=== PATIENT | female | born 1950 | race Caucasian/White ===

== ENCOUNTER → 2023-06-29 14:16 | Outpatient (BNVA) | payer MEDICARE, SELFPAY | PROVIDERS: PCP Family Medicine; Referring Provider Family Medicine; Visit Provider Podiatrist | DX: E11.8 Type 2 diabetes mellitus with unspecified complications (principal); E11.43 Type 2 diabetes mellitus with diabetic autonomic (poly)neuropathy; B35.1 Tinea unguium; G62.9 Polyneuropathy, unspecified; L60.3 Nail dystrophy; R23.4 Changes in skin texture; L65.9 Nonscarring hair loss, unspecified; I73.9 Peripheral vascular disease, unspecified | CPT/HCPCS: 11721; 99203 ==

== ENCOUNTER → 2023-11-17 08:28 | Outpatient (BNVA) | payer MEDICARE, SELFPAY | PROVIDERS: PCP Family Medicine; Referring Provider Family Medicine; Visit Provider Podiatrist | DX: E11.43 Type 2 diabetes mellitus with diabetic autonomic (poly)neuropathy (principal); B35.1 Tinea unguium; G62.9 Polyneuropathy, unspecified; L60.3 Nail dystrophy; L97.521 Non-pressure chronic ulcer of other part of left foot limited to breakdown of skin | CPT/HCPCS: 11721 ==

== ENCOUNTER → 2023-12-08 13:59 | Outpatient (BNVA) | payer MEDICARE, SELFPAY | PROVIDERS: PCP Family Medicine; Referring Provider Family Medicine; Visit Provider Podiatrist | DX: E11.43 Type 2 diabetes mellitus with diabetic autonomic (poly)neuropathy; B35.1 Tinea unguium; G62.9 Polyneuropathy, unspecified; L60.3 Nail dystrophy; L97.521 Non-pressure chronic ulcer of other part of left foot limited to breakdown of skin | CPT/HCPCS: 99214 ==

== ENCOUNTER → 2024-03-12 13:22 | Outpatient (BNVA) | payer MEDICARE, SELFPAY | PROVIDERS: PCP Family Medicine; Referring Provider Family Medicine; Visit Provider Podiatrist | DX: E11.43 Type 2 diabetes mellitus with diabetic autonomic (poly)neuropathy (principal); B35.1 Tinea unguium; G62.9 Polyneuropathy, unspecified; L60.3 Nail dystrophy; L97.521 Non-pressure chronic ulcer of other part of left foot limited to breakdown of skin | CPT/HCPCS: 11055; 11721 ==

== ENCOUNTER 2024-03-12 15:01 | Outpatient (CLI) | payer MEDICARE, SELFPAY ==
--- NOTE | 2024-03-12 15:15 | DI.RAD_ITS ---
Exam(s) XR FOOT LT COMPLETE EXAM: XR FOOT LT COMPLETE CLINICAL HISTORY: M79.672 Pain left foot, 1st MPJ pain redness swelling an warmth. TECHNIQUE: 2D digital imaging was performed. COMPARISON: No exams were available for comparison FINDINGS: 3 views There is an avulsion fracture fragment off the distal aspect of the head of the great toe metatarsal. Un conventional appearance. Also increased soft tissue swelling over this region and increased den sity in the head of the great toe metatarsal and proximal phalanx of the great toe. There is no radi opaque foreign body. No other significant findings in the foot. Inferior calcaneal spur is noted as is an enthesophyte on the posterior calcaneus and there is fusiform thickening of the Achilles tendo n consistent with chronic tendinitis/tendinosis. There is no calcification evident in the thickened Achilles tendon. IMPRESSION: Un conventional appearing displaced fracture fragment in the dorsal aspect of the head of the great t oe metatarsal. There is no overlying skin wound seen. No radiopaque foreign bodies. Correlation wi acute clinical history at this level is recommended. Cannot exclude developing osteomyelitis in t he appropriate clinical setting. Incidental finding of fusiform thickening of the Achilles tendon and enthesophyte on the posterior ca lcaneus insertion site of the Achilles tendon. DATA REPOSITORY: RADIATION DOSE DELIVERED:
--- OUTSIDE RECORDS SUMMARY | 2024-03-12 15:15 | XMS_ITS | Continuity of Care Document ---
Author Organization [facility] Address [address] [place] [address] Care Team Providers Care Sales Clerk Supervisor Name Role Phone Nerissa Victoria Primary Care Physician [phone] Encounter [facility] Date(s): 02/25/23 - 02/25/23 [facility] [address] [place] [address] Discharge Disposition: Home Allergies, Adverse Reactions, Alerts Substance Reaction Severity Status troglitazone Unknown Unknown Active Rezulin Unknown Active rosiglitazone Unknown Active penicillins Unknown Active sulfa drugs Unknown Active Avandia Unknown Active Assessment and Plan Future Appointments Future Scheduled Tests Radiology* MG Mammo Digital Screening Bilateral 09/27/23 * BD Bone Density DEXA Axial w/Frac Assess 02/24/23 Immunizations Given and Recorded Vaccine Date Status Refusal Reason pneumococcal 20-valent conjugate vaccine 02/15/23 Recorded SARS-CoV-2 (COVID-19) mRNA-1273 vaccine 05/25/21 R ecorded SARS-CoV-2 (COVID-19) mRNA-1273 vaccine 10/27/20 R ecorded SARS-CoV-2 (COVID-19) mRNA-1273 vaccine 09/30/20 R ecorded tetanus-diphth toxoids (Td) adult/adol 1 05/22/20 Recorded influenza virus vaccine, live 04/22/20 Recorded influenza virus vaccine, live 05/01/19 Recorded pneumococcal 23-polyvalent vaccine 2 12/01/18 Micah rded pneumococcal 13-valent conjugate vaccine 10/28/17 Recorded influenza virus vaccine, inactivated 08/14/17 Micha rded tetanus toxoid 08/01/10 Recorded 1Result Comment: verified with [facility] 2Result Comment: administered state supply instead of private supply Medications berberine berberine, See Instructions, 1 tab TID, 0 Refill(s) Start Date: 05/31/22 Status: Ordered Dexcom G4 Cobbler Mckay Dexcom 6, Supply, 1 EA, N/A, As Directed, PRN bleeding As needed, # 1 EA, 0 Refill(s) Start Date: 08/19/22 Status: Ordered HumaLOG 100 units/mL injectable solution See Instructions, INJECT SUBCUTANEOUSLY 3 TIMES DAILY WITH MEALS AND NEEDED WITH SNACKS. 1 UNIT PER 5 CARBS WITH MEALS/SNACKS; 100 unit maximum daily dose, # 15 mL, 6 Refill(s), Pharmacy: [facility] ([facility] ) Start Date: 01/11/23 Status: Ordered Insulin Syringe-Needle 31G 0.5 mL See Instructions, 1 syringe 3 times daily Start Date: 02/03/22 Status: Ordered Insulin syrings needles 31g 0.5ml Insulin syrings needles 31g 0.5ml, use 4 syringes daily, Supply, See instructions, # 200 EA, 1 Refill(s), Pharmacy: [facility] ([facility] ) Start Date: 11/23/22 Status: Ordered Levemir 100 units/mL subcutaneous solution 30 units =, Subcutaneous, every day at bedtime, # 15 mL, 1 Refill(s), Pharmacy: [facility] ) Start Date: 01/14/23 Status: Ordered levothyroxine 125 mcg (0.125 mg) oral tablet 125 mcg = 1 tab, Oral, Daily, # 90 tab, 4 Refill(s), Pharmacy: [facility] ([facility] ) Start Date: 01/14/23 Status: Ordered losartan 50 mg oral tablet 25 mg = 0.5 tab, Oral, Daily, for 90 days, # 45 tab, 3 Refill(s), Pharmacy: [facility] ([facility]) Start Date: 05/31/22 Stop Date: 05/26/23 Status: Ordered nystatin 100,000 units/g topical cream 1 baljeet, Topical, BID, PRN other (see comment), # 30 g, 11 Refill(s), Pharmacy: [facility] ([facility]) Start Date: 05/31/22 Stop Date: 05/26/23 Status: Ordered Onetouch ultra glucometer Onetouch ultra glucometer, pt tests 4 times daily E11.9, Supply, See instructions, # 1 EA, 0 Refill(s), Pharmacy: [id number] Start Date: 07/29/22 Status: Ordered OneTouch Ultra In Vitro Strip OneTouch Ultra In Vitro Strip, See Instructions, USE 1 STRIP 4 TIMES DAILY, # 400 strip, 3 Refill(s), Pharmacy: [facility] ([facility]) Start Date: 05/20/22 Status: Ordered Ozempic 2 mg/3 mL (0.25 mg or 0.5 mg dose) subcutaneous solution 0 Refill(s) Start Date: 11/04/22 Status: Ordered Problem List Condition Confirmation Course Effective Dates Status H ealth Status Informant Atypical chest pain Confirmed 09/12/18 Active Candidal intertrigo Confirmed 06/05/21 Active Cellulitis of foot Confirmed 03/28/18 Active Chronic constipation Confirmed 03/17/18 Active Decreased hearing Confirmed 05/17/19 Active 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 Fatigue Confirmed 11/27/21 Active Foot ulcer due to type 2 diabetes mellitus Confirmed 08/13/20 Active Ganglion cyst of left hand Confirmed 06/05/21 Active Hypertensive disorder Confirmed Active Hypothyroidism Confirmed Active Increased frequency of urination Confirmed Active Neuropathy Confirmed 02/22/22 Active Osteoarthritis Confirmed 01/18/20 Active Wrist pain Confirmed Active Pain of right shoulder joint Confirmed 06/05/21 Active Puncture wound of foot Confirmed 05/22/20 Active Solar degeneration Confirmed 07/02/20 Active Solar lentigo Confirmed 06/05/21 Active De Quervain's tenosynovitis, right Confirmed Active Type 2 diabetes mellitus without complication Confirmed Active Varicose veins of lower extremity Confirmed 01/21/22 Active Varicose vein of leg Confirmed Active Procedures Procedure Date Related Diagnosis Body Site Status Cataract surgery Complete d section 1 Comple chanell Retinal operation 2 Compl eted 1two of them 2laser eye surgery Social History Social History Type Response Tobacco Never tobacco user T obacco Use:. Sex Female Patient Care team information Care Team Personnel Name: Nerissa Victoria MD Position: Physician Member Role: Primary Care Physician Address: Address: [address] [place] [phone] [place] Care Team Related Persons Name: MARGUERITE STARR Address: Home Name: RICARDO BOWMAN Address: Home
--- OUTSIDE RECORDS SUMMARY | 2024-03-12 15:15 | XMS_ITS | Continuity of Care Document ---
Author Organization [facility] Address [address] [place] [address] Care Team Providers Care Ccu Nurse Name Role Phone Nerissa Nguyễn Primary Care Physician Encounter [facility] Date(s): 05/19/23 - 05/19/23 [facility] [address] [place] [address] Encounter Diagnosis DM2 (diabetes mellitus, type 2)(Discharge Diagnosis) - 05/19/23 Discharge Disposition: Home or Self Care Attending Physician: Nerissa Nguyễn MD Admitting Physician: Nerissa Nguyễn MD Referring Physician: Nerissa Nguyễn MD Allergies, Adverse Reactions, Alerts Substance Reaction Severity Status troglitazone Unknown Unknown Active Rezulin Unknown Active rosiglitazone Unknown Active penicillins Unknown Active sulfa drugs Unknown Active Avandia Unknown Active Assessment and Plan Future Appointments Future Scheduled Tests Radiology* MG Mammo Screening Bilateral w/ Altaf 02/28/23 Immunizations Given and Recorded Vaccine Date Status Refusal Reason influenza virus vaccine, inactivated 1 04/19/23 Re corded influenza virus vaccine, inactivated 08/14/17 Micah rded pneumococcal 20-valent conjugate vaccine 02/15/23 Recorded SARS-CoV-2 (COVID-19) mRNA-1273 vaccine 05/25/21 R ecorded SARS-CoV-2 (COVID-19) mRNA-1273 vaccine 10/27/20 R ecorded SARS-CoV-2 (COVID-19) mRNA-1273 vaccine 09/30/20 R ecorded tetanus-diphth toxoids (Td) adult/adol 2 05/22/20 Recorded influenza virus vaccine, live 04/22/20 Recorded influenza virus vaccine, live 05/01/19 Recorded pneumococcal 23-polyvalent vaccine 3 12/01/18 Micah rded pneumococcal 13-valent conjugate vaccine 10/28/17 Recorded tetanus toxoid 08/01/10 Recorded 1Result Comment: 65=0.7 ml @ [facility] 2Result Comment: verified with GJ 3Result Comment: administered state supply instead of private supply Medications alendronate 70 mg oral tablet 70 mg = 1 tab, Oral, every week, with 6-8 oz plain water, at least 30 minutes before first food, beverage, or medication of the day, # 12 tab, 3 Refill(s), Pharmacy: [facility] ([facility] Start Date: 04/21/23 Status: Ordered berberine berberine, See Instructions, 1 tab TID, 0 Refill(s) Start Date: 05/31/22 Status: Ordered Dexcom G4 [facility] Dexcom 6, Supply, 1 EA, N/A, As Directed, PRN bleeding As needed, # 1 EA, 0 Refill(s) Start Date: 08/19/22 Status: Ordered HumaLOG 100 units/mL injectable solution See Instructions, INJECT SUBCUTANEOUSLY 3 TIMES DAILY WITH MEALS AND NEEDED WITH SNACKS. 1 UNIT PER 5 CARBS WITH MEALS/SNACKS; 100 unit maximum daily dose. Dx: E 11.9, # 15 mL, 6 Refill(s), Pharmacy: [facility] ([facility]) Start Date: 04/12/23 Status: Ordered Insulin Syringe-Needle 31G 0.5 mL [...] units =, Subcutaneous, every day at bedtime, Dx: E 11.9, # 15 mL, 1 Refill(s), Pharmacy: [facility] ([facility]) Start Date: 04/12/23 Status: Ordered levothyroxine 125 mcg (0.125 mg) oral tablet 125 mcg = 1 tab, Oral, Daily, # 90 tab, 4 Refill(s), Pharmacy: [facility] ([facility] ) Start Date: 01/14/23 Status: Ordered losartan 50 mg oral tablet 25 mg = 0.5 tab, Oral, Daily, for 90 days, # 45 tab, 3 Refill(s), Pharmacy: [facility] ([facility]) Start Date: 03/29/23 Stop Date: 03/23/24 Status: Ordered nystatin 100,000 units/g topical cream 1 baljeet, Topical, BID, PRN other (see comment), # 30 g, 11 Refill(s), Pharmacy: [facility] ([facility]) Start Date: 05/31/22 Stop Date: 05/26/23 Status: Ordered Onetouch ultra glucometer Onetouch ultra glucometer, pt tests 4 times daily E11.9, Supply, See instructions, # 1 EA, 0 Refill(s), Pharmacy: [id number] Start Date: 07/29/22 Status: Ordered OneTouch Ultra In Vitro Strip OneTouch Ultra In Vitro Strip, See Instructions, USE 1 STRIP 4 TIMES DAILY, # 400 strip, 3 Refill(s), Pharmacy: [facility] ([facility]) Start Date: 05/20/22 Status: Ordered semaglutide 0.25 mg/0.5 mL (0.25 mg dose) subcutaneous solution 0.25 mg =, Subcutaneous, every week, in the abdomen, thigh, or upper arm, # 2 mL, 1 Refill(s), Pharmacy: [facility] Start Date: 05/19/23 Stop Date: 07/14/23 Status: Ordered sertraline 25 mg oral tablet 25 mg = 1 tab, Oral, Daily, # 30 tab, 0 Refill(s), Pharmacy: [facility] Start Date: 05/12/23 Status: Ordered Problem List Condition Confirmation Course Effective Dates Status H ealth Status Informant Atypical chest pain Confirmed 09/12/18 Active Candidal intertrigo Confirmed 06/05/21 Active Cellulitis of foot Confirmed 03/28/18 Active Chronic constipation Confirmed 03/17/18 Active Decreased hearing Confirmed 05/17/19 Active Depression Confirmed Active 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 Fatigue Confirmed 11/27/21 Active Foot ulcer due to type 2 diabetes mellitus Confirmed 08/13/20 Active Ganglion cyst of left hand Confirmed 06/05/21 Active Hypertensive disorder 1 Confirmed Active Hypothyroidism Confirmed Active Increased frequency of urination Confirmed Active Neck pain 2 Confirmed Active Neuropathy Confirmed 02/22/22 Active Osteoarthritis Confirmed 01/18/20 Active Osteoporosis Confirmed Active Wrist pain Confirmed Active Pain of right shoulder joint 3 Confirmed 06/05/21 Active Puncture wound of foot Confirmed 05/22/20 Active Solar degeneration Confirmed 07/02/20 Active Solar lentigo 4 Confirmed 06/05/21 Active De Quervain's tenosynovitis, right Confirmed Active DM2 (diabetes mellitus, type 2) Confirmed Active Type 2 diabetes mellitus without complication 5 Confirmed Active Varicose veins of lower extremity Confirmed 01/21/22 Active Varicose vein of leg Confirmed Active 1From 06-05-2021 visit: At goal on present medical regimen. Continue to monitor on present medical regimen with better exercise and weight control. 06/05/2021: Patient will have increased dose of losartan to 50 mg daily and follow blood pressures at home. She needs work on weight loss and better exercise pattern. 2From 03-16-2021 visit: Minimal cervical neck pain but kyphosis of the upper back and poor posture chronically. Image cervical spine, continue orthopedic follow-up and OT/PT with other modalities of treatment to increase mobility and strength of the affected joints. 3From 06-05-2021 visit: Status post injury with recurrent discomfort over shoulder girdle and right neck as well as other body aches not improving with exercise and physical therapy. Refer to pain management to review body pain which appears to be after fall with most of her injury over the right but also having left-sided symptoms which are diffuse and vague. 4From 06-05-2021 visit: Advancing skin disease over face especially with patient to have dermatology review. There are no suspicious lesions for cancer at this time. 5From 11-20-2021 visit: Stable and at goal with patient continuing modification of diet and exercise along with her medicaltherapy. No change in medical therapy. Procedures Procedure Date Related Diagnosis Body Site Status Cataract surgery Complete d section 1 Comple chanell Retinal operation 2 Compl eted 1two of them 2laser eye surgery Results Laboratory List Name Date Hemoglobin A1c 10/19/23 Most recent to oldest [Reference Range]: 1 Hemoglobin A1c [4.0-6.0 %] 8.6 % *HI* (05/19/23 2:24 PM) Social History Social History Type Response Tobacco Never tobacco user T obacco Use:. Sex Female Patient Care team information Care Team Personnel Name: Nerissa Nguyễn MD Position: Physician Member Role: Primary Care Physician Address: Address: [address] [place] [phone] [place] Care Team Related Persons Name: MARGUERITE STARR Name: RICARDO BOWMAN
--- OUTSIDE RECORDS SUMMARY | 2024-03-12 15:15 | XMS_ITS | Continuity of Care Document ---
Author Organization [facility] Address [address] [place] [address] Care Team Providers Care Sand Buffer Name Role Phone Reji Zarco Primary Care Physician [phone] Encounter [facility] [id number] Date(s): 01/13/24 - 01/13/24 [facility] [address] [place] [address] Encounter Diagnosis Urinary tract infection(Discharge Diagnosis) - 01/13/24 Dizziness(Discharge Diagnosis) - 01/13/24 Dehydration(Discharge Diagnosis) - 01/13/24 Discharge Disposition: Home or Self Care Attending Physician: Abebe Boles MD Admitting Physician: Abebe Boles MD Allergies, Adverse Reactions, Alerts Substance Reaction Severity Status troglitazone Unknown Unknown Active Rezulin Unknown Active rosiglitazone Unknown Active penicillins Unknown Active sulfa drugs Unknown Active Avandia Unknown Active Assessment and Plan Extracted from: Title:Clinical Document Author:Charley Leos te:01/13/24 Diagnosis: 1. Urinary tract infection Comment: Diagnosis: 2. Dizziness Comment: Diagnosis: 3. Dehydration Comment: Diagnosis: Dizziness Comment: Extracted from: Title:ED Provider Note Author:Abebe Boles MD Date:01/13/24 Assessment/Plan 1.??Urinary tract infection??N39.0 Ordered: Discharge Patient, 01/13/24 12:53:00 EDT, Home Independently, Constant Indicator ?? 2.??Dizziness??R42 Ordered: Discharge Patient, 01/13/24 12:53:00 EDT, Home Independently, Constant Indicator ?? 3.??Dehydration??E86.0 Ordered: Discharge Patient, 01/13/24 12:53:00 EDT, Home Independently, Constant Indicator ?? Orders: Cipro 250 mg oral tablet, 250 mg = 1 tab, Oral, every 12 hr, X 7 days, # 14 tab, 0 Refill(s), 01/20/24 12:53:00 EDT, Pharmacy: [facility] #[id number], 165.1, cm, 07/01/22 12:42:00 EST, Height, 86.9, kg, 11/14/23 11:13:00 EDT, Weight Dosing Urine Culture, Urine, Stat collect, ST - Stat, 01/13/24 11:15:02 EDT, Once, Nurse collect, Collected, 01/13/24 11:15:02 EDT, Print Label, [id number] Patient Discharge Condition improved Discharge Disposition home Patient Education Dehydration, Adult Dizziness, Czai-ab-Piqf Urinary Tract Infection, Adult, Yild-ju-Islr Follow Up With When Contact Information Reji Zarco MD Within 2 to 4 days [facility] [place] [id number]- ?? Additional Instructions: Future Appointments Future Scheduled Tests Laboratory* CBC w/ Diff 12/30/23 * CBC w/ Diff 07/28/23 * CBC w/ Diff 10/19/23 * Comprehensive Metabolic Panel 12/30/23 * Comprehensive Metabolic Panel 07/28/23 * Vitamin B12 Level 10/19/23 * C-Reactive Protein 12/30/23 * Ferritin 10/19/23 * Folate Level 10/19/23 * TSH w/ Rflx to Free T4 12/30/23 * Microalbumin/Creatinine Ratio Urine 10/19/23 * Sedimentation Rate (ESR) 12/30/23 * Iron Level and TIBC 10/19/23 * Vitamin D, 25-OH Total [facility] 10/19/23 * Hemoglobin A1c 12/30/23 * Hemoglobin A1c 07/28/23 * Rheumatoid Factor [facility] 12/30/23 Functional Status 01/13/24 Family Member Travel History No recent t ravel Recent Travel History No recent travel Other exposure to Infectious Disease Non e Immunizations Given and Recorded Vaccine Date Status Refusal Reason RSV vaccine preF3, recombinant 1 06/17/23 Recorded SARS-CoV-2 (COVID-19) Moderna (cvx 312) 2 06/17/23 Recorded influenza virus vaccine, inactivated 3 04/19/23 Re corded influenza virus vaccine, inactivated 08/14/17 Micah rded pneumococcal 20-valent conjugate vaccine 02/15/23 Recorded SARS-CoV-2 (COVID-19) mRNA-1273 vaccine 05/25/21 R ecorded SARS-CoV-2 (COVID-19) mRNA-1273 vaccine 10/27/20 R ecorded SARS-CoV-2 (COVID-19) mRNA-1273 vaccine 09/30/20 R ecorded tetanus-diphth toxoids (Td) adult/adol 4 05/22/20 Recorded influenza virus vaccine, live 04/22/20 Recorded influenza virus vaccine, live 05/01/19 Recorded pneumococcal 23-polyvalent vaccine 5 12/01/18 Micah rded pneumococcal 13-valent conjugate vaccine 10/28/17 Recorded tetanus toxoid 08/01/10 Recorded 1Result Comment: Rico Carrillo [facility] 3Result Comment: 65=0.7 ml @ [facility] 4Result Comment: verified with GJ 5Result Comment: administered state supply instead of private supply Medications Cipro 250 mg oral tablet 250 mg = 1 tab, Oral, every 12 hr, X 7 days, # 14 tab, 0 Refill(s), 01/20/24 11:53:00 AM CDT, Pharmacy: [facility] #[id number], 165.1, cm, 07/01/22 12:42:00 EST, Height, 86.9, kg, 11/14/23 11:13:00 EDT, Weight Dosing Start Date: 01/13/24 Stop Date: 01/20/24 Status: Ordered clopidogrel 75 mg oral tablet 75 mg = 1 tab, Oral, Daily, # 90 tab, 3 Refill(s), Pharmacy: [facility] #[id number], 165.1, cm, 07/01/22 12:42:00 EST, Height, 86.9, kg, 11/14/23 11:13:00 EDT, Weight Dosing Start Date: 12/20/23 Status: Ordered Dexcom 7 Dexcom 7, Dexcom sensor 1 every 10 days, Supply, See instructions, # 3 EA, 0 Refill(s), Pharmacy: [facility] #[id number] Start Date: 10/06/23 Status: Ordered Diagnosis: Diabetes. Diabetic foot wear with custom orthotics, 1 pair,, daily use Diagnosis: Diabetes. 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, Supply, See instructions, # 1 EA, 0 Refill(s) Start Date: 07/18/23 Status: Ordered DME DECOM 7., Supply, See instructions, # 1 EA, 0 Refill(s) Start Date: 07/28/23 Status: Ordered HumaLOG 100 units/mL injectable solution See Instructions, INJECT SUBCUTANEOUSLY 3 TIMES DAILY WITH MEALS AND NEEDED WITH SNACKS. 1 UNIT PER 5 CARBS WITH MEALS/SNACKS; 100 unit maximum daily dose. Dx: E 11.9, # 15 mL, 6 Refill(s), Pharmacy: [facility], 165.1, cm, 07/01/22 12:42:00 EST, Height, 82, kg, 08/18/23 19:35:00 EST, Weight Dosing Start Date: 11/03/23 Status: Ordered Insulin Syringe-Needle 31G 0.5 mL See Instructions, 1 syringe 3 times daily Start Date: 02/03/22 Status: Ordered ketoconazole 2% topical cream 1 baljeet, Topical, Daily, to affected area of toenail for 3 months, # 120 g, 0 Refill(s) Start Date: 09/30/23 Stop Date: 12/29/23 Status: Ordered Lantus 100 units/mL subcutaneous solution 46 units =, Subcutaneous, Daily, Please send 2 pens as [place]. If insurance willcover., # 50 mL, 6 Refill(s), Pharmacy: [facility], 165.1, cm, 07/01/22 12:42:00 EST, Height, 82, kg, 08/18/23 19:35:00 EST, Weight Dosing Start Date: 10/03/23 Stop Date: 04/30/24 Status: Ordered Levemir 100 units/mL subcutaneous solution 40 units =, Subcutaneous, every night at bedtime, Patient is requesting 2 pens beacause she [place]in two places. Please fill two pens if her insurance covers., # 30 mL, 5 Refill(s), [facility], 165.1, cm, 07/01/22 12:42:00 EST, Height, 88, kg, 07/18/23 14:10:00 EST, Weight Dosing Start Date: 08/05/23 Status: Ordered levothyroxine 125 mcg (0.125 mg) oral tablet 125 mcg = 1 tab, Oral, Daily, # 90 tab, 4 Refill(s), [id number], 165.1, cm, 07/01/22 12:42:00 EST, Height, 86.9, kg, 11/14/23 11:13:00 EDT, Weight Dosing Start Date: 01/05/24 Status: Ordered losartan 50 mg oral tablet 50 mg = 1 tab, Oral, Daily, # 90 tab, 3 Refill(s), [id number], 165.1, cm, 07/01/22 12:42:00 EST, Height, 86.9, kg, 11/14/23 11:13:00 EDT, Weight Dosing Start Date: 12/16/23 Status: Ordered One Touch Delica Plus Lancets One Touch Delica Plus Lancets, Patient to test twice daily. Dx: E 11.9, Supply, See instructions, #180 EA, 0 Refill(s), [id number] Start Date: 06/28/23 Status: Ordered Onetouch ultra glucometer Onetouch ultra glucometer, pt tests 4 times daily E11.9, Supply, See instructions, # 1 EA, 0 Refill(s), [id number] Start Date: 07/29/22 Status: Ordered OneTouch Ultra In Vitro Strip OneTouch Ultra In Vitro Strip, See Instructions, USE 1 STRIP 4 TIMES DAILY, # 400 strip, 3 Refill(s), [facility] Start Date: 05/20/22 Status: Ordered sertraline 50 mg oral tablet 50 mg = 1 tab, Oral, Daily, # 30 tab, 2 Refill(s), [id number], 165.1, cm, 07/01/22 12:42:00 EST, Height, 82, kg, 08/18/23 19:35:00 EST, Weight Dosing Start Date: 10/25/23 Stop Date: 01/23/24 Status: Ordered Zetia 10 mg oral tablet 10 mg = 1 tab, Oral, Daily, # 90 tab, 0 Refill(s), Pharmacy: [facility] #[id number], 165.1, cm, 07/01/22 12:42:00 EST, Height, 86.9, kg, 11/14/23 11:13:00 EDT, Weight Dosing Start Date: 11/15/23 Stop Date: 02/13/24 Status: Ordered Mental Status 01/13/24 Eye Opening Response Mobile Spontaneous ly Best Verbal Response Mobile Oriented Best Motor Response Mobile Obeys comman ds Cristiana Coma Score 15 Problem List Condition Confirmation Course Effective Dates Status H ealth Status Informant Atypical chest pain Confirmed 09/12/18 Active Candidal intertrigo Confirmed 06/05/21 Active Cellulitis of foot Confirmed 03/28/18 Active Cellulitis of foot, left Confirmed Active Chronic constipation Confirmed 03/17/18 Active Decreased hearing Confirmed 05/17/19 Active Depression Confirmed Active 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 Dizziness Confirmed Active Dizziness Confirmed Active Dizziness Confirmed Active Dizziness of unknown cause Confirmed Active Edema of left foot Confirmed Active Erythema Confirmed Active Fatigue Confirmed 11/27/21 Active Foot ulcer due to type 2 diabetes mellitus Confirmed 08/13/20 Active Ganglion cyst of left hand Confirmed 06/05/21 Active Hx of transient ischemic attack (TIA) Confirmed Active Hyperlipidemia Confirmed Active Hypertensive disorder 1 Confirmed Active Hypokalemia Confirmed Active Hypothyroidism Confirmed Active Increased frequency of urination Confirmed Active Joint pain Confirmed Active Memory changes Confirmed Active Mental health disorder Confirmed Active Polyarthralgia Confirmed Active Neck pain 2 Confirmed Active Neuropathy Confirmed 02/22/22 Active Osteoarthritis Confirmed 01/18/20 Active Osteoporosis Confirmed Active Wrist pain Confirmed Active Pain of right shoulder joint 3 Confirmed 06/05/21 Active Puncture wound of foot Confirmed 05/22/20 Active Falls frequently Confirmed Active Solar degeneration Confirmed 07/02/20 Active Solar lentigo 4 Confirmed 06/05/21 Active De Quervain's tenosynovitis, right Confirmed Active TIA (transient ischemic attack) Confirmed Active DM2 (diabetes mellitus, type 2) Confirmed Active Type 2 diabetes mellitus without complication 5 Confirmed Active Varicose veins of lower extremity Confirmed 01/21/22 Active Varicose vein of leg Confirmed Active Carotid artery calcification Confirmed Active Word finding difficulty Confirmed Active 1From 06-05-2021 visit: At goal [...] eye surgery Results Laboratory List Name Date Urinalysis with Micro if Indicated and C ulture if Indicated 01/13/24 Urinalysis Microscopic 01/13/24 Automated Diff 01/13/24 CBC w/ Diff 01/13/24 Comprehensive Metabolic Panel (CMP) 01/12 Lipase Level 01/13/24 Troponin-I 01/13/24 Glucose POCT 01/13/24 Most recent to oldest [Reference Range]: 1 WBC [5.0-10.0 x10^3/mcL] 6.4 x10^3/mcL (01/13/24 9:55 AM) RBC [4.1-5.3 x10^6/mcL] 4.8 x10^6/mcL (01/13/24 9:55 AM) Neutro Auto [40.0-75.0 %] 62.1 % (01/13/24 9:55 AM) Lymph Auto [20.0-50.0 %] 26.9 % (01/13/24 9:55 AM) [place] Auto [2.0-15.0 %] 7.0 % (01/13/24 9:55 AM) Basophil Auto [0.0-1.0 %] 0.6 % (01/13/24 9:55 AM) BUN [7-18 mg/dL] 16 mg/dL (01/13/24 9:55 AM) Glucose POC [74-106 mg/dL] 87 mg/dL (01/13/24 9:29 AM) UA Color Yellow (01/13/24:15 AM) UA WBC [0-3] 0-3 (01/13/24:15 AM) Glucose Level [74-106 mg/dL] 83 mg/dL (01/13/24 9:55 AM) Potassium Level [3.5-5.1 mmol/L] 3.8 mmo l/L (01/13/24:55 AM) MCV [80.0-96.0 fL] 90.5 fL (01/13/24 9:55 AM) UA Urobilinogen Normal (01/13/24:15 AM) UA Bili [Negative] Negative (01/13/24:15 AM) UA Ketones Negative (01/13/24:15 AM) AST [15-37 unit/L] 18 unit/L (01/13/24 9:55 AM) ALT [14-59 unit/L] 24 unit/L (01/13/24:55 AM) MCHC [31.0-35.0 g/dL] 33.9 g/dL (01/13/24 9:55 AM) Troponin-I [0.0-51.4 pg/mL] 6.6 pg/mL (01/13/24 9:55 AM) Sodium Level [136-145 mmol/L] 143 mmol/L (01/13/24 9:55 AM) UA RBC [0-2] 0-2 (01/13/24 11:15 AM) UA Leuk Est Trace *ABN* (01/13/24:15 AM) UA Nitrite Negative (01/13/24:15 AM) UA Glucose [Negative] Negative (01/13/24 11:15 AM) Hct [37.0-47.0 %] 43.1 % (01/13/24 9:55 AM) UA Bacteria Moderate /HPF *ABN* (01/13/24:15 AM) Lipase Level [16-77 unit/L] 32 unit/L 1 (01/13/24 9:55 AM) Calcium Level [8.5-10.1 mg/dL] 8.7 mg/dL (01/13/24 9:55 AM) Albumin Level [3.4-5.0 g/dL] 3.2 g/dL *LOW* (01/13/24 9:55 AM) Protein Total [6.4-8.2 g/dL] 7.1 g/dL (01/13/24 9:55 AM) UA Protein Negative (01/13/24 11:15 AM) MCH [26.0-32.0 pg] 30.7 pg (01/13/24 9:55 AM) Neutro Absolute 4.0 x10^3/mcL *NA* (01/13/24 9:55 AM) Bilirubin Total [0.2-1.0 mg/dL] 0.4 mg/d L (01/13/24 9:55 AM) Hgb [12.0-16.0 g/dL] 14.6 g/dL (01/13/24 9:55 AM) Alk Phos [46-146 unit/L] 77 unit/L (01/13/24 9:55 AM) UA Blood Negative (01/13/24 11:15 AM) UA Mucous None Seen /HPF (01/13/24 11:15 AM) UA Spec Grav 1.025 *NA* (01/13/24 11:15 AM) Platelets [130-450 x10^3/mcL] 282 x10^3/ mcL (01/13/24 9:55 AM) CO2 [21-32 mmol/L] 28 mmol/L (01/13/24 9:55 AM) UA Squam Epithelial [None Seen] Few *ABN* (01/13/24 11:15 AM) UA pH 5.5 *NA* (01/13/24 11:15 AM) eGFR Non-AA [>=60] 89 (01/13/24 9:55 AM) eGFR AA [>=60] 89 (01/13/24 9:55 AM) UA Appear Clear (01/13/24 11:15 AM) Chloride Level [98-107 mmol/L] 107 mmol/ L (01/13/24 9:55 AM) RDW-CV [11.5-14.5 %] 13.6 % (01/13/24 9:55 AM) Imm Gran Auto [0.0-0.9 %] 0.3 % (01/13/24 9:55 AM) UA Culture Ind?. Indicated (01/13/24 11:15 AM) Creatinine Level [0.55-1.02 mg/dL] 0.71 mg/dL (01/13/24 9:55 AM) Eos, Auto [1.0-6.0 %] 3.1 % (01/13/24 9:55 AM) 1Interpretive Data: Effective 05/20/22, [facility] has switched to a revised Lipase test.Note new ReferenceRange. Orders for Microbiology Reports Name Date Urine Culture 01/13/24 Microbiology Reports TEST:Urine Culture STATUS:Order in Progress BODY SITE: SOURCE:Urine COLLECTED DATE/TIME:01/13/24 11:15 AM PRELIMINARY REPORT 10,000 - 100,000 cfu/ml Mixed nicole (multiple species present) Vital Signs Most recent to oldest [Reference Range]: 1 2 3 Temperature Temporal Artery [36-38 Deg C] 36.0 Deg C (01/13/24 9:15 AM) Peripheral Pulse Rate [60-100 bpm] 75 bpm (01/13/24 12:58 PM) 66 bpm (01/13/24 12:30 PM) 65 bpm (01/13/24 12:00 PM) Heart Rate Monitored [60-100 bpm] 78 bpm (01/13/24 12:58 PM) 67 bpm (01/13/24 12:30 PM) 73 bpm (01/13/24 12:00 PM) Respiratory Rate [12-24 br/min] 18 br/min (01/13/24 12:58 PM) 16 br/min (01/13/24 12:30 PM) 27 br/min *HI* (01/13/24 12:00 PM) Blood Pressure [90-140/60-90 mmHg] 129/63mmHg (01/13/24 10:54 AM) 162/71mmHg *HI* (01/13/24 9:45 AM) 139/98mmHg (01/13/24 9:15 AM) Mean Arterial Pressure, Cuff [65-140 mmHg] 85 mmHg (01/13/24 10:54 AM) 101 mmHg (01/13/24 9:45 AM) 112 mmHg (01/13/24 9:15 AM) Weight Estimated 86 kg (01/13/24 9:15 AM) Body Mass Index Estimated 31.59 kg/m2 (01/13/24 9:15 AM) Height/Length Estimated 165 cm (01/13/24 9:15 AM) Social History Social History Type Response Tobacco Never tobacco user T obacco Use:. Sex Female Hospital Discharge Instructions Patient Education 01/13/2024 11:52:58 Dehydration, Adult Dehydration, Adult Dehydration is a condition in which there is not enough water or other fluids in the body. This happens when a person loses more fluids than they take in. Important organs, such as the kidneys, brain, and heart, cannot function without a proper amount of fluids. Any loss of fluids from the body canlead to dehydration. Dehydration can be mild, moderate, or severe. It should be treated right away to prevent it from becoming severe. What are the causes? Dehydration may be caused by: ??? Health conditions, such as diarrhea, vomiting, fever, infection, or sweating or urinating a lot. ??? Not drinking enough fluids. ??? Certain medicines, such as medicines that remove excess fluid from the body (diuretics). ??? Lack of safe drinking water. ??? Not being able to get enough water and food. What increases the risk? The following factors may make you more likely to develop this condition: ??? Having a long-term (chronic) illness that has not been treated properly, such as diabetes, heart disease, or kidney disease. ??? Being 65 years of age or older. ??? Having a disability. ??? Living in a place that is high in altitude, where thinner, cloth drier air causes more fluid loss. ??? Doing exercises that put stress on your body for a long time (endurance sports). ??? Being active in a hot climate. What are the signs or symptoms? Symptoms of dehydration depend on how severe it is. Mild or moderate dehydration ??? Thirst. ??? Dry lips or dry mouth. ??? Dizziness or light-headedness. ??? Muscle cramps. ??? Dark urine. Urine may be the color of tea. ??? Less urine or tears produced than usual. ??? Headache. Severe dehydration ??? Changes in skin. Your skin may be cold and clammy, blotchy, or pale. Your skin also may not return to normal after being lightly pinched and released. ??? Little or no tears, urine, or sweat. ??? Rapid breathing and low blood pressure. Your pulse may be weak or may be faster than 100 beats per minute when you are sitting still. ??? Other changes, such as: ??? Feeling very thirsty. ??? Sunken eyes. ??? Cold hands and feet. ??? Confusion. ??? Being very tired (lethargic) or having trouble waking from sleep. ??? Short-term weight loss. ??? Loss of consciousness. How is this diagnosed? This condition is diagnosed based on your symptoms and a physical exam. You may have blood and urine tests to help confirm the diagnosis. How is this treated? Treatment for this condition depends on how severe it is. Treatment should be started right away. Do not wait until dehydration becomes severe. Severe dehydration is an emergency and needs to be treated in a hospital. ??? Mild or moderate dehydration can be treated at home. You may be asked to: ??? Drink more fluids. ??? Drink an oral rehydration solution (ORS). This drink restores fluids, salts, and minerals in the blood (electrolytes). ??? Stop any activities that caused dehydration, such as exercise. ??? Cool off with cool compresses, cool mist, or cool fluids, if heat or too much sweat caused yourcondition. ??? Take medicine to treat fever, if fever caused your condition. ??? Take medicine to treat nausea and diarrhea, if vomiting or diarrhea caused your condition. ??? Severe dehydration can be treated: ??? With IV fluids. ??? By correcting abnormal levels of electrolytes in your body. ??? By treating the underlying cause of dehydration. Follow these instructions at home: Oral rehydration solution If told by your health care provider, drink an ORS: ??? Make an ORS by following instructions on the package. ??? Start by drinking small amounts, about ?? cup (120 mL) every 5???10 minutes. ??? Slowly increase how much you drink until you have taken the amount recommended by your health care provider. Eating and drinking ??? Drink enough clear fluid to keep your urine pale yellow. If you were told to drink an ORS, finish the ORS first and then start slowly drinking other clear fluids. Drink fluids such as: ??? Water. Do not drink only water. Doing that can lead to hyponatremia, which is having too littlesalt (sodium) in the body. ??? Water from ice chips you suck on. ??? Diluted fruit juice. This is fruit juice that you have added water to. ??? Low-calorie sports drinks. ??? Eat foods that contain a healthy balance of electrolytes, such as bananas, oranges, potatoes, tomatoes, and spinach. ??? Do not drink alcohol. ??? Avoid the following: ??? Drinks that contain a lot of sugar. These include high-calorie sports drinks, fruit juice that is not diluted, and soda. ??? Caffeine. ??? Foods that are greasy or contain a lot of fat or sugar. General instructions ??? Take bdeq-rkk-rhzhrae and prescription medicines only as told by your health care provider. ??? Do not take sodium tablets. Doing that can lead to having too much sodium in the body (hypernatremia). ??? Return to your normal activities as told by your health care provider. Ask your health care provider what activities are safe for you. ??? Keep all follow-up visits. Your health care provider may need to check your progress and suggest new ways to treat your condition. Contact a health care provider if: ??? You have muscle cramps, pain, or discomfort, such as: ??? Pain in your abdomen and the pain gets worse or stays in one area. ??? Stiff neck. ??? You have a rash. ??? You are more irritable than usual. ??? You are sleepier or have a harder time waking. ??? You feel weak or dizzy. ??? You feel very thirsty. Get help right away if: ??? You have symptoms of severe dehydration. ??? You vomit every time you eat or drink. ??? Your vomiting gets worse, does not go away, or includes blood or green matter (bile). ??? You are getting treatment but symptoms are getting worse. ??? You have a fever. ??? You have a severe headache. ??? You have: ??? Diarrhea that gets worse or does not go away. ??? Blood in your stool. This may cause stool to look black and tarry. ??? Not urinating, or urinating only a small amount of very dark urine, within 6???8 hours. ??? You have trouble breathing. These symptoms may be an emergency. Get help right away. ??? Do not wait to see if the symptoms will go away. ??? Do not drive yourself to the hospital. Call 911. This information is not intended to replace advice given to you by your health care provider. Make sure you discuss any questions you have with your health care provider. Document Revised: 02/14/2023 Document Reviewed: 02/14/2023 [employer] Patient Education ?? 2022 [employer]. 01/13/2024 11:52:54 Dizziness, Xjoa-je-Oofo Dizziness Dizziness is a common problem. It makes you feel unsteady or light-headed. You may feel like you are about to pass out (faint). Dizziness can lead to getting hurt if you stumble or fall. Dizziness can be caused by many things, including: ??? Medicines. ??? Not having enough water in your body (dehydration). ??? Illness. Follow these instructions at home: Eating and drinking ??? Drink enough fluid to keep your pee (urine) pale yellow. This helps to keep you from getting dehydrated. Try to drink more clear fluids, such as water. ??? Do not drink alcohol. ??? Limit how much caffeine you drink or eat, if your doctor tells you to do that. ??? Limit how much salt (sodium) you drink or eat, if your doctor tells you to do that. Activity ??? Avoid making quick movements. ??? Stand up slowly from sitting in a chair, and steady yourself until you feel okay. ??? In the morning, first sit up on the side of the bed. When you feel okay, stand up slowly while you hold onto something. Do this until you know that your balance is okay. ??? If you need to admin dir one place for a long time, move your legs often. Tighten and relax the muscles in your legs while you are standing. ??? Do not drive or use machinery if you feel dizzy. ??? Avoid bending down if you feel dizzy. Place items in your home so you can reach them easily without leaning over. Lifestyle ??? Do not smoke or use any products that contain nicotine or tobacco. If you need help quitting, ask your doctor. ??? Try to lower your stress level. You can do this by using methods such as yoga or meditation. Talk with your doctor if you need help. General instructions ??? Watch your dizziness for any changes. ??? Take gpby-yfc-gojkurc and prescription medicines only as told by your doctor. Talk with your doctor if you think that you are dizzy because of a medicine that you are taking. ??? Tell a friend or a family member that you are feeling dizzy. If he or she notices any changes in your behavior, have this person call your doctor. ??? Keep all follow-up visits. Contact a doctor if: ??? Your dizziness does not go away. ??? Your dizziness or light-headedness gets worse. ??? You feel like you may vomit (are nauseous). ??? You have trouble hearing. ??? You have new symptoms. ??? You are unsteady on your feet. ??? You feel like the room is spinning. ??? You have neck pain or a stiff neck. ??? You have a fever. Get help right away if: ??? You vomit or have watery poop (diarrhea), and you cannot eat or drink anything. ??? You have trouble: ??? Talking. ??? Walking. ??? Swallowing. ??? Using your arms, hands, or legs. ??? You feel generally weak. ??? You are not thinking clearly, or you have trouble forming sentences. A friend or family member may notice this. ??? You have: ??? Chest pain. ??? Pain in your belly (abdomen). ??? Shortness of breath. ??? Sweating. ??? Your vision changes. ??? You are bleeding. ??? You have a very bad headache. These symptoms may be an emergency. Get help right away. Call your local emergency services (911 int [place] ??? Do not wait to see if the symptoms will go away. ??? Do not drive yourself to the hospital. Summary ??? Dizziness makes you feel unsteady or light-headed. You may feel like you are about to pass out (faint). ??? Drink enough fluid to keep your pee (urine) pale yellow. Do not drink alcohol. ??? Avoid making quick movements if you feel dizzy. ??? Watch your dizziness for any changes. This information is not intended to replace advice given to you by your health care provider. Make sure you discuss any questions you have with your health care provider. Document Revised: 06/22/2021 Document Reviewed: 06/22/2021 [employer] Patient Education ?? 2022 [employer]. 01/13/2024 11:52:46 Urinary Tract Infection, Adult, Xzsk-kd-Zvih Urinary Tract Infection, Adult A urinary tract infection (UTI) is an infection of any part of the urinary tract. The urinary tractincludes: ??? The kidneys. ??? The ureters. ??? The bladder. ??? The urethra. These organs make, store, and get rid of pee (urine) in the body. What are the causes? This infection is caused by germs (bacteria) in your genital area. These germs grow and cause swelling (inflammation) of your urinary tract. What increases the risk? The following factors may make you more likely to develop this condition: ??? Using a small, thin tube (catheter) to drain pee. ??? Not being able to control when you pee or poop (incontinence). ??? Being female. If you are female, these things can increase the risk: ??? Using these methods to prevent : ??? A medicine that kills sperm (spermicide). ??? A device that blocks sperm (diaphragm). ??? Having low levels of a female hormone (estrogen). ??? Being . You are more likely to develop this condition if: ??? You have genes that add to your risk. ??? You are sexually active. ??? You take antibiotic medicines. ??? You have trouble peeing because of: ??? A prostate that is bigger than normal, if you are male. ??? A blockage in the part of your body that drains pee from the bladder. ??? A kidney stone. ??? A nerve condition that affects your bladder. ??? Not getting enough to drink. ??? Not peeing often enough. ??? You have other conditions, such as: ??? Diabetes. ??? A weak disease-fighting system (immune system). ??? Sickle cell disease. ??? Gout. ??? Injury of the spine. What are the signs or symptoms? Symptoms of this condition include: ??? Needing to pee right away. ??? Peeing small amounts often. ??? Pain or burning when peeing. ??? Blood in the pee. ??? Pee that smells bad or not like normal. ??? Trouble peeing. ??? Pee that is cloudy. ??? Fluid coming from the vagina, if you are female. ??? Pain in the belly or lower back. Other symptoms include: ??? Vomiting. ??? Not feeling hungry. ??? Feeling mixed up (confused). This may be the first symptom in older adults. ??? Being tired and grouchy (irritable). ??? A fever. ??? Watery poop (diarrhea). How is this treated? Taking antibiotic medicine. ??? Taking other medicines. ??? Drinking enough water. In some cases, you may need to see a specialist. Follow these instructions at home: Medicines ??? Take qpto-grq-sxbdqrw and prescription medicines only as told by your doctor. ??? If you were prescribed an antibiotic medicine, take it as told by your doctor. Do not stop taking it even if you start to feel better. General instructions ??? Make sure you: ??? Pee until your bladder is empty. ??? Do not hold pee for a long time. ??? Empty your bladder after sex. ??? Wipe from front to back after peeing or pooping if you are a female. Use each tissue one time when you wipe. ??? Drink enough fluid to keep your pee pale yellow. ??? Keep all follow-up visits. Contact a doctor if: ??? You do not get better after 1???2 days. ??? Your symptoms go away and then come back. Get help right away if: ??? You have very bad back pain. ??? You have very bad pain in your lower belly. ??? You have a fever. ??? You have chills. ??? You feeling like you will vomit or you vomit. Summary ??? A urinary tract infection (UTI) is an infection of any part of the urinary tract. ??? This condition is caused by germs in your genital area. ??? There are many risk factors for a UTI. ??? Treatment includes antibiotic medicines. ??? Drink enough fluid to keep your pee pale yellow. This information is not intended to replace advice given to you by your health care provider. Make sure you discuss any questions you have with your health care provider. Document Revised: 02/27/2021 Document Reviewed: 02/27/2021 [employer] Patient Education ?? 2022 [employer] Follow Up Care 01/13/2024 09:11:54 With:Reji Zarco MD Address: [facility] [address] When:2 to 4 days Physician Emergency department Note * Abbee Boles MD: MODIFY, MODIFY, PERFORM, MODIFY, MODIFY Event Display: ED Note Physician Authored Date: [id number] ANTHONY BOWMAN Denise :1950 Age:73 years Sex:Female Visit Date:01/13/2024 Primary Care Physician: Reji Zarco MD Basic Information Time Seen: Abebe Boles MD / 01/13/2024 09:33 Chief Complaint I feel nauseated and dizzy and off, my neck and my hands were all red this morning. PT denies CP ,no SOB . PT states it's not abnormal to feel weak in the morning. History Of Present Illness: Patient who is a diabetic??woke up this morning and before she ate she felt dizzy??and her hands??were red and felt flushed??denies any chest pain or shortness of breath.?? Still feels kind of foggy??fingerstick here was 87 she says that she has not eaten anything this morning. ??Denies any chest pain denies any shortness of breath denies any??spinning of??things around her. Review of Systems: Constitutional: No fevers, chills, sweats Eye: No recent visual problems ENT: No ear pain, nasal congestion, sore throat Respiratory: No shortness of breath, cough Cardiovascular: No Chest pain, palpitations, syncope Gastrointestinal: No nausea, vomiting, diarrhea Genitourinary: No hematuria Steven/Lymph: Negative for bruising tendency, swollen lymph glands Endocrine: Negative for excessive thirst, excessive hunger Musculoskeletal: No back pain, neck pain, joint pain, muscle pain, decreased range of motion Integumentary: No rash, pruritus, abrasions Neurologic: Alert & oriented X 4 Psychiatric: No anxiety, depression Physical Exam Vitals & Measurements T:??36.0?C ??(Temporal Artery)?? HR:??71??(Peripheral)?? RR:??18?? BP:??139/98?? SpO2:??97%?? HT:??165??cm?? WT:??86??kg??(Estimated)?? BMI:??31.59?? O2 Therapy:??Room air?? General: Alert and oriented, well nourished, no acute distress. Eye: PERRL, EOMI, normal conjunctiva. HEENT: Normocephalic, clear tympanic membranes, normal hearing, moist oral mucosa, no scleral icterus, no sinus tenderness, oropharynx normal Neck: Supple, non-tender, no carotid bruits, no JVD, no lymphadenopathy. Chest: no tenderness Lungs: Clear to auscultation and percussion, non-labored respiration. Heart: Normal rate, regular rhythm, no murmur, gallop or edema. Breast: No lumps, no bumps, no scars, normal nipples. Abdomen: Soft, non-tender, non-distended, normal bowel sounds, no masses. : non contributory Musculoskeletal: Normal range of motion and strength, no tenderness or swelling. Skin: Skin is warm, dry and appropriate for ethnicity, no rashes or lesions. Neurologic: Awake, alert and oriented X4, CN II-XII intact. normal DTR, no motor or sensory deficit, no ataxia Psychiatric: Cooperative, appropriate mood and affect. Medical Decision Making: MDM: Summary: Patient presents to the emergency department complaining of mild dizziness??and here her fingerstick sugar was??in the 80s. ??She states she has been trying to hydrate. ??CT scan was negative and labs are unremarkable except for??a blood sugar of 86 For diabetic??she states it is low.?? Urinalysis showed some pyuria??but she does reflect that she has been having urinary frequency as well wonder she is having an early UTI and this is because mild hypoglycemia causing the dizziness??CT scan of her head was negative EKG is normal ? Data Review Analysis All the data on this patient was reviewed by me including laboratory??and imaging studies??as well as bedside studies performed by me ?? Independent review of Studies Imaging As described above??negative CT scan Lab: Labs show a blood sugar of 82??and a??urinalysis shows some bacteria and pyuria ?? Risk Stratification: Patient will be treated empirically for UTI??and have advised her to continue hydration and not skip meals??urinary ? Differential Diagnosis: 1.?? Urinary tract infection 2.?? Hypoglycemia 3.?? Vertigo 4.?? CVA 5. ? Consultants: ? Shared disposition: Patient understands her disposition and will do accordingly ?? Impression:? Procedure No Qualifying Data Assessment/Plan 1.??Urinary tract infection??N39.0 Ordered: Discharge Patient, 01/13/24 12:53:00 EDT, Home Independently, Constant Indicator ?? 2.??Dizziness??R42 Ordered: Discharge Patient, 01/13/24 12:53:00 EDT, Home Independently, Constant Indicator ?? 3.??Dehydration??E86.0 Ordered: Discharge Patient, 01/13/24 12:53:00 EDT, Home Independently, Constant Indicator ?? Orders: Cipro 250 mg oral tablet, 250 mg = 1 tab, Oral, every 12 hr, X 7 days, # 14 tab, 0 Refill(s), 01/20/24 12:53:00 EDT, Pharmacy: [id number], 165.1, cm, 07/01/22 12:42:00 EST, Height, 86.9, kg, 11/14/23 11:13:00 EDT, Weight Dosing Urine Culture, Urine, Stat collect, ST - Stat, 01/13/24 11:15:02 EDT, Once, Nurse collect, Collected, 01/13/24 11:15:02 EDT, Print Label, [id number] Patient Discharge Condition improved Discharge Disposition home Patient Education Dehydration, Adult Dizziness, Bvkz-iy-Xrjr Urinary Tract Infection, Adult, Qctm-cf-Lfqn Follow Up With When Contact Information Reji Zarco MD Within 2 to 4 days [facility] [place] [phone]- Additional Instructions: Medication Reconciliation New Prescription ciprofloxacin (Cipro 250 mg oral tablet)1 tab Oral (given by mouth) every 12 hours for 7 Days. Refills: 0. ?? Unchanged clopidogrel (clopidogrel 75 mg oral tablet)1 tab Oral (given by mouth) every day. Refills: 3. ?? Durable Medical Equipment for Prescription (Dexcom 7)Dexcom sensor 1 every 10 days. Refills: 0. ?? Durable Medical Equipment for Prescription (Diagnosis: Diabetes. Diabetic foot wear with custom orthotics, 1 pair,, daily use)Bilateral feet with callus formation, hammertoes, decreased sensation andnail dystrophy with a degree of pes planus. Refills: 0. ?? Durable Medical Equipment for Prescription (DME)See instructions. DECOM 7.. ?? Durable Medical Equipment for Prescription (One Touch Delica Plus Lancets)Patient to test twice daily. Dx: E 11.9. Refills: 0. ?? Durable Medical Equipment for Prescription (Onetouch ultra glucometer)pt tests 4 times daily E11.9.Refills: 0. ?? ezetimibe (Zetia 10 mg oral tablet)1 tab Oral (given by mouth) every day for 90 Days. Refills: 0. ?? insulin detemir (Levemir 100 units/mL subcutaneous solution)40 Units Subcutaneous (under the skin) every night at bedtime. Patient is requesting 2 pens beacause she resides in two places. Please filltwo pens if her insurance covers.. Refills: 5. ?? insulin glargine (Lantus 100 units/mL subcutaneous solution)46 Units Subcutaneous (under the skin) every day. Please send 2 pens as patient lives in 2 places. If insurance will cover.. Refills: 6. ?? insulin lispro (HumaLOG 100 units/mL injectable solution)INJECT SUBCUTANEOUSLY 3 TIMES DAILY WITH MEALS AND NEEDED WITH SNACKS. 1 UNIT PER 5 CARBS WITH MEALS/SNACKS; 100 unit maximum daily dose. Dx: E 11.9. Refills: 6. ?? Insulin Syringe-Needle 31G 0.5 mL1 syringe 3 times daily. ?? ketoconazole topical (ketoconazole 2% topical cream)1 Application Topical (on the skin) every day for 90 Days. to affected area of toenail for 3 months. ?? levothyroxine (levothyroxine 125 mcg (0.125 mg) oral tablet)1 tab Oral (given by mouth) every day. Refills: 4. ?? losartan (losartan 50 mg oral tablet)1 tab Oral (given by mouth) every day. Refills: 3. ?? Other Prescription (OneTouch Ultra In Vitro Strip)USE 1 STRIP 4 TIMES DAILY. Refills: 3. ?? sertraline (sertraline 50 mg oral tablet)1 tab Oral (given by mouth) every day for 30 Days. Refills: 2. Problem List/Past Medical History Ongoing Atypical chest pain Candidal intertrigo Carotid artery calcification Cellulitis of foot Cellulitis of foot, left Chronic constipation De Quervain's tenosynovitis, right Decreased hearing Depression Disorder of nervous system due to type 2 diabetes mellitus Dizziness Dizziness Dizziness Dizziness of unknown cause DM2 (diabetes mellitus, type 2) Edema of left foot Erythema Falls frequently Fatigue Foot ulcer due to type 2 diabetes mellitus Ganglion cyst of left hand Hx of transient ischemic attack (TIA) Hyperlipidemia Hypertensive disorder Hypokalemia Hypothyroidism Increased frequency of urination Joint pain Memory changes Mental health disorder Neck pain Neuropathy Osteoarthritis Osteoporosis Pain of right shoulder joint Polyarthralgia Puncture wound of foot Solar degeneration Solar lentigo TIA (transient ischemic attack) Type 2 diabetes mellitus without complication Varicose vein of leg Varicose veins of lower extremity Word finding difficulty Wrist pain Historical No qualifying data Procedure/Surgical History ???Cataract surgery??? section???Retinal operation Allergies Avandia Rezulin penicillins rosiglitazone sulfa drugs troglitazone??(Unknown) Social History Alcohol Current, Wine, 1-2 times per year Electronic Cigarette/Vaping Electronic Cigarette Use: Never. 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 Home/Environment Lives with Daughter half time and pt's boyfriend the other half. Nutrition/Health Caffeine intake amount: one cup coffee in the AM. Psychosocial Substance Use Never Tobacco Never tobacco user Tobacco Use:. Family History AAA - Abdominal aortic aneurysm: Father and Sister. Alcohol abuse: Brother. Anxiety: Sister. Depression: Sister. Diabetes mellitus: Mother. Heart disease: Mother and Father. Diagnostic Results ECG HR 67 SINUS RHYTHM??no acute ST-T change Diagnostic Study Interpretation: ? * Final Report * ?? CT Brain/Head w/o Contrast PROCEDURE INFORMATION:?? Exam: CT Head Without Contrast?? Exam date and time: 01/13/2024 11:18 AM?? Age: 73 years old?? Clinical indication: Dizziness? TECHNIQUE:?? Imaging protocol: Computed tomography of the head without contrast.?? Radiation optimization: All CT scans at this facility use at least?? one of these dose optimization techniques: automated exposure?? control; mA and/or kV adjustment per patient size (includes targeted?? exams where dose is matched to clinical indication); or iterative?? reconstruction.? COMPARISON:?? MR BRAIN WO CONTRAST 10/04/2023 1:02 PM? FINDINGS:?? Brain: No acute intracranial hemorrhage or mass effect. ??There are no?? subdural collections. Cerebral ventricles: The ventricles are stable size and position?? compared to 10/04/2023 exam.?? Paranasal sinuses: Visualized portions of paranasal sinuses are well?? aerated.?? Mastoid air cells: Visualized portions of mastoid sinuses are not?? opacified.?? Bones: Unremarkable. No acute fracture.?? Soft tissues: Other than as stated above, no obvious acute?? abnormality.? IMPRESSION:?? No acute intracranial hemorrhage or mass effect.? Report signed by: Earnest Quezada On 01/13/2024 ??11:39:55 ? URL This document has an image ?? Result type:?CT Brain/Head w/o Contrast Result date:?January 13, 2024 11:18 EDT Result status:?Auth (Verified) Result title:?CT Brain/Head w/o Contrast Performed by:?DomainUser, Generated on January 13, 2024 11:18 EDT Verified by:?DomainUser, Generated on January 13, 2024 11:18 EDT Encounter info:?[id number], [facility], Emergency, 01/13/2024 -?? Contributor system:?[email or web address] ?? Lab Results CBC and Differential?? LATEST RESULTS?? HISTORICAL RESULTS?? WBC?? 01/13/24 09:55?? 6.4?? 11/18/23?? 7.9?? RBC?? 01/13/24 09:55?? 4.8?? 11/18/23?? 4.9?? Hgb?? 01/13/24 09:55?? 14.6?? 11/18/23?? 14.8?? Hct?? 01/13/24 09:55?? 43.1?? 11/18/23?? 44.1?? MCV?? 01/13/24 09:55?? 90.5?? 11/18/23?? 90.4?? MCH?? 01/13/24 09:55?? 30.7?? 11/18/23?? 30.3?? MCHC?? 01/13/24 09:55?? 33.9?? 11/18/23?? 33.6?? RDW-CV?? 01/13/24 09:55?? 13.6?? 11/18/23?? 13.4?? Platelets?? 01/13/24 09:55?? 282?? 11/18/23?? 244?? Neutro Auto?? 01/13/24 09:55?? 62.1?? 11/18/23?? 53.8?? Lymph Auto?? 01/13/24 09:55?? 26.9?? 11/18/23?? 35.9?? [place] Auto?? 01/13/24 09:55?? 7.0?? 11/18/23?? 7.2?? Eos, Auto?? 01/13/24 09:55?? 3.1?? 11/18/23?? 2.3?? Basophil Auto?? 01/13/24 09:55?? 0.6?? 11/18/23?? 0.5?? Imm Gran Auto?? 01/13/24 09:55?? 0.3?? 11/18/23?? 0.3?? Neutro Absolute?? 01/13/24 09:55?? 4.0?? 11/18/23?? 4.3? Routine Chemistry?? LATEST RESULTS?? HISTORICAL RESULTS?? Sodium Level?? 01/13/24 09:55?? 143?? 11/18/23?? 142?? Potassium Level?? 01/13/24 09:55?? 3.8?? 11/18/23?? 3.3 ??Low?? Chloride Level?? 01/13/24 09:55?? 107?? 11/18/23?? 102?? CO2?? 01/13/24 09:55?? 28?? 11/18/23?? 30?? Alk Phos?? 01/13/24 09:55?? 77?? 11/18/23?? 84?? AST?? 01/13/24 09:55?? 18?? 11/18/23?? 21?? ALT?? 01/13/24 09:55?? 24?? 11/18/23?? 29?? BUN?? 01/13/24 09:55?? 16?? 04/19/24?? 25 ??High?? Glucose Level?? 01/13/24 09:55?? 83?? 11/18/23?? 80?? Creatinine Level?? 01/13/24 09:55?? 0.71?? 11/18/23?? 0.73?? eGFR AA?? 01/13/24 09:55?? 89?? 11/18/23?? 86?? eGFR Non-AA?? 01/13/24 09:55?? 89?? 11/18/23?? 86?? Calcium Level?? 01/13/24 09:55?? 8.7?? 11/18/23?? 9.6?? Protein Total?? 01/13/24 09:55?? 7.1?? 11/18/23?? 7.6?? Albumin Level?? 01/13/24 09:55?? 3.2 ??Low?? 11/18/23?? 3.4?? Bilirubin Total?? 01/13/24 09:55?? 0.4?? 11/18/23?? 0.2?? Lipase Level?? 01/13/24 09:55?? 32? Glucose POC?? 01/13/24 09:29?? 87?? 11/18/23?? 108 ??High? Cardiac Isoenzymes?? LATEST RESULTS?? HISTORICAL RESULTS?? Troponin-I?? 01/13/24 09:55?? 6.6?? 09/30/23?? 5.2? UA Macroscopic?? LATEST RESULTS?? HISTORICAL RESULTS?? UA Color?? 01/13/24 11:15?? Yellow?? 09/30/23?? Yellow?? UA Appear?? 01/13/24 11:15?? Clear?? 09/30/23?? Clear?? UA Glucose?? 01/13/24 11:15?? Negative?? 09/30/23?? Negative?? UA Bili?? 01/13/24 11:15?? Negative?? 09/30/23?? Negative?? UA Ketones?? 01/13/24 11:15?? Negative?? 09/30/23?? Negative?? UA Spec Grav?? 01/13/24 11:15?? 1.025?? 09/30/23?? >=1.030?? UA Blood?? 01/13/24 11:15?? Negative?? 09/30/23?? Negative?? UA pH?? 01/13/24 11:15?? 5.5?? 09/30/23?? 5.5?? UA Protein?? 01/13/24 11:15?? Negative?? 09/30/23?? Negative?? UA Urobilinogen?? 01/13/24 11:15?? Normal?? 09/30/23?? Normal?? UA Nitrite?? 01/13/24 11:15?? Negative?? 09/30/23?? Negative?? UA Leuk Est?? 01/13/24 11:15?? Trace Abnormal?? 09/30/23?? Negative?? UA Culture Ind?.?? 01/13/24 11:15?? Indicated? UA Microscopic?? LATEST RESULTS?? UA WBC?? 01/13/24 11:15?? 0-3?? UA RBC?? 01/13/24 11:15?? 0-2?? UA Squam Epithelial?? 01/13/24 11:15?? Few Abnormal?? UA Mucous?? 01/13/24 11:15?? None Seen?? UA Bacteria?? 01/13/24 11:15?? Moderate Abnormal? Electronically Signed on 01/13/2024 12:55 EDT Abebe Boles MD Emergency department Discharge instructions * Abebe Boles MD: PERFORM, MODIFY Event Display: ED Discharge Information Authored Date: [id number] ANTHONY BOWMAN :1950 Age:73 years Sex:Female Visit Date:01/13/2024 Primary Care Physician: Reji Zarco MD Discharge Instructions We would like to thank you for allowing us to assist you with your healthcare needs. The following includes patient education materials and information regarding your injury/illness. Diagnosis from Today's Visit Urinary tract infection Dizziness Dehydration Discharge Vitals Temperature??(Temporal Artery) 96.8 ??F (36.0 ??C) Heart Rate??(Peripheral) 66 Heart Rate??(Monitored) 68 Respiratory Rate?? 18 Blood Pressure?? 129/63?? SpO2?? 98% Height?? 64.96 in (165 cm) Weight??(Estimated) 189.63 lb (86 kg) BMI?? 31.59 Allergies Avandia Rezulin penicillins rosiglitazone sulfa drugs troglitazone??(Unknown) What to Do Next You Need to Schedule the Following Appointments Follow Up with??Reji Zarco MD When:??Within 2 to 4 days Where: [facility] [address] [id number]- Upcoming Scheduled Appointments 2023 9:30 AM EDT ?? With: Pauly Ann Where: [address] [phone] Status: Confirmed Tuesday 3:15 PM EDT ?? With: Yvrose Marquez DNP Where: [address] [phone] Status: Confirmed You were treated today on an emergency basis; it may be ye to contact your primary care provider to notify them of your visit today. You may have been referred to your regular doctor or a specialist, please follow up as instructed. If your condition worsens or you can't get in to see the doctor, contact the Emergency Department. Medications What How Much When Why Instructions Next Dose New ciprofloxacin (Cipro 250 mg oral tablet) 1 tab Oral (given by mouth) Every 12 hours Duration: 7 Days Pickup at [id number] Unchanged clopidogrel (clopidogrel 75 mg oral tablet) 1 tab Oral (given by mouth) Every day Unchanged Durable Medical Equipment for Prescription (Dexcom 7) See instructions DM2 (diabetes mellitus, type 2) Dexcom sensor 1 every 10 days ?? Unchanged Durable Medical Equipment for Prescription (Diagnosis: Diabetes. Diabetic foot wear with custom orthotics, 1 pair,, daily use) See instructions DM2 (diabetes mellitus, type 2) Osteoporosis Polyarthralgia Neuropathy Bilateral feet with callus formation, hammertoes, decreased sensation and nail dystrophy with a degree of pes planus ?? Unchanged Durable Medical Equipment for Prescription (DME) See instructions DECOM 7. ?? Unchanged Durable Medical Equipment for Prescription (One Touch Delica Plus Lancets) See instructions Patient to test twice daily. Dx: E 11.9 ?? Unchanged Durable Medical Equipment for Prescription ([employer] ultra glucometer) See instructions Type 2 diabetes mellitus without complication pt tests 4 times daily E11.9 ?? Unchanged ezetimibe (Zetia 10 mg oral tablet) 1 tab Oral (given by mouth) Every day Hyperlipidemia Duration: 90 Days Unchanged insulin detemir (Levemir 100 units/ mL subcutaneous solution) 40 Units Subcutaneous (under the skin) Every night at bedtime Patient is requesting 2 pens beacause she resides in two places. ??Please fill two pens if her insurance covers. ?? Unchanged insulin glargine (Lantus 100 units/ mL subcutaneous solution) 46 Units Subcutaneous (under the skin) Every day Please send 2 pens as patient lives in 2 places. If insurance will cover. ?? Unchanged insulin lispro (HumaLOG 100 units/ mL injectable solution) See instructions Type 2 diabetes mellitus without complication INJECT SUBCUTANEOUSLY 3 TIMES DAILY WITH MEALS AND NEEDED WITH SNACKS. 1 UNIT PER 5 CARBS WITH MEALS/ SNACKS; 100 unit maximum daily dose. Dx: E 11.9 ?? Unchanged Insulin Syringe-Needle 31G 0.5 mL See instructions 1 syringe 3 times daily ?? Unchanged ketoconazole topical (ketoconazole 2% topical cream) 1 Application Topical (on the skin) Every day Duration: 90 Days to affected area of toenail for 3 months ?? Unchanged levothyroxine (levothyroxine 125 mcg (0.125 mg) oral tablet) 1 tab Oral (given by mouth) Every day Unchanged losartan (losartan 50 mg oral tablet) 1 tab Oral (given by mouth) Every day Hypertensive disorder Unchanged Other Prescription (SplitGigsTouch Ultra In Vitro Strip) See instructions USE 1 STRIP 4 TIMES DAILY ?? Unchanged sertraline (sertraline 50 mg oral tablet) 1 tab Oral (given by mouth) Every day Depression Post traumatic stress disorder (PTSD) Duration: 30 Days Pharmacy Information [facility] #[id number]: [address] [phone] Education Materials Dehydration, Adult Dehydration is a condition in which there is not enough water or other fluids in the body. This happens when a person loses more fluids than they take in. Important organs, such as the kidneys, brain, and heart, cannot function without a proper amount of fluids. Any loss of fluids from the body canlead to dehydration. Dehydration can be mild, moderate, or severe. It should be treated right away to prevent it from becoming severe. What are the causes? Dehydration may be caused by: ? Health conditions, such as diarrhea, vomiting, fever, infection, or sweating or urinating a lot. ? Not drinking enough fluids. ? Certain medicines, such as medicines that remove excess fluid from the body (diuretics). ? Lack of safe drinking water. ? Not being able to get enough water and food. What increases the risk? The following factors may make you more likely to develop this condition: ? Having a long-term (chronic) illness that has not been treated properly, such as diabetes, heart disease, or kidney disease. ? Being 65 years of age or older. ? Having a disability. ? Living in a place that is high in altitude, where thinner, cloth drier air causes more fluid loss. ? Doing exercises that put stress on your body for a long time (endurance sports). ? Being active in a hot climate. What are the signs or symptoms? Symptoms of dehydration depend on how severe it is. Mild or moderate dehydration ? Thirst. ? Dry lips or dry mouth. ? Dizziness or light-headedness. ? Muscle cramps. ? Dark urine. Urine may be the color of tea. ? Less urine or tears produced than usual. ? Headache. Severe dehydration ? Changes in skin. Your skin may be cold and clammy, blotchy, or pale. Your skin also may not return to normal after being lightly pinched and released. ? Little or no tears, urine, or sweat. ? Rapid breathing and low blood pressure. Your pulse may be weak or may be faster than 100 beats per minute when you are sitting still. ? Other changes, such as: ? Feeling very thirsty. ? Sunken eyes. ? Cold hands and feet. ? Confusion. ? Being very tired (lethargic) or having trouble waking from sleep. ? Short-term weight loss. ? Loss of consciousness. How is this diagnosed? This condition is diagnosed based on your symptoms and a physical exam. You may have blood and urine tests to help confirm the diagnosis. How is this treated? Treatment for this condition depends on how severe it is. Treatment should be started right away. Do not wait until dehydration becomes severe. Severe dehydration is an emergency and needs to be treated in a hospital. ? Mild or moderate dehydration can be treated at home. You may be asked to: ? Drink more fluids. ? Drink an oral rehydration solution (ORS). This drink restores fluids, salts, and minerals in the blood (electrolytes). ? Stop any activities that caused dehydration, such as exercise. ? Cool off with cool compresses, cool mist, or cool fluids, if heat or too much sweat caused your condition. ? Take medicine to treat fever, if fever caused your condition. ? Take medicine to treat nausea and diarrhea, if vomiting or diarrhea caused your condition. ? Severe dehydration can be treated: ? With IV fluids. ? By correcting abnormal levels of electrolytes in your body. ? By treating the underlying cause of dehydration. Follow these instructions at home: Oral rehydration solution If told by your health care provider, drink an ORS: ? Make an ORS by following instructions on the package. ? Start by drinking small amounts, about ?? cup (120 mL) every 5???10 minutes. ? Slowly increase how much you drink until you have taken the amount recommended by your health care provider. Eating and drinking ? Drink enough clear fluid to keep your urine pale yellow. If you were told to drink an ORS, finish the ORS first and then start slowly drinking other clear fluids. Drink fluids such as: ? Water. Do not drink only water. Doing that can lead to hyponatremia, which is having too little salt (sodium) in the body. ? Water from ice chips you suck on. ? Diluted fruit juice. This is fruit juice that you have added water to. ? Low-calorie sports drinks. ? Eat foods that contain a healthy balance of electrolytes, such as bananas, oranges, potatoes, tomatoes, and spinach. ? Do not drink alcohol. ? Avoid the following: ? Drinks that contain a lot of sugar. These include high-calorie sports drinks, fruit juice that is not diluted, and soda. ? Caffeine. ? Foods that are greasy or contain a lot of fat or sugar. General instructions ? Take rvza-lcq-znbodwl and prescription medicines only as told by your health care provider. ? Do not take sodium tablets. Doing that can lead to having too much sodium in the body (hypernatremia). ? Return to your normal activities as told by your health care provider. Ask your health care provider what activities are safe for you. ? Keep all follow-up visits. Your health care provider may need to check your progress and suggest new ways to treat your condition. Contact a health care provider if: ? You have muscle cramps, pain, or discomfort, such as: ? Pain in your abdomen and the pain gets worse or stays in one area. ? Stiff neck. ? You have a rash. ? You are more irritable than usual. ? You are sleepier or have a harder time waking. ? You feel weak or dizzy. ? You feel very thirsty. Get help right away if: ? You have symptoms of severe dehydration. ? You vomit every time you eat or drink. ? Your vomiting gets worse, does not go away, or includes blood or green matter (bile). ? You are getting treatment but symptoms are getting worse. ? You have a fever. ? You have a severe headache. ? You have: ? Diarrhea that gets worse or does not go away. ? Blood in your stool. This may cause stool to look black and tarry. ? Not urinating, or urinating only a small amount of very dark urine, within 6???8 hours. ? You have trouble breathing. These symptoms may be an emergency. Get help right away. ? Do not wait to see if the symptoms will go away. ? Do not drive yourself to the hospital. Call 911. This information is not intended to replace advice given to you by your health care provider. Make sure you discuss any questions you have with your health care provider. Document Revised: 02/14/2023 Document Reviewed: 02/14/2023 [employer] Patient Education ?? 2022 [employer] Dizziness Dizziness is a common problem. It makes you feel unsteady or light-headed. You may feel like you are about to pass out (faint). Dizziness can lead to getting hurt if you stumble or fall. Dizziness can be caused by many things, including: ? Medicines. ? Not having enough water in your body (dehydration). ? Illness. Follow these instructions at home: Eating and drinking ? Drink enough fluid to keep your pee (urine) pale yellow. This helps to keep you from getting dehydrated. Try to drink more clear fluids, such as water. ? Do not drink alcohol. ? Limit how much caffeine you drink or eat, if your doctor tells you to do that. ? Limit how much salt (sodium) you drink or eat, if your doctor tells you to do that. Activity ? Avoid making quick movements. ? Stand up slowly from sitting in a chair, and steady yourself until you feel okay. ? In the morning, first sit up on the side of the bed. When you feel okay, stand up slowly while you hold onto something. Do this until you know that your balance is okay. ? If you need to admin dir one place for a long time, move your legs often. Tighten and relax the muscles in your legs while you are standing. ? Do not drive or use machinery if you feel dizzy. ? Avoid bending down if you feel dizzy. Place items in your home so you can reach them easily withoutleaning over. Lifestyle ? Do not smoke or use any products that contain nicotine or tobacco. If you need help quitting, ask your doctor. ? Try to lower your stress level. You can do this by using methods such as yoga or meditation. Talk with your doctor if you need help. General instructions ? Watch your dizziness for any changes. ? Take bpbg-pxw-qduxabn and prescription medicines only as told by your doctor. Talk with your doctorif you think that you are dizzy because of a medicine that you are taking. ? Tell a friend or a family member that you are feeling dizzy. If he or she notices any changes in your behavior, have this person call your doctor. ? Keep all follow-up visits. Contact a doctor if: ? Your dizziness does not go away. ? Your dizziness or light-headedness gets worse. ? You feel like you may vomit (are nauseous). ? You have trouble hearing. ? You have new symptoms. ? You are unsteady on your feet. ? You feel like the room is spinning. ? You have neck pain or a stiff neck. ? You have a fever. Get help right away if: ? You vomit or have watery poop (diarrhea), and you cannot eat or drink anything. ? You have trouble: ? Talking. ? Walking. ? Swallowing. ? Using your arms, hands, or legs. ? You feel generally weak. ? You are not thinking clearly, or you have trouble forming sentences. A friend or family member may notice this. ? You have: ? Chest pain. ? Pain in your belly (abdomen). ? Shortness of breath. ? Sweating. ? Your vision changes. ? You are bleeding. ? You have a very bad headache. These symptoms may be an emergency. Get help right away. Call your local emergency services (911 int [place] ? Do not wait to see if the symptoms will go away. ? Do not drive yourself to the hospital. Summary ? Dizziness makes you feel unsteady or light-headed. You may feel like you are about to pass out (faint). ? Drink enough fluid to keep your pee (urine) pale yellow. Do not drink alcohol. ? Avoid making quick movements if you feel dizzy. ? Watch your dizziness for any changes. This information is not intended to replace advice given to you by your health care provider. Make sure you discuss any questions you have with your health care provider. Document Revised: 06/22/2021 Document Reviewed: 06/22/2021 [employer] Patient Education ?? 2022 [employer] Urinary Tract Infection, Adult A urinary tract infection (UTI) is an infection of any part of the urinary tract. The urinary tractincludes: ? The kidneys. ? The ureters. ? The bladder. ? The urethra. These organs make, store, and get rid of pee (urine) in the body. What are the causes? This infection is caused by germs (bacteria) in your genital area. These germs grow and cause swelling (inflammation) of your urinary tract. What increases the risk? The following factors may make you more likely to develop this condition: ? Using a small, thin tube (catheter) to drain pee. ? Not being able to control when you pee or poop (incontinence). ? Being female. If you are female, these things can increase the risk: ? Using these methods to prevent : ? A medicine that kills sperm (spermicide). ? A device that blocks sperm (diaphragm). ? Having low levels of a female hormone (estrogen). ? Being . You are more likely to develop this condition if: ? You have genes that add to your risk. ? You are sexually active. ? You take antibiotic medicines. ? You have trouble peeing because of: ? A prostate that is bigger than normal, if you are male. ? A blockage in the part of your body that drains pee from the bladder. ? A kidney stone. ? A nerve condition that affects your bladder. ? Not getting enough to drink. ? Not peeing often enough. ? You have other conditions, such as: ? Diabetes. ? A weak disease-fighting system (immune system). ? Sickle cell disease. ? Gout. ? Injury of the spine. What are the signs or symptoms? Symptoms of this condition include: ? Needing to pee right away. ? Peeing small amounts often. ? Pain or burning when peeing. ? Blood in the pee. ? Pee that smells bad or not like normal. ? Trouble peeing. ? Pee that is cloudy. ? Fluid coming from the vagina, if you are female. ? Pain in the belly or lower back. Other symptoms include: ? Vomiting. ? Not feeling hungry. ? Feeling mixed up (confused). This may be the first symptom in older adults. ? Being tired and grouchy (irritable). ? A fever. ? Watery poop (diarrhea). How is this treated? Taking antibiotic medicine. ? Taking other medicines. ? Drinking enough water. In some cases, you may need to see a specialist. Follow these instructions at home: Medicines ? Take cpag-zqz-udxavxc and prescription medicines only as told by your doctor. ? If you were prescribed an antibiotic medicine, take it as told by your doctor. Do not stop taking it even if you start to feel better. General instructions ? Make sure you: ? Pee until your bladder is empty. ? Do not hold pee for a long time. ? Empty your bladder after sex. ? Wipe from front to back after peeing or pooping if you are a female. Use each tissue one time when you wipe. ? Drink enough fluid to keep your pee pale yellow. ? Keep all follow-up visits. Contact a doctor if: ? You do not get better after 1???2 days. ? Your symptoms go away and then come back. Get help right away if: ? You have very bad back pain. ? You have very bad pain in your lower belly. ? You have a fever. ? You have chills. ? You feeling like you will vomit or you vomit. Summary ? A urinary tract infection (UTI) is an infection of any part of the urinary tract. ? This condition is caused by germs in your genital area. ? There are many risk factors for a UTI. ? Treatment includes antibiotic medicines. ? Drink enough fluid to keep your pee pale yellow. This information is not intended to replace advice given to you by your health care provider. Make sure you discuss any questions you have with your health care provider. Document Revised: 02/27/2021 Document Reviewed: 02/27/2021 [employer] Patient Education ?? 2022 [employer] Tests Performed Medications and Immunizations Administered Given NS bolus, 1000 mL, Hydration Bolus Lab Test Name Test Result Date/Time WBC 6.4 x10^3/mcL 01/13/2024 09:55 EDT RBC 4.8 x10^6/mcL 01/13/2024 09:55 EDT Hgb 14.6 g/dL 01/13/2024 09:55 EDT Hct 43.1 % 01/13/2024 09:55 EDT MCV 90.5 fL 01/13/2024 09:55 EDT MCH 30.7 pg 01/13/2024 09:55 EDT MCHC 33.9 g/dL 01/13/2024 09:55 EDT RDW-CV 13.6 % 01/13/2024 09:55 EDT Platelets 282 x10^3/mcL 01/13/2024 09:55 EDT Neutro Auto 62.1 % 01/13/2024 09:55 EDT Lymph Auto 26.9 % 01/13/2024 09:55 EDT [place] Auto 7.0 % 01/13/2024 09:55 EDT Eos, Auto 3.1 % 01/13/2024 09:55 EDT Basophil Auto 0.6 % 01/13/2024 09:55 EDT Imm Gran Auto 0.3 % 01/13/2024 09:55 EDT Neutro Absolute 4.0 x10^3/mcL 01/13/2024 09:55 EDT Sodium Level 143 mmol/L 01/13/2024 09:55 EDT Potassium Level 3.8 mmol/L 01/13/2024 09:55 EDT Chloride Level 107 mmol/L 01/13/2024 09:55 EDT CO2 28 mmol/L 01/13/2024 09:55 EDT Alk Phos 77 unit/L 01/13/2024 09:55 EDT AST 18 unit/L 01/13/2024 09:55 EDT ALT 24 unit/L 01/13/2024 09:55 EDT BUN 16 mg/dL 01/13/2024 09:55 EDT Glucose Level 83 mg/dL 01/13/2024 09:55 EDT Creatinine Level 0.71 mg/dL 01/13/2024 09:55 EDT eGFR AA 89 01/13/2024 09:55 EDT eGFR Non-AA 89 01/13/2024 09:55 EDT Calcium Level 8.7 mg/dL 01/13/2024 09:55 EDT Protein Total 7.1 g/dL 01/13/2024 09:55 EDT Albumin Level 3.2 g/dL 01/13/2024 09:55 EDT Bilirubin Total 0.4 mg/dL 01/13/2024 09:55 EDT Lipase Level 32 unit/L 01/13/2024 09:55 EDT Glucose POC 87 mg/dL 01/13/2024 09:29 EDT Troponin-I 6.6 pg/mL 01/13/2024 09:55 EDT UA Color YELLOW. 01/13/2024 11:15 EDT UA Appear CLEAR. 01/13/2024 11:15 EDT UA Glucose NEGATIVE 01/13/2024 11:15 EDT UA Bili NEGATIVE 01/13/2024 11:15 EDT UA Ketones NEGATIVE 01/13/2024 11:15 EDT UA Spec Grav 1.025 01/13/2024 11:15 EDT UA Blood NEGATIVE 01/13/2024 11:15 EDT UA pH 5.5 01/13/2024 11:15 EDT UA Protein NEGATIVE 01/13/2024 11:15 EDT UA Urobilinogen 0.2 Uro 01/13/2024 11:15 EDT UA Nitrite NEGATIVE 01/13/2024 11:15 EDT UA Leuk Est TRACE. 01/13/2024 11:15 EDT UA Culture Ind?. Indicated 01/13/2024 11:15 EDT UA WBC 0-3 01/13/2024 11:15 EDT UA RBC 0-2 01/13/2024 11:15 EDT UA Squam Epithelial Few 01/13/2024 11:15 EDT UA Mucous None Seen 01/13/2024 11:15 EDT UA Bacteria Moderate 01/13/2024 11:15 EDT Patient/Police Detective Signature Patient Name:ANTHONY BOWMAN I have received this information and my questions have been answered. Patient/Police Detective Name: Patient/Police Detective Signature: Relationship to Patient: Witness Name/Signature: Date: Electronically Signed on: 01/13/2024 12:55 EDTSigned by:SHAQUILLE Discharge summary * Charley Leos: PERFORM Event Display: Discharge Note Authored Date: [id number] Diagnosis: 1. Urinary tract infection Comment: Diagnosis: 2. Dizziness Comment: Diagnosis: 3. Dehydration Comment: Diagnosis: Dizziness Comment: Electronically Signed on 01/13/2024 13:00 EDT Charley Leos Patient Care team information Care Team Personnel Name: Reji Zarco MD Position: No Access Member Role: Primary Care Physician Address: Address: [facility] [address] [place] [address]- [place] Name: Manjit Joel CLINICAL LABORATORY MANAGER Position: No Access Member Role: Informed Provider Address: Address: [address] [place] [id number] Name: Pauly Ann Position: Ambulatory - RN/DIRECTOR OF PHYSICIAN PRACTICES ([facility]) Member Role: Group Sales Coordinator Care Team Related Persons Name: MARGUERITE STARR Name: REJI BOWMAN Address: Home [address] [phone]
--- OUTSIDE RECORDS SUMMARY | 2024-03-12 15:15 | XMS_ITS | Continuity of Care Document ---
Author Organization [facility] Address [address] [place] [address] Care Team Providers Care Utilization Manager Name Role Phone Manjit Joel Primary Care Physician Encounter [facility] Date(s): 07/27/23 - 07/27/23 [facility] [address] [place] [address] Discharge Disposition: Home or Self Care Attending Physician: Manjit Joel NP Admitting Physician: Manjit Joel NP Referring Physician: Manjit Joel [employer] Allergies, Adverse Reactions, Alerts Substance Reaction Severity Status troglitazone Unknown Unknown Active Rezulin Unknown Active Avandia Unknown Active sulfa drugs Unknown Active rosiglitazone Unknown Active penicillins Unknown Active Assessment and Plan Future Appointments [...] R ecorded tetanus-diphth toxoids (Td) adult/adol 4 10/22/20 Recorded influenza virus vaccine, live 04/22/20 Recorded influenza virus vaccine, live 05/01/19 Recorded pneumococcal 23-polyvalent vaccine 5 12/01/18 Micah rded pneumococcal 13-valent conjugate vaccine 10/28/17 Recorded tetanus toxoid 08/01/10 Recorded 1Result Comment: [facility] [place] 2Result Comment: [facility] 3Result Comment: 65=0.7 ml @ [facility] 4Result Comment: verified with [facility] 5Result Comment: administered state supply instead of private supply Medications berberine berberine, See Instructions, 1 tab TID, 0 Refill(s) Start Date: 05/31/22 Status: Ordered Diagnosis: Diabetes. Diabetic foot wear with custom orthotics, 1 pair,, daily use Diagnosis: Diabetes. 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, Supply, See instructions, # 1 EA, 0 Refill(s) Start Date: 07/18/23 Status: Ordered HumaLOG 100 units/mL injectable solution [...] Status: Ordered Levemir 100 units/mL subcutaneous solution 37 units =, Subcutaneous, every day at bedtime, Dx: E 11.9, # 15 mL, 1 Refill(s), Pharmacy: [facility] #[id number], 165.1, cm, 07/01/22 12:42:00 EST, Height, 85.28, kg, 06/20/23 12:57:00 EST, Weight Dosing Start Date: 06/28/23 Status: Ordered levothyroxine 125 mcg (0.125 mg) oral tablet 125 mcg = 1 tab, Oral, Daily, # 90 tab, 4 Refill(s), Pharmacy: [facility] ([facility] ) Start Date: 01/14/23 Status: Ordered losartan 50 mg oral tablet 25 mg = 0.5 tab, Oral, Daily, for 90 days, # 45 tab, 3 Refill(s), Pharmacy: [facility] ([facility]) Start Date: 03/29/23 Stop Date: 03/23/24 Status: Ordered nystatin 100,000 units/g topical cream 1 baljeet, Topical, BID, PRN other (see comment), # 30 g, 11 Refill(s), Pharmacy: [facility] ([facility]) Start Date: 05/31/22 Stop Date: 05/26/23 Status: Ordered One Touch Delica Plus Lancets One Touch Delica Plus Lancets, Patient to test twice daily. Dx: E 11.9, Supply, See instructions, #180 EA, 0 Refill(s), Pharmacy: [facility] #[id number] Start Date: 06/28/23 Status: Ordered Onetouch ultra glucometer Onetouch ultra glucometer, pt tests 4 times daily E11.9, Supply, See instructions, # 1 EA, 0 Refill(s), Pharmacy: [facility] #[id number] Start Date: 07/29/22 Status: Ordered OneTouch Ultra In Vitro Strip OneTouch Ultra In Vitro Strip, See Instructions, USE 1 STRIP 4 TIMES DAILY, # 400 strip, 3 Refill(s), Pharmacy: [facility] ([facility]) Start Date: 05/20/22 Status: Ordered sertraline 25 mg oral tablet [...] Active Increased frequency of urination Confirmed Active Polyarthralgia Confirmed Active Neck pain [...] eye surgery Results Laboratory List Name Date Automated Diff 07/27/23 CBC w/ Diff 07/27/23 Comprehensive Metabolic Panel (CMP) 07/02 02/20 Hemoglobin A1c 07/27/23 Lipid Panel 07/27/23 Microalbumin/Creatinine Ratio Urine 07/02 02/20 TSH w/ Rflx to Free T4 07/27/23 Most recent to oldest [Reference Range]: 1 WBC [5.0-10.0 x10^3/mcL] 7.0 x10^3/mcL (07/27/23 10:51 AM) RBC [4.1-5.3 x10^6/mcL] 4.8 x10^6/mcL (07/27/23 10:51 AM) Neutro Auto [40.0-75.0 %] 48.2 % (07/27/23 10:51 AM) Lymph Auto [20.0-50.0 %] 41.3 % (07/27/23 10:51 AM) Anderson Auto [2.0-15.0 %] 7.6 % (07/27/23 10:51 AM) Basophil Auto [0.0-1.0 %] 0.7 % (07/27/23 10:51 AM) BUN [7-18 mg/dL] 20 mg/dL *HI* (07/27/23 10:51 AM) Cholesterol Total [50-200 mg/dL] 258 mg/ dL *HI* (07/27/23 10:51 AM) LDL [0-130 mg/dL] 173 mg/dL *HI* (07/27/23 10:51 AM) Glucose Level [74-106 mg/dL] 159 mg/dL *HI* (07/27/23 10:51 AM) Potassium Level [3.5-5.1 mmol/L] 3.7 mmo l/L (07/27/23 10:51 AM) MCV [80.0-96.0 fL] 90.6 fL (07/27/23 10:51 AM) HDL [40-60 mg/dL] 61 mg/dL *HI* (07/27/23 10:51 AM) AST [15-37 unit/L] 16 unit/L (07/27/23 10:51 AM) ALT [14-59 unit/L] 25 unit/L (07/27/23 10:51 AM) MCHC [31.0-35.0 g/dL] 34.3 g/dL (07/27/23 10:51 AM) Sodium Level [136-145 mmol/L] 138 mmol/L (07/27/23 10:51 AM) Hct [37.0-47.0 %] 43.5 % (07/27/23 10:51 AM) Triglycerides [0-150 mg/dL] 119 mg/dL (07/27/23 10:51 AM) Calcium Level [8.5-10.1 mg/dL] 9.6 mg/dL (07/27/23 10:51 AM) Albumin Level [3.4-5.0 g/dL] 3.3 g/dL *LOW* (07/27/23 10:51 AM) Protein Total [6.4-8.2 g/dL] 7.5 g/dL (07/27/23 10:51 AM) MCH [26.0-32.0 pg] 31.0 pg (07/27/23 10:51 AM) Neutro Absolute 3.4 x10^3/mcL *NA* (07/27/23 10:51 AM) Bilirubin Total [0.2-1.0 mg/dL] 0.6 mg/d L (07/27/23 10:51 AM) Hgb [12.0-16.0 g/dL] 14.9 g/dL (07/27/23 10:51 AM) Alk Phos [46-146 unit/L] 86 unit/L (07/27/23 10:51 AM) Platelets [130-450 x10^3/mcL] 274 x10^3/ mcL (07/27/23 10:51 AM) CO2 [21-32 mmol/L] 31 mmol/L (07/27/23 10:51 AM) TSH [0.358-3.740 mcIntlUnit/mL] 3.026 mc IntlUnit/mL (07/27/23 10:51 AM) eGFR Non-AA [>=60] 86 (07/27/23 10:51 AM) eGFR AA [>=60] 86 (07/27/23 10:51 AM) U Creatinine 132 mg/dL *NA* (07/27/23 10:51 AM) Hemoglobin A1c [4.0-6.0 %] 9.4 % *HI* (07/27/23 10:51 AM) Chloride Level [98-107 mmol/L] 101 mmol/ L (07/27/23 10:51 AM) RDW-CV [11.5-14.5 %] 12.9 % (07/27/23 10:51 AM) U Microalb/Creat [0.0-30.0 mcg/mg] 5.6 m cg/mg (07/27/23 10:51 AM) U Microalb [0.0-20.0] 7.4 (07/27/23 10:51 AM) Imm Gran Auto [0.0-0.9 %] 0.3 % (07/27/23 10:51 AM) Creatinine Level [0.55-1.02 mg/dL] 0.73 mg/dL (07/27/23 10:51 AM) Eos, Auto [1.0-6.0 %] 1.9 % (07/27/23 10:51 AM) Social History Social History Type Response Tobacco Never tobacco user T obacco Use:. Sex Female Patient Care team information Care Team Personnel Name: Manjit Joel FIRE BOSS Position: Physician Member Role: Informed Provider Address: Address: [address] [place] [phone] Name: Pauly Ann Position: Ambulatory - RN/LA[employer] PROFESSIONAL ([facility]) Member Role: Touring Production Manager Care Team Related Persons Name: MARGUERITE STARR Name: RICARDO BOWMAN Name: REJI BOWMAN Address: Alternate [address] [place] [phone] Address: Home [address] [phone] Address: Mailing [address] [phone] Name: REJI BOWMAN Address: Altern[address] [place], [place] [phone] Address: Home [address] [phone] Address: [address]ailing [address] [phone]
--- OUTSIDE RECORDS SUMMARY | 2024-03-12 15:15 | XMS_ITS | Continuity of Care Document ---
Author Organization [facility] Address [address] [place] [address] Care Team Providers Care Speech Therapist Technician Name Role Phone Manjit Joel Primary Care Physician Encounter [facility] Date(s): 08/18/23 - 08/18/23 [facility] [address] [place] [address] Encounter Diagnosis Hyperglycemia(Discharge Diagnosis) - 08/18/23 Dizziness(Discharge Diagnosis) - 08/18/23 Discharge Disposition: Home or Self Care Attending Physician: Kena Dowell MD Admitting Physician: Kena Dowell MD Allergies, Adverse Reactions, Alerts Substance Reaction Severity Status troglitazone Unknown Unknown Active Rezulin Unknown Active rosiglitazone Unknown Active penicillins Unknown Active sulfa drugs Unknown Active Avandia Unknown Active Assessment and Plan Future Appointments Future Scheduled Tests Laboratory* CBC w/ Diff 07/28/23 * Comprehensive Metabolic Panel 07/28/23 * Hemoglobin A1c 07/28/23 Radiology* MG Mammo Screening Bilateral w/ Altaf [...] Recorded tetanus toxoid 08/01/10 Recorded 1Result Comment: [facility] 2Result Comment: [facility] 3Result Comment: 65=0.7 ml @ [facility] 4Result Comment: verified with [...] covers., # 30 mL, 5 Refill(s), [facility], 165.1, cm, 07/01/22 12:42:00 EST, Height, 88, [...] tab, 3 Refill(s), Pharmacy: [facility] ([facility] Start Date: 03/29/23 Stop Date: 03/23/24 Status: Ordered nystatin 100,000 units/g topical cream 1 baljeet, Topical, BID, PRN other (see comment), # 30 g, 11 Refill(s), Pharmacy: [facility] ([facility]) Start Date: 05/31/22 Stop Date: 05/26/23 Status: Ordered One Touch Delica Plus Lancets One Touch Delica Plus Lancets, Patient to test twice daily. Dx: E 11.9, Supply, See instructions, #180 EA, 0 Refill(s), Pharmacy: [facility] #[id number] Start Date: 06/28/23 Status: Ordered Onetouch ultra glucometer Onetouch ultra glucometer, pt tests 4 times daily E11.9, Supply, See instructions, # 1 EA, 0 Refill(s), Pharmacy: [facility] #[id number] Start Date: 07/29/22 Status: Ordered OneTouch Ultra [...] cyst of left hand Confirmed 06/05/21 Active Hyperlipidemia Confirmed Active Hypertensive disorder 1 Confirmed Active Hypothyroidism [...] eye surgery Results Laboratory List Name Date Blood Gas Venous 08/18/23 CBC w/ Diff 08/18/23 Comprehensive Metabolic Panel (CMP) 08/18 Troponin-I 08/18/23 Urinalysis with Micro if Indicated and C ulture if Indicated 08/18/23 Automated Diff 08/18/23 Most recent to oldest [Reference Range]: 1 WBC [5.0-10.0 x10^3/mcL] 8.5 x10^3/mcL (08/18/23 7:42 PM) RBC [4.1-5.3 x10^6/mcL] 4.7 x10^6/mcL (08/18/23 7:42 PM) Neutro Auto [40.0-75.0 %] 64.7 % (08/18/23 7:42 PM) Lymph Auto [20.0-50.0 %] 25.3 % (08/18/23 7:42 PM) [place] Auto [2.0-15.0 %] 7.5 % (08/18/23 7:42 PM) Basophil Auto [0.0-1.0 %] 0.5 % (08/18/23 7:42 PM) BUN [7-18 mg/dL] 24 mg/dL *HI* (08/18/23 7:42 PM) UA Color Yellow (08/18/23 7:42 PM) Glucose Level [74-106 mg/dL] 334 mg/dL *HI* (08/18/23 7:42 PM) Potassium Level [3.5-5.1 mmol/L] 3.9 mmo l/L (08/18/23 7:42 PM) MCV [80.0-96.0 fL] 90.8 fL (08/18/23 7:42 PM) UA Urobilinogen Normal (08/18/23 7:42 PM) UA Bili [Negative] Negative (08/18/23 7:42 PM) CO2 Total Venous 29 mmol/L *NA* (08/18/23 8:10 PM) UA Ketones Negative (08/18/23 7:42 PM) HCO3 Venous [22-30 mmol/L] 27 mmol/L (08/18/23 8:10 PM) AST [15-37 unit/L] 18 unit/L (08/18/23 7:42 PM) ALT [14-59 unit/L] 24 unit/L (08/18/23 7:42 PM) MCHC [31.0-35.0 g/dL] 33.6 g/dL (08/18/23 7:42 PM) Troponin-I [0.0-51.4 pg/mL] 7.9 pg/mL (08/18/23 7:42 PM) Sodium Level [136-145 mmol/L] 140 mmol/L (08/18/23 7:42 PM) UA Leuk Est Negative (08/18/23 7:42 PM) UA Nitrite Negative (08/18/23 7:42 PM) UA Glucose [Negative] 3+ *ABN* (08/18/23 7:42 PM) Hct [37.0-47.0 %] 42.5 % (08/18/23 7:42 PM) Calcium Level [8.5-10.1 mg/dL] 9.3 mg/dL (08/18/23 7:42 PM) Albumin Level [3.4-5.0 g/dL] 3.4 g/dL (08/18/23 7:42 PM) Protein Total [6.4-8.2 g/dL] 7.4 g/dL (08/18/23 7:42 PM) UA Protein Negative (08/18/23 7:42 PM) MCH [26.0-32.0 pg] 30.6 pg (08/18/23 7:42 PM) Neutro Absolute 5.5 x10^3/mcL *NA* (08/18/23 7:42 PM) Bilirubin Total [0.2-1.0 mg/dL] 0.2 mg/d L (08/18/23 7:42 PM) Hgb [12.0-16.0 g/dL] 14.3 g/dL (08/18/23 7:42 PM) Alk Phos [46-146 unit/L] 84 unit/L (08/18/23 7:42 PM) UA Blood Negative (08/18/23 7:42 PM) pCO2 Hal [33-47 mmHg] 40 mmHg (08/18/23 8:10 PM) UA Spec Grav 1.020 *NA* (08/18/23 7:42 PM) Platelets [130-450 x10^3/mcL] 276 x10^3/ mcL (08/18/23 7:42 PM) CO2 [21-32 mmol/L] 30 mmol/L (08/18/23 7:42 PM) pO2 Hal 96 mmHg *NA* (08/18/23 8:10 PM) UA pH 6.0 *NA* (08/18/23 7:42 PM) pH Hal [7.32-7.43 pH unit(s)] 7.45 pH un it(s) *HI* (08/18/23 8:10 PM) O2 Sat Hal 99 % *NA* (08/18/23 8:10 PM) eGFR Non-AA [>=60] 87 (08/18/23 7:42 PM) eGFR AA [>=60] 87 (08/18/23 7:42 PM) Base Excess Venous 3.2 mmol/L *NA* (08/18/23 8:10 PM) UA Appear Clear (08/18/23 7:42 PM) Chloride Level [98-107 mmol/L] 103 mmol/ L (08/18/23 7:42 PM) RDW-CV [11.5-14.5 %] 13.2 % (08/18/23 7:42 PM) Imm Gran Auto [0.0-0.9 %] 0.2 % (08/18/23 7:42 PM) Creatinine Level [0.55-1.02 mg/dL] 0.72 mg/dL (08/18/23 7:42 PM) Eos, Auto [1.0-6.0 %] 1.8 % (08/18/23 7:42 PM) Vital Signs Most recent to oldest [Reference Range]: 1 Temperature Temporal Artery [36-38 Deg C ] 36.8 Deg C (08/18/23 7:16 PM) Peripheral Pulse Rate [60-100 bpm] 85 bp m (08/18/23 7:16 PM) Respiratory Rate [12-24 br/min] 16 br/mi n (08/18/23 7:16 PM) Blood Pressure [90-140/60-90 mmHg] 185/8 2mmHg *HI* (08/18/23 7:16 PM) Mean Arterial Pressure, Cuff [70-110 mmH g] 116 mmHg *HI* (08/18/23 7:16 PM) Weight 82 kg (08/18/23 7:16 PM) Weight Dosing 82.000 kg (08/18/23 7:16 PM) Social History Social History Type Response Tobacco Never tobacco user T obacco Use:. Sex Female Hospital Discharge Instructions Patient Education 08/18/2023 20:13:39 Dizziness Dizziness Dizziness is a common problem. It is a feeling of unsteadiness or light- headedness. You may feel like you are about to faint. Dizziness can lead to injury if you stumble or fall. Anyone can become dizzy, but dizziness is more common in older adults. This condition can be caused by a number of things, including medicines, dehydration, or illness. Follow these instructions at home: Eating and drinking ??? Drink enough fluid to keep your urine pale yellow. This helps to keep you from becoming dehydrated. Try to drink more clear fluids, such as water. ??? Do not drink alcohol. ??? Limit your caffeine intake if told to do so by your health care provider. Check ingredients andnutrition facts to see if a food or beverage contains caffeine. ??? Limit your salt (sodium) intake if told to do so by your health care provider. Check ingredients and nutrition facts to see if a food or beverage contains sodium. Activity ??? Avoid making quick movements. ??? Rise slowly from chairs and steady yourself until you feel okay. ??? In the morning, first sit up on the side of the bed. When you feel okay, stand slowly while youhold onto something until you know that your balance is good. ??? If you need to traveling clerk one place for a long time, move your legs often. Tighten and relax the muscles in your legs while you are standing. ??? Do not drive or use machinery if you feel dizzy. ??? Avoid bending down if you feel dizzy. Place items in your home so that they are easy for you toreach without leaning over. Lifestyle ??? Do not use any products that contain nicotine or tobacco. These products include cigarettes, chewing tobacco, and vaping devices, such as e-cigarettes. If you need help quitting, ask your health care provider. ??? Try to reduce your stress level by using methods such as yoga or meditation. Talk with your health care provider if you need help to manage your stress. General instructions ??? Watch your dizziness for any changes. ??? Take srqy-wnc-tztiron and prescription medicines only as told by your health care provider. Talk with your health care provider if you think that your dizziness is caused by a medicine that you are taking. ??? Tell a friend or a family member that you are feeling dizzy. If he or she notices any changes in your behavior, have this person call your health care provider. ??? Keep all follow-up visits. This is important. Contact a health care provider if: ??? Your dizziness does not go away or you have new symptoms. ??? Your dizziness or light-headedness gets worse. ??? You feel nauseous. ??? You have reduced hearing. ??? You have a fever. ??? You have neck pain or a stiff neck. ??? Your dizziness leads to an injury or a fall. Get help right away if: ??? You vomit or have diarrhea and are unable to eat or drink anything. ??? You have problems talking, walking, swallowing, or using your arms, hands, or legs. ??? You feel generally weak. ??? You have any bleeding. ??? You are not thinking clearly or you have trouble forming sentences. It may take a friend or family member to notice this. ??? You have chest pain, abdominal pain, shortness of breath, or sweating. ??? Your vision changes or you develop a severe headache. These symptoms may represent a serious problem that is an emergency. Do not wait to see if the symptoms will go away. Get medical help right away. Call your local emergency services (911 in the [place] Do not drive yourself to the hospital. Summary ??? Dizziness is a feeling of unsteadiness or light-headedness. This condition can be caused by a number of things, including medicines, dehydration, or illness. ??? Anyone can become dizzy, but dizziness is more common in older adults. ??? Drink enough fluid to keep your urine pale yellow. Do not drink alcohol. ??? Avoid making quick movements if you feel dizzy. Monitor your dizziness for any changes. This information is not intended to replace advice given to you by your health care provider. Make sure you discuss any questions you have with your health care provider. Document Revised: 06/22/2021 Document Reviewed: 06/22/2021 [employer] Patient Education ?? 2022 [place]. 08/18/2023 20:13:32 Hyperglycemia Hyperglycemia Hyperglycemia occurs when the level of sugar (glucose) in the blood is too high. Glucose is a type of sugar that provides the body's main source of energy. Certain hormones (insulin and glucagon) control the level of glucose in the blood. Insulin lowers blood glucose, and glucagon increases blood glucose. Hyperglycemia can result from not having enough insulin in the bloodstream, or from the bodynot responding normally to insulin. Hyperglycemia occurs most often in people who have diabetes (diabetes mellitus), but it can happen in people who do not have diabetes. It can develop quickly, and it can be life-threatening if it causes you to become severely dehydrated (diabetic ketoacidosis or hyperglycemic hyperosmolar state). Severe hyperglycemia is a medical emergency. For most people with diabetes, a blood glucose level above 240 mg/dL is considered hyperglycemia. What are the causes? If you have diabetes, hyperglycemia may be caused by: ??? Medicines that increase blood glucose or affect your diabetes control. ??? Getting less physical activity. ??? Eating more than planned. ??? Being sick or injured, having an infection, or having surgery. ??? Stress. ??? Not giving yourself enough insulin (if you are taking insulin). If you have undiagnosed diabetes, this may be the reason you have hyperglycemia. If you do not have diabetes, hyperglycemia may be caused by: ??? Certain medicines, including: ??? Steroid medicines. ??? Beta-blockers. ??? Epinephrine. ??? Thiazide diuretics. ??? Stress. ??? Having a serious illness, an infection, or surgery. ??? Diseases of the pancreas. What increases the risk? Hyperglycemia is more likely to develop in people who have risk factors for diabetes, such as: ??? Having a family member with diabetes. ??? Certain conditions in which the body's disease-fighting system (immune system) attacks itself (autoimmune disorders). ??? Being overweight or obese. ??? Having an inactive (sedentary) lifestyle. ??? Having been diagnosed with insulin resistance. ??? Having a history of prediabetes, gestational diabetes, or polycystic ovarian syndrome (PCOS). What are the signs or symptoms? Hyperglycemia may not cause any symptoms. If you do have symptoms, they may include: ??? Increased thirst. ??? Needing to urinate more often than usual. ??? Hunger. ??? Feeling very tired. ??? Blurry vision. Other symptoms may develop if hyperglycemia gets worse, such as: ??? Dry mouth. ??? Abdominal pain. ??? Loss of appetite. ??? Fruity-smelling breath. ??? Weakness. ??? Unexpected weight loss. ??? Tingling or numbness in the hands or feet. ??? Headache. ??? Cuts or bruises that are slow to heal. How is this diagnosed? Hyperglycemia is diagnosed with a blood test to measure your blood glucose level. This blood test is usually done while you are having symptoms. Your health care provider may also do a physical exam and review your medical history. You may have more tests to determine the cause of your hyperglycemia, such as: ??? A fasting blood glucose (FBG) test. You will not be allowed to eat (you will fast) for at least8 hours before a blood sample is taken. ??? An A1C blood test. This provides information about blood glucose control over the previous 2???3 months. ??? An oral glucose tolerance test (OGTT). This measures your blood glucose at two times: ??? After fasting. This is your baseline blood glucose level. ??? 2 hours after drinking a beverage that contains glucose. How is this treated? Treatment depends on the cause of your hyperglycemia. Treatment may include: ??? Taking medicine to regulate your blood glucose levels. If you take insulin or other diabetes medicines, your medicine or dosage may be adjusted. ??? Lifestyle changes, such as exercising more, eating healthier foods, or losing weight. ??? Treating an illness or infection. ??? Checking your blood glucose more often. ??? Stopping or reducing steroid medicines. If your hyperglycemia becomes severe and it results in diabetic ketoacidosis or hyperglycemic hyperosmolar state, you must be hospitalized and given IV fluids and IV insulin. Follow these instructions at home: General instructions ??? Take seit-jov-wyiqduz and prescription medicines only as told by your health care provider. ??? Do not use any products that contain nicotine or tobacco. These products include cigarettes, chewing tobacco, and vaping devices, such as e-cigarettes. If you need help quitting, ask your health care provider. ??? If you drink alcohol: ??? Limit how much you have to: ??? 0???1 drink a day for women who are not . ??? 0???2 drinks a day for men. ??? Know how much alcohol is in a drink. In the [place] one drink equals one 12 oz bottle of beer (355 mL), one 5 oz glass of wine (148 mL), or one 1?? oz glass of hard liquor (44 mL). ??? Learn to manage stress. If you need help with this, ask your health care provider. ??? Do exercises as told by your health care provider. ??? Keep all follow-up visits. This is important. Eating and drinking ??? Maintain a healthy weight. ??? Stay hydrated, especially when you exercise, get sick, or spend time in hot temperatures. ??? Drink enough fluid to keep your urine pale yellow. If you have diabetes: ??? Know the symptoms of hyperglycemia. ??? Follow your diabetes management plan as told by your health care provider. Make sure you: ??? Take your insulin and medicines as told. ??? Follow your exercise plan. ??? Follow your meal plan. Eat on time, and do not skip meals. ??? Check your blood glucose as often as told. Make sure to check your blood glucose before and after exercise. If you exercise longer or in a different way, check your blood glucose more often. ??? Follow your sick day plan whenever you cannot eat or drink normally. Make this plan in advance with your health care provider. ??? Share your diabetes management plan with people in your workplace, school, and household. ??? Check your urine for ketones when you are ill and as told by your health care provider. ??? Carry a medical alert card or wear medical alert jewelry. Where to find more information [place] [employer]: www.diabetes.org Contact a health care provider if: ??? Your blood glucose is at or above 240 mg/dL (13.3 mmol/L) for 2 days in a row. ??? You have problems keeping your blood glucose in your target range. ??? You have frequent episodes of hyperglycemia. ??? You have signs of illness, such as nausea, vomiting, or fever. Get help right away if: ??? Your blood glucose monitor reads high even when you are taking insulin. ??? You have trouble breathing. ??? You have a change in how you think, feel, or act (mental status). ??? You have nausea or vomiting that does not go away. These symptoms may represent a serious problem that is an emergency. Do not wait to see if the symptoms will go away. Get medical help right away. Call your local emergency services (911 in the [place] Do not drive yourself to the hospital. Summary ??? Hyperglycemia occurs when the level of sugar (glucose) in the blood is too high. ??? Hyperglycemia can happen with or without diabetes, and severe hyperglycemia can be life-threatening. ??? Hyperglycemia is diagnosed with a blood test to measure your blood glucose level. This blood test is usually done while you are having symptoms. Your health care provider may also do a physical exam and review your medical history. ??? If you have diabetes, follow your diabetes management plan as told by your health care provider. ??? Contact your health care provider if you have problems keeping your blood glucose in your target range. This information is not intended to replace advice given to you by your health care provider. Make sure you discuss any questions you have with your health care provider. Document Revised: 05/01/2021 Document Reviewed: 05/01/2021 [employer] Patient Education ?? 2022 [employer] 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 I am concerned that my blood sugar is high and I amlight headed and my blood sugar is 360. pt aler and oriented ambulatory under own power History Of Present Illness: Patient reports the last few days her blood sugar has been high at times??she states??last night she had wondered in the middle night if she had taken her evening??insulin??she states in the middle of the night she took a half a dose??of her insulin.?? Patient reports she has a??diabetes doctor??that she sees at [facility].?? Patient recently saw her primary care provider.?? Patient states that she hasnot??been walking lately like she should??as??some of her walking caused a blister on her foot and she does not have??normal??feeling on her feet??she did get measured for diabetes shoes??however shesays they may not come for 2 to 3 months.?? Patient denies any increased carbs she drinks??water wel l??she does state that she has had some increased stress. Review of Systems: see hpi for ros Physical Exam Vitals & Measurements T:??36.8?C ??(Temporal Artery)?? HR:??85??(Peripheral)?? RR:??16?? BP:??185/82?? SpO2:??98%?? WT:??82??kg?? Pain Score:??4?? O2 Therapy:??Room air?? General: Alert and oriented, well nourished,?No??acute distress Eye: PER?Normal??conjunctiva,??No??scleral icterus HENT: Normocephalic,??nontraumatic??Normal hearing Lungs: Clear to auscultation,?Non-labored?? respiration Heart:?Normal?? rate,?Regular??rhythm,?No??murmur,?No??gallop,?No??edema Chest: wall excursion wnl no abnormal movements no obvious deformities Abdomen: Soft, non-tender, non-distended,?No??masses Musculoskeletal:?Normal?? range of motion and strength,?No??tenderness,?No??swelling Skin: Skin is warm, dry and pink,?No??rashes,?No??lesions Neurologic: Awake, alert and oriented X4 Psychiatric: Cooperative, appropriate mood and affect Mental status/cognitive: Awake alert, answers questions appropriately alert to self, time and month, able to recall current events Cranial nerves CN II-vision grossly intact, PERRL CN III, IV, -EOMI, no nystagmus CN V-V1-3 dermatomes intact to light touch CN VII-no facial asymmetry Motor: Normal muscle bulk, normal tone, Able to move all extremities without difficulty Sensory: Sensation grossly intact to light touch in all 4 extremities Gait: Able to stand without assistance, normal gait Cerebellar: No nystagmus, normal [id number]-ga-szla normal gait Medical Decision Making: For MDM please see under assessment and plan Procedure No Qualifying Data Assessment/Plan 1.??Hyperglycemia??R73.9 Patient reports her blood sugars have been high lately??question if this is perhaps stress for the patient or if she may have missed some medications as she is not sure if she took her night insulin the night before??patient will work on??having a written record??and perhaps an alarm on her phone.?? Offered patient IV fluids??patient would prefer to go home. ??Encourage patient to eat her supper and make sure she took her insulin as well as her nighttime insulin.?? Patient to follow-up with herendocrinologist at [facility]?? 2.??Dizziness??R42 neuro exam here in the emergency department is reassuring I think this is likely??from patient's blood sugar??patient will continue to monitor and if worsens will return to the emergency department. Patient Education Dizziness Hyperglycemia Follow Up With When Contact Information Follow up with primary care provider Within 1 to 2 weeks Additional Instructions: Medication Reconciliation Unchanged Durable Medical Equipment for Prescription (Diagnosis: Diabetes. Diabetic foot wear with custom orthotics, 1 pair,, daily use)Bilateral feet with callus formation, hammertoes, decreased sensation andnail dystrophy with a degree of pes planus. Refills: 0. ?? Durable Medical Equipment for Prescription (DME)See instructions. DECOM 7.. ?? Durable Medical Equipment for Prescription (Insulin syrings needles 31g 0.5ml)use 4 syringes daily.Refills: 1. ?? Durable Medical Equipment for Prescription (One Touch Delica Plus Lancets)Patient to test twice daily. Dx: E 11.9. Refills: 0. ?? Durable Medical Equipment for Prescription (Onetouch ultra glucometer)pt tests 4 times daily E11.9.Refills: 0. ?? insulin detemir (Levemir 100 units/mL subcutaneous solution)40 Units Subcutaneous (under the skin) every night at bedtime. Patient is requesting 2 pens beacause she resides in two places. Please filltwo pens if her insurance covers.. Refills: 5. ?? insulin lispro (HumaLOG 100 units/mL injectable solution)INJECT SUBCUTANEOUSLY 3 TIMES DAILY WITH MEALS AND NEEDED WITH SNACKS. 1 UNIT PER 5 CARBS WITH MEALS/SNACKS; 100 unit maximum daily dose. Dx: E 11.9. Refills: 6. ?? Insulin Syringe-Needle 31G 0.5 mL1 syringe 3 times daily. ?? levothyroxine (levothyroxine 125 mcg (0.125 mg) oral tablet)1 tab Oral (given by mouth) every day. Refills: 4. ?? losartan (losartan 50 mg oral tablet)0.5 tab Oral (given by mouth) every day for 90 Days. for 90 days. Refills: 3. ?? nystatin topical (nystatin 100,000 units/g topical cream)1 Application Topical (on the skin) 2 times a day as needed other (see comment) for 30 Days. Refills: 11. ?? Other Prescription (berberine)1 tab TID. ?? Other Prescription (OneTouch Ultra In Vitro Strip)USE 1 STRIP 4 TIMES DAILY. Refills: 3. ?? sertraline (sertraline 25 mg oral tablet)1 tab Oral (given by mouth) every day. Refills: 0. Problem List/Past Medical History Ongoing Atypical chest pain Candidal intertrigo Cellulitis of foot Chronic constipation De Quervain's tenosynovitis, right Decreased hearing Depression Disorder of nervous system due to type 2 diabetes mellitus DM2 (diabetes mellitus, type 2) Fatigue Foot ulcer due to type 2 diabetes mellitus Ganglion cyst of left hand Hyperlipidemia Hypertensive disorder Hypothyroidism Increased frequency of urination Neck pain Neuropathy Osteoarthritis Osteoporosis Pain of right shoulder joint Polyarthralgia Puncture wound of foot Solar degeneration Solar lentigo Type 2 diabetes mellitus without complication Varicose vein of leg Varicose veins of lower extremity Wrist pain Historical No qualifying data Procedure/Surgical History ???Cataract surgery??? section???Retinal operation Allergies Avandia Rezulin penicillins rosiglitazone sulfa drugs troglitazone??(Unknown) Social History Alcohol Current, Wine, 1-2 times per year Electronic Cigarette/Vaping Electronic Cigarette Use: Never. 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 Home/Environment Lives with Daughter half time and her boyfriend the other half. Nutrition/Health Caffeine intake amount: one cup coffee in the AM. Psychosocial Substance Use Never Tobacco Never tobacco user Tobacco Use:. Family History AAA - Abdominal aortic aneurysm: Father and Sister. Alcohol abuse: Brother. Anxiety: Sister. Depression: Sister. Diabetes mellitus: Mother. Heart disease: Mother and Father. Lab Results Blood Gases?? LATEST RESULTS?? pH Hal?? 08/18/23 20:10?? 7.45 ??High?? pCO2 Hal?? 08/18/23 20:10?? 40?? pO2 Hal?? 08/18/23 20:10?? 96?? HCO3 Venous?? 08/18/23 20:10?? 27?? O2 Sat Hal?? 08/18/23 20:10?? 99?? CO2 Total Venous?? 08/18/23 20:10?? 29?? Base Excess Venous?? 08/18/23 20:10?? 3.2? CBC and Differential?? LATEST RESULTS?? HISTORICAL RESULTS?? WBC?? 08/18/23 19:42?? 8.5?? 07/27/23?? 7.0?? RBC?? 08/18/23 19:42?? 4.7?? 07/27/23?? 4.8?? Hgb?? 08/18/23 19:42?? 14.3?? 07/27/23?? 14.9?? Hct?? 08/18/23 19:42?? 42.5?? 07/27/23?? 43.5?? MCV?? 08/18/23 19:42?? 90.8?? 07/27/23?? 90.6?? MCH?? 08/18/23 19:42?? 30.6?? 07/27/23?? 31.0?? MCHC?? 08/18/23 19:42?? 33.6?? 07/27/23?? 34.3?? RDW-CV?? 08/18/23 19:42?? 13.2?? 07/27/23?? 12.9?? Platelets?? 08/18/23 19:42?? 276?? 07/27/23?? 274?? Neutro Auto?? 08/18/23 19:42?? 64.7?? 07/27/23?? 48.2?? Lymph Auto?? 08/18/23 19:42?? 25.3?? 07/27/23?? 41.3?? [place] Auto?? 08/18/23 19:42?? 7.5?? 07/27/23?? 7.6?? Eos, Auto?? 08/18/23 19:42?? 1.8?? 07/27/23?? 1.9?? Basophil Auto?? 08/18/23 19:42?? 0.5?? 07/27/23?? 0.7?? Imm Gran Auto?? 08/18/23 19:42?? 0.2?? 07/27/23?? 0.3?? Neutro Absolute?? 08/18/23 19:42?? 5.5?? 07/27/23?? 3.4? Routine Chemistry?? LATEST RESULTS?? HISTORICAL RESULTS?? Sodium Level?? 08/18/23 19:42?? 140?? 07/27/23?? 138?? Potassium Level?? 08/18/23 19:42?? 3.9?? 07/27/23?? 3.7?? Chloride Level?? 08/18/23 19:42?? 103?? 07/27/23?? 101?? CO2?? 08/18/23 19:42?? 30?? 07/27/23?? 31?? Alk Phos?? 08/18/23 19:42?? 84?? 07/27/23?? 86?? AST?? 08/18/23 19:42?? 18?? 07/27/23?? 16?? ALT?? 08/18/23 19:42?? 24?? 07/27/23?? 25?? BUN?? 08/18/23 19:42?? 24 ??High?? 07/27/23?? 20 ??High?? Glucose Level?? 08/18/23 19:42?? 334 ??High?? 07/27/23?? 159 ??High?? Creatinine Level?? 08/18/23 19:42?? 0.72?? 07/27/23?? 0.73?? eGFR AA?? 08/18/23 19:42?? 87?? 07/27/23?? 86?? eGFR Non-AA?? 08/18/23 19:42?? 87?? 07/27/23?? 86?? Calcium Level?? 08/18/23 19:42?? 9.3?? 07/27/23?? 9.6?? Protein Total?? 08/18/23 19:42?? 7.4?? 07/27/23?? 7.5?? Albumin Level?? 08/18/23 19:42?? 3.4?? 07/27/23?? 3.3 ??Low?? Bilirubin Total?? 08/18/23 19:42?? 0.2?? 07/27/23?? 0.6? Cardiac Isoenzymes?? LATEST RESULTS?? Troponin-I?? 08/18/23 19:42?? 7.9? UA Macroscopic?? LATEST RESULTS?? UA Color?? 08/18/23 19:42?? Yellow?? UA Appear?? 08/18/23 19:42?? Clear?? UA Glucose?? 08/18/23 19:42?? 3+ Abnormal?? UA Bili?? 08/18/23 19:42?? Negative?? UA Ketones?? 08/18/23 19:42?? Negative?? UA Spec Grav?? 08/18/23 19:42?? 1.020?? UA Blood?? 08/18/23 19:42?? Negative?? UA pH?? 08/18/23 19:42?? 6.0?? UA Protein?? 08/18/23 19:42?? Negative?? UA Urobilinogen?? 08/18/23 19:42?? Normal?? UA Nitrite?? 08/18/23 19:42?? Negative?? UA Leuk Est?? 08/18/23 19:42?? Negative? Electronically Signed on 08/19/23 04:01 AM Kena Dowell MD Emergency department Discharge instructions * Kena Dowell MD: PERFORM Event Display: ED Discharge Information Authored Date: [id number] GRACIE ANTHONY Walker :1950 Age:73 years Sex:Female Visit Date:08/18/2023 Primary Care Physician: Manjit Joel [employer]CH[employer]ICAL AND [employer] B[employer] CAR CHECKER Discharge Instructions We would like to thank you for allowing us to assist you with your healthcare needs. The following includes patient education materials and information regarding your injury/illness. Diagnosis from Today's Visit Hyperglycemia Dizziness Discharge Vitals Temperature??(Temporal Artery) 98.2 ??F (36.8 ??C) Heart Rate??(Peripheral) 85 Respiratory Rate?? 16 Blood Pressure?? 185/82?? Weight?? 180.81 lb (82 kg) Allergies Avandia Rezulin penicillins rosiglitazone sulfa drugs troglitazone??(Unknown) What to Do Next Instructions from Your Care Team Continue to make sure you drink plenty of fluids. ??Eat supper??take your insulin??take your nighttime insulin.?? If you worsen return to the emergency department or see??primary care provider sooner.?? Call to??see your diabetes doctor sooner. You Need to Schedule the Following Appointments Follow Up with??Follow up with primary care provider When:??Within 1 to 2 weeks Upcoming Scheduled Appointments Tuesday 12:15 PM EST ?? With: Yvrose Marquez DNP Where: [address] [phone] Status: Confirmed Tuesday 1:00 PM EDT ?? With: Manjit Joel [employer]CH[employer] AND [employer] CAR CHECKER Where: [facility] [address] [address] Status: Confirmed You were treated today on [...] How Much When Why Instructions Next Dose Unchanged Durable Medical Equipment for Prescription (Diagnosis: [...] ?? Unchanged Durable Medical Equipment for Prescription (Insulin syrings needles 31g 0.5ml) See instructions Diabetes use 4 syringes daily ?? Unchanged Durable Medical Equipment for Prescription (One Touch Delica Plus Lancets) See instructions Patient to test twice daily. Dx: E 11.9 ?? Unchanged Durable Medical Equipment for Prescription (Zebra Mobileuch ultra glucometer) See instructions Type 2 diabetes mellitus without complication pt tests 4 times daily E11.9 ?? Unchanged insulin detemir (Levemir 100 units/ mL subcutaneous solution) 40 Units Subcutaneous (under the skin) Every night at bedtime Patient is requesting 2 pens beacause she resides in two places. ??Please fill two pens if her insurance covers. ?? Unchanged insulin lispro (HumaLOG 100 units/ mL injectable solution) See instructions Type 2 diabetes mellitus without complication INJECT SUBCUTANEOUSLY 3 TIMES DAILY WITH MEALS AND NEEDED WITH SNACKS. 1 UNIT PER 5 CARBS WITH MEALS/ SNACKS; 100 unit maximum daily dose. Dx: E 11.9 ?? Unchanged Insulin Syringe-Needle 31G 0.5 mL See instructions 1 syringe 3 times daily ?? Unchanged levothyroxine (levothyroxine 125 mcg (0.125 mg) oral tablet) 1 tab Oral (given by mouth) Every day Unchanged losartan (losartan 50 mg oral tablet) 0.5 tab Oral (given by mouth) Every day Hypertensive disorder Duration: 90 Days for 90 days ?? Unchanged nystatin topical (nystatin 100,000 units/ g topical cream) 1 Application Topical (on the skin) 2 times a day as needed for other (see comment) Duration: 30 Days Unchanged Other Prescription (berberine) See instructions 1 tab ??TID ?? Unchanged Other Prescription (OneTouch Ultra In Vitro Strip) See instructions USE 1 STRIP 4 TIMES DAILY ?? Unchanged sertraline (sertraline 25 mg oral tablet) 1 tab Oral (given by mouth) Every day Depression Education Materials Dizziness Dizziness is a common problem. It is a feeling of unsteadiness or light- headedness. You may feel like you are about to faint. Dizziness can lead to injury if you stumble or fall. Anyone can become dizzy, but dizziness is more common in older adults. This condition can be caused by a number of things, including medicines, dehydration, or illness. Follow these instructions at home: Eating and drinking ? Drink enough fluid to keep your urine pale yellow. This helps to keep you from becoming dehydrated.Try to drink more clear fluids, such as water. ? Do not drink alcohol. ? Limit your caffeine intake if told to do so by your health care provider. Check ingredients and nutrition facts to see if a food or beverage contains caffeine. ? Limit your salt (sodium) intake if told to do so by your health care provider. Check ingredients and nutrition facts to see if a food or beverage contains sodium. Activity ? Avoid making quick movements. ? Rise slowly from chairs and steady yourself until you feel okay. ? In the morning, first sit up on the side of the bed. When you feel okay, stand slowly while you hold onto something until you know that your balance is good. ? If you need to traveling clerk one place for a long time, move your legs often. Tighten and relax the muscles in your legs while you are standing. ? Do not drive or use machinery if you feel dizzy. ? Avoid bending down if you feel dizzy. Place items in your home so that they are easy for you to reach without leaning over. Lifestyle ? Do not use any products that contain nicotine or tobacco. These products include cigarettes, chewing tobacco, and vaping devices, such as e-cigarettes. If you need help quitting, ask your health careprovider. ? Try to reduce your stress level by using methods such as yoga or meditation. Talk with your health care provider if you need help to manage your stress. General instructions ? Watch your dizziness for any changes. ? Take dihg-mgk-vsanqlb and prescription medicines only as told by your health care provider. Talk with your health care provider if you think that your dizziness is caused by a medicine that you are taking. ? Tell a friend or a family member that you are feeling dizzy. If he or she notices any changes in your behavior, have this person call your health care provider. ? Keep all follow-up visits. This is important. Contact a health care provider if: ? Your dizziness does not go away or you have new symptoms. ? Your dizziness or light-headedness gets worse. ? You feel nauseous. ? You have reduced hearing. ? You have a fever. ? You have neck pain or a stiff neck. ? Your dizziness leads to an injury or a fall. Get help right away if: ? You vomit or have diarrhea and are unable to eat or drink anything. ? You have problems talking, walking, swallowing, or using your arms, hands, or legs. ? You feel generally weak. ? You have any bleeding. ? You are not thinking clearly or you have trouble forming sentences. It may take a friend or family member to notice this. ? You have chest pain, abdominal pain, shortness of breath, or sweating. ? Your vision changes or you develop a severe headache. These symptoms may represent a serious problem that is an emergency. Do not wait to see if the symptoms will go away. Get medical help right away. Call your local emergency services (911 in the [place] Do not drive yourself to the hospital. Summary ? Dizziness is a feeling of unsteadiness or light-headedness. This condition can be caused by a number of things, including medicines, dehydration, or illness. ? Anyone can become dizzy, but dizziness is more common in older adults. ? Drink enough fluid to keep your urine pale yellow. Do not drink alcohol. ? Avoid making quick movements if you feel dizzy. Monitor your dizziness for any changes. This information is not intended to replace advice given to you by your health care provider. Make sure you discuss any questions you have with your health care provider. Document Revised: 06/22/2021 Document Reviewed: 06/22/2021 [employer] Patient Education ?? 2022 [employer] Hyperglycemia Hyperglycemia occurs when the level of sugar (glucose) in the blood is too high. Glucose is a type of sugar that provides the body's main source of energy. Certain hormones (insulin and glucagon) control the level of glucose in the blood. Insulin lowers blood glucose, and glucagon increases blood glucose. Hyperglycemia can result from not having enough insulin in the bloodstream, or from the bodynot responding normally to insulin. Hyperglycemia occurs most often in people who have diabetes (diabetes mellitus), but it can happen in people who do not have diabetes. It can develop quickly, and it can be life-threatening if it causes you to become severely dehydrated (diabetic ketoacidosis or hyperglycemic hyperosmolar state). Severe hyperglycemia is a medical emergency. For most people with diabetes, a blood glucose level above 240 mg/dL is considered hyperglycemia. What are the causes? If you have diabetes, hyperglycemia may be caused by: ? Medicines that increase blood glucose or affect your diabetes control. ? Getting less physical activity. ? Eating more than planned. ? Being sick or injured, having an infection, or having surgery. ? Stress. ? Not giving yourself enough insulin (if you are taking insulin). If you have undiagnosed diabetes, this may be the reason you have hyperglycemia. If you do not have diabetes, hyperglycemia may be caused by: ? Certain medicines, including: ? Steroid medicines. ? Beta-blockers. ? Epinephrine. ? Thiazide diuretics. ? Stress. ? Having a serious illness, an infection, or surgery. ? Diseases of the pancreas. What increases the risk? Hyperglycemia is more likely to develop in people who have risk factors for diabetes, such as: ? Having a family member with diabetes. ? Certain conditions in which the body's disease-fighting system (immune system) attacks itself (autoimmune disorders). ? Being overweight or obese. ? Having an inactive (sedentary) lifestyle. ? Having been diagnosed with insulin resistance. ? Having a history of prediabetes, gestational diabetes, or polycystic ovarian syndrome (PCOS). What are the signs or symptoms? Hyperglycemia may not cause any symptoms. If you do have symptoms, they may include: ? Increased thirst. ? Needing to urinate more often than usual. ? Hunger. ? Feeling very tired. ? Blurry vision. Other symptoms may develop if hyperglycemia gets worse, such as: ? Dry mouth. ? Abdominal pain. ? Loss of appetite. ? Fruity-smelling breath. ? Weakness. ? Unexpected weight loss. ? Tingling or numbness in the hands or feet. ? Headache. ? Cuts or bruises that are slow to heal. How is this diagnosed? Hyperglycemia is diagnosed with a blood test to measure your blood glucose level. This blood test is usually done while you are having symptoms. Your health care provider may also do a physical exam and review your medical history. You may have more tests to determine the cause of your hyperglycemia, such as: ? A fasting blood glucose (FBG) test. You will not be allowed to eat (you will fast) for at least 8 hours before a blood sample is taken. ? An A1C blood test. This provides information about blood glucose control over the previous 2???3 months. ? An oral glucose tolerance test (OGTT). This measures your blood glucose at two times: ? After fasting. This is your baseline blood glucose level. ? 2 hours after drinking a beverage that contains glucose. How is this treated? Treatment depends on the cause of your hyperglycemia. Treatment may include: ? Taking medicine to regulate your blood glucose levels. If you take insulin or other diabetes medicines, your medicine or dosage may be adjusted. ? Lifestyle changes, such as exercising more, eating healthier foods, or losing weight. ? Treating an illness or infection. ? Checking your blood glucose more often. ? Stopping or reducing steroid medicines. If your hyperglycemia becomes severe and it results in diabetic ketoacidosis or hyperglycemic hyperosmolar state, you must be hospitalized and given IV fluids and IV insulin. Follow these instructions at home: General instructions ? Take wpet-gct-yvditgo and prescription medicines only as told by your health care provider. ? Do not use any products that contain nicotine or tobacco. These products include cigarettes, chewing tobacco, and vaping devices, such as e-cigarettes. If you need help quitting, ask your health careprovider. ? If you drink alcohol: ? Limit how much you have to: ? 0???1 drink a day for women who are not . ? 0???2 drinks a day for men. ? Know how much alcohol is in a drink. In the [place] one drink equals one 12 oz bottle of beer (355 mL), one 5 oz glass of wine (148 mL), or one 1?? oz glass of hard liquor (44 mL). ? Learn to manage stress. If you need help with this, ask your health care provider. ? Do exercises as told by your health care provider. ? Keep all follow-up visits. This is important. Eating and drinking ? Maintain a healthy weight. ? Stay hydrated, especially when you exercise, get sick, or spend time in hot temperatures. ? Drink enough fluid to keep your urine pale yellow. If you have diabetes: ? Know the symptoms of hyperglycemia. ? Follow your diabetes management plan as told by your health care provider. Make sure you: ? Take your insulin and medicines as told. ? Follow your exercise plan. ? Follow your meal plan. Eat on time, and do not skip meals. ? Check your blood glucose as often as told. Make sure to check your blood glucose before and after exercise. If you exercise longer or in a different way, check your blood glucose more often. ? Follow your sick day plan whenever you cannot eat or drink normally. Make this plan in advance withyour health care provider. ? Share your diabetes management plan with people in your workplace, school, and household. ? Check your urine for ketones when you are ill and as told by your health care provider. ? Carry a medical alert card or wear medical alert jewelry. Where to find more information [place] [employer]: www.diabetes.org Contact a health care provider if: ? Your blood glucose is at or above 240 mg/dL (13.3 mmol/L) for 2 days in a row. ? You have problems keeping your blood glucose in your target range. ? You have frequent episodes of hyperglycemia. ? You have signs of illness, such as nausea, vomiting, or fever. Get help right away if: ? Your blood glucose monitor reads high even when you are taking insulin. ? You have trouble breathing. ? You have a change in how you think, feel, or act (mental status). ? You have nausea or vomiting that does not go away. These symptoms may represent a serious problem that is an emergency. Do not wait to see if the symptoms will go away. Get medical help right away. Call your local emergency services (911 in the [place] Do not drive yourself to the hospital. Summary ? Hyperglycemia occurs when the level of sugar (glucose) in the blood is too high. ? Hyperglycemia can happen with or without diabetes, and severe hyperglycemia can be life-threatening. ? Hyperglycemia is diagnosed with a blood test to measure your blood glucose level. This blood test is usually done while you are having symptoms. Your health care provider may also do a physical exam and review your medical history. ? If you have diabetes, follow your diabetes management plan as told by your health care provider. ? Contact your health care provider if you have problems keeping your blood glucose in your target range. This information is not intended to replace advice given to you by your health care provider. Make sure you discuss any questions you have with your health care provider. Document Revised: 05/01/2021 Document Reviewed: 05/01/2021 [employer] Patient Education ?? 2022 [employer] Tests Performed Lab Test Name Test Result Date/Time pH Hal 7.45 pH unit(s) 08/18/2023 20:10 EST pCO2 Hal 40 mmHg 08/18/2023 20:10 EST pO2 Hal 96 mmHg 08/18/2023 20:10 EST HCO3 Venous 27 mmol/L 08/18/2023 20:10 EST O2 Sat Hal 99 % 08/18/2023 20:10 EST CO2 Total Venous 29 mmol/L 08/18/2023 20:10 EST Base Excess Venous 3.2 mmol/L 08/18/2023 20:10 EST WBC 8.5 x10^3/mcL 08/18/2023 19:42 EST RBC 4.7 x10^6/mcL 08/18/2023 19:42 EST Hgb 14.3 g/dL 08/18/2023 19:42 EST Hct 42.5 % 08/18/2023 19:42 EST MCV 90.8 fL 08/18/2023 19:42 EST MCH 30.6 pg 08/18/2023 19:42 EST MCHC 33.6 g/dL 08/18/2023 19:42 EST RDW-CV 13.2 % 08/18/2023 19:42 EST Platelets 276 x10^3/mcL 08/18/2023 19:42 EST Neutro Auto 64.7 % 08/18/2023 19:42 EST Lymph Auto 25.3 % 08/18/2023 19:42 EST [place] Auto 7.5 % 08/18/2023 19:42 EST Eos, Auto 1.8 % 08/18/2023 19:42 EST Basophil Auto 0.5 % 08/18/2023 19:42 EST Imm Gran Auto 0.2 % 08/18/2023 19:42 EST Neutro Absolute 5.5 x10^3/mcL 08/18/2023 19:42 EST Sodium Level 140 mmol/L 08/18/2023 19:42 EST Potassium Level 3.9 mmol/L 08/18/2023 19:42 EST Chloride Level 103 mmol/L 08/18/2023 19:42 EST CO2 30 mmol/L 08/18/2023 19:42 EST Alk Phos 84 unit/L 08/18/2023 19:42 EST AST 18 unit/L 08/18/2023 19:42 EST ALT 24 unit/L 08/18/2023 19:42 EST BUN 24 mg/dL 08/18/2023 19:42 EST Glucose Level 334 mg/dL 08/18/2023 19:42 EST Creatinine Level 0.72 mg/dL 08/18/2023 19:42 EST eGFR AA 87 08/18/2023 19:42 EST eGFR Non-AA 87 08/18/2023 19:42 EST Calcium Level 9.3 mg/dL 08/18/2023 19:42 EST Protein Total 7.4 g/dL 08/18/2023 19:42 EST Albumin Level 3.4 g/dL 08/18/2023 19:42 EST Bilirubin Total 0.2 mg/dL 08/18/2023 19:42 EST Troponin-I 7.9 pg/mL 08/18/2023 19:42 EST UA Color YELLOW. 08/18/2023 19:42 EST UA Appear CLEAR. 08/18/2023 19:42 EST UA Glucose 3+ 08/18/2023 19:42 EST UA Bili NEGATIVE 08/18/2023 19:42 EST UA Ketones NEGATIVE 08/18/2023 19:42 EST UA Spec Grav 1.020 08/18/2023 19:42 EST UA Blood NEGATIVE 08/18/2023 19:42 EST UA pH 6.0 08/18/2023 19:42 EST UA Protein NEGATIVE 08/18/2023 19:42 EST UA Urobilinogen 0.2 Uro 08/18/2023 19:42 EST UA Nitrite NEGATIVE 08/18/2023 19:42 EST UA Leuk Est NEGATIVE 08/18/2023 19:42 EST Patient/Area Cleaner Signature Patient Name:ANTHONY BOWMAN I have received this information and my questions have been answered. Patient/Area Cleaner Name: Patient/Area Cleaner Signature: Relationship to Patient: Witness Name/Signature: Date: Electronically Signed on: 08/18/2023 21:14 ESTSigned by:[facility] Emergency department Note * Mai Ayala H: PERFORM Event Display: ED Notes Authored Date: [id number] Patient Care team information Care Team Personnel Name: Manjit Joel [employer]CH[employer] AND [employer] CHECKER Position: Physician Member Role: Informed Provider Address: Address: [address] [place] [phone] Name: Pauly Ann Position: Ambulatory - RN/VALET (Adiel) Member Role: Grounds Crew Supervisor Care Team Related Persons Name: MARGUERITE STARR Name: RICARDO BOWMAN Name: REJI BOWMAN Address: [address] [id number]
--- OUTSIDE RECORDS SUMMARY | 2024-03-12 15:15 | XMS_ITS | Continuity of Care Document ---
Author Organization [facility] Address [address] [place] [address] Care Team Providers Care Applied Behavior Specialist Name Role Phone Nerissa Victoria Primary Care Physician Encounter [facility]CT[facility]_[place] Date(s): 02/15/23 - 02/15/23 [facility] [address] [place] [address] Discharge Disposition: Home or Self Care Attending Physician: Nerissa Victoria MD Admitting Physician: Nerissa Victoria MD Referring Physician: Nerissa Victoria MD Allergies, Adverse Reactions, Alerts Substance Reaction Severity Status troglitazone Unknown Unknown Active Rezulin Unknown Active rosiglitazone Unknown Active penicillins Unknown Active sulfa drugs Unknown Active Avandia Unknown Active Immunizations Given and Recorded Vaccine Date Status Refusal Reason SARS-CoV-2 (COVID-19) mRNA-1273 vaccine 05/25/21 R ecorded SARS-CoV-2 (COVID-19) mRNA-1273 vaccine 10/27/20 R ecorded SARS-CoV-2 (COVID-19) mRNA-1273 vaccine 09/30/20 R ecorded tetanus-diphth toxoids (Td) adult/adol 1 05/22/20 Recorded influenza virus vaccine, live 04/22/20 Recorded influenza virus vaccine, live 05/01/19 Recorded pneumococcal 23-polyvalent vaccine 2 12/01/18 Micah rded pneumococcal 13-valent conjugate vaccine 10/28/17 Recorded influenza virus vaccine, inactivated 08/14/17 Micah rded tetanus toxoid 08/01/10 Recorded 1Result Comment: verified with GJ 2Result Comment: administered state supply instead of private supply Medications berberine berberine, See Instructions, 1 tab TID, 0 Refill(s) Start Date: 05/31/22 Status: Ordered Dexcom G4 Fast Brim Pouncer Dexcom 6, Supply, 1 EA, N/A, As [...] instructions, # 1 EA, 0 Refill(s), Pharmacy: [facility] #[id number] Start Date: 07/29/22 Status: Ordered OneTouch Ultra [...] veins of lower extremity Confirmed 01/21/22 Active Procedures Procedure Date Related Diagnosis Body Site Status Cataract surgery Complete d section 1 Comple chanell Retinal operation 2 Compl eted 1two of them 2laser eye surgery Results Laboratory List Name Date TSH w/ Rflx to Free T4 02/15/23 Most recent to oldest [Reference Range]: 1 TSH [0.358-3.740 mcIntlUnit/mL] 2.368 mc IntlUnit/mL (02/15/23 2:38 PM) Social History Social History Type Response Tobacco Never tobacco user T obacco Use:. Sex Female Patient Care team information Care Team Personnel Name: Nerissa Victoria MD Position: Physician Member Role: Primary Care Physician Address: Address: [address] [place] [phone] [place] Care Team Related Persons Name: MARGUERITE STARR Name: RICARDO BOWMAN
--- OUTSIDE RECORDS SUMMARY | 2024-03-12 15:15 | XMS_ITS | Continuity of Care Document ---
Author Organization [facility] Address [address] [place] [address] Care Team Providers Care Cement Gun Operator Name Role Phone Reji Zarco Primary Care Physician Encounter [facility]CT[facility]_[place] Date(s): 09/14/23 - 09/14/23 [facility] [address] [place] [address] Encounter Diagnosis Screening for breast cancer(Discharge Diagnosis) - 09/14/23 Discharge Disposition: Home or Self Care Attending [...] Metabolic Panel 07/28/23 * Hemoglobin A1c 07/28/23 Immunizations Given and Recorded Vaccine Date Status [...] Recorded tetanus toxoid 08/01/10 Recorded 1Result Comment: [facility] 2Result Comment: [facility] 3Result Comment: 65=0.7 ml @ [facility] 4Result Comment: verified with GJ [...] covers., # 30 mL, 5 Refill(s), Pharmacy: [facility], 165.1, cm, 07/01/22 12:42:00 EST, Height, [...] tab, 3 Refill(s), [facility] ([facility] Start Date: 03/29/23 Stop Date: [...] See instructions, #180 EA, 0 Refill(s), Pharmacy: [facility] #[id number] Start Date: 06/28/23 Status: Ordered Onetouch ultra glucometer Onetouch ultra glucometer, pt tests 4 times daily E11.9, Supply, See instructions, # 1 EA, 0 Refill(s), Pharmacy: [facility] #[id number] Start Date: 07/29/22 Status: Ordered OneTouch Ultra In Vitro Strip OneTouch Ultra In Vitro Strip, See Instructions, USE 1 STRIP 4 TIMES DAILY, # 400 strip, 3 Refill(s), [facility]acy[facility] ([facility]) Start Date: 05/20/22 Status: Ordered sertraline 25 mg oral tablet 25 mg = 1 tab, Oral, Daily, # 30 tab, 0 Refill(s), Pharmacy: [facility] #[id number], 165.1, cm, 07/01/22 12:42:00 EST, Height, 82, kg, 08/18/23 19:35:00 EST, Weight Dosing Start Date: 08/29/23 Status: Ordered Problem List Condition Confirmation Course [...] Member Role: Primary Care Physician Address: Address: [facility] Primary [address] Name: Manjit Joel DENTIST ATTENDANT Position: Physician Member Role: Informed Provider Address: Address: [address] [place] [address] Name: Pauly Ann Position: Ambulatory - RN/CONTINUITY MANAGER ([facility]) Member Role: Conference Concierge Care Team Related Persons Name: MARGUERITE STARR Name: RICARDO BOWMAN Name: REJI BOWMAN Address: Home [address] [phone] Name: REJI BOWMAN Address: [address] [id number] Address: Home [address] [phone] Address: [address]ailing [address] [id number]
--- OUTSIDE RECORDS SUMMARY | 2024-03-12 15:15 | XMS_ITS | Continuity of Care Document ---
Author Organization [facility] Address [address] [place] [address] Care Team Providers Care International Operations Manager Name Role Phone Reji Zarco Primary Care Physician [phone] Encounter [facility]CTY_[place] Date(s): 10/26/23 - 10/26/23 [facility] [address] [place] [address] Discharge Disposition: Home or Self Care Attending Physician: Manjit Joel NP Admitting Physician: Manjit Joel NP Referring Physician: Manjit Joel SETUP TECHNICIAN Allergies, Adverse Reactions, Alerts Substance Reaction Severity Status troglitazone Unknown Unknown Active Rezulin Unknown Active rosiglitazone Unknown Active penicillins Unknown Active sulfa drugs Unknown Active Avandia Unknown Active Assessment and Plan Future Appointments Future Scheduled Tests Laboratory* CBC w/ Diff 07/28/23 * CBC w/ Diff 10/19/23 * Comprehensive Metabolic Panel 07/28/23 * Vitamin B12 Level 10/19/23 * Ferritin 10/19/23 * Folate Level 10/19/23 * Microalbumin/Creatinine Ratio Urine 10/19/23 * Iron Level and TIBC 10/19/23 * Vitamin D, 25-OH Total [facility] 10/19/23 * Hemoglobin A1c 07/28/23 Immunizations Given and [...] Recorded tetanus toxoid 08/01/10 Recorded 1Result Comment: [facility] 2Result Comment: [facility] 3Result Comment: 65=0.7 ml @ [facility] 4Result Comment: verified with GJ 5Result Comment: administered state supply instead of private supply Medications clopidogrel 75 mg oral tablet 75 mg = 1 tab, Oral, Daily, # 90 tab, 0 Refill(s), Pharmacy: [facility] #[id number], 165.1, cm, 07/01/22 12:42:00 EST, Height, 82, kg, 08/18/23 19:35:00 EST, Weight Dosing Start Date: 10/24/23 Status: Ordered Dexcom 7 Dexcom 7, Dexcom sensor 1 every 10 days, Supply, See instructions, # 3 EA, 0 Refill(s), Pharmacy: [facility] #[id number] Start Date: 10/06/23 Status: Ordered Diagnosis: Diabetes. [...] 0 Refill(s) Start Date: 07/28/23 Status: Ordered doxycycline monohydrate 100 mg oral capsule 100 mg = 1 cap, Oral, Daily, # 14 cap, 0 Refill(s), [facility]acy: [facility] #[id number], 165.1, cm, 07/01/22 12:42:00 EST, Height, 82, kg, 08/18/23 19:35:00 EST, Weight Dosing Start Date: 10/25/23 Stop Date: 11/08/23 Status: Ordered HumaLOG 100 units/mL injectable solution See Instructions, INJECT SUBCUTANEOUSLY 3 TIMES DAILY WITH MEALS AND NEEDED WITH SNACKS. 1 UNIT PER 5 CARBS WITH MEALS/SNACKS; 100 unit maximum daily dose. Dx: E 11.9, # 15 mL, 6 Refill(s), Pharmacy: [facility] #[id number], 165.1, cm, 07/01/22 12:42:00 EST, Height, 82, kg, 08/18/23 19:35:00EST, Weight Dosing Start Date: 10/03/23 Status: Ordered Insulin Syringe-Needle 31G 0.5 mL See Instructions, 1 syringe 3 times daily Start Date: 02/03/22 Status: Ordered Insulin syrings needles 31g 0.5ml Insulin syrings needles 31g 0.5ml, use 4 syringes daily, Supply, See instructions, # 200 EA, 1 Refill(s), [facility] Start Date: 11/23/22 Status: Ordered ketoconazole 2% topical cream 1 baljeet, Topical, Daily, to affected area of toenail for 3 months, # 120 g, 0 Refill(s) Start Date: 09/30/23 Stop Date: 12/29/23 Status: Ordered Lantus 100 units/mL subcutaneous solution 46 units =, Subcutaneous, Daily, Please send 2 pens as patient lives in [address] [place]. If insurance willcover., # 50 mL, 6 Refill(s), Pharmacy: [facility], 165.1, cm, 07/01/22 12:42:00 EST, Height, 82, kg, 08/18/23 19:35:00 EST, Weight Dosing Start Date: 10/03/23 Stop Date: 04/30/24 Status: Ordered Levemir 100 units/mL subcutaneous solution 40 units =, Subcutaneous, every night at bedtime, Patient is requesting 2 pens beacause she [place]in two places. Please fill two pens if her insurance covers., # 30 mL, 5 Refill(s), [facility], 165.1, cm, 07/01/22 12:42:00 EST, Height, [...] Daily, # 90 tab, 0 Refill(s), [facility]acy: [facility] #[id number], 165.1, cm, 07/01/22 12:42:00 EST, Height, 82, kg, 08/18/23 19:35:00 EST, Weight Dosing Start Date: 10/03/23 Stop Date: 01/01/24 Status: Ordered One Touch Delica Plus Lancets One Touch Delica Plus Lancets, Patient to test twice daily. Dx: E 11.9, Supply, See instructions, #180 EA, 0 Refill(s), Pharmacy: [facility] #[id number] Start Date: 06/28/23 Status: Ordered Onetouch ultra glucometer Onetouch ultra glucometer, pt tests 4 times daily E11.9, Supply, See instructions, # 1 EA, 0 Refill(s), Pharmacy: [facility] #[id number] Start Date: 07/29/22 Status: Ordered OneTouch Ultra In Vitro Strip OneTouch Ultra In Vitro Strip, See Instructions, USE 1 STRIP 4 TIMES DAILY, # 400 strip, 3 Refill(s), [facility] Start Date: 05/20/22 Status: Ordered rosuvastatin 20 mg oral tablet 20 mg = 1 tab, Oral, Daily, # 90 tab, 0 Refill(s), [facility]acy: [facility] #[id number], 165.1, cm, 07/01/22 12:42:00 EST, Height, 82, kg, 08/18/23 19:35:00 EST, Weight Dosing Start Date: 10/24/23 Status: Ordered sertraline 50 mg oral tablet 50 mg = 1 tab, Oral, Daily, # 30 tab, 2 Refill(s), Pharmacy: [facility] #[id number], 165.1, cm, 07/01/22 12:42:00 EST, Height, 82, kg, 08/18/23 19:35:00 EST, Weight Dosing Start Date: 10/25/23 Stop Date: 01/23/24 Status: Ordered Problem List Condition Confirmation Course [...] Active Increased frequency of urination Confirmed Active Memory changes Confirmed Active Mental [...] Member Role: Primary Care Physician Address: Address: [facility] Primary [address] Name: Manjit Joel SETUP TECHNICIAN Position: Physician Member Role: Informed Provider Address: Address: [address] [place] [phone] Name: Pauly Ann Position: Ambulatory - RN/BATH MIX OPERATOR ([facility]) Member Role: Conservation Specialist Care Team Related Persons Name: MARGUERITE STARR Name: REJI BOWMAN Address: Home [address] [phone]
--- OUTSIDE RECORDS SUMMARY | 2024-03-12 15:15 | XMS_ITS | Continuity of Care Document ---
Author Organization [facility] Address [address] [place] [address] Care Team Providers Care Liquor Clerk Name Role Phone Nerissa Victoria Primary Care Physician Encounter [place]CTY_[place] Date(s): 02/25/23 - 02/25/[address] [facility] [address] [place] [address] Discharge Disposition: Home Allergies, Adverse Reactions, Alerts [...] Start Date: 05/31/22 Status: Ordered Dexcom G4 Cloth Layer Dexcom 6, Supply, 1 EA, N/A, As [...] instructions, # 1 EA, 0 Refill(s), Pharmacy: [facility] #[id number] Start Date: 07/29/22 Status: Ordered OneTouch Ultra [...] Member Role: Primary Care Physician Address: Address: [address] [place] [phone] [place] Care Team Related Persons Name: MARGUERITE STARR Address: Home Name: RICARDO BOWMAN Address: Home
--- OUTSIDE RECORDS SUMMARY | 2024-03-12 15:15 | XMS_ITS | Continuity of Care Document ---
Author Organization [facility] Address [address] [place] [address] Care Team Providers Care Litharge Supervisor Name Role Phone Nerissa Nguyễn Primary Care Physician Encounter [place]CTY[place] Date(s): 02/16/23 - 06/12/23 [facility] [address] [place] [address] Discharge Disposition: Home or Self Care Attending Physician: Arash Ruff MD Admitting Physician: Arash Ruff MD Referring Physician: Arash Ruff MD Allergies, Adverse Reactions, Alerts Substance Reaction Severity Status troglitazone Unknown Unknown Active Rezulin Unknown Active rosiglitazone Unknown Active penicillins Unknown Active sulfa drugs Unknown Active Avandia Unknown Active Assessment and Plan Future Appointments Future Scheduled Tests Radiology* MG Mammo Screening Bilateral w/ Altaf 02/28/23 Functional Status 03/25/23 Living Situation Home independently ADLs Independent Immunizations Given and Recorded Vaccine Date Status [...] 08/01/10 Recorded 1Result Comment: 65=0.7 ml @ [facility] 2Result Comment: verified with GJ 3Result [...] Start Date: 05/31/22 Status: Ordered Dexcom G4 Photo Retoucher Dexcom 6, Supply, 1 EA, N/A, As [...] tab, 4 Refill(s), [facility] Start Date: 01/14/23 Status: Ordered losartan 50 mg oral tablet 25 mg = 0.5 tab, Oral, Daily, for 90 days, # 45 tab, 3 Refill(s), Pharm[facility]) Start Date: 03/29/23 Stop Date: 03/23/24 Status: Ordered nystatin 100,000 units/g topical cream 1 baljeet, Topical, BID, PRN other (see comment), # 30 g, 11 Refill(s), [facility] Start Date: 05/31/22 Stop Date: 05/26/23 Status: Ordered Onetouch ultra glucometer Onetouch ultra glucometer, pt tests 4 times daily E11.9, Supply, See instructions, # 1 EA, 0 Refill(s), Pharmacy: [facility] #[id number] Start Date: 07/29/22 Status: Ordered OneTouch Ultra In Vitro Strip OneTouch Ultra In Vitro Strip, See Instructions, USE 1 STRIP 4 TIMES DAILY, # 400 strip, 3 Refill(s), Pharmacy[facility] Start Date: 05/20/22 Status: Ordered semaglutide [...] tobacco user T obacco Use:. Sex Female History and physical note * Merari Goldberg: PERFORM Event Display: History and Physical Authored Date: [id number] GABBYBERNARDANTHONY :1950 Age:72 years Sex:Female Primary Care Physician: Nerissa Victoria MD Screening colonoscopy Electronically Signed on 02/17/23 07:49 AM Merari Goldberg Patient Care team information Care Team Personnel Name: Pauly Ann Position: Ambulatory - RN/BRIM PLATER ([facility]) Member Role: Sustainability Engineer Name: Nerissa Nguyễn MD Position: No Access Member Role: Primary Care Physician Address: Address: [address] [place] [phone] Care Team Related Persons Name: MARGUERITE STARR Name: RICARDO BOWMAN Name: REJI BOWMAN Address: [address] [phone]
--- OUTSIDE RECORDS SUMMARY | 2024-03-12 15:15 | XMS_ITS | Continuity of Care Document ---
Author Organization [facility] Address [address] [place] [address] Care Team Providers Care Program Therapist Name Role Phone Farhat Sparks Primary Care Physician Encounter NCTY_[place] Date(s): 09/07/22 - 09/07/[address] [address] Encounter Diagnosis Screening for breast cancer(Discharge Diagnosis) - 09/07/22 Discharge Disposition: Home or Self Care Attending Physician: Farhat Sparks KNOWLEDGE MANAGEMENT CONSULTANT Admitting Physician: Farhat Sparks NP Referring Physician: Farhat Sparks KNOWLEDGE MANAGEMENT CONSULTANT Allergies, Adverse Reactions, Alerts Substance Reaction Severity Status troglitazone Unknown Unknown Active Rezulin Unknown Active rosiglitazone Unknown Active penicillins Unknown Active sulfa drugs Unknown Active Avandia Unknown Active Assessment and Plan Future Appointments Future Scheduled Tests Radiology* US AAA Screening 02/08/22 Immunizations Given and Recorded Vaccine Date Status [...] Start Date: 05/31/22 Status: Ordered Dexcom G4 Steward/Stewardess Lounge Dexcom 6, Supply, 1 EA, N/A, As Directed, PRN bleeding As needed, # 1 EA, 0 Refill(s) Start Date: 08/19/22 Status: Ordered HumaLOG 100 units/mL injectable solution See Instructions, INJECT SUBCUTANEOUSLY 3 TIMES DAILY WITH MEALS AND NEEDED WITH SNACKS. 1 UNIT PER 5 CARBS WITH MEALS/SNACKS; 100 unit maximum daily dose, # 15 mL, 11 Refill(s), Pharmacy: [facility] Start Date: 07/23/22 Status: Ordered Insulin Syringe-Needle 31G 0.5 mL See Instructions, 1 syringe 3 times daily Start Date: 02/03/22 Status: Ordered Levemir FlexTouch 100 units/mL subcutaneous solution 30 units =, Subcutaneous, Daily, start 10 u daily&titrate to FBS>80&<120 max dose of 50 u daily, # 15 mL, 11 Refill(s), Pharmacy: [facility] Start Date: 05/31/22 Stop Date: 05/26/23 Status: Ordered levothyroxine 125 mcg (0.125 mg) oral tablet 125 mcg = 1 tab, Oral, Daily, # 90 tab, 3 Refill(s), [facility] Start Date: 05/31/22 Stop Date: 05/26/23 Status: Ordered losartan 50 mg oral tablet [...] instructions, # 1 EA, 0 Refill(s), Pharmacy: [facility] #[id number] Start Date: 07/29/22 Status: Ordered OneTouch Ultra In Vitro Strip OneTouch Ultra In Vitro Strip, See Instructions, USE 1 STRIP 4 TIMES DAILY, # 400 strip, 3 Refill(s), Pharmacy: [facility] Start Date: 05/20/22 Status: Ordered Problem List Condition Confirmation Course Effective Dates Status H ealth Status Informant Candidal intertrigo Confirmed 06/05/21 Active Chronic constipation Confirmed 03/17/18 Active Decreased hearing Confirmed 05/17/19 Active 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 Ganglion cyst of left hand Confirmed 06/05/21 Active Hypertensive disorder Confirmed Active Hypothyroidism Confirmed Active Increased frequency of urination Confirmed Active Osteoarthritis Confirmed 01/18/20 Active Wrist pain Confirmed Active Pain of right shoulder joint Confirmed 06/05/21 Active Puncture wound of foot Confirmed 05/22/20 Active Solar degeneration Confirmed 07/02/20 Active Solar lentigo Confirmed 06/05/21 Active De Quervain's tenosynovitis, right Confirmed Active Type 2 diabetes mellitus without complication Confirmed Active Procedures Procedure Date Related Diagnosis Body Site Status Cataract surgery Complete d section 1 Comple chanell Retinal operation 2 Compl eted 1two of them 2laser eye surgery Social History Social History Type Response Tobacco Never tobacco user T obacco Use:. Sex Female Patient Care team information Personnel Name: Farhat Sparks NP Address: Address: [address] [place] [phone]
--- OUTSIDE RECORDS SUMMARY | 2024-03-12 15:16 | XMS_ITS | Continuity of Care Document ---
Author Organization [facility] Address [address] [place] [address] Care Team Providers Care Bedspread Cutter Hand Name Role Phone Nerissa Victoria Primary Care Physician Encounter [place]CT[place] Date(s): 02/28/23 - 02/28/23 [facility] [address] [place] [address] Discharge Disposition: Home Allergies, Adverse Reactions, Alerts Substance Reaction Severity Status troglitazone Unknown Unknown Active Rezulin Unknown Active rosiglitazone Unknown Active penicillins Unknown Active sulfa drugs Unknown Active Avandia Unknown Active Assessment and Plan Future Appointments Future Scheduled Tests Radiology* MG Mammo Screening Bilateral w/ Altaf 02/28/23 * BD Bone Density DEXA Axial Skeleton 02/28/23 Immunizations Given and Recorded Vaccine Date [...] Start Date: 05/31/22 Status: Ordered Dexcom G4 Charity Fundraiser Dexcom 6, Supply, 1 EA, N/A, As [...] instructions, # 1 EA, 0 Refill(s), Pharmacy: [facility] #[id number] Start Date: 07/29/22 Status: Ordered OneTouch Ultra [...] Member Role: Primary Care Physician Address: Address: [address] [place] [phone] [place] Care Team Related Persons Name: MARGUERITE STARR Address: Home Name: RICARDO BOWMAN Address: Home
--- OUTSIDE RECORDS SUMMARY | 2024-03-12 15:16 | XMS_ITS | Referral Summary ---
Author Organization [facility] Address [address] [place] [address] Care Team Providers Care Facility Rehab Director Name Role Phone Gabi Aragon MD Unavailable Flavio Stubbs Primary Care Provider [phone] Encounters Date Type Department Care Team Description 12/15/2023 Orders Only [facility] Endocrinology [address] [place] [address] Gabi Mcclure MD 12/15/2023 Telephone [facility] [address] [place] [address] Ange Saunders, LUDWIN Prior Auth, Medication 12/14/2023 Orders Only [facility] Endocrinology [address] [place] [address] Gabi Mcclure MD 12/14/2023 Telephone [facility] [address] [place] [address] Jeanne Velazquez RN Medication Problem 12/12/2023 13:45 EDT Office Visit [facility] Endocrinology [address] [place] [address] Gabi Mcclure MD Type 2 diabetes mellitus with hyperglycemia, with long-term current use of insulin ([facility]) (Primary Dx); Dyslipidemia; Primary hypothyroidism from Last 3 Months Allergies Active Allergy Reactions Criticality Noted Date Comments Penicillins Fever High 02/28/2019 Turns purple Rezulin 02/28/2019 Other reaction(s): Unknown Rosiglitazone Rash Low 02/28/2019 Hnizauu-Imq-Hxh Reductase Inhibitors 12/12/2023 Leg Pain Sulfa (Sulfonamide Antibiotics) Rash Low 08/13/2020 Medications Medication Sig Dispensed Refills Start Date End Date Status Melatonin 3 mg tablet extended release Take 1 tablet by oral route at bedtime for 90 days. 03/17/2018 Active losartan (COZAAR) 25 mg tablet 1 tab(s) orally once a day 03/17/2018 Active levothyroxine (SYNTHROID) 125 mcg tablet Take 1 tablet every day by oral route for 90 days. 03/17/2018 Active cyanocobalamin (VITAMIN B-12) 500 mcg tablet 2 Tablets. Active Cinnamon Bark 500 mg capsule 600 mg. Takes 2 tabs twice daily Active cholecalciferol, Vitamin D3, 1,000 unit tablet With vitamin K Active aspirin 81 mg EC tablet Active Ascorbic Acid 500 mg tablet,chewable Active alpha lipoic acid 200 mg capsule daily. Takes 1 tab daily, R-lipoic acid Active UNABLE TO FIND use 4x/ day with One Touch Ultra 2 device Active polyethylene glycol 3350 (MIRALAX ORAL) As needed 04/06/2018 Active Insulin Syringe-Needle U-100 1 mL 29 gauge x 1/2 syringe Take 3 syringes every day by miscell. route for 90 days. Active ONETOUCH ULTRA BLUE TEST STRIP test strips 07/22/2020 Active magnesium oxide (MAG-OX) 400 mg (241.3 mg magnesium) tablet Take 1 Tablet by mouth daily. Active red yeast rice 600 mg tablet Take by mouth. 1 time daily Active NONFORMULARY 1 tab Prevagen daily Active CHROMIUM ORAL Take 75 mcg by mouth. Twice daily with meals Active UNABLE TO FIND Med Name: blood sugar formula vitamins Active LEVEMIR FLEXTOUCH U-100 INSULN 100 unit/mL (3 mL) injectable pen 30 Units. 37 units at bedtime 08/05/2021 Active BD ULTRA-FINE MINI PEN NEEDLE USE ONCE DAILY DIRECTED 08/06/2021 Active ribonucleic acid, RNA, (RIBONUCLEIC ACID MISC) by misc (non-drug; combo route) route. Active ubidecarenone (COENZYME Q10) 60 mg capsule Take by mouth. Active HUMALOG U-100 INSULIN 100 unit/mL vial Sliding scale 08/24/2021 Active triamcinolone (KENALOG) 0.1 % cream triamcinolone acetonide 0.1 % topical cream APPLY THIN LAYER TOPICALLY TO THE AFFECTED AREA TWICE DAILY Active nystatin (MYCOSTATIN) cream 05/17/2022 Active blood glucose test strips OneTouch Ultra Test strips Active insulin pen needles 31G x 3/16 BD Ultra-Fine Mini Pen Needle 31 gauge x 3/16 USE ONCE DAILY DIRECTED Active SAFFRON EXTRACT ORAL Take by mouth. Active [id number]-DP A-FISH OIL ORAL Take by mouth. Activ e UNABLE TO FIND Med Name: Liver Health supplement with turmeric, dandelion root, nisha Active semaglutide (OZEMPIC) subcutaneous pen Inject 0.25 mg into the skin once a week. 3 mL 1 10/05/2022 Active Additional Information Patient not taking.Reported on 12/12/2023 blood glucose meter (ONETOUCH ULTRA2 METER) TEST 4 TIMES DAILY 07/29/2022 Act solomon DEXCOM G7 SENSOR device Change every 10 days. 10/06/2023 Active clopidogreL (PLAVIX) 75 mg tablet Take 1 Tablet by mouth. 10/24/2023 Active LANTUS U-100 INSULIN 100 unit/mL injection Inject 46 Units into the skin. 10/03/2023 04/30/2024 Active canagliflozin (INVOKANA) 100 mg tablet Take 1 Tablet by mouth daily. Disregard Rx for Jardiance 90 Tablet 1 12/14/2023 Active dapagliflozin propanediol (FARXIGA) 5 mg tablet Take 5 mg by mouth daily. 90 Tablet 1 12/15/2023 Active Active Problems Problem Noted Date Diagnosed Date Ulcer of foot due to type 2 diabetes mellitus ([facility]) 08/13/2020 Type 2 diabetes mellitus with hyperglycemia ([facility]) 08/13/2020 Traumatic blister of foot 08/13/2020 Normal pelvic exam 08/13/2020 detention current use of insulin ([facility]) 08/13 Hypothyroidism 08/13/2020 Increased frequency of urination 08/13/2020 Hypertensive disorder 08/13/2020 Dyslipidemia 08/13/2020 Atypical chest pain 09/12/2018 Cellulitis of foot 03/28/2018 Chronic constipation 03/17/2018 Immunizations Name Administration Dates Next Due Historical Influenza Vaccine, Unspecified 2022,08/14/2017 Historical Tetanus Toxoid Vaccine, Unspecified 0 08/01/2010 Influenza Vaccine =>3yo Split IM 08/14/2017 Influenza Vaccine Nasal 04/22/2020,05/01/2019 Pneumococcal Conjugate Vacci ne 13-Valent (PCV13) (PREVNAR-13) 0.5 mL IM (6 wks+) 10/28/2017 Pneumococcal Conjugate Vacci ne 20-Valent (PCV20) (PREVNAR-20) 0.5 mL IM (6 wks+) 02/15/2023 Pneumococcal Polysaccharide (PPSV23) Vaccine (PNEUMOVAX-23) =>2YO SQ/IM 12/01/2018 Td 05/22/2020 Social History Tobacco Use Types Packs/Day Years Used Date Smoking Tobacco: Never Smokeless Tobacco: Never Tobacco Cessation:Counseling Given: Not Answered Alcohol Use Standard Drinks/Week Comments Yes 0 (1 standard drink = 0.6 oz pure alcohol) occasionally, maybe 1 glass wine at dinner once a month Interpersonal Safety Answer Date Record ed Physically Hurt Never 03/03/2020 Verbally Threaten Not on file 03/03/2020 Sex and Gender Information Value Date Recorded Sex Assigned at Female 07/15/2022 15:41 EST Gender Identity Female 05/07/2022 16:49 EDT Sexual Orientation Not on file Last Filed Vital Signs Vital Sign Reading Time Taken Comments Blood Pressure 150/60 12/12/2023 1355 EDT Pulse 68 12/12/2023 1355 EDT Temperature - - Respiratory Rate - - Oxygen Saturation - - Inhaled Oxygen Concentration - - Weight 89.4 kg (197 lb) 12/12/2023 1355 EDT Height 167.6 cm (5' 6) 06/07/2023 1215 EST Body Mass Index 31.8 06/07/2023 1215 EST Plan of Treatment Upcoming Encounters Date Type Department Care Team (Late st Contact Info) Description 04/13/2024 13:30 EDT Office Visit [facility] Endocrinology [address] [place] [address] Gabi Mcclure MD [address] [place] [phone] Procedures Procedure Name Priority Date/Time Associated Diagnosis Comments POCT HEMOGLOBIN A1C Routine 01/24/2023 Type 2 diabetes mellitus with hyperglycemia, with long-term current use of insulin ([facility]) from Last 3 Months or Most Recently Relevant to Health Maintenance Results * (ABNORMAL) POCT HEMOGLOBIN A1C (01/24/2023) Hemoglobin A1c, POC 7.5(A) 5.7 % UVN POINT OF CARE Blood CAPILLARY BLOOD / Unknown 01/24/2023 Gabi Aragon MD POINT OF CARE TEST O RDERABLES [facility]N POINT OF CARE from Last 3 Months or Most Recently Relevant to Health Maintenance Care Teams Facility Rehab Director Relationship Specialty Start Date End Date Flavio Stubbs [address] [place], [place] [address] PCP - General 12/12/23 Gabi Aragon MD [address] [place] [phone] Endocrinology, Diabetes and Metabolism 08/09/21
--- OUTSIDE RECORDS SUMMARY | 2024-03-12 15:16 | XMS_ITS | Continuity of Care Document ---
Author Organization [facility] Address [address] [place] [address] Care Team Providers Care Mining Consultant Name Role Phone Manjit Joel Primary Care Physician Encounter [facility] Date(s): 09/30/23 - 09/30/23 [facility] [address] [place] [address] Encounter Diagnosis Dizziness(Discharge Diagnosis) - 09/30/23 Discharge Disposition: Home or Self Care Attending Physician: Kena Dowell MD Admitting Physician: Kena Dowell MD Allergies, Adverse Reactions, Alerts Substance Reaction Severity Status troglitazone Unknown Unknown Active Rezulin Unknown Active rosiglitazone Unknown Active penicillins Unknown Active sulfa drugs Unknown Active Avandia Unknown Active Assessment and Plan Extracted from: Title:Clinical Document Author:Charley Leos te:10/01/23 Diagnosis: 1. Dizziness Comment: Diagnosis: Dizziness Comment: Extracted from: Title:ED Provider Note Author:Brittanie Garza Ma, MD Date:09/30/23 Assessment/Plan 1.??Dizziness??R42 Ordered: Plavix 75 mg oral tablet, 75 mg = 1 tab, Oral, Daily, X 21 days, # 21 tab, 0 Refill(s), 10/21/23 19:42:00 EDT, Pharmacy: [facility] #[id number], 165.1, cm, 07/01/22 12:42:00 EST, Height, 82, kg, 08/18/23 19:35:00 EST, Weight Dosing Discharge Patient, 09/30/23 19:21:00 EST, Constant Indicator ED Visit Follow Up [facility], Orders for future visit, 09/30/23 19:21:00 EST Patient seen in the ED for dizziness and word finding difficulties, seen by teleneurology who recommended an MRI. No MRI available tonight or over the weekend. MRI requested for Tuesday. Please follow-u... ?? Orders: aspirin, 81 mg = 1 tab, Oral, Tab-Chew, Once, First Dose: 09/30/23 19:40:00 EST, Stop Date: 09/30/23 19:40:00 EST, Physician Stop, STAT aspirin 81 mg oral capsule, 81 mg = 1 cap, Oral, Daily, do not exceed 48 capsules in 24 hours, X 21 days, # 21 cap, 0 Refill(s), 10/21/23 19:41:00 EDT, Pharmacy: [facility] #[id number], 165.1, cm, 07/01/22 12:42:00 EST, Height, 82, kg, 08/18/23 19:35:00 EST, Weight Dosing Plavix, 300 mg = 4 tab, Oral, Tab, Once, First Dose: 09/30/23 19:42:00 EST, Stop Date: 09/30/23 19:42:00 EST, Physician Stop, STAT Patient Education Dizziness Follow Up With When Contact Information Manjit oJel CARDIOLOGIST Within 3 to [address] [place] [phone] ?? Additional Instructions: Future Appointments Appointment Date:10/18/2023 01:00:00 PM Scheduled Provider:Pauly Ann Location:[facility] [place] Appointment Type:Care Coordination Follow-Up 60 ([facility]) Future Scheduled Tests Laboratory* CBC w/ Diff 07/28/23 * Comprehensive Metabolic Panel 07/28/23 * Hemoglobin A1c 07/28/23 Functional Status 09/30/23 Family Member Travel History No recent t [...] Recorded 1Result Comment: Rico Carrillo 2Result Comment: Rico Carrillo 3Result Comment: 65=0.7 ml @ [facility] 4Result Comment: verified with [facility] 5Result Comment: administered state supply instead of private supply Medications aspirin 81 mg oral capsule 81 mg = 1 cap, Oral, Daily, do not exceed 48 capsules in 24 hours, X 21 days, # 21 cap, 0 Refill(s), 10/21/23 6:41:00 PM CDT, Pharmacy: [facility] #[id number], 165.1, cm, 07/01/22 12:42:00 EST, Height, 82, kg, 08/18/23 19:35:00 EST, Weight Dosing Start Date: 09/30/23 Stop Date: 10/21/23 Status: Ordered Diagnosis: Diabetes. Diabetic foot wear [...] Status: Ordered doxycycline monohydrate 100 mg oral tablet 100 mg = 1 tab, Oral, every 12 hr, # 28 tab, 0 Refill(s), Pharmacy: [facility] #[id number], 165.1, cm, 07/01/22 12:42:00 EST, Height, 82, kg, 08/18/23 19:35:00 EST, Weight Dosing Start Date: 09/23/23 Stop Date: 10/07/23 Status: Ordered HumaLOG 100 units/mL injectable solution [...] Date: 09/30/23 Stop Date: 12/29/23 Status: Ordered Levemir 100 units/mL subcutaneous solution 40 units =, Subcutaneous, every night at bedtime, Patient is requesting 2 pens beacause she residesin two places. Please fill two pens if her insurance covers., # 30 mL, 5 Refill(s), Pharm[facility]: [facility], 165.1, cm, 07/01/22 12:42:00 EST, Height, [...] Home Delivery ([facility]) Start Date: 03/29/23 Stop Date: 03/23/24 Status: Ordered One Touch Delica Plus Lancets One Touch Delica Plus Lancets, Patient to test twice daily. Dx: E 11.9, Supply, See instructions, #180 EA, 0 Refill(s), Pharmacy: [facility] #[id number] Start Date: 06/28/23 Status: Ordered Onetouch ultra glucometer Onetouch ultra glucometer, pt tests 4 times daily E11.9, Supply, See instructions, # 1 EA, 0 Refill(s), Pharmacy: [facility] #[id number] Start Date: 07/29/22 Status: Ordered OneTouch Ultra In Vitro Strip OneTouch Ultra In Vitro Strip, See Instructions, USE 1 STRIP 4 TIMES DAILY, # 400 strip, 3 Refill(s), Pharmacy: [facility] ([facility]) Start Date: 05/20/22 Status: Ordered Plavix 75 mg oral tablet 75 mg = 1 tab, Oral, Daily, X 21 days, # 21 tab, 0 Refill(s), 10/21/23 6:42:00 PM CDT, Pharmacy: [facility] #[id number], 165.1, cm, 07/01/22 12:42:00 EST, Height, 82, kg, 08/18/23 19:35:00 EST, Weight Dosing Start Date: 09/30/23 Stop Date: 10/21/23 Status: Ordered sertraline 25 mg oral tablet 25 mg = 1 tab, Oral, Daily, # 30 tab, 2 Refill(s), Pharmacy: [facility] #[id number], 165.1, cm, 07/01/22 12:42:00 EST, Height, 82, kg, 08/18/23 19:35:00 EST, Weight Dosing Start Date: 09/16/23 Stop Date: 12/15/23 Status: Ordered Mental Status 09/30/23 Eye Opening Response Cristiana Spontaneous ly Best Verbal Response Cristiana Confused Best Motor Response Cristiana Obeys comman ds [place] Coma Score 14 Problem List Condition Confirmation Course Effective Dates Status H ealth Status Informant Atypical chest pain Confirmed 09/12/18 Active Candidal intertrigo Confirmed 06/05/21 Active Cellulitis of foot Confirmed 03/28/18 Active Chronic constipation Confirmed 03/17/18 Active Decreased hearing Confirmed 05/17/19 Active Depression Confirmed Active 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 Dizziness Confirmed Active Edema of left foot Confirmed Active Erythema Confirmed Active Fatigue Confirmed 11/27/21 Active Foot ulcer due to type 2 diabetes mellitus Confirmed 08/13/20 Active Ganglion cyst of left hand Confirmed 06/05/21 Active Hyperlipidemia Confirmed Active Hypertensive disorder 1 Confirmed Active Hypothyroidism Confirmed Active Increased frequency of urination Confirmed Active Memory changes Confirmed Active Polyarthralgia Confirmed Active Neck pain [...] eye surgery Results Laboratory List Name Date SARS-CoV-2 (COVID-19)/Flu/RSV (GeneXpert ) (COVID-19/Flu/RSV (GeneXpert)) 09/30/23 Urinalysis with Micro if Indicated and C ulture if Indicated 09/30/23 CBC w/ Diff 09/30/23 Comprehensive Metabolic Panel (CMP) Troponin-I 09/30/23 Automated Diff 09/30/23 Most recent to oldest [Reference Range]: 1 WBC [5.0-10.0 x10^3/mcL] 7.4 x10^3/mcL (09/30/23 3:47 PM) RBC [4.1-5.3 x10^6/mcL] 4.6 x10^6/mcL (09/30/23 3:47 PM) Neutro Auto [40.0-75.0 %] 59.0 % (09/30/23 3:47 PM) Lymph Auto [20.0-50.0 %] 31.3 % (09/30/23 3:47 PM) [place] Auto [2.0-15.0 %] 6.9 % (09/30/23 3:47 PM) Basophil Auto [0.0-1.0 %] 0.7 % (09/30/23 3:47 PM) BUN [7-18 mg/dL] 19 mg/dL *HI* (09/30/23 3:47 PM) UA Color Yellow (09/30/23 3:48 PM) Glucose Level [74-106 mg/dL] 228 mg/dL *HI* (09/30/23 3:47 PM) Potassium Level [3.5-5.1 mmol/L] 3.8 mmo l/L (09/30/23 3:47 PM) MCV [80.0-96.0 fL] 90.9 fL (09/30/23 3:47 PM) UA Urobilinogen Normal (09/30/23 3:48 PM) UA Bili [Negative] Negative (09/30/23 3:48 PM) UA Ketones Negative (09/30/23 3:48 PM) AST [15-37 unit/L] 20 unit/L (09/30/23 3:47 PM) ALT [14-59 unit/L] 23 unit/L (09/30/23 3:47 PM) MCHC [31.0-35.0 g/dL] 34.0 g/dL (09/30/23 3:47 PM) Troponin-I [0.0-51.4 pg/mL] 5.2 pg/mL (09/30/23 3:47 PM) Sodium Level [136-145 mmol/L] 138 mmol/L (09/30/23 3:47 PM) UA Leuk Est Negative (09/30/23 3:48 PM) UA Nitrite Negative (09/30/23 3:48 PM) UA Glucose [Negative] Negative (09/30/23 3:48 PM) Hct [37.0-47.0 %] 42.1 % (09/30/23 3:47 PM) Calcium Level [8.5-10.1 mg/dL] 9.3 mg/dL (09/30/23 3:47 PM) Albumin Level [3.4-5.0 g/dL] 3.4 g/dL (09/30/23 3:47 PM) Protein Total [6.4-8.2 g/dL] 7.3 g/dL (09/30/23 3:47 PM) UA Protein Negative (09/30/23 3:48 PM) MCH [26.0-32.0 pg] 30.9 pg (09/30/23 3:47 PM) Neutro Absolute 4.4 x10^3/mcL *NA* (09/30/23 3:47 PM) Bilirubin Total [0.2-1.0 mg/dL] 0.4 mg/d L (09/30/23 3:47 PM) Hgb [12.0-16.0 g/dL] 14.3 g/dL (09/30/23 3:47 PM) Alk Phos [46-146 unit/L] 93 unit/L (09/30/23 3:47 PM) UA Blood Negative (09/30/23 3:48 PM) UA Spec Grav >=1.030 *NA* (09/30/23 3:48 PM) Platelets [130-450 x10^3/mcL] 275 x10^3/ mcL (09/30/23 3:47 PM) CO2 [21-32 mmol/L] 32 mmol/L (09/30/23 3:47 PM) UA pH 5.5 *NA* (09/30/23 3:48 PM) eGFR Non-AA [>=60] 91 (09/30/23 3:47 PM) eGFR AA [>=60] 91 (09/30/23 3:47 PM) UA Appear Clear (09/30/23 3:48 PM) Chloride Level [98-107 mmol/L] 102 mmol/ L (09/30/23 3:47 PM) RDW-CV [11.5-14.5 %] 13.2 % (09/30/23 3:47 PM) Imm Gran Auto [0.0-0.9 %] 0.3 % (09/30/23 3:47 PM) Creatinine Level [0.55-1.02 mg/dL] 0.68 mg/dL (09/30/23 3:47 PM) Employed in healthcare? Unknown *NA* (09/30/23 4:51 PM) Symptomatic as defined by CDC? Unknown *NA* (09/30/23 4:51 PM) Hospitalized due to COVID-19? Unknown *NA* (09/30/23 4:51 PM) In ICU? Unknown *NA* (09/30/23 4:51 PM) Group care resident? Unknown *NA* (09/30/23 4:51 PM) status? Unknown *NA* (09/30/23 4:51 PM) SARS-CoV-2(Covid19)PCR(GXpert COVFLURSV) [Negative] Negative (09/30/23 4:51 PM) Flu A (GXpert COVFLURSV) [Negative] Nega tive (09/30/23 4:51 PM) RSV (GXpert COVFLURSV) [Negative] Negati ve (09/30/23 4:51 PM) Flu B (GXpert COVFLURSV) [Negative] Nega tive (09/30/23 4:51 PM) Eos, Auto [1.0-6.0 %] 1.8 % (09/30/23 3:47 PM) Vital Signs Most recent to oldest [Reference Range]: 1 2 3 Temperature Temporal Artery [36-38 Deg C] 36.0 Deg C (09/30/23 3:01 PM) Peripheral Pulse Rate [60-100 bpm] 65 bpm (09/30/23 6:03 PM) 66 bpm (09/30/23 5:00 PM) 68 bpm (09/30/23 4:30 PM) Heart Rate Monitored [60-100 bpm] 66 bpm (09/30/23 6:03 PM) 66 bpm (09/30/23 5:00 PM) 69 bpm (09/30/23 4:30 PM) Respiratory Rate [12-24 br/min] 18 br/min (09/30/23 6:03 PM) 10 br/min *LOW* (09/30/23 5:00 PM) 14 br/min (09/30/23 4:30 PM) Blood Pressure [90-140/60-90 mmHg] 158/78mmHg *HI* (09/30/23 6:03 PM) 102/79mmHg (09/30/23 5:00 PM) 137/73mmHg (09/30/23 3:01 PM) Mean Arterial Pressure, Cuff [65-140 mmHg] 105 mmHg (09/30/23 6:03 PM) 87 mmHg (09/30/23 5:00 PM) 94 mmHg (09/30/23 3:01 PM) Weight Estimated 81.65 kg (09/30/23 3:01 PM) Body Mass Index Estimated 29.99 kg/m2 (09/30/23 3:01 PM) Height/Length Estimated 165 cm (09/30/23 3:01 PM) Social History Social History Type Response Tobacco Never tobacco user T obacco Use:. Sex Female Hospital Discharge Instructions Patient Education 09/30/2023 18:21:18 Dizziness Dizziness Dizziness is a common problem. [...] is good. ??? 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 ??? Take foll-[id number]-dnkdbtq and prescription medicines only as told by [...] provider. Document Revised: 06/22/2021 Document Reviewed: 06/22/2021 [employer] Patient Education ?? 2022 [employer]. Follow Up Care 09/30/2023 15:01:15 With:Manjit Joel NP Address: [address] [place] [phone] When:3 to 5 days Pharmacology Progress note * Lilly Otto PharmD: PERFORM Event Display: Pharmacy Progress Note Authored Date: Pharmacy Progress Note Med history updated with the patient, Rico in [place], and [facility]. Her losartan dose was lowered to 25mg daily, but she has continued to take 50 daily. She covers carbs with 1 unit of humalog per 4 carbs. Electronically Signed on 09/30/23 04:37 PM Lilly Otto PharmD Physician Emergency department Note * Brittanie Garza MD: PERFORM Event Display: ED Note Physician Authored Date: [id number] ANTHONY BOWMAN :1950 Age:73 years Sex:Female Visit Date:09/30/2023 Primary Care Physician: Manjit Joel NP Basic Information Time Seen: Brittanie Garza MD / 09/30/2023 15:15 Chief Complaint i'm dizzy i'm lightheaded I have trouble finding my words. I think I had the flu a week ago but i'm over that portion now. pt has a hard time following commands in triage. BGL 246 in triage pt statse 1 pm LKW when she noticed difficulty finding words History Of Present Illness: 73-year-old lady with a chart listed history of atypical chest pain, chronic constipation,??depression, fatigue, decreased hearing,??hypothyroidism, hypertension,??neuropathy,??diabetes, varicose veins, who presents to the emergency department complaining of??lightheadedness and nausea for about 3 w eeks, and word finding difficulties today. ??She is unable to describe the dizziness that she is experiencing.?She has no headache. ??She attributes the dizziness of 3 weeks to the flu but was never tested. ??She says she felt better for a few days and today??she??was in a car for a while and says she tends to get carsick. ??When she returned home she found herself dizzy??again??and noted she had??word finding??difficulties??when talking on the phone around??1 PM.?? She denies pain anywhere,she denies??numbness, tingling or weakness??of any of her her upper or lower extremities.?? She hasno difficulty walking.? She has no??fever, cough, chest pain, shortness of breath, dysuria??or hematuria. Physical Exam Vitals & Measurements T:??36.0?C ??(Temporal Artery)?? HR:??65??(Peripheral)?? HR:??66??(Monitored)?? RR:??18?? BP:??158/78?? SpO2:??100%?? HT:??165??cm?? WT:??81.65??kg??(Estimated)?? BMI:??29.99?? O2 Therapy:??Room air?? General: A&Ox3, Calm, no apparent distress, well developed, pleasant and cooperative ?? HEENT: Head ATNC. Eyes: FRANKI. Extraocular Mobility: intact and symmetrical. Conjunctiva: non-injected, anicteric, no discharge. Oral Cavity: moist. Neck: no masses, no crepitus. Lymph Nodes: no cervical lymphadenopathy? Respiratory: CTA bilaterally, no wheezing, no rales/crackles? CV: RRR, normal S1, normal S2, no murmurs, rubs or gallops ?? Abdomen : soft, non-tender, non-distended, no rebound or guarding, no hepatosplenomegaly ?? Extremities: no le swelling, warm and well-perfused, no cyanosis, capillary refill <2 seconds? Skin: no rash, no lesions, no bruising? Neuro: normal tone, normal strength in all 4 extremities, sensation intact?? Medical Decision Makin-year-old lady with a chart listed history of atypical chest pain, chronic constipation,??depression, fatigue, decreased hearing,??hypothyroidism, hypertension,??neuropathy,??diabetes, varicose veins, who presents to the emergency department complaining of??3 weeks of lightheadedness??and now with word finding difficulty since 1 PM. ?? Thorough chart review performed, nursing triage note reviewed, vitals reviewed ?? The patient is well and non toxic appearing with reassuring VS ?? No word finding difficulties initially on my assessment while the patient was??telling me a story about a bear??she saw 1 night.?? However when I asked her about??word finding difficulties that is when??the word finding difficulty started.?? Patient with no slurring of her speech, she is sensitive slightly stutter.?? No facial droop,??neurovascularly intact otherwise. ?? Her presentation is??very atypical for stroke, will check head CT but also??some basic labs, UA forpossible UTI,??check respiratory panel,??monitor and reassess ?? Labs??interpreted by self??with no leukocytosis at 7.4, hemoglobin stable at 14.3, platelets 275,??BUNs/creatinine??19/0.68, no electrolyte abnormality,??glucose slightly elevated at 228,??LFTs within normal limits,??UA with no evidence of infection.?? Respiratory panel negative for influenza, COVID and RSV. Noncontrast head CT with no acute findings CT angio head and neck??with less than 50%??stenosis of the bilateral carotid arteries ?? I requested a teleneurology consult??and the neurologist called me back to discuss the patient.?? He was not convinced that the patient has had a stroke.?? He recommended??admission and an MRI??and starting the patient on aspirin??and Plavix. ?? No MRI??available tonight or over the weekend.??I discussed this with the patient and she was not interested in staying in the hospital. She is comfortable going home??and will get an MRI??as an outpatient on Tuesday. ??I have placed??a request.?? She will start aspirin and Plavix.?? I have also plac ed a??follow-up with primary care??within the next week??for patient to be reevaluated in??for??reevaluation of possible treatment once the MRI results??are back.?? Of note, the patient says she is closer phobic and??had an open MRI??in the past where she was also claustrophobic but she says she went for the CT scan today??and close her eyes and had no problems. ??She is willing to try an MRI here??by closing her eyes??and listening to music??next week. ?? Discharge instructions and return precautions discussed, all questions answered. Procedure No Qualifying Data Assessment/Plan 1.??Dizziness??R42 Ordered: Plavix 75 mg oral tablet, 75 mg = 1 tab, Oral, Daily, X 21 days, # 21 tab, 0 Refill(s), 10/21/23 19:42:00 EDT, Pharmacy: [facility] #[id number], 165.1, cm, 07/01/22 12:42:00 EST, Height, 82, kg,08/18/23 19:35:00 EST, Weight Dosing Discharge Patient, 09/30/23 19:21:00 EST, Constant Indicator ED Visit Follow Up [facility], Orders for future visit, 09/30/23 19:21:00 EST Patient seen in the ED for dizziness and word finding difficulties, seen by teleneurology who recommended an MRI. No MRI available tonight or over the weekend. MRI requested for Tuesday. Please follow-u... ?? Orders: aspirin, 81 mg = 1 tab, Oral, Tab-Chew, Once, First Dose: 09/30/23 19:40:00 EST, Stop Date: 09/30/23 19:40:00 EST, Physician Stop, STAT aspirin 81 mg oral capsule, 81 mg = 1 cap, Oral, Daily, do not exceed 48 capsules in 24 hours, X 21days, # 21 cap, 0 Refill(s), 10/21/23 19:41:00 EDT, Pharmacy: [facility] #[id number], 165.1, cm, 07/01/22 12:42:00 EST, Height, 82, kg, 08/18/23 19:35:00 EST, Weight Dosing Plavix, 300 mg = 4 tab, Oral, Tab, Once, First Dose: 09/30/23 19:42:00 EST, Stop Date: 09/30/23 19:42:00 EST, Physician Stop, STAT Patient Education Dizziness Follow Up With When Contact Information Manjit Joel CARDIOLOGIST Within 3 to [address] [place] [phone] Additional Instructions: Medication Reconciliation New Prescription aspirin (aspirin 81 mg oral capsule)1 Capsules Oral (given by mouth) every day for 21 Days. do not exceed 48 capsules in 24 hours. Refills: 0. ?? clopidogrel (Plavix 75 mg oral tablet)1 tab Oral (given by mouth) every day for 21 Days. Refills: 0. ?? Unchanged doxycycline (doxycycline monohydrate 100 mg oral tablet)1 tab Oral (given by mouth) every 12 hours for 14 Days. Refills: 0. ?? Durable Medical Equipment for [...] 0. ?? Durable Medical Equipment for Prescription ([employer] ultra glucometer)pt tests 4 times daily E11.9.Refills: [...] Days. for 90 days. Refills: 3. ?? Other Prescription (OneTouch Ultra [...] due to type 2 diabetes mellitus Dizziness DM2 (diabetes mellitus, type 2) Edema of left foot Erythema Falls frequently Fatigue Foot ulcer due to type 2 diabetes mellitus Ganglion cyst of left hand Hyperlipidemia Hypertensive disorder Hypothyroidism Increased frequency of urination Memory changes Neck pain Neuropathy Osteoarthritis Osteoporosis Pain of right shoulder joint Polyarthralgia Puncture wound of foot Solar degeneration Solar lentigo Type 2 diabetes mellitus without complication Varicose vein of leg Varicose veins of lower extremity Wrist pain Historical No qualifying data Procedure/Surgical History ???Cataract surgery??? section???Retinal operation Medication Administration Given 0.9% NaCl bolus, 1000 mL, Medication Bolus Allergies Avandia Rezulin penicillins rosiglitazone sulfa drugs troglitazone??(Unknown) Social History Alcohol Current, Wine, 1-2 times per year Electronic Cigarette/Vaping Electronic Cigarette Use: Never. 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 Home/Environment Lives with Daughter half time and pt's boyfriend the other half. Nutrition/Health Caffeine intake amount: one to two cup coffee in the AM. Psychosocial Substance Use Never Tobacco Never tobacco user Tobacco Use:. Family History AAA - Abdominal aortic aneurysm: Father and Sister. Alcohol abuse: Brother. Anxiety: Sister. Depression: Sister. Diabetes mellitus: Mother. Heart disease: Mother and Father. Referral Orders ED Visit Follow Up [facility], Orders for future visit, 09/30/23 19:21:00 EST Patient seen in the ED for dizziness and word finding difficulties, seen by teleneurology who recommended an MRI. No MRI available tonight or over the weekend. MRI requested for Tuesday. Please follow-u... Lab Results CBC and Differential?? LATEST RESULTS?? HISTORICAL RESULTS?? WBC?? 03/01/24 15:47?? 7.4?? 08/18/23?? 8.5?? RBC?? 09/30/23 15:47?? 4.6?? 08/18/23?? 4.7?? Hgb?? 09/30/23 15:47?? 14.3?? 08/18/23?? 14.3?? Hct?? 09/30/23 15:47?? 42.1?? 08/18/23?? 42.5?? MCV?? 09/30/23 15:47?? 90.9?? 08/18/23?? 90.8?? MCH?? 09/30/23 15:47?? 30.9?? 08/18/23?? 30.6?? MCHC?? 09/30/23 15:47?? 34.0?? 08/18/23?? 33.6?? RDW-CV?? 09/30/23 15:47?? 13.2?? 08/18/23?? 13.2?? Platelets?? 09/30/23 15:47?? 275?? 08/18/23?? 276?? Neutro Auto?? 09/30/23 15:47?? 59.0?? 08/18/23?? 64.7?? Lymph Auto?? 09/30/23 15:47?? 31.3?? 08/18/23?? 25.3?? [place] Auto?? 09/30/23 15:47?? 6.9?? 08/18/23?? 7.5?? Eos, Auto?? 09/30/23 15:47?? 1.8?? 08/18/23?? 1.8?? Basophil Auto?? 09/30/23 15:47?? 0.7?? 08/18/23?? 0.5?? Imm Gran Auto?? 09/30/23 15:47?? 0.3?? 08/18/23?? 0.2?? Neutro Absolute?? 09/30/23 15:47?? 4.4?? 08/18/23?? 5.5? Routine Chemistry?? LATEST RESULTS?? HISTORICAL RESULTS?? Sodium Level?? 09/30/23 15:47?? 138?? 08/18/23?? 140?? Potassium Level?? 09/30/23 15:47?? 3.8?? 08/18/23?? 3.9?? Chloride Level?? 09/30/23 15:47?? 102?? 08/18/23?? 103?? CO2?? 09/30/23 15:47?? 32?? 08/18/23?? 30?? Alk Phos?? 09/30/23 15:47?? 93?? 08/18/23?? 84?? AST?? 09/30/23 15:47?? 20?? 08/18/23?? 18?? ALT?? 09/30/23 15:47?? 23?? 08/18/23?? 24?? BUN?? 09/30/23 15:47?? 19 ??High?? 08/18/23?? 24 ??High?? Glucose Level?? 09/30/23 15:47?? 228 ??High?? 08/18/23?? 334 ??High?? Creatinine Level?? 09/30/23 15:47?? 0.68?? 08/18/23?? 0.72?? eGFR AA?? 09/30/23 15:47?? 91?? 08/18/23?? 87?? eGFR Non-AA?? 09/30/23 15:47?? 91?? 08/18/23?? 87?? Calcium Level?? 09/30/23 15:47?? 9.3?? 08/18/23?? 9.3?? Protein Total?? 09/30/23 15:47?? 7.3?? 08/18/23?? 7.4?? Albumin Level?? 09/30/23 15:47?? 3.4?? 08/18/23?? 3.4?? Bilirubin Total?? 09/30/23 15:47?? 0.4?? 08/18/23?? 0.2? Cardiac Isoenzymes?? LATEST RESULTS?? HISTORICAL RESULTS?? Troponin-I?? 09/30/23 15:47?? 5.2?? 08/18/23?? 7.9? UA Macroscopic?? LATEST RESULTS?? HISTORICAL RESULTS?? UA Color?? 09/30/23 15:48?? Yellow?? 08/18/23?? Yellow?? UA Appear?? 09/30/23 15:48?? Clear?? 08/18/23?? Clear?? UA Glucose?? 09/30/23 15:48?? Negative?? 08/18/23?? 3+ Abnormal?? UA Bili?? 09/30/23 15:48?? Negative?? 08/18/23?? Negative?? UA Ketones?? 09/30/23 15:48?? Negative?? 08/18/23?? Negative?? UA Spec Grav?? 09/30/23 15:48?? >=1.030?? 08/18/23?? 1.020?? UA Blood?? 09/30/23 15:48?? Negative?? 08/18/23?? Negative?? UA pH?? 09/30/23 15:48?? 5.5?? 08/18/23?? 6.0?? UA Protein?? 09/30/23 15:48?? Negative?? 08/18/23?? Negative?? UA Urobilinogen?? 09/30/23 15:48?? Normal?? 08/18/23?? Normal?? UA Nitrite?? 09/30/23 15:48?? Negative?? 08/18/23?? Negative?? UA Leuk Est?? 09/30/23 15:48?? Negative?? 08/18/23?? Negative? Infectious Disease?? LATEST RESULTS?? Employed in healthcare??? 09/30/23 16:51?? Unknown?? Symptomatic as defined by CDC??? 09/30/23 16:51?? Unknown?? Hospitalized due to COVID-19??? 09/30/23 16:51?? Unknown?? In ICU??? 09/30/23 16:51?? Unknown?? Group care resident??? 09/30/23 16:51?? Unknown?? status??? 09/30/23 16:51?? Unknown?? SARS-CoV-2(Covid19)PCR(GXpert COVFLURSV)?? 09/30/23 16:51?? Negative?? Flu A (GXpert COVFLURSV)?? 09/30/23 16:51?? Negative?? Flu B (GXpert COVFLURSV)?? 09/30/23 16:51?? Negative?? RSV (GXpert COVFLURSV)?? 09/30/23 16:51?? Negative? Electronically Signed on 09/30/23 07:47 PM Brittanie Garza MD Emergency department Discharge instructions * Brittanie Garza MD: PERFORM Event Display: ED Discharge Information Authored Date: [id number] ANTHONY BOWMAN Denise :1950 Age:73 years Sex:Female Visit Date:09/30/2023 Primary Care Physician: Manjit Joel CARDIOLOGIST Discharge Instructions We would like to thank you for allowing us to assist you with your healthcare needs. The following includes patient education materials and information regarding your injury/illness. Diagnosis from Today's Visit Dizziness Discharge Vitals Temperature??(Temporal Artery) 96.8 ??F (36.0 ??C) Heart Rate??(Peripheral) 65 Heart Rate??(Monitored) 66 Respiratory Rate?? 18 Blood Pressure?? 158/78?? SpO2?? 100% Height?? 64.96 in (165 cm) Weight??(Estimated) 180.04 lb (81.65 kg) BMI?? 29.99 Allergies Avandia Rezulin penicillins rosiglitazone sulfa drugs troglitazone??(Unknown) What to Do Next Instructions from Your Care Team Please continue aspirin 81mg daily, and Plavix 75mg daily. Please follow- up??with radiology for MRI??on Tuesday.?? Follow-up with your primary care??doctor shortly after that for reevaluation. Return to the ED for any new or worsening symptoms. You Need to Schedule the Following Appointments Follow Up with??Manjit Joel NP When:??Within 3 to 5 days Where: [address] [place] [phone] Upcoming Scheduled Appointments Tuesday 8:00 AM EST ?? With: Pauly Ann Where: [address] [phone] Status: Confirmed Tuesday 1:00 PM EDT ?? With: Pauly Ann Where: [address] [phone] Status: Confirmed Tuesday 1:00 PM EDT ?? With: Manjit Joel NP Where: [facility] [address] [place] [address] Status: Confirmed Tuesday 12:15 PM EDT ?? With: Yvrose Marquez DNP Where: [facility] [address] [phone] Status: Confirmed You were treated [...] Much When Why Instructions Next Dose New aspirin (aspirin 81 mg oral capsule) 1 Capsules Oral (given by mouth) Every day Duration: 21 Days do not exceed 48 capsules in 24 hours ?? Pickup at [facility] #[id number] New clopidogrel (Plavix 75 mg oral tablet) 1 tab Oral (given by mouth) Every day Dizziness Duration: 21 Days Pickup at [facility] #[id number] Unchanged doxycycline (doxycycline monohydrate 100 mg oral tablet) 1 tab Oral (given by mouth) Every 12 hours Cellulitis of left foot Duration: 14 Days Unchanged Durable Medical Equipment for Prescription (Diagnosis: [...] ?? Unchanged Durable Medical Equipment for Prescription (Onetouch ultra glucometer) See instructions Type 2 diabetes [...] 90 Days for 90 days ?? Unchanged Other Prescription (OneTouch Ultra In Vitro Strip) See instructions USE 1 STRIP 4 TIMES DAILY ?? Unchanged sertraline (sertraline 25 mg oral tablet) 1 tab Oral (given by mouth) Every day Depression Duration: 30 Days Pharmacy Information [facility] #[id number]: [address] [phone] Education Materials Dizziness Dizziness is a common [...] is good. ? 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 ? Take ctzh-svb-biioxcx and prescription medicines only as told by [...] provider. Document Revised: 06/22/2021 Document Reviewed: 06/22/2021 [employer] Patient Education ?? 2022 [employer] Tests Performed Medications and Immunizations Administered Given 0.9% NaCl bolus, 1000 mL, Medication Bolus Lab Test Name Test Result Date/Time WBC 7.4 x10^3/mcL 09/30/2023 15:47 EST RBC 4.6 x10^6/mcL 09/30/2023 15:47 EST Hgb 14.3 g/dL 09/30/2023 15:47 EST Hct 42.1 % 09/30/2023 15:47 EST MCV 90.9 fL 09/30/2023 15:47 EST MCH 30.9 pg 09/30/2023 15:47 EST MCHC 34.0 g/dL 09/30/2023 15:47 EST RDW-CV 13.2 % 09/30/2023 15:47 EST Platelets 275 x10^3/mcL 09/30/2023 15:47 EST Neutro Auto 59.0 % 09/30/2023 15:47 EST Lymph Auto 31.3 % 09/30/2023 15:47 EST [place] Auto 6.9 % 09/30/2023 15:47 EST Eos, Auto 1.8 % 09/30/2023 15:47 EST Basophil Auto 0.7 % 09/30/2023 15:47 EST Imm Gran Auto 0.3 % 09/30/2023 15:47 EST Neutro Absolute 4.4 x10^3/mcL 09/30/2023 15:47 EST Sodium Level 138 mmol/L 09/30/2023 15:47 EST Potassium Level 3.8 mmol/L 09/30/2023 15:47 EST Chloride Level 102 mmol/L 09/30/2023 15:47 EST CO2 32 mmol/L 09/30/2023 15:47 EST Alk Phos 93 unit/L 09/30/2023 15:47 EST AST 20 unit/L 09/30/2023 15:47 EST ALT 23 unit/L 09/30/2023 15:47 EST BUN 19 mg/dL 09/30/2023 15:47 EST Glucose Level 228 mg/dL 09/30/2023 15:47 EST Creatinine Level 0.68 mg/dL 09/30/2023 15:47 EST eGFR AA 91 09/30/2023 15:47 EST eGFR Non-AA 91 09/30/2023 15:47 EST Calcium Level 9.3 mg/dL 09/30/2023 15:47 EST Protein Total 7.3 g/dL 09/30/2023 15:47 EST Albumin Level 3.4 g/dL 09/30/2023 15:47 EST Bilirubin Total 0.4 mg/dL 09/30/2023 15:47 EST Troponin-I 5.2 pg/mL 09/30/2023 15:47 EST UA Color YELLOW. 09/30/2023 15:48 EST UA Appear CLEAR. 09/30/2023 15:48 EST UA Glucose NEGATIVE 09/30/2023 15:48 EST UA Bili NEGATIVE 09/30/2023 15:48 EST UA Ketones NEGATIVE 09/30/2023 15:48 EST UA Spec Grav >=1.030 09/30/2023 15:48 EST UA Blood NEGATIVE 09/30/2023 15:48 EST UA pH 5.5 09/30/2023 15:48 EST UA Protein NEGATIVE 09/30/2023 15:48 EST UA Urobilinogen 0.2 Uro 09/30/2023 15:48 EST UA Nitrite NEGATIVE 09/30/2023 15:48 EST UA Leuk Est NEGATIVE 09/30/2023 15:48 EST Employed in healthcare? Unknown 09/30/2023 16:51 EST Symptomatic as defined by CDC? Unknown 09/30/2023 16:51 EST Hospitalized due to COVID-19? Unknown 09/30/2023 16:51 EST In ICU? Unknown 09/30/2023 16:51 EST Group care resident? Unknown 09/30/2023 16:51 EST status? Unknown 09/30/2023 16:51 EST SARS-CoV-2(Covid19)PCR(GXpert COVFLURSV) NEGATIVE 09/30/2023 16:51 EST Flu A (GXpert COVFLURSV) NEGATIVE 09/30/2023 16:51 EST Flu B (GXpert COVFLURSV) Neg-GeneXPert 09/30/2023 16:51 EST RSV (GXpert COVFLURSV) Neg-GeneXPert 09/30/2023 16:51 EST Patient/Retort Engineer Signature Patient Name:ANTHONY BOWMAN I have received this information and my questions have been answered. Patient/Retort Engineer Name: Patient/Retort Engineer Signature: Relationship to Patient: Witness Name/Signature: Date: Electronically Signed on: 09/30/2023 19:44 ESTSigned by:[facility] Emergency department Note * Charley Leos: PERFORM Event Display: ED Notes Authored Date: [id number] * Charley Leos: PERFORM Event Display: ED Notes Authored Date: [id number] Discharge summary * Charley Leos: PERFORM Event Display: Discharge Note Authored Date: [id number] * Charley Leos: PERFORM Event Display: Discharge Note Authored Date: [id number] Diagnosis: 1. Dizziness Comment: Diagnosis: Dizziness Comment: Electronically Signed on 10/01/23 06:03 AM Charley Leos Patient Care team information Care Team Personnel Name: Manjit Joel CARDIOLOGIST Position: Physician Member Role: Primary Care Physician Address: Address: [address] [place] [phone] Name: Pauly Ann Position: Ambulatory - RN/BENCH CHEMIST (Adiel) Member Role: Emu Farmer Care Team Related Persons Name: STARRMARGUERITE Name: REJI BOWMAN Address: [address] [id number]
--- OUTSIDE RECORDS SUMMARY | 2024-03-12 15:16 | XMS_ITS | Encounter Summary ---
Author Organization [facility] Address [address] [place] [address] Care Team Providers Care Electrical Project Engineer Name Role Phone Gabi Aragon MD Unavailable [phone] Flavio Stubbs Primary Care Provider [phone] Reason for Visit * Reason Onset Date Comments Medication Problem 12/14/2023 Encounter Details Date Type Department Care Team (Late st Contact Info) Description 12/14/2023 Telephone [facility] Endocrinology [address] [place], [place] [address] Jeanne Velazquez RN Medication Problem Social History Tobacco Use Types Packs/Day Years Used Date Smoking Tobacco: Never Smokeless Tobacco: Never Alcohol Use Standard Drinks/Week Comments Yes 0 [...] 16:49 EDT Sexual Orientation Not on file documented as of this encounter Miscellaneous Notes * Telephone Encounter - Ange Saunders RN - 12/15/2023 0952 EDT Pt notified of this * Telephone Encounter - Ange Saunders RN - 12/15/2023 1919 EDT Images from the original note were not included. Gabi Mcclure MD [facility] Endocrinology Nurse OK to switch to Invokana 100 mg due to cost. Please let her know. * Telephone Encounter - Jeanne Velazquez RN - 12/14/2023 1700 EDT Veronica concerned about the high cost of Jardiance. She thought [facility] would be cheaper. I called themand she would have a charge of $474 after insurance for the Jardiance. They suggested a switch to Invokana; that would only be $50. Please advise and have another nurse call pt with your decision. documented in this encounter Plan of Treatment Upcoming Encounters Date Type Department Care Team (Late st Contact Info) Description 04/13/2024 13:30 EDT Office Visit [facility] Endocrinology [address] [place], [place] [phone] Gabi Mcclure MD [address] [place] [address] [place] [phone] documented as of this encounter Visit Diagnoses Not on filedocumented in this encounter Care Teams Electrical Project Engineer Relationship Specialty Start Date End Date StubbsFlavio [address] [address] PCP - General 12/12/23 Gabi Aragon MD [address] [facility] [address] [place] [phone] Endocrinology, Diabetes and Metabolism 08/09/21 documented as of this encounter
--- OUTSIDE RECORDS SUMMARY | 2024-03-12 15:16 | XMS_ITS | Encounter Summary ---
Author Organization [facility] Address [address] [place] [address] Care Team Providers Care Manager Skilled Name Role Phone Gabi Aragon MD Unavailable [phone] Flavio Stubbs Primary Care Provider [phone] Reason for Referral * Medication Prior Authorization - Denied Specialty Diagnoses / Procedures Referred By Contgauri ventrua Referred To Contact Gabi Mcclure MD [address] [place] [phone] Referral ID Status Reason Start Date Expiration Date Visits Re quested Visits Authorized [id number] Denied 1 1 Encounter Details Date Type Department Care Team (Late st Contact Info) Description 12/14/2023 Orders Only [facility] Endocrinology [address] [place], [place] [address] Gabi Mcclure MD [address] [place] [phone] Social History Tobacco Use Types Packs/Day Years [...] on file documented as of this encounter Ordered Prescriptions Prescription Sig Dispensed Refills Start Date End Da te canagliflozin (INVOKANA) 100 mg tablet Take 1 Tablet by mouth daily. Disregard Rx for Jardiance 90 Tablet 1 12/14/2023 documented in this encounter Plan of Treatment Upcoming Encounters Date Type Department Care Team (Late st Contact Info) Description 04/13/2024 13:30 EDT Office Visit [facility] Endocrinology [address] [place] [address] Gabi Mcclure MD [address] [place] [address] [address] [place] [address] documented as of this encounter Visit Diagnoses Not on filedocumented in this encounter Discontinued Medications Medication Sig Discontinue Reason Start Date End Da te empagliflozin (JARDIANCE) 10 mg tablet Take 1 Tablet by mouth daily. E11.65 12/12/2023 12/14/2023 documented as of this encounter Care Teams Manager Skilled Relationship Specialty Start Date End Date Flavio Stubbs [address] [place] [address] PCP - General 12/12/23 Gabi Aragon MD [address] [facility] [address] [place] [phone] Endocrinology, Diabetes and Metabolism 08/09/21 documented as of this encounter
--- OUTSIDE RECORDS SUMMARY | 2024-03-12 15:16 | XMS_ITS | Continuity of Care Document ---
Author Organization [facility] Address [address] [place] [address] Care Team Providers Care Size Painter Name Role Phone Reji Zarco Primary Care Physician Encounter [facility] Date(s): 10/25/23 - 10/25/23 [facility] [address] [place] [address] Discharge Disposition: Home or Self Care Attending Physician: Manjit Joel NP Admitting Physician: Manjit Joel NP Referring Physician: Manjit Joel IRON WORKER Allergies, Adverse Reactions, Alerts Substance Reaction Severity Status troglitazone Unknown Unknown Active Rezulin Unknown Active rosiglitazone Unknown Active penicillins Unknown Active sulfa drugs Unknown Active Avandia Unknown Active Assessment and Plan Future Appointments Diagnostic Tests Pending * Hemoglobin A1c 10/25/23 Future Scheduled Tests Laboratory* CBC w/ Diff 07/28/23 * CBC w/ Diff 10/19/23 * Comprehensive Metabolic Panel 07/28/23 * Vitamin B12 Level 10/19/23 * Ferritin 10/19/23 * Folate Level 10/19/23 * Microalbumin/Creatinine Ratio Urine 10/19/23 * Iron Level and TIBC 10/19/23 * Vitamin D, 25-OH Total [facility] 10/19/23 * Hemoglobin A1c 07/28/23 Radiology* XR Foot 2 Views Left 10/25/23 Immunizations Given and Recorded Vaccine Date Status Refusal Reason RSV vaccine preF3, recombinant 1 06/17/23 Recorded SARS-CoV-2 (COVID-19) Moderna (cvx 312) 2 06/17/23 Recorded influenza virus vaccine, inactivated 3 04/19/23 Re corded influenza virus vaccine, inactivated 08/14/17 Micah rded pneumococcal 20-valent conjugate vaccine 7/18/23 Recorded SARS-CoV-2 (COVID-19) mRNA-1273 vaccine 05/25/21 R [...] Rico Carrillo 3Result Comment: 65=0.7 ml @ [facility] 4Result Comment: verified with GJ 5Result Comment: administered state supply instead of private supply Medications clopidogrel 75 mg oral tablet 75 mg = 1 tab, Oral, Daily, # 90 tab, 0 Refill(s), Pharmacy: [facility] #[id number], 165.1, cm, 07/01/22 12:42:00 EST, Height, 82, kg, 08/18/23 19:35:00 EST, Weight Dosing Start Date: 10/24/23 Status: Ordered Dexcom 7 Dexcom 7, Dexcom sensor 1 every 10 days, Supply, See instructions, # 3 EA, 0 Refill(s), Pharmacy: [facility] #[id number] Start Date: 10/06/23 Status: Ordered Diagnosis: Diabetes. [...] Daily, # 14 cap, 0 Refill(s), Pharmacy: [facility] #[id number], 165.1, cm, 07/01/22 12:42:00 EST, Height, 82, kg, 08/18/23 19:35:00 EST, Weight Dosing Start Date: 10/25/23 Stop Date: 11/08/23 Status: Ordered HumaLOG 100 units/mL injectable solution See Instructions, INJECT SUBCUTANEOUSLY 3 TIMES DAILY WITH MEALS AND NEEDED WITH SNACKS. 1 UNIT PER 5 CARBS WITH MEALS/SNACKS; 100 unit maximum daily dose. Dx: E 11.9, # 15 mL, 6 Refill(s), Pharmacy: [facility] #[id number], 165.1, cm, 07/01/22 12:42:00 EST, Height, 82, kg, 08/18/23 19:35:00EST, Weight Dosing Start Date: 10/03/23 Status: Ordered Insulin Syringe-Needle 31G 0.5 mL See Instructions, 1 syringe 3 times daily Start Date: 02/03/22 Status: Ordered Insulin syrings needles 31g 0.5ml Insulin syrings needles 31g 0.5ml, use 4 syringes daily, Supply, See instructions, # 200 EA, 1 Refill(s), Pharmacy: [facility] Start Date: 11/23/22 Status: [...] covers., # 30 mL, 5 Refill(s), [facility]acy: [facility], 165.1, cm, 07/01/22 12:42:00 EST, Height, 88, kg, 07/18/23 14:10:00 EST, Weight Dosing Start Date: 08/05/23 Status: Ordered levothyroxine 125 mcg (0.125 mg) oral tablet 125 mcg = 1 tab, Oral, Daily, # 90 tab, 4 Refill(s), Pharmacy: [facility] ([facility] ) Start Date: 01/14/23 Status: Ordered losartan 50 mg oral tablet 50 mg = 1 tab, Oral, Daily, # 90 tab, 0 Refill(s), Pharmacy: [facility] #[id number], 165.1, cm, 07/01/22 12:42:00 EST, Height, 82, kg, 08/18/23 19:35:00 EST, Weight Dosing Start Date: 10/03/23 Stop Date: 01/01/24 Status: Ordered One Touch Delica Plus Lancets One Touch Delica Plus Lancets, Patient to test twice daily. Dx: E 11.9, Supply, See instructions, #180 EA, 0 Refill(s), Pharmacy: [facility] #[id number] Start Date: 06/28/23 Status: Ordered Onetouch ultra glucometer Onetouch ultra glucometer, pt tests 4 times daily E11.9, Supply, See instructions, # 1 EA, 0 Refill(s), Pharmacy: [facility] #[id number] Start Date: 07/29/22 Status: Ordered OneTouch Ultra In Vitro Strip OneTouch Ultra In Vitro Strip, See Instructions, USE 1 STRIP 4 TIMES DAILY, # 400 strip, 3 Refill(s), Pharmacy: [facility] Start Date: 05/20/22 Status: Ordered rosuvastatin 20 mg oral tablet 20 mg = 1 tab, Oral, Daily, # 90 tab, 0 Refill(s), Pharmacy: [facility] #[id number], 165.1, cm, 07/01/22 12:42:00 EST, Height, 82, kg, 08/18/23 19:35:00 EST, Weight Dosing Start Date: 10/24/23 Status: Ordered sertraline 50 mg oral tablet 50 mg = 1 tab, Oral, Daily, # 30 tab, 2 Refill(s), Pharmacy: [facility] #[id number], 165.1, cm, 07/01/22 12:42:00 EST, Height, 82, [...] Results Laboratory List Name Date Automated Diff 10/25/23 CBC w/ Diff 10/25/23 Comprehensive Metabolic Panel (CMP) 10/24 Lipid Panel 10/25/23 TSH w/ Rflx to Free T4 10/25/23 Uric Acid 10/25/23 Most recent to oldest [Reference Range]: 1 WBC [5.0-10.0 x10^3/mcL] 7.3 x10^3/mcL (10/25/23 1:36 PM) RBC [4.1-5.3 x10^6/mcL] 4.7 x10^6/mcL (10/25/23 1:36 PM) Neutro Auto [40.0-75.0 %] 57.4 % (10/25/23 1:36 PM) Lymph Auto [20.0-50.0 %] 32.7 % (10/25/23 1:36 PM) Kemper Auto [2.0-15.0 %] 7.1 % (10/25/23 1:36 PM) Basophil Auto [0.0-1.0 %] 0.5 % (10/25/23 1:36 PM) BUN [7-18 mg/dL] 28 mg/dL *HI* (10/25/23 1:36 PM) Cholesterol Total [50-200 mg/dL] 238 mg/ dL *HI* (10/25/23 1:36 PM) LDL [0-130 mg/dL] 150 mg/dL *HI* (10/25/23 1:36 PM) Glucose Level [74-106 mg/dL] 229 mg/dL *HI* (10/25/23 1:36 PM) Potassium Level [3.5-5.1 mmol/L] 4.2 mmo l/L (10/25/23 1:36 PM) MCV [80.0-96.0 fL] 91.2 fL (10/25/23 1:36 PM) HDL [40-60 mg/dL] 69 mg/dL *HI* (10/25/23 1:36 PM) AST [15-37 unit/L] 25 unit/L (10/25/23 1:36 PM) ALT [14-59 unit/L] 27 unit/L (10/25/23 1:36 PM) MCHC [31.0-35.0 g/dL] 34.1 g/dL (10/25/23 1:36 PM) Sodium Level [136-145 mmol/L] 138 mmol/L (10/25/23 1:36 PM) Hct [37.0-47.0 %] 42.5 % (10/25/23 1:36 PM) Triglycerides [0-150 mg/dL] 97 mg/dL (10/25/23 1:36 PM) Calcium Level [8.5-10.1 mg/dL] 9.4 mg/dL (10/25/23 1:36 PM) Albumin Level [3.4-5.0 g/dL] 3.4 g/dL (10/25/23 1:36 PM) Protein Total [6.4-8.2 g/dL] 7.4 g/dL (10/25/23 1:36 PM) MCH [26.0-32.0 pg] 31.1 pg (10/25/23 1:36 PM) Neutro Absolute 4.2 x10^3/mcL *NA* (10/25/23 1:36 PM) Bilirubin Total [0.2-1.0 mg/dL] 0.3 mg/d L (10/25/23 1:36 PM) Hgb [12.0-16.0 g/dL] 14.5 g/dL (10/25/23 1:36 PM) Uric Acid [2.6-6.0 mg/dL] 3.8 mg/dL (10/25/23 1:36 PM) Alk Phos [46-146 unit/L] 89 unit/L (10/25/23 1:36 PM) Platelets [130-450 x10^3/mcL] 281 x10^3/ mcL (10/25/23 1:36 PM) CO2 [21-32 mmol/L] 27 mmol/L (10/25/23 1:36 PM) TSH [0.358-3.740 mcIntlUnit/mL] 2.813 mc IntlUnit/mL (10/25/23 1:36 PM) eGFR Non-AA [>=60] 56 *LOW* (10/25/23 1:36 PM) eGFR AA [>=60] 56 *LOW* (10/25/23 1:36 PM) Chloride Level [98-107 mmol/L] 103 mmol/ L (10/25/23 1:36 PM) RDW-CV [11.5-14.5 %] 13.3 % (10/25/23 1:36 PM) Imm Gran Auto [0.0-0.9 %] 0.1 % (10/25/23 1:36 PM) Creatinine Level [0.55-1.02 mg/dL] 1.04 mg/dL *HI* (10/25/23 1:36 PM) Eos, Auto [1.0-6.0 %] 2.2 % (10/25/23 1:36 PM) Social History Social History Type Response Tobacco Never tobacco user T obacco Use:. Sex Female Patient Care team information Care Team Personnel Name: Reji Zarco MD Position: No Access Member Role: Primary Care Physician Address: Address: [address] Name: Manjit Joel IRON WORKER Position: Physician Member Role: Informed Provider Address: Address: [address] [place] [phone] Name: Pauly Ann Position: Ambulatory - RN/BIN OPERATOR (Adiel) Member Role: Federal Judicial Law Clerk Care Team Related Persons Name: MARGUERITE STARR Name: REJI BOWMAN Address: [address] [phone]
--- OUTSIDE RECORDS SUMMARY | 2024-03-12 15:16 | XMS_ITS | Clinical Summary ---
Author Organization [facility] Address [address] [place] [address] Care Team Providers Care Wastewater Treatment Plant Supervisor Name Role Phone Gabi Aragon MD Unavailable Flavio Stubbs Primary Care Provider [phone] Allergies Active Allergy Reactions Criticality Noted Date Comments Penicillins Fever High 02/28/2019 Turns purple Rezulin 02/28/2019 Other reaction(s): Unknown Rosiglitazone Rash Low 02/28/2019 Espvqhc-Aqq-Gli Reductase Inhibitors 12/12/2023 Leg Pain Sulfa (Sulfonamide [...] SAFFRON EXTRACT ORAL Take by mouth. Active [id number]-DP A-FISH OIL ORAL Take by mouth. Activ [...] foot due to type 2 diabetes mellitus ([facility]) 08/13/2020 Type 2 diabetes mellitus with hyperglycemia ([facility]) 08/13/2020 Traumatic blister of foot 08/13/2020 Normal pelvic exam 08/13/2020 residential current use of insulin ([facility]) 08/13 Hypothyroidism 08/13/2020 Increased frequency of urination 08/13/2020 Hypertensive disorder 08/13/2020 Dyslipidemia 08/13/2020 Atypical chest pain 09/12/2018 Cellulitis of foot 03/28/2018 Chronic constipation 03/17/2018 Encounters Date Type Department Care Team Description 12/15/2023 Orders Only [facility] Endocrinology [address] [place], [place] [phone] Gabi Mcclure MD 12/15/2023 Telephone [facility] Endocrinology [address] [place] [address] Ange Saunders, LUDWIN Prior Auth, Medication 12/14/2023 Orders Only [facility] Endocrinology [address] [place] [address] Gabi Mcclure MD 12/14/2023 Telephone [facility] Endocrinology [address] [place] [address] [phone] Jeanne Velazquez RN Medication Problem 12/12/2023 13:45 EDT Office Visit [facility] Endocrinology [address] [place] [phone] Gabi Mcclure MD Type 2 diabetes mellitus with hyperglycemia, with long-term current use of insulin ([facility]) (Primary Dx); Dyslipidemia; Primary hypothyroidism from Last 3 Months Immunizations Name Administration Dates Next Due Historical [...] 16:49 EDT Sexual Orientation Not on file Obstetrics History Last Filed Vital Signs Vital Sign Reading [...] Info) Description 04/13/2024 13:30 EDT Office Visit [facility] [address] [place] [address] Gabi Mcclure MD [address] [place] [phone] Health Maintenance Due Date Last Done Comments Eye Exam 1950 Foot Exam 1950 Hepatitis C Screen 1950 Microalbumin/Creatinine Ratio 1948 Lipid Profile Screening (Cholesterol) 1951 RSV Immunization ( o r 60+ Years) (1 - 1-dose 60+ series) 2008 Fall Risk Screening 2013 Hemoglobin A1C (Ha1C) 07/26/2023 01/24/2023 , 05/19/2022, 06/03/2021, Additional history exists COVID-19 Vaccine Completed 06/17/2023, , 10/27/2020, Additional history exists Procedures Procedure Name Priority Date/Time Associated Diagnosis Comments POCT HEMOGLOBIN A1C Routine 01/24/2023 Type 2 diabetes mellitus with hyperglycemia, with long-term current use of insulin ([facility]) from Last 3 Months or Most Recently Relevant to Health Maintenance Results * (ABNORMAL) POCT HEMOGLOBIN A1C (01/24/2023) Hemoglobin A1c, POC 7.5(A) 5.7 % [facility] POINT OF CARE Blood CAPILLARY BLOOD / Unknown 01/24/2023 Gabi Aragon MD POINT OF CARE TEST O RDERABLES [facility] POINT OF CARE from Last 3 Months or Most Recently Relevant to Health Maintenance Care Teams Wastewater Treatment Plant Supervisor Relationship Specialty Start Date End Date [address]av[address] [phone] PCP - General 12/12/23 Gabi Aragon MD [address] [place] [phone] Endocrinology, Diabetes and Metabolism 08/09/21
--- OUTSIDE RECORDS SUMMARY | 2024-03-12 15:16 | XMS_ITS | Continuity of Care Document ---
Author Organization [facility] Address [address] [place] [address] Care Team Providers Care Economics Lecturer Name Role Phone Nerissa Victoria Primary Care Physician Encounter [facility] Date(s): 02/28/23 - 02/28/23 [facility] [address] [place] [address] Discharge Disposition: Home Allergies, Adverse Reactions, Alerts [...] Start Date: 05/31/22 Status: Ordered Dexcom G4 Fleet Service Manager Dexcom 6, Supply, 1 EA, N/A, As [...] instructions, # 1 EA, 0 Refill(s), Pharmacy: [id number] Start Date: 07/29/22 Status: Ordered OneTouch Ultra [...] Member Role: Primary Care Physician Address: Address: [address] [place] [id number] [place] Care Team Related Persons Name: MARGUERITE STARR Address: Home Name: RICARDO BOWMAN Address: Home
--- OUTSIDE RECORDS SUMMARY | 2024-03-12 15:16 | XMS_ITS | Continuity of Care Document ---
Author Organization [facility] Address [address] [place] [address] Care Team Providers Care Network Lead Name Role Phone Flavio Stubbs Primary Care Physician Encounter NCTY_MA Date(s): 02/27/24 - 02/27/24 [facility] [address] [place] [address] Encounter Diagnosis Black stools(Discharge Diagnosis) - 02/27/24 Diarrhea(Discharge Diagnosis) - 02/27/24 Discharge Disposition: Home or Self Care Attending Physician: Kena Dowell MD Admitting Physician: Kena Dowell MD Allergies, Adverse Reactions, Alerts Substance Reaction Severity Status troglitazone Unknown Unknown Active Rezulin Unknown Active Avandia Unknown Active rosiglitazone Unknown Active penicillins Unknown Active sulfa drugs Unknown Active Assessment and Plan Extracted from: Title:ED Provider Note Author:Tracy Dowell MD Date:02/27/24 Assessment/Plan 1.??Black stools??K92.1 ??Plan patient's black stools are likely from the Pepto-Bismol that she had taken she says she has not been taking any magnesium supplements lately??she has been on that in the past.?? Patient's??Hemoccult of her stool she brought in was negative??I do not think that this is??blood??also her labs are reassuring. Ordered: Discharge Patient, 02/27/24 14:03:00 EDT, Home Independently, Constant Indicator ?? 2.??Diarrhea??R19.7 ??Patient's diarrhea has seemed to resolved and??goals are firming up. ??Did discuss with her if she has continued??repeat diarrhea she may need some stool studies.?? If she does not continue to improve she will return to the emergency department or see her primary care provider. ?? Patient Education Diarrhea, Adult Follow Up With When Contact Information Follow up with primary care provider Within 1 to 2 weeks Additional Instructions: Future Appointments Future Scheduled Tests [...] A1c 07/28/23 * Rheumatoid Factor [facility] 12/30/23 Immunizations Given and Recorded Vaccine Date Status [...] Recorded 1Result Comment: Rico Carrillo 2Result Comment: [facility] 3Result Comment: 65=0.7 ml @ [facility] 4Result Comment: verified with [facility] 5Result Comment: administered state supply instead of private supply Medications clopidogrel 75 mg oral tablet 75 mg = 1 tab, Oral, Daily, # 90 tab, 3 Refill(s), [id number], 165.1, cm, 07/01/22 12:42:00 EST, Height, 86.9, kg, 11/14/23 11:13:00 EDT, Weight Dosing Start Date: 12/20/23 Status: Ordered Dexcom 7 Dexcom 7, Dexcom sensor 1 every 10 days, Supply, See instructions, # 3 EA, 0 Refill(s), Pharmacy: [facility] #[id number] Start Date: 10/06/23 Status: Ordered Diagnosis: Diabetes. [...] Weight Dosing Start Date: 11/03/23 Status: Ordered HumaLOG KwikPen 100 units/mL injectable solution See Instructions, Inject 3 times daily with meals and as needed with snacks. 1 unit/ 5 carbs with meals /snacks. Maximim daily dose of 100 units. Dx E 11.9, # 30 mL, 5 Refill(s), Pharmacy: [facility], 165.1, cm, 07/01/22 12:42:00 EST, Height, 86.9, kg, 11/14/23 11:13:00 EDT, Weight Dosing Start Date: 02/27/24 Status: Ordered Insulin Syringes Insulin Syringes, Use 1 syringe 3 times daily. E11.9 DM, Supply, See instructions, # 90 EA, 5 Refill(s), Pharmacy: [facility] #[id number] Start Date: 01/27/24 Status: Ordered ketoconazole 2% topical cream 1 baljeet, Topical, Daily, to affected area of toenail for 3 months, # 120 g, 0 Refill(s) Start Date: 09/30/23 Stop Date: 12/29/23 Status: Ordered Lantus 100 units/mL subcutaneous solution 46 units =, Subcutaneous, Daily, Please send 2 pens as patient [place]. If insurance willcover., # 50 mL, 6 Refill(s), Pharmacy: [facility], 165.1, cm, 07/01/22 12:42:00 EST, Height, 82, kg, 08/18/23 19:35:00 EST, Weight Dosing Start Date: 10/03/23 Stop Date: 04/30/24 Status: Ordered Levemir 100 units/mL subcutaneous solution 40 units =, Subcutaneous, every night at bedtime, Patient is requesting 2 pens beacause she residesin two places. Please fill two pens if her insurance covers., # 30 mL, 5 Refill(s), [facility], 165.1, cm, 07/01/22 12:42:00 EST, Height, 88, kg, 07/18/23 14:10:00 EST, Weight Dosing Start Date: 08/05/23 Status: Ordered levothyroxine 125 mcg (0.125 mg) oral tablet 125 mcg = 1 tab, Oral, Daily, # 90 tab, 4 Refill(s), Pharmacy: [facility] #[id number], 165.1, cm, 07/01/22 12:42:00 EST, Height, 86.9, kg, 11/14/23 11:13:00 EDT, Weight Dosing Start Date: 01/05/24 Status: Ordered losartan 50 mg oral tablet 50 mg = 1 tab, Oral, Daily, # 90 tab, 3 Refill(s), Pharmacy: [facility], 165.1, cm, 07/01/22 12:42:00 EST, Height, 86.9, kg, 11/14/23 11:13:00 EDT, Weight Dosing Start Date: 02/07/24 Status: Ordered One Touch Delica Plus Lancets One Touch Delica Plus Lancets, Patient to test twice daily. Dx: E 11.9, Supply, See instructions, #180 EA, 0 Refill(s), [id number] Start Date: 06/28/23 Status: Ordered Onetouch ultra glucometer Onetouch ultra glucometer, pt tests 4 times daily E11.9, Supply, See instructions, # 1 EA, 0 Refill(s), Pharmacy: [id number] Start Date: 07/29/22 Status: Ordered OneTouch Ultra In Vitro Strip OneTouch Ultra In Vitro Strip, See Instructions, USE 1 STRIP 4 TIMES DAILY, # 400 strip, 3 Refill(s), Pharmacy: [facility] ([facility] Start Date: 05/20/22 Status: Ordered Pen needles Pen needles, Inject 3 times daily with meals and as needed with snacks. 1 units/5 carbs with meals/snack. 100 units maximum daily dose. DX E11.9, Supply, See instructions, # 300 EA, 3 Refill(s), [id number] Start Date: 02/27/24 Status: Ordered sertraline 50 mg oral tablet 50 mg = 1 tab, Oral, Daily, # 30 tab, 5 Refill(s), Pharmacy: [facility] #[id number], 165.1, cm, 07/01/22 12:42:00 EST, Height, 86.9, kg, 11/14/23 11:13:00 EDT, Weight Dosing Start Date: 02/21/24 Stop Date: 08/19/24 Status: Ordered Zetia 10 mg oral tablet 10 mg = 1 tab, Oral, Daily, # 90 tab, 0 Refill(s), Pharmacy: [facility] #[id number], 165.1, cm, 07/01/22 12:42:00 EST, Height, 86.9, kg, 11/14/23 11:13:00 EDT, Weight Dosing Start Date: 02/20/24 Stop Date: 05/20/24 Status: Ordered Problem List Condition Confirmation Course [...] eye surgery Results Laboratory List Name Date CBC w/ Diff 02/27/24 Comprehensive Metabolic Panel 02/27/24 Magnesium Level 02/27/24 Automated Diff 02/27/24 Most recent to oldest [Reference Range]: 1 WBC [5.0-10.0 x10^3/mcL] 6.3 x10^3/mcL (02/27/24 12:25 PM) RBC [4.1-5.3 x10^6/mcL] 4.7 x10^6/mcL (02/27/24 12:25 PM) Neutro Auto [40.0-75.0 %] 61.1 % (02/27/24 12:25 PM) Lymph Auto [20.0-50.0 %] 29.6 % (02/27/24 12:25 PM) Sevier Auto [2.0-15.0 %] 7.3 % (02/27/24 12:25 PM) Basophil Auto [0.0-1.0 %] 0.6 % (02/27/24 12:25 PM) BUN [7-18 mg/dL] 18 mg/dL (02/27/24 12:25 PM) Glucose Level [74-106 mg/dL] 267 mg/dL *HI* (02/27/24 12:25 PM) Potassium Level [3.5-5.1 mmol/L] 4.1 mmo l/L (02/27/24 12:25 PM) MCV [80.0-96.0 fL] 89.7 fL (02/27/24 12:25 PM) AST [15-37 unit/L] 17 unit/L (02/27/24 PM) ALT [14-59 unit/L] 21 unit/L (02/27/24 PM) MCHC [31.0-35.0 g/dL] 34.3 g/dL (02/27/24: PM) Sodium Level [136-145 mmol/L] 138 mmol/L (02/27/24: PM) Hct [37.0-47.0 %] 42.0 % (02/27/24 PM) Calcium Level [8.5-10.1 mg/dL] 9.1 mg/dL (02/27/24 PM) Albumin Level [3.4-5.0 g/dL] 3.4 g/dL (02/27/24 PM) Protein Total [6.4-8.2 g/dL] 7.3 g/dL (02/27/24 PM) MCH [26.0-32.0 pg] 30.8 pg (02/27/24 PM) Magnesium Level [1.8-2.4 mg/dL] 1.8 mg/d L (02/27/24: PM) Neutro Absolute 3.8 x10^3/mcL *NA* (02/27/24: PM) Bilirubin Total [0.2-1.0 mg/dL] 0.4 mg/d L (02/27/24: PM) Hgb [12.0-16.0 g/dL] 14.4 g/dL (02/27/24: PM) Alk Phos [46-146 unit/L] 94 unit/L (02/27/24: PM) Platelets [130-450 x10^3/mcL] 266 x10^3/ mcL (02/27/24: PM) CO2 [21-32 mmol/L] 28 mmol/L (02/27/24 12: PM) eGFR Non-AA [>=60] 79 (02/27/24: PM) eGFR AA [>=60] 79 (02/27/24 12:25 PM) Chloride Level [98-107 mmol/L] 102 mmol/ L (02/27/24 12:25 PM) RDW-CV [11.5-14.5 %] 13.3 % (02/27/24 12:25 PM) Imm Gran Auto [0.0-0.9 %] 0.3 % (02/27/24 12:25 PM) Creatinine Level [0.55-1.02 mg/dL] 0.78 mg/dL (02/27/24 12:25 PM) Eos, Auto [1.0-6.0 %] 1.1 % (02/27/24 12:25 PM) Vital Signs Most recent to oldest [Reference Range]: 1 2 3 Temperature Temporal Artery [36-38 Deg C] 36.4 Deg C (02/27/24 11:31 AM) Peripheral Pulse Rate [60-100 bpm] 71 bpm (02/27/24 1:58 PM) 70 bpm (02/27/24 1:00 PM) 78 bpm (02/27/24 12:00 PM) Respiratory Rate [12-24 br/min] 18 br/min (02/27/24 11:31 AM) Blood Pressure [90-140/60-90 mmHg] 127/63mmHg (02/27/24 1:58 PM) 120/63mmHg (02/27/24 1:00 PM) 150/73mmHg *HI* (02/27/24 12:00 PM) Mean Arterial Pressure, Cuff [65-140 mmHg] 84 mmHg (02/27/24 1:58 PM) 82 mmHg (02/27/24 1:00 PM) 99 mmHg (02/27/24 12:00 PM) Weight Estimated 84.37 kg (02/27/24 11:31 AM) Body Mass Index Estimated 32.15 kg/m2 (02/27/24 11:31 AM) Height/Length Estimated 162 cm (02/27/24 11:31 AM) Social History Social History Type Response Tobacco Never tobacco user T obacco Use:. Sex Female Hospital Discharge Instructions Patient Education 02/27/2024 13:03:44 Diarrhea, Adult Diarrhea, Adult Diarrhea is frequent loose and sometimes watery bowel movements. Diarrhea can make you feel weak and cause you to become dehydrated. Dehydration is a condition in which there is not enough water or other fluids in the body. Dehydration can make you tired and thirsty, cause you to have a dry mouth, and decrease how often you urinate. Diarrhea typically lasts 2???3 days. However, it can last longer if it is a sign of something more serious. It is important to treat your diarrhea as told by your health care provider. Follow these instructions at home: Eating and drinking Follow these recommendations as told by your health care provider: ??? Take an oral rehydration solution (ORS). This is an gcan-vnn-nbjltka medicine that helps returnyour body to its normal balance of nutrients and water. It is found at pharmacies and retail stores. ??? Drink enough fluid to keep your urine pale yellow. ??? Drink fluids such as water, diluted fruit juice, and low-calorie sports drinks. You can drink milk also, if desired. Sucking on ice chips is another way to get fluids. ??? Avoid drinking fluids that contain a lot of sugar or caffeine, such as soda, energy drinks, andregular sports drinks. ??? Avoid alcohol. ??? Eat bland, nuix-wl-fepsin foods in small amounts as you are able. These foods include bananas, applesauce, rice, lean meats, toast, and crackers. ??? Avoid spicy or fatty foods. Medicines ??? Take paya-wao-nlgzwpy and prescription medicines only as told by your health care provider. ??? If you were prescribed antibiotics, take them as told by your health care provider. Do not stopusing the antibiotic even if you start to feel better. General instructions ??? Wash your hands often using soap and water for at least 20 seconds. If soap and water are not available, use hand wrapping machine tender. Others in the household should wash their hands as well. Hands should be washed: ??? After using the toilet or changing a diaper. ??? Before preparing, cooking, or serving food. ??? While caring for a sick person or while visiting someone in a hospital. ??? Rest at home while you recover. ??? Take a warm bath to relieve any burning or pain from frequent diarrhea episodes. ??? Watch your condition for any changes. Contact a health care provider if: ??? You have a fever. ??? Your diarrhea gets worse. ??? You have new symptoms. ??? You vomit every time you eat or drink. ??? You feel light-headed, dizzy, or have a headache. ??? You have muscle cramps. ??? You have signs of dehydration, such as: ??? Dark urine, very little urine, or no urine. ??? Cracked lips. ??? Dry mouth. ??? Sunken eyes. ??? Sleepiness. ??? Weakness. ??? You have bloody or black stools or stools that look like tar. ??? You have severe pain, cramping, or bloating in your abdomen. ??? Your skin feels cold and clammy. ??? You feel confused. Get help right away if: ??? You have chest pain or your heart is beating very quickly. ??? You have trouble breathing or you are breathing very quickly. ??? You feel extremely weak or you faint. These symptoms may be an emergency. Get help right away. Call 911. ??? Do not wait to see if the symptoms will go away. ??? Do not drive yourself to the hospital. This information is not intended to replace advice given to you by your health care provider. Make sure you discuss any questions you have with your health care provider. Document Revised: 01/04/2023 Document Reviewed: 01/04/2023 [employer] Patient Education ?? 2022 [employer]. Follow Up Care 02/27/2024 11:31:05 With:Follow up with primary care provider Address: When:1 to 2 weeks Goals Veronica will consistently ma intain blood glucose average readings of less than 180 mg/dLin 3 months Start Date:02/23/24 End Date:05/24/24 Status:Met Progression:Not Met Veronica will have a Time In Range at 70% and above within the next 3 months Start Date:02/23/24 End Date:05/24/24 Status:Met Progression:Not Met Veronica will be independent with the management of the Dexcom G7 in 3 month, Barrier: technology Start Date:02/23/24 End Date:05/24/24 Status:Met Progression:Not Met Physician Emergency department Note * Kena Dowell MD: PERFORM Event Display: ED Note Physician Authored Date: [id number] VERONICA BOWMAN :1950 Age:73 years Sex:Female Visit Date:02/27/2024 Primary Care Physician: Flavio Stubbs MD Basic Information Time Seen: Kena Dowell MD / 02/27/2024 11:46 Chief Complaint Pt c/o black runny diarrhea two weeks ago that is no longer as runny but is still dark. Pt also endorses weakness, but denies abdominal pain or vomittting. History Of Present Illness: pt reports she had diarrhea last week it has now become more solid but still black in color, she says this a.m. she captured some in a food type container and brought it in.?? pt she has at times hadsome gas in the a.m.?? in the past she has been dehydrated and had low potassium.?? pt reports she has diabetes so concerned when somethiing??isn't quite right.?No fevers no chills no ear nose or throat pain no nosebleeds??no cough??no shortness of breath no chest pain??no nausea no vomiting??nourinary symptoms no extremity edema no skin rashes.?? Patient??states she spoke??with a Medicare triage nurse and??was told to come to the emergency department.?? Patient reports [place] and her boyfriend lives on the other side at this time.??She sometimes lives with her boyfriend.?? Patient denies any hemorrhoids Review of Systems: see hpi for ros Physical Exam Vitals & Measurements T:??36.4?C ??(Temporal Artery)?? HR:??71??(Peripheral)?? RR:??18?? BP:??127/63?? SpO2:??96%?? HT:??162??cm?? WT:??84.37??kg??(Estimated)?? BMI:??32.15?? O2 Therapy:??Room air?? General: Alert and oriented, well nourished,?No??acute distress Eye: PER?Normal??conjunctiva,??No??scleral icterus HENT: Normocephalic,??nontraumatic??Normal hearing Lungs: Clear to auscultation,?Non-labored?? respiration Heart:?Normal?? rate,?Regular??rhythm,?No??murmur,?No??gallop,?No??edema Chest: wall excursion wnl no abnormal movements no obvious deformities Abdomen: Soft, non-tender, non-distended,?Normal?? bowel sounds,?No??masses Musculoskeletal:?Normal?? range of motion and strength,?No??tenderness,?No??swelling Skin: Skin is warm, dry and pink,?No??rashes,?No??lesions Neurologic: Awake, alert and oriented X4 Psychiatric: Cooperative, appropriate mood and affect Guaiac negative??black stool in a food container Medical Decision Making: For MDM please see under assessment and plan Procedure No Qualifying Data Assessment/Plan 1.??Black stools??K92.1 ??Plan patient's black stools are likely from the Pepto-Bismol that she had taken she says she has not been taking any magnesium supplements lately??she has been on that in the past.?? Patient's??Hemoccult of her stool she brought in was negative??I do not think that this is??blood??also her labs are reassuring. Ordered: Discharge Patient, 02/27/24 14:03:00 EDT, Home Independently, Constant Indicator ?? 2.??Diarrhea??R19.7 ??Patient's diarrhea has seemed to resolved and??goals are firming up. ??Did discuss with her if she has continued??repeat diarrhea she may need some stool studies.?? If she does not continue to improve she will return to the emergency department or see her primary care provider. ?? Patient Education Diarrhea, Adult Follow Up With When Contact Information Follow up with primary care provider Within 1 to 2 weeks Additional Instructions: Medication Reconciliation Unchanged clopidogrel (clopidogrel 75 mg oral tablet)1 [...] ?? Durable Medical Equipment for Prescription (Insulin Syringes)Use 1 syringe 3 times daily. E11.9 DM.Refills: 5. ?? Durable Medical Equipment for Prescription (One Touch Delica Plus Lancets)Patient to test twice daily. Dx: E 11.9. Refills: 0. ?? Durable Medical Equipment for Prescription ([employer]casting[employer] ultra glucometer)pt tests 4 times daily E11.9.Refills: 0. ?? Durable Medical Equipment for Prescription (Pen needles)Inject 3 times daily with meals and as needed with snacks. 1 units/5 carbs with meals/snack. 100 units maximum daily dose. DX E11.9. Refills: 3. ?? ezetimibe (Zetia 10 mg oral tablet)1 [...] dose. Dx: E 11.9. Refills: 6. ?? insulin lispro (HumaLOG KwikPen 100 units/mL injectable solution)Inject 3 times daily with meals and as needed with snacks. 1 unit/ 5 carbs with meals /snacks. Maximim daily dose of 100 units. Dx E 11.9. Refills: 5. ?? ketoconazole topical (ketoconazole 2% topical cream)1 Application Topical (on the skin) every day for 90 Days. to affected area of toenail for 3 months. ?? levothyroxine (levothyroxine 125 mcg (0.125 mg) oral tablet)1 tab Oral (given by mouth) every day. Refills: 4. ?? losartan (losartan 50 mg oral tablet)1 tab Oral (given by mouth) every day. Refills: 3. ?? Other Prescription ([employer] Ultra In Vitro Strip)USE 1 STRIP 4 TIMES DAILY. Refills: 3. ?? sertraline (sertraline 50 mg oral tablet)1 tab Oral (given by mouth) every day for 30 Days. Refills: 5. Problem List/Past Medical History Ongoing Atypical chest [...] Electronic Cigarette/Vaping Electronic Cigarette Use: Never. 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 Home/Environment Lives with Daughter half time and pt's boyfriend the other half. Nutrition/Health Caffeine intake amount: one cup coffee in the AM. Psychosocial Sexual Sexual orientation: Straight or heterosexual. What is your current gender identity? (Check all thatapply) Identifies as female. Substance Use Never Tobacco Never tobacco user Tobacco Use:. Family History AAA - Abdominal aortic aneurysm: Father and Sister. Alcohol abuse: Brother. Anxiety: Sister. Depression: Sister. Diabetes mellitus: Mother. Heart disease: Mother and Father. Lab Results CBC and Differential?? LATEST RESULTS?? HISTORICAL RESULTS?? WBC?? 02/27/24 12:25?? 6.3?? 01/24/24?? 10.0?? RBC?? 02/27/24 12:25?? 4.7?? 01/24/24?? 4.8?? Hgb?? 02/27/24 12:25?? 14.4?? 01/24/24?? 15.1?? Hct?? 02/27/24 12:25?? 42.0?? 01/24/24?? 44.2?? MCV?? 02/27/24 12:25?? 89.7?? 01/24/24?? 91.3?? MCH?? 02/27/24 12:25?? 30.8?? 01/24/24?? 31.2?? MCHC?? 02/27/24 12:25?? 34.3?? 01/24/24?? 34.2?? RDW-CV?? 02/27/24 12:25?? 13.3?? 01/24/24?? 13.7?? Platelets?? 02/27/24 12:25?? 266?? 01/24/24?? 283?? Neutro Auto?? 02/27/24 12:25?? 61.1?? 01/13/24?? 62.1?? Lymph Auto?? 02/27/24 12:25?? 29.6?? 01/13/24?? 26.9?? Sevier Auto?? 02/27/24 12:25?? 7.3?? 01/13/24?? 7.0?? Eos, Auto?? 02/27/24 12:25?? 1.1?? 01/13/24?? 3.1?? Basophil Auto?? 02/27/24 12:25?? 0.6?? 01/13/24?? 0.6?? Imm Gran Auto?? 02/27/24 12:25?? 0.3?? 01/13/24?? 0.3?? Neutro Absolute?? 02/27/24 12:25?? 3.8?? 01/13/24?? 4.0? Routine Chemistry?? LATEST RESULTS?? HISTORICAL RESULTS?? Sodium Level?? 02/27/24 12:25?? 138?? 01/24/24?? 138?? Potassium Level?? 02/27/24 12:25?? 4.1?? 01/24/24?? 3.3 ??Low?? Chloride Level?? 02/27/24 12:25?? 102?? 01/24/24?? 100?? CO2?? 02/27/24 12:25?? 28?? 01/24/24?? 28?? Alk Phos?? 02/27/24 12:25?? 94?? 01/24/24?? 90?? AST?? 02/27/24 12:25?? 17?? 01/24/24?? 19?? ALT?? 02/27/24 12:25?? 21?? 01/24/24?? 24?? BUN?? 02/27/24 12:25?? 18?? 01/24/24?? 18?? Glucose Level?? 02/27/24 12:25?? 267 ??High?? 01/24/24?? 115 ??High?? Creatinine Level?? 02/27/24 12:25?? 0.78?? 01/24/24?? 0.72?? eGFR AA?? 02/27/24 12:25?? 79?? 01/24/24?? 87?? eGFR Non-AA?? 02/27/24 12:25?? 79?? 01/24/24?? 87?? Calcium Level?? 02/27/24 12:25?? 9.1?? 01/24/24?? 9.1?? Protein Total?? 02/27/24 12:25?? 7.3?? 01/24/24?? 7.9?? Albumin Level?? 02/27/24 12:25?? 3.4?? 01/24/24?? 3.6?? Bilirubin Total?? 02/27/24 12:25?? 0.4?? 01/24/24?? 0.3?? Magnesium Level?? 02/27/24 12:25?? 1.8?? 01/24/24?? 1.9? Electronically Signed on 02/27/2024 14:05 EDT Kena Dowell MD Emergency department Discharge instructions * Kena Dowell MD: PERFORM Event Display: ED Discharge Information Authored Date: [id number] VERONICA BOWMAN :1950 Age:73 years Sex:Female Visit Date:02/27/2024 Primary Care Physician: Flavio Stubbs MD Discharge Instructions We would like to thank you for allowing us to assist you with your healthcare needs. The following includes patient education materials and information regarding your injury/illness. Diagnosis from Today's Visit Black stools Diarrhea Discharge Vitals Temperature??(Temporal Artery) 97.5 ??F (36.4 ??C) Heart Rate??(Peripheral) 71 Respiratory Rate?? 18 Blood Pressure?? 127/63?? SpO2?? 96% Height?? 63.78 in (162 cm) Weight??(Estimated) 186.04 lb (84.37 kg) BMI?? 32.15 Allergies Avandia Rezulin penicillins rosiglitazone sulfa drugs troglitazone??(Unknown) What to Do Next Instructions from Your Care Team If you worsen return??to the emergency department.?? Follow-up with your primary care provider. You Need to Schedule the Following Appointments Follow Up with??Follow up with primary care provider When:??Within 1 to 2 weeks Upcoming Scheduled Appointments Tuesday 10:00 AM EDT ?? With: Pauly Ann Where: [facility] [address] [address] Status: Confirmed Tuesday 10:15 AM EST ?? With: Yvrose Marquez DNP Where: [address] [address] Status: Confirmed Tuesday 12:15 PM EST ?? With: Yvrose Marquez DNP Where: [address] [address] Status: Confirmed You were treated [...] Much When Why Instructions Next Dose Unchanged clopidogrel (clopidogrel 75 mg oral tablet) [...] Unchanged Durable Medical Equipment for Prescription (Insulin Syringes) See instructions Use 1 syringe 3 times daily. E11.9 DM ?? Unchanged Durable Medical Equipment for Prescription (One Touch Delica Plus Lancets) See instructions Patient to test twice daily. Dx: E 11.9 ?? Unchanged Durable Medical Equipment for Prescription (D4Ptouch ultra glucometer) See instructions Type 2 diabetes mellitus without complication pt tests 4 times daily E11.9 ?? Unchanged Durable Medical Equipment for Prescription (Pen needles) See instructions Inject 3 times daily with meals and as needed with snacks. 1 units/ 5 carbs with meals/ snack. 100 units maximum daily dose. DX E11.9 ?? Unchanged ezetimibe (Zetia 10 mg [...] daily dose. Dx: E 11.9 ?? Unchanged insulin lispro (HumaLOG KwikPen 100 units/ mL injectable solution) See instructions Inject 3 times daily with meals and as needed with snacks. 1 unit/ ??5 carbs with meals / snacks. Maximim daily dose of 100 units. Dx E 11.9 ?? Unchanged ketoconazole topical (ketoconazole 2% topical [...] Every day Hypertensive disorder Unchanged Other Prescription (OneTouch Ultra In Vitro Strip) See instructions USE 1 STRIP 4 TIMES DAILY ?? Unchanged sertraline (sertraline 50 mg oral tablet) 1 tab Oral (given by mouth) Every day Depression Post traumatic stress disorder (PTSD) Duration: 30 Days Education Materials Diarrhea, Adult Diarrhea is frequent loose and sometimes watery bowel movements. Diarrhea can make you feel weak and cause you to become dehydrated. Dehydration is a condition in which there is not enough water or other fluids in the body. Dehydration can make you tired and thirsty, cause you to have a dry mouth, and decrease how often you urinate. Diarrhea typically lasts 2???3 days. However, it can last longer if it is a sign of something more serious. It is important to treat your diarrhea as told by your health care provider. Follow these instructions at home: Eating and drinking Follow these recommendations as told by your health care provider: ? Take an oral rehydration solution (ORS). This is an jjpf-bgr-lpeneec medicine that helps return your body to its normal balance of nutrients and water. It is found at pharmacies and retail stores. ? Drink enough fluid to keep your urine pale yellow. ? Drink fluids such as water, diluted fruit juice, and low-calorie sports drinks. You can drink milk also, if desired. Sucking on ice chips is another way to get fluids. ? Avoid drinking fluids that contain a lot of sugar or caffeine, such as soda, energy drinks, and regular sports drinks. ? Avoid alcohol. ? Eat bland, whqa-kk-jahvzt foods in small amounts as you are able. These foods include bananas, applesauce, rice, lean meats, toast, and crackers. ? Avoid spicy or fatty foods. Medicines ? Take hcyf-pwv-lshoooj and prescription medicines only as told by your health care provider. ? If you were prescribed antibiotics, take them as told by your health care provider. Do not stop using the antibiotic even if you start to feel better. General instructions ? Wash your hands often using soap and water for at least 20 seconds. If soap and water are not available, use hand wrapping machine tender. Others in the household should wash their hands as well. Hands should be washed: ? After using the toilet or changing a diaper. ? Before preparing, cooking, or serving food. ? While caring for a sick person or while visiting someone in a hospital. ? Rest at home while you recover. ? Take a warm bath to relieve any burning or pain from frequent diarrhea episodes. ? Watch your condition for any changes. Contact a health care provider if: ? You have a fever. ? Your diarrhea gets worse. ? You have new symptoms. ? You vomit every time you eat or drink. ? You feel light-headed, dizzy, or have a headache. ? You have muscle cramps. ? You have signs of dehydration, such as: ? Dark urine, very little urine, or no urine. ? Cracked lips. ? Dry mouth. ? Sunken eyes. ? Sleepiness. ? Weakness. ? You have bloody or black stools or stools that look like tar. ? You have severe pain, cramping, or bloating in your abdomen. ? Your skin feels cold and clammy. ? You feel confused. Get help right away if: ? You have chest pain or your heart is beating very quickly. ? You have trouble breathing or you are breathing very quickly. ? You feel extremely weak or you faint. These symptoms may be an emergency. Get help right away. Call 911. ? Do not wait to see if the symptoms will go away. ? Do not drive yourself to the hospital. This information is not intended to replace advice given to you by your health care provider. Make sure you discuss any questions you have with your health care provider. Document Revised: 01/04/2023 Document Reviewed: 01/04/2023 [employer] Patient Education ?? 2022 [employer] Tests Performed Lab Test Name Test Result Date/Time WBC 6.3 x10^3/mcL 02/27/2024 12:25 EDT RBC 4.7 x10^6/mcL 02/27/2024 12:25 EDT Hgb 14.4 g/dL 02/27/2024 12:25 EDT Hct 42.0 % 02/27/2024 12:25 EDT MCV 89.7 fL 02/27/2024 12:25 EDT MCH 30.8 pg 02/27/2024 12:25 EDT MCHC 34.3 g/dL 02/27/2024 12:25 EDT RDW-CV 13.3 % 02/27/2024 12:25 EDT Platelets 266 x10^3/mcL 02/27/2024 12:25 EDT Neutro Auto 61.1 % 02/27/2024 12:25 EDT Lymph Auto 29.6 % 02/27/2024 12:25 EDT Sevier Auto 7.3 % 02/27/2024 12:25 EDT Eos, Auto 1.1 % 02/27/2024 12:25 EDT Basophil Auto 0.6 % 02/27/2024 12:25 EDT Imm Gran Auto 0.3 % 02/27/2024 12:25 EDT Neutro Absolute 3.8 x10^3/mcL 02/27/2024 12:25 EDT Sodium Level 138 mmol/L 02/27/2024 12:25 EDT Potassium Level 4.1 mmol/L 02/27/2024 12:25 EDT Chloride Level 102 mmol/L 02/27/2024 12:25 EDT CO2 28 mmol/L 02/27/2024 12:25 EDT Alk Phos 94 unit/L 02/27/2024 12:25 EDT AST 17 unit/L 02/27/2024 12:25 EDT ALT 21 unit/L 02/27/2024 12:25 EDT BUN 18 mg/dL 02/27/2024 12:25 EDT Glucose Level 267 mg/dL 02/27/2024 12:25 EDT Creatinine Level 0.78 mg/dL 02/27/2024 12:25 EDT eGFR AA 79 02/27/2024 12:25 EDT eGFR Non-AA 79 02/27/2024 12:25 EDT Calcium Level 9.1 mg/dL 02/27/2024 12:25 EDT Protein Total 7.3 g/dL 02/27/2024 12:25 EDT Albumin Level 3.4 g/dL 02/27/2024 12:25 EDT Bilirubin Total 0.4 mg/dL 02/27/2024 12:25 EDT Magnesium Level 1.8 mg/dL 02/27/2024 12:25 EDT Patient/Retail Business Analyst Signature Patient Name:VERONICA BOWMAN I have received this information and my questions have been answered. Patient/Retail Business Analyst Name: Patient/Retail Business Analyst Signature: Relationship to Patient: Witness Name/Signature: Date: Electronically Signed on: 02/27/2024 14:04 EDTSigned by:[facility] Patient Care team information Care Team Personnel Name: Pauly Ann Position: Ambulatory - RN/[facility] (Adiel) Member Role: Abalone Diver Name: Flavio Stubbs MD Position: Physician Member Role: Informed Provider Address: Address: [address] [place] [address] Care Team Related Persons Name: REJI BOWMAN Address: Home [address] [phone]
--- OUTSIDE RECORDS SUMMARY | 2024-03-12 15:16 | XMS_ITS | Continuity of Care Document ---
Author Organization [facility] Address [address] [place] [address] Care Team Providers Care Radiology Services Manager Name Role Phone Flavio Stubbs Primary Care Physician Encounter [facility] Date(s): 01/24/24 - 01/24/24 [facility] [address] [place] [address] Encounter Diagnosis Hypoglycemia(Discharge Diagnosis) - 01/24/24 Adverse drug effect(Discharge Diagnosis) - 01/24/24 Type 2 diabetes mellitus with hypoglycemia without coma(Final) - Adverse effect of unspecified drugs, medicaments and biological substances, initial encounter(Final) - Discharge Disposition: Home or Self Care Attending Physician: Haider Oliva MD Admitting Physician: Haider Oliva MD Allergies, Adverse Reactions, Alerts Substance Reaction Severity Status troglitazone Unknown Unknown Active Rezulin Unknown Active rosiglitazone Unknown Active penicillins Unknown Active sulfa drugs Unknown Active Avandia Unknown Active Assessment and Plan Extracted from: Title:ED Provider Note Author:Haider Oliva MD Date:01/24/24 1.??Hypoglycemia??E16.2 Ordered: Discharge Patient, 01/24/24 13:30:00 EDT, Home Independently, Constant Indicator ?? 2.??Adverse drug effect??T50.905A Ordered: Discharge Patient, 01/24/24 13:30:00 EDT, Home Independently, Constant Indicator ?? Future Appointments Future Scheduled Tests Laboratory* CBC [...] Rico Carrillo 3Result Comment: 65=0.7 ml @ [facility] 4Result Comment: verified with 5Result Comment: administered state supply instead of private supply Medications clopidogrel 75 mg oral tablet 75 mg = 1 tab, Oral, Daily, # 90 tab, 3 Refill(s), Pharmacy: [facility] #[id number], 165.1, cm, 07/01/22 12:42:00 EST, Height, 86.9, kg, 11/14/23 11:13:00 EDT, Weight Dosing Start Date: 12/20/23 Status: Ordered Dexcom 7 Dexcom 7, Dexcom sensor 1 every 10 days, Supply, See instructions, # 3 EA, 0 Refill(s), Pharmacy: [facility] #[id number] Start Date: 10/06/23 Status: Ordered Diagnosis: Diabetes. [...] covers., # 30 mL, 5 Refill(s), Pharmacy: [facility], 165.1, cm, 07/01/22 12:42:00 EST, Height, 88, kg, 07/18/23 14:10:00 EST, Weight Dosing Start Date: 08/05/23 Status: Ordered levothyroxine 125 mcg (0.125 mg) oral tablet 125 mcg = 1 tab, Oral, Daily, # 90 tab, 4 Refill(s), [facility][id number], 165.1, cm, 07/01/22 12:42:00 EST, Height, 86.9, kg, 11/14/23 11:13:00 EDT, Weight Dosing Start Date: 01/05/24 Status: Ordered losartan 50 mg oral tablet 50 mg = 1 tab, Oral, Daily, # 90 tab, 3 Refill(s), Pharmacy: [facility] #[id number], 165.1, cm, 07/01/22 12:42:00 EST, Height, 86.9, kg, 11/14/23 11:13:00 EDT, Weight Dosing Start Date: 12/16/23 Status: Ordered One Touch Delica Plus Lancets One Touch Delica Plus Lancets, Patient to test twice daily. Dx: E 11.9, Supply, See instructions, #180 EA, 0 Refill(s), Pharmacy: [facility] #[id number] Start Date: 06/28/23 Status: Ordered Onetouch ultra glucometer Onetouch ultra glucometer, pt tests 4 times daily E11.9, Supply, See instructions, # 1 EA, 0 Refill(s), Pharmacy: [facility] #[id number] Start Date: 07/29/22 Status: Ordered OneTouch Ultra In Vitro Strip OneTouch Ultra In Vitro Strip, See Instructions, USE 1 STRIP 4 TIMES DAILY, # 400 strip, 3 Refill(s), Pharmacy: [facility] Start Date: 05/20/22 Status: Ordered sertraline 50 mg oral tablet 50 mg = 1 tab, Oral, Daily, # 30 tab, 2 Refill(s), Pharmacy: [facility] #[id number], 165.1, cm, 07/01/22 12:42:00 EST, Height, 82, kg, 08/18/23 19:35:00 EST, Weight Dosing Start Date: 10/25/23 Stop Date: 01/23/24 Status: Ordered Zetia 10 mg oral tablet 10 mg = 1 tab, Oral, Daily, # 90 tab, 0 Refill(s), Pharmacy: [facility] #[id number], 165.1, cm, 07/01/22 12:42:00 EST, Height, 86.9, kg, 11/14/23 11:13:00 EDT, Weight Dosing Start Date: 11/15/23 Stop Date: 02/13/24 Status: Ordered Problem List Condition Confirmation Course [...] eye surgery Results Laboratory List Name Date Beta Hydroxybutyrate 01/24/24 Blood Gas Venous 01/24/24 CBC w/ Diff 01/24/24 Comprehensive Metabolic Panel (CMP) 01/23 Lactic Acid 01/24/24 Magnesium Level 01/24/24 .Manual Differential (NCTY) 01/24/24 Urinalysis with Microscopic 01/24/24 Urinalysis Microscopic 01/24/24 Glucose POCT 01/24/24 Most recent to oldest [Reference Range]: 1 WBC [5.0-10.0 x10^3/mcL] 10.0 x10^3/mcL (01/24/24 9:02 AM) RBC [4.1-5.3 x10^6/mcL] 4.8 x10^6/mcL (01/24/24 9:02 AM) Segs Man [40-75 %] 80 % *HI* (01/24/24 9:02 AM) Lymph Man [20-50 %] 5 % *LOW* (01/24/24 9:02 AM) Kemper Man [2-15 %] 5 % (01/24/24 9:02 AM) Eos Man [1-6 %] 0 % *LOW* (01/24/24 9:02 AM) BUN [7-18 mg/dL] 18 mg/dL (01/24/24 9:02 AM) Glucose POC [74-106 mg/dL] 104 mg/dL (01/24/24 8:37 AM) UA Color Yellow (01/24/24 8:39 AM) UA WBC [0-3] 0-3 (01/24/24 8:39 AM) Whole Blood Glucose - Manual Entry [74-1 06 mg/dL] 104 mg/dL (01/24/24 8:40 AM) Glucose Level [74-106 mg/dL] 115 mg/dL *HI* (01/24/24 9:02 AM) Lymph, Atyp Man 10 % *NA* (01/24/24 9:02 AM) Potassium Level [3.5-5.1 mmol/L] 3.3 mmo l/L *LOW* (01/24/24 9:02 AM) MCV [80.0-96.0 fL] 91.3 fL (01/24/24 9:02 AM) UA Urobilinogen Normal *NA* (01/24/24 8:39 AM) RBC Morph Abnormal (01/24/24 9:02 AM) UA Bili [Negative] Negative *NA* (01/24/24 8:39 AM) CO2 Total Venous 30 mmol/L *NA* (01/24/24 9:02 AM) UA Ketones Negative *NA* (01/24/24 8:39 AM) HCO3 Venous [22-30 mmol/L] 28 mmol/L (01/24/24 9:02 AM) AST [15-37 unit/L] 19 unit/L (01/24/24 9:02 AM) ALT [14-59 unit/L] 24 unit/L (01/24/24 9:02 AM) MCHC [31.0-35.0 g/dL] 34.2 g/dL (01/24/24 9:02 AM) Sodium Level [136-145 mmol/L] 138 mmol/L (01/24/24 9:02 AM) UA RBC [0-2] 0-2 (01/24/24 8:39 AM) UA Leuk Est Negative (01/24/24 8:39 AM) UA Nitrite Negative *NA* (01/24/24 8:39 AM) UA Glucose [Negative] Negative *NA* (01/24/24 8:39 AM) Hct [37.0-47.0 %] 44.2 % (01/24/24 9:02 AM) Microcyte Rare (01/24/24 9:02 AM) UA Bacteria Few /HPF *ABN* (01/24/24 8:39 AM) Calcium Level [8.5-10.1 mg/dL] 9.1 mg/dL (01/24/24 9:02 AM) Albumin Level [3.4-5.0 g/dL] 3.6 g/dL (01/24/24 9:02 AM) Protein Total [6.4-8.2 g/dL] 7.9 g/dL (01/24/24 9:02 AM) UA Protein Trace *NA* (01/24/24 8:39 AM) MCH [26.0-32.0 pg] 31.2 pg (01/24/24 9:02 AM) Magnesium Level [1.8-2.4 mg/dL] 1.9 mg/d L (01/24/24 9:02 AM) Bilirubin Total [0.2-1.0 mg/dL] 0.3 mg/d L (01/24/24 9:02 AM) Hgb [12.0-16.0 g/dL] 15.1 g/dL (01/24/24 9:02 AM) Alk Phos [46-146 unit/L] 90 unit/L (01/24/24 9:02 AM) UA Blood Negative (01/24/24 8:39 AM) pCO2 Hal [33-47 mmHg] 48 mmHg *HI* (01/24/24 9:02 AM) UA Mucous Rare /HPF *ABN* (01/24/24 8:39 AM) Band Man [0-5 %] 0 % (01/24/24 9:02 AM) UA Spec Grav 1.025 *NA* (01/24/24 8:39 AM) Platelets [130-450 x10^3/mcL] 283 x10^3/ mcL (01/24/24 9:02 AM) CO2 [21-32 mmol/L] 28 mmol/L (01/24/24 9:02 AM) Hyperseg Rare (01/24/24 9:02 AM) Lactic Acid Lvl [0.7-2.0 mmol/L] 2.3 mmo l/L 1 *CRIT* (01/24/24 9:02 AM) UA Squam Epithelial [None Seen] Few *ABN* (01/24/24 8:39 AM) pO2 Hal 33 mmHg *NA* (01/24/24 9:02 AM) Macrocyte Rare (01/24/24 9:02 AM) UA pH 6.0 *NA* (01/24/24 8:39 AM) pH Hal [7.32-7.43 pH unit(s)] 7.37 pH un it(s) (01/24/24 9:02 AM) O2 Sat Hal 63 % *NA* (01/24/24 9:02 AM) eGFR Non-AA [>=60] 87 (01/24/24 9:02 AM) eGFR AA [>=60] 87 (01/24/24 9:02 AM) Base Excess Venous 2.1 mmol/L *NA* (01/24/24 9:02 AM) UA Appear Clear (01/24/24 8:39 AM) Chloride Level [98-107 mmol/L] 100 mmol/ L (01/24/24 9:02 AM) RDW-CV [11.5-14.5 %] 13.7 % (01/24/24 9:02 AM) Ovalocytes Rare (01/24/24 9:02 AM) Vacuoles Noted (01/24/24 9:02 AM) Stomatocyte Rare (01/24/24 9:02 AM) Slide Review Man Diff (01/24/24 9:02 AM) UA Culture Ind?. Not Applicable (01/24/24 8:39 AM) Abs Neut Man 8.0 x10^3/mcL *NA* (01/24/24 9:02 AM) Anisocyte Rare (01/24/24 9:02 AM) Creatinine Level [0.55-1.02 mg/dL] 0.72 mg/dL (01/24/24 9:02 AM) Baso Man [0-1 %] 0 % (01/24/24 9:02 AM) Beta-Hydroxybutyrate [0.0-0.5 mmol/L] 0. 4 mmol/L (01/24/24 9:02 AM) 1Result Comment: Called to and verbally verified and read back by Lakshmi Richardson RN at 01/24/2024 09:08:56 EDT. Vital Signs Most recent to oldest [Reference Range]: 1 2 3 Temperature Temporal Artery [36-38 Deg C] 35.8 Deg C *LOW* (01/24/24 8:17 AM) Peripheral Pulse Rate [60-100 bpm] 91 bpm (01/24/24 8:17 AM) Heart Rate Monitored [60-100 bpm] 75 bpm (01/24/24 1:49 PM) 78 bpm (01/24/24 12:30 PM) 76 bpm (01/24/24 12:00 PM) Respiratory Rate [12-24 br/min] 17 br/min (01/24/24 1:49 PM) 18 br/min (01/24/24 12:30 PM) 12 br/min (01/24/24 12:00 PM) Blood Pressure [90-140/60-90 mmHg] 152/79mmHg *HI* (01/24/24 1:49 PM) 148/78mmHg *HI* (01/24/24 12:30 PM) 151/68mmHg *HI* (01/24/24 12:00 PM) Mean Arterial Pressure, Cuff [65-140 mmHg] 103 mmHg (01/24/24 1:49 PM) 101 mmHg (01/24/24 12:30 PM) 96 mmHg (01/24/24 12:00 PM) Weight Estimated 86.18 kg (01/24/24 8:17 AM) Body Mass Index Estimated 31.62 kg/m2 (01/24/24 8:17 AM) Height/Length Estimated 165.1 cm (01/24/24 8:17 AM) Social History Social History Type Response Tobacco Never tobacco user T obacco Use:. Sex Female Physician Emergency department Note * Haider Oliva MD: PERFORM Event Display: ED Note Physician Authored Date: [id number] ANTHONY BOWMAN :1950 Age:73 years Sex:Female Visit Date:01/24/2024 Primary Care Physician: Flavio Stubbs MD Basic Information Time Seen: Haider Oliva MD / 01/24/2024 08:30 Chief Complaint Pt c/o blood sugars all over the place, with weakness and diarrhea since midnight. ??States she has been eating all night to keep her sugars up, and has been dropping to 40's-50's. ??Denies N/V. Also foggy, scattered. History Of Present Illness: Presenting concern is??low blood sugar,??weakness, dizziness, loose stools, leg cramps.?? Patient has had 3 prior ED visits for??what appears to be a low- grade??continuous illness.?? During the nightshe reports blood sugars in the 40s and 50s on her Dexcom??despite taking??fluid intake. Review of Systems: Review of systems??positive for recent palpitations, diarrhea x 2 in the last 24 hours, completing course of antibiotics for urinary tract infection.?? No neurodeficits. Physical Exam Vitals & Measurements T:??35.8?C ??(Temporal Artery)?? HR:??78??(Monitored)?? RR:??18?? BP:??148/78?? SpO2:??99%?? HT:??165.1??cm?? WT:??86.18??kg??(Estimated)?? BMI:??31.62?? Pain Score:??0?? O2 Therapy:??Room air?? Orthostatic Vitals: Pulse Supine: 82 bpm (01/24/24 09:20:00) Pulse Sittin bpm (01/24/24 09:20:00) Pulse Standin bpm (01/24/24 09:20:00) Systolic Blood Pressure Supine: 139 mmHg (01/24/24 09:20:00) Diastolic Blood Pressure Supine: 64 mmHg (01/24/24 09:20:00) Systolic Blood Pressure Sitting:??159 mmHg??High (01/24/24 09:20:00) Diastolic Blood Pressure Sittin mmHg (01/24/24 09:20:00) Systolic Blood Pressure Standing:??160 mmHg??High (01/24/24 09:20:00) Diastolic Blood Pressure Standin mmHg (01/24/24 09:20:00) No distress.?? Answers questions with??long detailed??wide perspective answers.?? Mental status normal. ??Respirations normal. ??Chest auscultation normal. ??Heart auscultation normal. ??Abdomen obese.?? Extremities without edema. Medical Decision Making: Problem complexity is moderate. ??Data complexity is moderate. ??Risk of management is low. ??[facility] coding 59167. Procedure No Qualifying Data Assessment/Plan 1.??Hypoglycemia??E16.2 Ordered: Discharge Patient, 01/24/24 13:30:00 EDT, Home Independently, Constant Indicator ?? 2.??Adverse drug effect??T50.905A Ordered: Discharge Patient, 01/24/24 13:30:00 EDT, Home Independently, Constant Indicator ?? Medication Reconciliation Unchanged clopidogrel (clopidogrel 75 mg [...] 0. ?? Durable Medical Equipment for Prescription ([email or web address] ultra glucometer)pt tests 4 times daily E11.9.Refills: [...] every day. Refills: 3. ?? Other Prescription (SkyFuelTouch Ultra In Vitro Strip)USE 1 STRIP 4 [...] Administration Given 0.9% NaCl bolus, 1000 mL, Hydration Bolus potassium chloride, 10 mEq, IV Piggyback Allergies Avandia Rezulin penicillins rosiglitazone sulfa drugs troglitazone??(Unknown) Social History Alcohol Current, Wine, 1-2 times per year Electronic Cigarette/Vaping Electronic Cigarette Use: Never. 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 Home/Environment Lives with Daughter half time and [...] and Differential?? LATEST RESULTS?? HISTORICAL RESULTS?? WBC?? 01/24/24 09:02?? 10.0?? 01/13/24?? 6.4?? RBC?? 01/24/24 09:02?? 4.8?? 01/13/24?? 4.8?? Hgb?? 01/24/24 09:02?? 15.1?? 01/13/24?? 14.6?? Hct?? 01/24/24 09:02?? 44.2?? 01/13/24?? 43.1?? MCV?? 01/24/24 09:02?? 91.3?? 01/13/24?? 90.5?? MCH?? 01/24/24 09:02?? 31.2?? 01/13/24?? 30.7?? MCHC?? 01/24/24 09:02?? 34.2?? 01/13/24?? 33.9?? RDW-CV?? 01/24/24 09:02?? 13.7?? 01/13/24?? 13.6?? Platelets?? 01/24/24 09:02?? 283?? 01/13/24?? 282?? Segs Man?? 01/24/24 09:02?? 80 ??High? Lymph Man?? 01/24/24 09:02?? 5 ??Low? Kemper Man?? 01/24/24 09:02?? 5? Eos Man?? 01/24/24 09:02?? 0 ??Low? Baso Man?? 01/24/24 09:02?? 0? Band Man?? 01/24/24 09:02?? 0? Lymph, Atyp Man?? 01/24/24 09:02?? 10? Abs Neut Man?? 01/24/24 09:02?? 8.0? RBC Morph?? 01/24/24 09:02?? Abnormal? Anisocyte?? 01/24/24 09:02?? Rare? Hyperseg?? 01/24/24 09:02?? Rare? Microcyte?? 01/24/24 09:02?? Rare? Macrocyte?? 01/24/24 09:02?? Rare? Ovalocytes?? 01/24/24 09:02?? Rare? Stomatocyte?? 01/24/24 09:02?? Rare? Vacuoles?? 01/24/24 09:02?? Noted? Slide Review?? 01/24/24 09:02?? Man Diff? Blood Gases?? LATEST RESULTS?? HISTORICAL RESULTS?? pH Hal?? 01/24/24 09:02?? 7.37?? 08/18/23?? 7.45 ??High?? pCO2 Hal?? 01/24/24 09:02?? 48 ??High?? 08/18/23?? 40?? pO2 Hal?? 01/24/24 09:02?? 33?? 08/18/23?? 96?? HCO3 Venous?? 01/24/24 09:02?? 28?? 08/18/23?? 27?? O2 Sat Hal?? 01/24/24 09:02?? 63?? 08/18/23?? 99?? CO2 Total Venous?? 01/24/24 09:02?? 30?? 08/18/23?? 29?? Base Excess Venous?? 01/24/24 09:02?? 2.1?? 08/18/23?? 3.2? Routine Chemistry?? LATEST RESULTS?? HISTORICAL RESULTS?? Sodium Level?? 01/24/24 09:02?? 138?? 01/13/24?? 143?? Potassium Level?? 01/24/24 09:02?? 3.3 ??Low?? 01/13/24?? 3.8?? Chloride Level?? 01/24/24 09:02?? 100?? 01/13/24?? 107?? CO2?? 01/24/24 09:02?? 28?? 01/13/24?? 28?? Alk Phos?? 01/24/24 09:02?? 90?? 01/13/24?? 77?? AST?? 01/24/24 09:02?? 19?? 01/13/24?? 18?? ALT?? 01/24/24 09:02?? 24?? 01/13/24?? 24?? BUN?? 01/24/24 09:02?? 18?? 01/13/24?? 16?? Glucose Level?? 01/24/24 09:02?? 115 ??High?? 01/13/24?? 83?? Creatinine Level?? 01/24/24 09:02?? 0.72?? 01/13/24?? 0.71?? eGFR AA?? 01/24/24 09:02?? 87?? 01/13/24?? 89?? eGFR Non-AA?? 01/24/24 09:02?? 87?? 01/13/24?? 89?? Calcium Level?? 01/24/24 09:02?? 9.1?? 01/13/24?? 8.7?? Protein Total?? 01/24/24 09:02?? 7.9?? 01/13/24?? 7.1?? Albumin Level?? 01/24/24 09:02?? 3.6?? 01/13/24?? 3.2 ??Low?? Bilirubin Total?? 01/24/24 09:02?? 0.3?? 01/13/24?? 0.4?? Beta-Hydroxybutyrate?? 01/24/24 09:02?? 0.4? Lactic Acid Lvl?? 01/24/24 09:02?? 2.3 ??Critical? Magnesium Level?? 01/24/24 09:02?? 1.9? Glucose POC?? 01/24/24 08:37?? 104?? 01/13/24?? 87? UA Macroscopic?? LATEST RESULTS?? HISTORICAL RESULTS?? UA Color?? 01/24/24 08:39?? Yellow?? 01/13/24?? Yellow?? UA Appear?? 01/24/24 08:39?? Clear?? 01/13/24?? Clear?? UA Glucose?? 01/24/24 08:39?? Negative?? 01/13/24?? Negative?? UA Bili?? 01/24/24 08:39?? Negative?? 01/13/24?? Negative?? UA Ketones?? 01/24/24 08:39?? Negative?? 01/13/24?? Negative?? UA Spec Grav?? 01/24/24 08:39?? 1.025?? 01/13/24?? 1.025?? UA Blood?? 01/24/24 08:39?? Negative?? 01/13/24?? Negative?? UA pH?? 01/24/24 08:39?? 6.0?? 01/13/24?? 5.5?? UA Protein?? 01/24/24 08:39?? Trace?? 01/13/24?? Negative?? UA Urobilinogen?? 01/24/24 08:39?? Normal?? 01/13/24?? Normal?? UA Nitrite?? 01/24/24 08:39?? Negative?? 01/13/24?? Negative?? UA Leuk Est?? 01/24/24 08:39?? Negative?? 01/13/24?? Trace Abnormal?? UA Culture Ind?.?? 01/24/24 08:39?? Not Applicable?? 01/13/24?? Indicated? UA Microscopic?? LATEST RESULTS?? HISTORICAL RESULTS?? UA WBC?? 01/24/24 08:39?? 0-3?? 01/13/24?? 0-3?? UA RBC?? 01/24/24 08:39?? 0-2?? 01/13/24?? 0-2?? UA Squam Epithelial?? 01/24/24 08:39?? Few Abnormal?? 01/13/24?? Few Abnormal?? UA Mucous?? 01/24/24 08:39?? Rare Abnormal?? 01/13/24?? None Seen?? UA Bacteria?? 01/24/24 08:39?? Few Abnormal?? 01/13/24?? Moderate Abnormal? Point of Care?? LATEST RESULTS?? Whole Blood Glucose - Manual Entry?? 01/24/24 08:40?? 104 mg/dL? Electronically Signed on 01/24/2024 13:33 EDT Haider Oliva MD * Vish Smith MD: PERFORM Event Display: ED Note Physician Authored Date: [id number] ANTHONY BOWMAN :1950 Age:73 years Sex:Female Visit Date:01/24/2024 Primary Care Physician: Flavio Stubbs MD Lab called for a lactic acid of 2.3. ??Message related to Dr. Oliva. Electronically Signed on 01/24/2024 09:23 EDT Vish Smith MD Emergency department Discharge instructions * Haider Oliva MD: PERFORM Event Display: ED Discharge Information Authored Date: [id number] ANTHONY BOWMAN :1950 Age:73 years Sex:Female Visit Date:01/24/2024 Primary Care Physician: Flavio Stubbs MD Discharge Instructions We would like to thank you for allowing us to assist you with your healthcare needs. The following includes patient education materials and information regarding your injury/illness. Diagnosis from Today's Visit Hypoglycemia Adverse drug effect Discharge Vitals Temperature??(Temporal Artery) 96.4 ??F (35.8 ??C) Heart Rate??(Monitored) 78 Respiratory Rate?? 18 Blood Pressure?? 148/78?? Blood Pressure?? 159/74(Sitting)?? Blood Pressure?? 160/84(Standing)?? Blood Pressure?? 139/64(Supine)?? SpO2?? 99% Height?? 65.00 in (165.1 cm) Weight??(Estimated) 190.03 lb (86.18 kg) BMI?? 31.62 Allergies Avandia Rezulin penicillins rosiglitazone sulfa drugs troglitazone??(Unknown) What to Do Next Instructions from Your Care Team Decrease your Lantus to 30 units??and continue to monitor your glucose. ??Follow-up with your primary care provider. ?? Haider Oliva MD Upcoming Scheduled Appointments 2023 9:30 AM EDT ?? With: Pauly Ann Where: [address] [address] Status: Confirmed Tuesday 11:00 AM EDT ?? With: Flavio Stubbs MD Where: [facility] [address] [address] Status: Confirmed Tuesday 3:15 PM EDT ?? With: Yvrose Marquez DNP Where: [address] [address] Status: Confirmed You were treated [...] ?? Unchanged Durable Medical Equipment for Prescription ([email or web address] ultra glucometer) See instructions Type 2 diabetes [...] Every day Hypertensive disorder Unchanged Other Prescription (Tribzi In Vitro Strip) See instructions USE 1 STRIP 4 TIMES DAILY ?? Unchanged sertraline (sertraline 50 mg oral tablet) 1 tab Oral (given by mouth) Every day Depression Post traumatic stress disorder (PTSD) Duration: 30 Days Tests Performed Medications and Immunizations Administered Given 0.9% NaCl bolus, 1000 mL, Hydration Bolus potassium chloride, 10 mEq, IV Piggyback Lab Test Name Test Result Date/Time WBC 10.0 x10^3/mcL 01/24/2024 09:02 EDT RBC 4.8 x10^6/mcL 01/24/2024 09:02 EDT Hgb 15.1 g/dL 01/24/2024 09:02 EDT Hct 44.2 % 01/24/2024 09:02 EDT MCV 91.3 fL 01/24/2024 09:02 EDT MCH 31.2 pg 01/24/2024 09:02 EDT MCHC 34.2 g/dL 01/24/2024 09:02 EDT RDW-CV 13.7 % 01/24/2024 09:02 EDT Platelets 283 x10^3/mcL 01/24/2024 09:02 EDT Segs Man 80 % 01/24/2024 09:02 EDT Lymph Man 5 % 01/24/2024 09:02 EDT Kemper Man 5 % 01/24/2024 09:02 EDT Eos Man 0 % 01/24/2024 09:02 EDT Baso Man 0 % 01/24/2024 09:02 EDT Band Man 0 % 01/24/2024 09:02 EDT Lymph, Atyp Man 10 % 01/24/2024 09:02 EDT Abs Neut Man 8.0 x10^3/mcL 01/24/2024 09:02 EDT RBC Morph Abnormal 01/24/2024 09:02 EDT Anisocyte Rare 01/24/2024 09:02 EDT Hyperseg Rare 01/24/2024 09:02 EDT Microcyte Rare 01/24/2024 09:02 EDT Macrocyte Rare 01/24/2024 09:02 EDT Ovalocytes Rare 01/24/2024 09:02 EDT Stomatocyte Rare 01/24/2024 09:02 EDT Vacuoles Noted 01/24/2024 09:02 EDT Slide Review Man Diff 01/24/2024 09:02 EDT pH Hal 7.37 pH unit(s) 01/24/2024 09:02 EDT pCO2 Hal 48 mmHg 01/24/2024 09:02 EDT pO2 Hal 33 mmHg 01/24/2024 09:02 EDT HCO3 Venous 28 mmol/L 01/24/2024 09:02 EDT O2 Sat Hal 63 % 01/24/2024 09:02 EDT CO2 Total Venous 30 mmol/L 01/24/2024 09:02 EDT Base Excess Venous 2.1 mmol/L 01/24/2024 09:02 EDT Sodium Level 138 mmol/L 01/24/2024 09:02 EDT Potassium Level 3.3 mmol/L 01/24/2024 09:02 EDT Chloride Level 100 mmol/L 01/24/2024 09:02 EDT CO2 28 mmol/L 01/24/2024 09:02 EDT Alk Phos 90 unit/L 01/24/2024 09:02 EDT AST 19 unit/L 01/24/2024 09:02 EDT ALT 24 unit/L 01/24/2024 09:02 EDT BUN 18 mg/dL 01/24/2024 09:02 EDT Glucose Level 115 mg/dL 01/24/2024 09:02 EDT Creatinine Level 0.72 mg/dL 01/24/2024 09:02 EDT eGFR AA 87 01/24/2024 09:02 EDT eGFR Non-AA 87 01/24/2024 09:02 EDT Calcium Level 9.1 mg/dL 01/24/2024 09:02 EDT Protein Total 7.9 g/dL 01/24/2024 09:02 EDT Albumin Level 3.6 g/dL 01/24/2024 09:02 EDT Bilirubin Total 0.3 mg/dL 01/24/2024 09:02 EDT Beta-Hydroxybutyrate 0.4 mmol/L 01/24/2024 09:02 EDT Lactic Acid Lvl 2.3 mmol/L 01/24/2024 09:02 EDT Magnesium Level 1.9 mg/dL 01/24/2024 09:02 EDT Glucose POC 104 mg/dL 01/24/2024 08:37 EDT UA Color YELLOW. 01/24/2024 08:39 EDT UA Appear CLEAR. 01/24/2024 08:39 EDT UA Glucose NEGATIVE 01/24/2024 08:39 EDT UA Bili NEGATIVE 01/24/2024 08:39 EDT UA Ketones NEGATIVE 01/24/2024 08:39 EDT UA Spec Grav 1.025 01/24/2024 08:39 EDT UA Blood NEGATIVE 01/24/2024 08:39 EDT UA pH 6.0 01/24/2024 08:39 EDT UA Protein TRACE. 01/24/2024 08:39 EDT UA Urobilinogen 0.2 Uro 01/24/2024 08:39 EDT UA Nitrite NEGATIVE 01/24/2024 08:39 EDT UA Leuk Est NEGATIVE 01/24/2024 08:39 EDT UA Culture Ind?. Not Applicable 01/24/2024 08:39 EDT UA WBC 0-3 01/24/2024 08:39 EDT UA RBC 0-2 01/24/2024 08:39 EDT UA Squam Epithelial Few 01/24/2024 08:39 EDT UA Mucous Rare 01/24/2024 08:39 EDT UA Bacteria Few 01/24/2024 08:39 EDT Whole Blood Glucose - Manual Entry 104 mg/dL 01/24/2024 08:40 EDT Patient/2Nd Pressman Signature Patient Name:ANTHONY BOWMAN I have received this information and my questions have been answered. Patient/2Nd Pressman Name: Patient/2Nd Pressman Signature: Relationship to Patient: Witness Name/Signature: Date: Electronically Signed on: 01/24/2024 13:32 EDTSigned by:[facility] Patient Care team information Care Team Personnel Name: Pauly Ann Position: Ambulatory - RN/LEAD CUSTODIAN ([facility]) Member Role: Engagement Director Name: Flavio Stubbs MD Position: Physician Member Role: Informed Provider Address: Address: [address] [place] [id number] Care Team Related Persons Name: REJI BOWMAN Address: [address] [phone]
--- OUTSIDE RECORDS SUMMARY | 2024-03-12 15:16 | XMS_ITS | Continuity of Care Document ---
Author Organization [facility] Address [address] [place] [address] Care Team Providers Care Apartment Maintenance Technician Name Role Phone Manjit Joel Primary Care Physician Encounter [facility] [id number] Date(s): 10/04/23 - 10/04/23 [facility] [address] [place] [address] Discharge Disposition: Home or Self Care Attending Physician: Brittanie Garza MD Admitting Physician: Brittanie Garza MD Referring Physician: Brittanie Garza MD Allergies, Adverse Reactions, Alerts Substance Reaction Severity Status troglitazone Unknown Unknown Active Rezulin Unknown Active rosiglitazone Unknown Active penicillins Unknown Active sulfa drugs Unknown Active Avandia Unknown Active Assessment and Plan Future Appointments Appointment Date:10/18/2023 01:00:00 PM Scheduled Provider:Pauly Ann Location:[facility] [place] Appointment Type:Care Coordination Follow-Up 60 ([facility]) Future Scheduled Tests Laboratory* CBC w/ Diff [...] Recorded tetanus toxoid 08/01/10 Recorded 1Result Comment: [facility] 2Result Comment: [facility] 3Result Comment: 65=0.7 ml @ [facility] 4Result Comment: verified with [facility] 5Result Comment: administered state supply instead of private supply Medications aspirin 81 mg oral capsule 81 mg = 1 cap, Oral, Daily, do not exceed 48 capsules in 24 hours, X 21 days, # 21 cap, 0 Refill(s), 10/21/23 6:41:00 PM CDT, Pharmacy: [facility] #[id number], 165.1, cm, 07/01/22 12:42:00 EST, Height, 82, [...] hr, # 28 tab, 0 Refill(s), Pharmacy: [facility] #[id number], 165.1, cm, 07/01/22 12:42:00 EST, Height, 82, kg, 08/18/23 19:35:00 EST, Weight Dosing Start Date: 09/23/23 Stop Date: 10/07/23 Status: Ordered HumaLOG 100 units/mL injectable solution See Instructions, INJECT SUBCUTANEOUSLY 3 TIMES DAILY WITH MEALS AND NEEDED WITH SNACKS. 1 UNIT PER 5 CARBS WITH MEALS/SNACKS; 100 unit maximum daily dose. Dx: E 11.9, # 15 mL, 6 Refill(s), Pharmacy: [facility] #[id number], 165.1, cm, 07/01/22 12:42:00 EST, Height, 82, kg, 08/18/23 19:35:00EST, Weight Dosing Start Date: 10/03/23 Status: Ordered Insulin Syringe-Needle 31G 0.5 mL See Instructions, 1 syringe 3 times daily Start Date: 02/03/22 Status: Ordered Insulin syrings needles 31g 0.5ml Insulin syrings needles 31g 0.5ml, use 4 syringes daily, Supply, See instructions, # 200 EA, 1 Refill(s), Pharmacy: [facility] ([facility] ) Start Date: 11/23/22 Status: [...] covers., # 30 mL, 5 Refill(s), Pharmacy: [facility], 165.1, cm, 07/01/22 12:42:00 EST, Height, 88, kg, 07/18/23 14:10:00 EST, Weight Dosing Start Date: 08/05/23 Status: Ordered levothyroxine 125 mcg (0.125 mg) oral tablet 125 mcg = 1 tab, Oral, Daily, # 90 tab, 4 Refill(s), [facility] Start Date: 01/14/23 Status: Ordered losartan 50 mg oral tablet 25 mg = 0.5 tab, Oral, Daily, for 90 days, # 45 tab, 0 Refill(s), Pharmacy: [facility] #[id number], 165.1, cm, 07/01/22 12:42:00 EST, Height, 82, kg, 08/18/23 19:35:00 EST, Weight Dosing Start Date: 10/03/23 Stop Date: 01/01/24 Status: Ordered One Touch Delica Plus Lancets One Touch Delica Plus Lancets, Patient to test twice daily. Dx: E 11.9, Supply, See instructions, #180 EA, 0 Refill(s), Pharmacy: [facility] #[id number] Start Date: 06/28/23 Status: Ordered Onetouch ultra glucometer Onetouch ultra glucometer, pt tests 4 times daily E11.9, Supply, See instructions, # 1 EA, 0 Refill(s), Pharmacy: [facility] #[id number] Start Date: 07/29/22 Status: Ordered OneTouch Ultra In Vitro Strip OneTouch Ultra In Vitro Strip, See Instructions, USE 1 STRIP 4 TIMES DAILY, # 400 strip, 3 Refill(s), [facility] Start Date: 05/20/22 Status: Ordered Plavix 75 mg oral tablet 75 mg = 1 tab, Oral, Daily, X 21 days, # 21 tab, 0 Refill(s), 10/21/23 6:42:00 PM CDT, Pharmacy: [facility] #[id number], 165.1, cm, 07/01/22 12:42:00 EST, Height, 82, kg, 08/18/23 19:35:00 EST, Weight Dosing Start Date: 09/30/23 Stop Date: 10/21/23 Status: Ordered sertraline 25 mg oral tablet 25 mg = 1 tab, Oral, Daily, # 30 tab, 2 Refill(s), Pharmacy: [facility] #[id number], 165.1, cm, 07/01/22 12:42:00 EST, Height, 82, kg, 08/18/23 19:35:00 EST, Weight Dosing Start Date: 09/16/23 Stop Date: 12/15/23 Status: Ordered Problem List Condition Confirmation Course Effective Dates Status H ealth Status Informant Atypical chest pain Confirmed 09/12/18 Active Candidal intertrigo Confirmed 06/05/21 Active Cellulitis of foot Confirmed 03/28/18 Active Chronic constipation Confirmed 03/17/18 Active Decreased hearing Confirmed 05/17/19 Active Depression Confirmed Active 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
--- OUTSIDE RECORDS SUMMARY | 2024-03-12 15:16 | XMS_ITS | Continuity of Care Document ---
Author Organization [facility] Address [address] [place] [address] Care Team Providers Care Mathematics Improvement Teacher Name Role Phone Nerissa Nguyễn Primary Care Physician [phone] Encounter [facility] Date(s): 03/31/23 - 03/31/23 [facility] [address] [place] [address] Encounter Diagnosis Screening for osteoporosis(Discharge Diagnosis) - 03/31/23 Discharge Disposition: Home or Self Care Attending [...] Start Date: 05/31/22 Status: Ordered Dexcom G4 Calender Runner Dexcom 6, Supply, 1 EA, N/A, As [...] g, 11 Refill(s), Pharm[facility] ([facility] Start Date: 05/31/22 Stop Date: 05/26/23 Status: Ordered Onetouch ultra glucometer Onetouch ultra glucometer, pt tests 4 times daily E11.9, Supply, See instructions, # 1 EA, 0 Refill(s), Pharmacy: [facility] #[id number] Start Date: 07/29/22 Status: Ordered OneTouch Ultra In Vitro Strip OneTouch Ultra In Vitro Strip, See Instructions, USE 1 STRIP 4 TIMES DAILY, # 400 strip, 3 Refill(s), Pharmacy: [facility] ([facility]) Start Date: 05/20/22 Status: Ordered [...] Role: Primary Care Physician Address: Address: [address] [place] [phone] [place] Care Team Related Persons Name: MARGUERITE STARR Name: RICARDO BOWMAN
--- OUTSIDE RECORDS SUMMARY | 2024-03-12 15:16 | XMS_ITS | Continuity of Care Document ---
Author Organization [facility] Address [address] [place] [address] Care Team Providers Care Nut Threader Name Role Phone Manjit Joel Primary Care Physician [phone] Encounter [facility] Date(s): 09/23/23 - 09/23/23 [facility] [address] [place] [address] Encounter Diagnosis Left foot pain(Discharge Diagnosis) - 09/23/23 Discharge Disposition: Home or Self Care Attending Physician: Manjit Joel NP Admitting Physician: Manjit Joel NP Referring Physician: Manjit Joel JAVA J2EE SOFTWARE ENGINEER Allergies, Adverse Reactions, Alerts Substance Reaction Severity [...] Recorded tetanus toxoid 08/01/10 Recorded 1Result Comment: [facility] 2Result Comment: [facility] 3Result Comment: 65=0.7 ml @ [facility] 4Result Comment: verified with [facility] [...] hr, # 28 tab, 0 Refill(s), Pharmacy: [facility] #[id number], 165.1, cm, 07/01/22 12:42:00 EST, Height, 82, [...] instructions, # 200 EA, 1 Refill(s), Pharmacy: [facility] ) Start Date: 11/23/22 Status: Ordered Levemir 100 units/mL subcutaneous solution 40 units =, Subcutaneous, every night at bedtime, Patient is requesting 2 pens beacause she [place]in two places. Please fill two pens if her insurance covers., # 30 mL, 5 Refill(s), Pharmacy: [facility], 165.1, cm, 07/01/22 12:42:00 EST, Height, 88, kg, 07/18/23 14:10:00 EST, Weight Dosing Start Date: 08/05/23 Status: Ordered levothyroxine 125 mcg (0.125 mg) oral tablet 125 mcg = 1 tab, Oral, Daily, # 90 tab, 4 Refill(s), Pharm[facility]: [facility] Start Date: 01/14/23 Status: Ordered losartan 50 mg oral tablet 25 mg = 0.5 tab, Oral, Daily, for 90 days, # 45 tab, 3 Refill(s), Pharmacy: [facility] Start Date: 03/29/23 Stop Date: 03/23/24 Status: Ordered nystatin 100,000 units/g topical cream 1 baljeet, Topical, BID, PRN other (see comment), # 30 g, 11 Refill(s), Pharmacy: [facility]) Start Date: 05/31/22 Stop Date: 05/26/23 Status: Ordered One Touch Delica Plus Lancets One Touch Delica Plus Lancets, Patient to test twice daily. Dx: E 11.9, Supply, See instructions, #180 EA, 0 Refill(s), Pharmacy: [facility] #[id number] Start Date: 06/28/23 Status: Ordered Onetouch ultra glucometer Onetouch ultra glucometer, pt tests 4 times daily E11.9, Supply, See instructions, # 1 EA, 0 Refill(s), Pharmacy: [facility] #[id number] Start Date: 07/29/22 Status: Ordered OneTouch Ultra In Vitro Strip OneTouch Ultra In Vitro Strip, See Instructions, USE 1 STRIP 4 TIMES DAILY, # 400 strip, 3 Refill(s), Pharmacy: [facility] ([facility]) Start Date: 05/20/22 Status: Ordered sertraline 25 mg oral tablet 25 mg = 1 tab, Oral, Daily, # 30 tab, 2 Refill(s), Pharmacy: [facility] #[id number], 165.1, cm, 07/01/22 12:42:00 EST, Height, 82, [...] Care team information Care Team Personnel Name: Mnajit Joel JAVA J2EE SOFTWARE ENGINEER Position: Physician Member Role: Primary Care Physician Address: Address: [address] [place] [phone] Name: Pauly Ann Position: Ambulatory - RN/LAUNDRY LABORER (Adiel) Member Role: Probation Worker Care Team Related Persons Name: MARGUERITE STARR Name: RICARDO BOWMAN Name: REJI BOWMAN Address: [address] [id number]
--- OUTSIDE RECORDS SUMMARY | 2024-03-12 15:16 | XMS_ITS | Continuity of Care Document ---
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 Name Role Phone Reji Zarco Primary Care Physician Encounter [facility] [id number] Date(s): 11/18/23 - 11/19/23 [facility] [address] [place] [address] Encounter Diagnosis Dizziness(Discharge Diagnosis) - 11/18/23 Hypokalemia(Discharge Diagnosis) - 11/18/23 Discharge Disposition: Home or Self Care Attending Physician: Kena Dowell MD Admitting Physician: Kena Dowell MD Allergies, Adverse Reactions, Alerts Substance Reaction Severity Status troglitazone Unknown Unknown Active Rezulin Unknown Active rosiglitazone Unknown Active penicillins Unknown Active sulfa drugs Unknown Active Avandia Unknown Active Assessment and Plan Extracted from: Title:ED Provider Note Author:Tracy Dowell MD Date:11/18/23 Assessment/Plan 1.??Dizziness??R42 ??Patient with slight decrease in her blood pressure??with 20 point??drop??from sitting to standing??patient was 140/70?? standing was 120/74??patient received 500 cc of fluid here in the emergency department??and then started on normal saline with 20 mill equivalents??per liter??of 1 L??until her son arrived to pick her up.?? Patient will try to increase??her fluids.?? Patient's??physical exam??EKG and lab work here are reassuring??I do not think that this is a CVA for the patient??patient has no nystagmus??and do not think that this is an inner ear ear??for patient expect if patient increases her fluids that this will improve her symptoms. Ordered: Discharge Patient, 11/19/23 0:28:00 EDT, Home Independently, Constant Indicator ?? 2.??Hypokalemia??E87.6 ??Patient aware??of potassium at 3.3??patient has received some fluids with potassium??and??patient education handout??of??potassium fluids??given to the patient.?? Patient to follow-up with her primary care provider. ?? Orders: NS w/K20 1,000 mL, Total Volume (mL): 1,000, 1,000 mL, Soln-IV, IV, 500 mL/hr, Start Date: 11/19/23 0:22:00 EDT, 86.9 kg, Populate Charting Weight From Order Patient Education Potassium Content of Foods Dizziness Follow Up With When Contact Information Follow [...] 4 05/22/20 Recorded influenza virus vaccine, live 9/22/20 Recorded influenza virus vaccine, live 05/01/19 Recorded pneumococcal 23-polyvalent vaccine 5 12/01/18 Micah rded pneumococcal 13-valent conjugate vaccine 10/28/17 Recorded tetanus toxoid 08/01/10 Recorded 1Result Comment: [facility] Montgomery [facility] 3[facility] Comment: 65=0.7 ml @ [facility] 4Result Comment: verified with GJ 5Result Comment: administered state supply instead of private supply Medications clopidogrel 75 mg oral tablet 75 mg = 1 tab, Oral, Daily, # 90 tab, 0 Refill(s), Pharmacy: [facility] #[id number], 165.1, cm, 07/01/22 12:42:00 EST, Height, 82, kg, 08/18/23 19:35:00 EST, Weight Dosing Start Date: 10/24/23 Status: Ordered Dexcom 7 Dexcom 7, Dexcom sensor 1 every 10 days, Supply, See instructions, # 3 EA, 0 Refill(s), Pharmacy: [facility] #[id number] Start Date: 10/06/23 Status: Ordered Diagnosis: Diabetes. [...] Daily, # 14 cap, 0 Refill(s), Pharmacy: [facility] #[id number], 165.1, cm, 07/01/22 12:42:00 EST, Height, 82, kg, 08/18/23 19:35:00 EST, Weight Dosing Start Date: 11/09/23 Stop Date: 11/23/23 Status: Ordered HumaLOG 100 units/mL injectable solution See Instructions, INJECT SUBCUTANEOUSLY 3 TIMES DAILY WITH MEALS AND NEEDED WITH SNACKS. 1 UNIT PER 5 CARBS WITH MEALS/SNACKS; 100 unit maximum daily dose. Dx: E 11.9, # 15 mL, 6 Refill(s), Pharmacy: [facility], [...] covers., # 30 mL, 5 Refill(s), [facility], 165.1, cm, 07/01/22 12:42:00 EST, Height, 88, kg, 07/18/23 14:10:00 EST, Weight Dosing Start Date: 08/05/23 Status: Ordered levothyroxine 125 mcg (0.125 mg) oral tablet 125 mcg = 1 tab, Oral, Daily, # 90 tab, 4 Refill(s), Pharmacy: [facility] ([facility] ) Start Date: 01/14/23 Status: Ordered losartan 50 mg oral tablet 50 mg = 1 tab, Oral, Daily, # 90 tab, 0 Refill(s), Pharmacy: [facility] #[id number], 165.1, cm, 07/01/22 12:42:00 EST, Height, 82, kg, 08/18/23 19:35:00 EST, Weight Dosing Start Date: 10/03/23 Stop Date: 01/01/24 Status: Ordered One Touch Delica Plus Lancets One Touch Delica Plus Lancets, Patient to test twice daily. Dx: E 11.9, Supply, See instructions, #180 EA, 0 Refill(s), Pharmacy: [facility] #[id number] Start Date: 06/28/23 Status: Ordered Onetouch ultra glucometer Onetouch ultra glucometer, pt tests 4 times daily E11.9, Supply, See instructions, # 1 EA, 0 Refill(s), Pharmacy: [facility] #[id number] Start Date: 07/29/22 Status: Ordered OneTouch Ultra In Vitro Strip OneTouch Ultra In Vitro Strip, See Instructions, USE 1 STRIP 4 TIMES DAILY, # 400 strip, 3 Refill(s), Pharmacy: [facility] ([facility]) Start Date: 05/20/22 Status: Ordered rosuvastatin 20 mg oral tablet 20 mg = 1 tab, Oral, Daily, # 90 tab, 0 Refill(s), Pharmacy: [facility] #[id number], 165.1, cm, 07/01/22 12:42:00 EST, Height, 82, kg, 08/18/23 19:35:00 EST, Weight Dosing Start Date: 10/24/23 Status: Ordered sertraline 50 mg oral tablet 50 mg = 1 tab, Oral, Daily, # 30 tab, 2 Refill(s), Pharmacy: [facility] #[id number], 165.1, cm, 07/01/22 12:42:00 EST, Height, 82, kg, 08/18/23 19:35:00 EST, Weight Dosing Start Date: 10/25/23 Stop Date: 01/23/24 Status: Ordered Zetia 10 mg oral tablet 10 mg = 1 tab, Oral, Daily, # 90 tab, 0 Refill(s), Pharmacy: [facility] #[id number], 165.1, cm, 07/01/22 12:42:00 EST, Height, 86.9, [...] Laboratory List Name Date CBC w/ Diff 11/18/23 Comprehensive Metabolic Panel 11/18/23 Automated Diff 11/18/23 Glucose POCT 11/18/23 Most recent to oldest [Reference Range]: 1 WBC [5.0-10.0 x10^3/mcL] 7.9 x10^3/mcL (11/18/23 10:57 PM) RBC [4.1-5.3 x10^6/mcL] 4.9 x10^6/mcL (11/18/23 10:57 PM) Neutro Auto [40.0-75.0 %] 53.8 % (11/18/23 10:57 PM) Lymph Auto [20.0-50.0 %] 35.9 % (11/18/23 10:57 PM) [place] Auto [2.0-15.0 %] 7.2 % (11/18/23 10:57 PM) Basophil Auto [0.0-1.0 %] 0.5 % (11/18/23 10:57 PM) BUN [7-18 mg/dL] 25 mg/dL *HI* (11/18/23 10:57 PM) Glucose POC [74-106 mg/dL] 108 mg/dL *HI* (11/18/23 10:29 PM) Glucose Level [74-106 mg/dL] 80 mg/dL (11/18/23 10:57 PM) Potassium Level [3.5-5.1 mmol/L] 3.3 mmo l/L *LOW* (11/18/23 10:57 PM) MCV [80.0-96.0 fL] 90.4 fL (11/18/23 10:57 PM) AST [15-37 unit/L] 21 unit/L (11/18/23 10:57 PM) ALT [14-59 unit/L] 29 unit/L (11/18/23 10:57 PM) MCHC [31.0-35.0 g/dL] 33.6 g/dL (11/18/23 10:57 PM) Sodium Level [136-145 mmol/L] 142 mmol/L (11/18/23 10:57 PM) Hct [37.0-47.0 %] 44.1 % (11/18/23 10:57 PM) Calcium Level [8.5-10.1 mg/dL] 9.6 mg/dL (11/18/23 10:57 PM) Albumin Level [3.4-5.0 g/dL] 3.4 g/dL (11/18/23 10:57 PM) Protein Total [6.4-8.2 g/dL] 7.6 g/dL (11/18/23 10:57 PM) MCH [26.0-32.0 pg] 30.3 pg (11/18/23 10:57 PM) Neutro Absolute 4.3 x10^3/mcL *NA* (11/18/23 10:57 PM) Bilirubin Total [0.2-1.0 mg/dL] 0.2 mg/d L (11/18/23 10:57 PM) Hgb [12.0-16.0 g/dL] 14.8 g/dL (11/18/23 10:57 PM) Alk Phos [46-146 unit/L] 84 unit/L (11/18/23 10:57 PM) Platelets [130-450 x10^3/mcL] 244 x10^3/ mcL (11/18/23 10:57 PM) CO2 [21-32 mmol/L] 30 mmol/L (11/18/23 10:57 PM) eGFR Non-AA [>=60] 86 (11/18/23 10:57 PM) eGFR AA [>=60] 86 (11/18/23 10:57 PM) Chloride Level [98-107 mmol/L] 102 mmol/ L (11/18/23 10:57 PM) RDW-CV [11.5-14.5 %] 13.4 % (11/18/23 10:57 PM) Imm Gran Auto [0.0-0.9 %] 0.3 % (11/18/23 10:57 PM) Creatinine Level [0.55-1.02 mg/dL] 0.73 mg/dL (11/18/23 10:57 PM) Eos, Auto [1.0-6.0 %] 2.3 % (11/18/23 10:57 PM) Vital Signs Most recent to oldest [Reference Range]: 1 2 Temperature Temporal Artery [36-38 Deg C ] 36.1 Deg C (11/18/23 10:18 PM) Heart Rate Monitored [60-100 bpm] 69 bpm (11/18/23 11:59 PM) 67 bpm (11/18/23 10:18 PM) Respiratory Rate [12-24 br/min] 20 br/mi n (11/18/23 11:59 PM) 16 br/min (11/18/23 10:18 PM) Blood Pressure [90-140/60-90 mmHg] 155/6 9mmHg *HI* (11/18/23 10:18 PM) Mean Arterial Pressure, Cuff [65-140 mmH g] 98 mmHg (11/18/23 10:18 PM) Weight Estimated 86.18 kg (11/18/23 10:18 PM) Body Mass Index Estimated 32.61 kg/m2 (11/18/23 10:18 PM) Height/Length Estimated 162.56 cm (11/18/23 10:18 PM) Social History Social History Type Response Tobacco Never tobacco user T obacco Use:. Sex Female Hospital Discharge Instructions Patient Education 11/18/2023 23:30:13 Potassium Content of Foods Potassium Content of Foods Potassium is a mineral found in many foods and drinks. It can affect how the heart works, affect blood pressure, and keep fluids and electrolytes balanced in the body. It is important not to have toomuch potassium (hyperkalemia) or too little potassium (hypokalemia) in the body, especially in the blood. Potassium is naturally found in many different types of whole foods, such as fruits, vegetables, meat, and dairy products. Processed foods tend to be lower in potassium. The amount of potassium you need each day depends on your age and any medical conditions you may have. General recommendations are: ??? Females aged 19 and older: 2,600 mg per day. ??? Males aged 19 and older: 3,400 mg per day. Talk with your health care provider or dietitian about how much potassium you need. What foods are high in potassium? Below are examples of foods that have greater than 200 mg of potassium per serving. Fruits ??? Arnold ??? 1 medium (130 g) has 230 mg of potassium. ??? Banana ??? 1 medium (120 g) has 420 mg of potassium. ??? Cantaloupe, chunks ??? 1 cup (160 g) has 430 mg of potassium. Vegetables ??? Potato, baked, without skin ??? 1 medium (170 g) has 600 mg of potassium. ??? Broccoli, chopped, cooked ? cup (77.5 g) has 230 mg of potassium. ??? Tomato, chopped or sliced ??? 1 cup (152 g) has 400 mg of potassium. Grains ??? Cereal, bran with raisins ??? 1 cup (59 g) has 360 mg of potassium. ??? Granola with almonds ? cup (82 g) has 220 mg of potassium. Meats and other proteins ??? Ground beef praful ??? 4 ounces (113 g) has 240 mg of potassium. ??? Kidney beans, boiled ? cup (130 g) has 350 mg of potassium. ??? Almonds ??? 1 ounce (approximately 22 nuts or 28 g) has 200 mg of potassium. Dairy ??? Cow's milk, 1% ??? 1 cup (237 mL) has 360 mg of potassium. ??? Plain vanilla low-fat yogurt ? cup (184 g) has 220 mg of potassium. The items listed above may not be a complete list of foods high in potassium. Actual amounts of potassium may be different depending on ripeness, shelf life, and food preparation. Contact a dietitianfor more information. What foods are low in potassium? Below are examples of foods that have less than 200 mg of potassium per serving. Fruits ??? Blueberries ??? 1 cup (145 g) has 110 mg of potassium. ??? Apple ??? 1 medium (140 g) has 145 mg of potassium. ??? Grapes ??? 1 cup (160 g) has 175 mg of potassium. Vegetables ??? Cabbage, raw ??? 1 cup (70 g) has 120 mg of potassium. ??? Cauliflower, chopped, cooked ??? 1 cup (180 g) has 90 mg of potassium. ??? Timoteo lettuce, chopped ??? 1 cup (56 g) has 120 mg of potassium. Grains ??? Bagel, plain ??? one 4-inch (10 cm) has 100 mg of potassium. ??? Whole wheat bread ??? 1 slice (26 g) has 70 mg of potassium. ??? White rice, cooked ??? 1 cup (163 g) has 50 mg of potassium. Meats and other proteins ??? Tuna, light, canned in water ??? 3 ounces (85 g) has 150 mg of potassium. ??? Egg, fried ??? 1 large (50 g) has 60 mg of potassium. ??? Peanuts ???1 ounce (35 nuts or 28 g) has 180 mg of potassium. ??? Tofu ? cup (252 g) has 150 mg of potassium. Dairy ??? Cheese (cheddar, ines, mozzarella, or provolone) ??? 1 ounce (28 g) has 30 to 40 mg of potassium. The items listed above may not be a complete list of foods that are low in potassium. Actual amounts of potassium may be different depending on ripeness, shelf life, and food preparation. Contact a dietitian for more information. Summary ??? Potassium is a mineral found in many foods and drinks. It affects how the heart works, affects blood pressure, and keeps fluids and electrolytes balanced in the body. ??? The amount of potassium you need each day depends on your age and any existing medical conditions you may have. ??? Your health care provider or dietitian may recommend an amount of potassium that you should have each day. This information is not intended to replace advice given to you by your health care provider. Make sure you discuss any questions you have with your health care provider. Document Revised: 04/20/2022 Document Reviewed: 04/01/2022 [email or web address] Patient Education ?? 2022 [employer]. 11/18/2023 23:29:17 Dizziness Dizziness Dizziness is a common problem. [...] is good. ??? If you need to rn clinical documentation one place for a long time, move [...] your dizziness for any changes. ??? Take fofu-lpb-umbdazz and prescription medicines only as told by [...] provider. Document Revised: 06/22/2021 Document Reviewed: 06/22/2021 [employer] Patient Education ?? 2022 [employer] Follow Up Care 11/18/2023 22:16:22 With:Follow up with primary care provider Address: When:1 to 2 weeks Physician Emergency department Note * Kena Dowell MD: PERFORM Event Display: ED Note Physician Authored Date: [id number] ANTHONY BOWMAN :1950 Age:73 years Sex:Female Visit Date:11/18/2023 Primary Care Physician: Reji Zarco MD Basic Information Time Seen: Kena Dowell MD / 11/18/2023 22:40 Chief Complaint i was dx with TIA a couple weeks ago and today felt lightheaded all day. 30 minutes ago it intensified and I'm very dizzy. It feels like the room is spinning Pt denies any weekness, Axox4, sensation and strength at baseline, stroke scale negative History Of Present Illness: Patient reports she had some dizziness and??nausea??about an hour prior to arrival.?? Patient reports in early September she was diagnosed with a TIA and that she has??carotid stenosis??of approximately 50% on the left.?? Patient reports in September she had trouble finding words she denies any??trouble finding words??tonight.?? No headache??no ear nose or throat pain no chest pain no cough??positive nausea no vomiting no diarrhea patient did have a large bowel movement prior to coming in but there wasnot diarrhea no urinary symptoms no extremity edema no skin rashes??patient is here with her daughter.?? Patient is diabetic.?? Patient is on a new statin type medication.?? Patient reports she has been dealing with a left??foot??wound because of her diabetes.?? Patient had been walking before the winter??regularly??however has not??since ice and snow Review of Systems: see hpi for ros Physical Exam Vitals & Measurements T:??36.1?C ??(Temporal Artery)?? HR:??69??(Monitored)?? RR:??20?? BP:??155/69?? SpO2:??100%?? HT:??162.56??cm?? WT:??86.18??kg??(Estimated)?? BMI:??32.61?? O2 Therapy:??Room air?? Orthostatic Vitals: Pulse Supine: 67 bpm (11/18/23 23:17:00) Pulse Sittin bpm (11/18/23 23:17:00) Pulse Standin bpm (11/18/23 23:17:00) Systolic Blood Pressure Supine:??141 mmHg??High (11/18/23 23:59:00) Diastolic Blood Pressure Supine: 67 mmHg (11/18/23 23:59:00) Systolic Blood Pressure Sittin mmHg (11/18/23 23:17:00) Diastolic Blood Pressure Sittin mmHg (11/18/23 23:17:00) Systolic Blood Pressure Standin mmHg (11/18/23 23:17:00) Diastolic Blood Pressure Standin mmHg (11/18/23 23:17:00) General: Alert and oriented, well nourished,?No??acute distress Eye: PER?Normal??conjunctiva,??No??scleral icterus HENT: Normocephalic,??nontraumatic??Normal hearing Lungs: Clear to auscultation,?Non-labored?? respiration Heart:?Normal?? rate,?Regular??rhythm,?No??murmur,?No??gallop,?No??edema Chest: wall excursion wnl no abnormal movements no obvious deformities Abdomen: Soft, non-tender, non-distended, No??masses Musculoskeletal:?Normal?? range of motion and strength,?No??tenderness,?No??swelling Skin: Skin is warm, dry and pink,?No??rashes,?No??lesions Neurologic: Awake, alert and oriented X4 Psychiatric: Cooperative, appropriate mood and affect Mental status/cognitive: Awake alert, answers questions appropriately alert to self, time and month, able to recall current events Cranial nerves CN II-vision grossly intact, PERRL, no nystagmus CN III, IV, -EOMI CN V-V1-3 dermatomes intact to light touch CN VII-no facial asymmetry CN IX, X-uvula midline CN XI- head turning equally bilaterally against resistance CN XII-normal tongue movement, no atrophy, no fasciculations, no weakness Motor: Normal muscle bulk, normal tone, no pronator drift. Strength 5/5 throughout all muscle groups in all 4 extremities. Able to move all extremities without difficulty Sensory: Sensation grossly intact to light touch in all 4 extremities Gait: Able to stand without assistance, normal gait Cerebellar: No nystagmus, normal [id number]?? test (no dysmetria) Procedure No Qualifying Data Assessment/Plan 1.??Dizziness??R42 ??Patient with slight decrease in her blood pressure??with 20 point??drop??from sitting to standing??patient was 140/70?? standing was 120/74??patient received 500 cc of fluid here in the emergency department??and then started on normal saline with 20 mill equivalents??per liter??of 1 L??until her son arrived to pick her up.?? Patient will try to increase??her fluids.?? Patient's??physical exam??EKG and lab work here are reassuring??I do not think that this is a CVA for the patient??patient hasno nystagmus??and do not think that this is an inner ear ear??for patient expect if patient increases her fluids that this will improve her symptoms. Ordered: Discharge Patient, 11/19/23 0:28:00 EDT, Home Independently, Constant Indicator ?? 2.??Hypokalemia??E87.6 ??Patient aware??of potassium at 3.3??patient has received some fluids with potassium??and??patienteducation handout??of??potassium fluids??given to the patient.?? Patient to follow-up with her primary care provider. ?? Orders: NS w/K20 1,000 mL, Total Volume (mL): 1,000, 1,000 mL, Soln-IV, IV, 500 mL/hr, Start Date: 240:22:00 EDT, 86.9 kg, Populate Charting Weight From Order Patient Education Potassium Content of Foods Dizziness Follow Up With When Contact Information Follow up with primary care provider Within 1 to 2 weeks Additional Instructions: Medication Reconciliation Unchanged clopidogrel (clopidogrel 75 mg oral tablet)1 tab Oral (given by mouth) every day. Refills: 0. ?? doxycycline (doxycycline monohydrate 100 mg oral capsule)1 Capsules Oral (given by mouth) every dayfor 14 Days. Refills: 0. ?? Durable Medical Equipment for Prescription (Dexcom [...] 0. ?? Durable Medical Equipment for Prescription ([employer] ultra glucometer)pt tests 4 times daily E11.9.Refills: [...] day for 90 Days. Refills: 0. ?? Other Prescription (OneTouch Ultra In Vitro Strip)USE 1 STRIP 4 TIMES DAILY. Refills: 3. ?? rosuvastatin (rosuvastatin 20 mg oral tablet)1 tab Oral (given by mouth) every day. Refills: 0. ?? sertraline (sertraline 50 mg oral tablet)1 tab Oral (given by mouth) every day for 30 Days. Refills: 2. Problem List/Past Medical History Ongoing Atypical chest pain Candidal intertrigo Carotid artery calcification Cellulitis of foot Cellulitis of foot, left Chronic constipation De Quervain's tenosynovitis, right Decreased hearing Depression Disorder of nervous system due to type 2 diabetes mellitus Dizziness Dizziness Dizziness of unknown cause DM2 (diabetes mellitus, type 2) Edema of left foot Erythema Falls frequently Fatigue Foot ulcer due to type 2 diabetes mellitus Ganglion cyst of left hand Hyperlipidemia Hypertensive disorder Hypothyroidism Increased frequency of urination Memory changes Mental health disorder Neck pain Neuropathy Osteoarthritis Osteoporosis Pain of right shoulder joint Polyarthralgia Puncture wound of foot Solar degeneration Solar lentigo TIA (transient ischemic attack) Type 2 diabetes mellitus without complication Varicose vein of leg Varicose veins of lower extremity Word finding difficulty Wrist pain Historical No qualifying data Procedure/Surgical History ???Cataract surgery??? section???Retinal operation Medication Administration Given NS w/K20, 1000 mL, IV NS bolus, 500 mL, Hydration Bolus Allergies Avandia Rezulin penicillins rosiglitazone sulfa drugs troglitazone??(Unknown) Social History Alcohol Current, Wine, 1-2 times per year Electronic Cigarette/Vaping Electronic Cigarette Use: Never. 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 Home/Environment Lives with Daughter half time and [...] and Differential?? LATEST RESULTS?? HISTORICAL RESULTS?? WBC?? 11/18/23 22:57?? 7.9?? 10/25/23?? 7.3?? RBC?? 11/18/23 22:57?? 4.9?? 10/25/23?? 4.7?? Hgb?? 11/18/23 22:57?? 14.8?? 10/25/23?? 14.5?? Hct?? 11/18/23 22:57?? 44.1?? 10/25/23?? 42.5?? MCV?? 11/18/23 22:57?? 90.4?? 10/25/23?? 91.2?? MCH?? 11/18/23 22:57?? 30.3?? 10/25/23?? 31.1?? MCHC?? 11/18/23 22:57?? 33.6?? 10/25/23?? 34.1?? RDW-CV?? 11/18/23 22:57?? 13.4?? 10/25/23?? 13.3?? Platelets?? 11/18/23 22:57?? 244?? 10/25/23?? 281?? Neutro Auto?? 11/18/23 22:57?? 53.8?? 10/25/23?? 57.4?? Lymph Auto?? 11/18/23 22:57?? 35.9?? 10/25/23?? 32.7?? [place] Auto?? 11/18/23 22:57?? 7.2?? 10/25/23?? 7.1?? Eos, Auto?? 11/18/23 22:57?? 2.3?? 10/25/23?? 2.2?? Basophil Auto?? 11/18/23 22:57?? 0.5?? 10/25/23?? 0.5?? Imm Gran Auto?? 11/18/23 22:57?? 0.3?? 10/25/23?? 0.1?? Neutro Absolute?? 11/18/23 22:57?? 4.3?? 10/25/23?? 4.2? Routine Chemistry?? LATEST RESULTS?? HISTORICAL RESULTS?? Sodium Level?? 11/18/23 22:57?? 142?? 10/25/23?? 138?? Potassium Level?? 11/18/23 22:57?? 3.3 ??Low?? 10/25/23?? 4.2?? Chloride Level?? 11/18/23 22:57?? 102?? 10/25/23?? 103?? CO2?? 11/18/23 22:57?? 30?? 10/25/23?? 27?? Alk Phos?? 11/18/23 22:57?? 84?? 10/25/23?? 89?? AST?? 11/18/23 22:57?? 21?? 10/25/23?? 25?? ALT?? 11/18/23 22:57?? 29?? 10/25/23?? 27?? BUN?? 11/18/23 22:57?? 25 ??High?? 10/25/23?? 28 ??High?? Glucose Level?? 11/18/23 22:57?? 80?? 10/25/23?? 229 ??High?? Creatinine Level?? 11/18/23 22:57?? 0.73?? 10/25/23?? 1.04 ??High?? eGFR AA?? 11/18/23 22:57?? 86?? 10/25/23?? 56 ??Low?? eGFR Non-AA?? 11/18/23 22:57?? 86?? 10/25/23?? 56 ??Low?? Calcium Level?? 11/18/23 22:57?? 9.6?? 10/25/23?? 9.4?? Protein Total?? 11/18/23 22:57?? 7.6?? 10/25/23?? 7.4?? Albumin Level?? 11/18/23 22:57?? 3.4?? 10/25/23?? 3.4?? Bilirubin Total?? 11/18/23 22:57?? 0.2?? 10/25/23?? 0.3?? Glucose POC?? 11/18/23 22:29?? 108 ??High? Electronically Signed on 11/19/23 12:36 AM Kena Dowell MD Emergency department Discharge instructions * Kena Dowell MD: PERFORM Event Display: ED Discharge Information Authored Date: ANTHONY BOWMAN :1950 Age:73 years Sex:Female Visit Date:11/18/2023 Primary Care Physician: Reji Zarco MD Discharge Instructions We would like to thank you for allowing us to assist you with your healthcare needs. The following includes patient education materials and information regarding your injury/illness. Diagnosis from Today's Visit Dizziness Hypokalemia Discharge Vitals Temperature??(Temporal Artery) 97.0 ??F (36.1 ??C) Heart Rate??(Monitored) 69 Respiratory Rate?? 20 Blood Pressure?? 155/69?? Blood Pressure?? 140/70(Sitting)?? Blood Pressure?? 120/74(Standing)?? Blood Pressure?? 141/67(Supine)?? SpO2?? 100% Height?? 64.00 in (162.56 cm) Weight??(Estimated) 190.03 lb (86.18 kg) BMI?? 32.61 Allergies Avandia Rezulin penicillins rosiglitazone sulfa drugs troglitazone??(Unknown) What to Do Next Instructions from Your Care Team Make sure to drink fluids.?? Eat bananas and other potassium rich??foods.?? If you worsen return??to the emergency department or see your primary care provider. You Need to Schedule the Following Appointments Follow Up with??Follow up with primary care provider When:??Within 1 to 2 weeks Upcoming Scheduled Appointments 2023 8:30 AM EDT ?? With: Pauly Ann Where: [facility] [address] [phone] Status: Confirmed Tuesday 12:15 PM EDT ?? With: Carla CLINTON, Yvrose Ann DNP Where: [address] [address] Status: Confirmed You were treated [...] Oral (given by mouth) Every day Unchanged doxycycline (doxycycline monohydrate 100 mg oral capsule) 1 Capsules Oral (given by mouth) Every day Cellulitis of foot, left Cellulitis of foot Duration: 14 Days Unchanged Durable Medical Equipment for Prescription (Dexcom [...] Every day Hypertensive disorder Duration: 90 Days Unchanged Other Prescription (OneTouch Ultra In Vitro Strip) See instructions USE 1 STRIP 4 TIMES DAILY ?? Unchanged rosuvastatin (rosuvastatin 20 mg oral tablet) 1 tab Oral (given by mouth) Every day Unchanged sertraline (sertraline 50 mg oral tablet) 1 tab Oral (given by mouth) Every day Depression Post traumatic stress disorder (PTSD) Duration: 30 Days Education Materials Potassium Content of Foods Potassium is a mineral found in many foods and drinks. It can affect how the heart works, affect blood pressure, and keep fluids and electrolytes balanced in the body. It is important not to have toomuch potassium (hyperkalemia) or too little potassium (hypokalemia) in the body, especially in the blood. Potassium is naturally found in many different types of whole foods, such as fruits, vegetables, meat, and dairy products. Processed foods tend to be lower in potassium. The amount of potassium you need each day depends on your age and any medical conditions you may have. General recommendations are: ? Females aged 19 and older: 2,600 mg per day. ? Males aged 19 and older: 3,400 mg per day. Talk with your health care provider or dietitian about how much potassium you need. What foods are high in potassium? Below are examples of foods that have greater than 200 mg of potassium per serving. Fruits ? Arnold ??? 1 medium (130 g) has 230 mg of potassium. ? Banana ??? 1 medium (120 g) has 420 mg of potassium. ? Cantaloupe, chunks ??? 1 cup (160 g) has 430 mg of potassium. Vegetables ? Potato, baked, without skin ??? 1 medium (170 g) has 600 mg of potassium. ? Broccoli, chopped, cooked ? cup (77.5 g) has 230 mg of potassium. ? Tomato, chopped or sliced ??? 1 cup (152 g) has 400 mg of potassium. Grains ? Cereal, bran with raisins ??? 1 cup (59 g) has 360 mg of potassium. ? Granola with almonds ? cup (82 g) has 220 mg of potassium. Meats and other proteins ? Ground beef praful ??? 4 ounces (113 g) has 240 mg of potassium. ? Kidney beans, boiled ? cup (130 g) has 350 mg of potassium. ? Almonds ??? 1 ounce (approximately 22 nuts or 28 g) has 200 mg of potassium. Dairy ? Cow's milk, 1% ??? 1 cup (237 mL) has 360 mg of potassium. ? Plain vanilla low-fat yogurt ? cup (184 g) has 220 mg of potassium. The items listed above may not be a complete list of foods high in potassium. Actual amounts of potassium may be different depending on ripeness, shelf life, and food preparation. Contact a dietitianfor more information. What foods are low in potassium? Below are examples of foods that have less than 200 mg of potassium per serving. Fruits ? Blueberries ??? 1 cup (145 g) has 110 mg of potassium. ? Apple ??? 1 medium (140 g) has 145 mg of potassium. ? Grapes ??? 1 cup (160 g) has 175 mg of potassium. Vegetables ? Cabbage, raw ??? 1 cup (70 g) has 120 mg of potassium. ? Cauliflower, chopped, cooked ??? 1 cup (180 g) has 90 mg of potassium. ? Timoteo lettuce, chopped ??? 1 cup (56 g) has 120 mg of potassium. Grains ? Bagel, plain ??? one 4-inch (10 cm) has 100 mg of potassium. ? Whole wheat bread ??? 1 slice (26 g) has 70 mg of potassium. ? White rice, cooked ??? 1 cup (163 g) has 50 mg of potassium. Meats and other proteins ? Tuna, light, canned in water ??? 3 ounces (85 g) has 150 mg of potassium. ? Egg, fried ??? 1 large (50 g) has 60 mg of potassium. ? Peanuts ???1 ounce (35 nuts or 28 g) has 180 mg of potassium. ? Tofu ? cup (252 g) has 150 mg of potassium. Dairy ? Cheese (cheddar, ines, mozzarella, or provolone) ??? 1 ounce (28 g) has 30 to 40 mg of potassium. The items listed above may not be a complete list of foods that are low in potassium. Actual amounts of potassium may be different depending on ripeness, shelf life, and food preparation. Contact a dietitian for more information. Summary ? Potassium is a mineral found in many foods and drinks. It affects how the heart works, affects blood pressure, and keeps fluids and electrolytes balanced in the body. ? The amount of potassium you need each day depends on your age and any existing medical conditions you may have. ? Your health care provider or dietitian may recommend an amount of potassium that you should have each day. This information is not intended to replace advice given to you by your health care provider. Make sure you discuss any questions you have with your health care provider. Document Revised: 04/20/2022 Document Reviewed: 04/01/2022 [employer] Patient Education ?? 2022 [employer] Dizziness Dizziness is a common problem. [...] is good. ? If you need to rn clinical documentation one place for a long time, move [...] your dizziness for any changes. ? Take htoe-bbt-mwjixgf and prescription medicines only as told by [...] provider. Document Revised: 06/22/2021 Document Reviewed: 06/22/2021 [employer] Patient Education ?? 2022 [employer] Tests Performed Medications and Immunizations Administered Given NS w/K20, 1000 mL, IV NS bolus, 500 mL, Hydration Bolus Lab Test Name Test Result Date/Time WBC 7.9 x10^3/mcL 11/18/2023 22:57 EDT RBC 4.9 x10^6/mcL 11/18/2023 22:57 EDT Hgb 14.8 g/dL 11/18/2023 22:57 EDT Hct 44.1 % 11/18/2023 22:57 EDT MCV 90.4 fL 11/18/2023 22:57 EDT MCH 30.3 pg 11/18/2023 22:57 EDT MCHC 33.6 g/dL 11/18/2023 22:57 EDT RDW-CV 13.4 % 11/18/2023 22:57 EDT Platelets 244 x10^3/mcL 11/18/2023 22:57 EDT Neutro Auto 53.8 % 11/18/2023 22:57 EDT Lymph Auto 35.9 % 11/18/2023 22:57 EDT [place] Auto 7.2 % 11/18/2023 22:57 EDT Eos, Auto 2.3 % 11/18/2023 22:57 EDT Basophil Auto 0.5 % 11/18/2023 22:57 EDT Imm Gran Auto 0.3 % 11/18/2023 22:57 EDT Neutro Absolute 4.3 x10^3/mcL 11/18/2023 22:57 EDT Sodium Level 142 mmol/L 11/18/2023 22:57 EDT Potassium Level 3.3 mmol/L 11/18/2023 22:57 EDT Chloride Level 102 mmol/L 11/18/2023 22:57 EDT CO2 30 mmol/L 11/18/2023 22:57 EDT Alk Phos 84 unit/L 11/18/2023 22:57 EDT AST 21 unit/L 11/18/2023 22:57 EDT ALT 29 unit/L 11/18/2023 22:57 EDT BUN 25 mg/dL 11/18/2023 22:57 EDT Glucose Level 80 mg/dL 11/18/2023 22:57 EDT Creatinine Level 0.73 mg/dL 11/18/2023 22:57 EDT eGFR AA 86 11/18/2023 22:57 EDT eGFR Non-AA 86 11/18/2023 22:57 EDT Calcium Level 9.6 mg/dL 11/18/2023 22:57 EDT Protein Total 7.6 g/dL 11/18/2023 22:57 EDT Albumin Level 3.4 g/dL 11/18/2023 22:57 EDT Bilirubin Total 0.2 mg/dL 11/18/2023 22:57 EDT Glucose POC 108 mg/dL 11/18/2023 22:29 EDT Patient/Software Clerk Signature Patient Name:ANTHONY BOWMAN I have received this information and my questions have been answered. Patient/Software Clerk Name: Patient/Software Clerk Signature: Relationship to Patient: Witness Name/Signature: Date: Electronically Signed on: 11/19/2023 00:30 EDTSigned by:ISIDRO Patient Care team information Care Team Personnel Name: Reji Zarco MD Position: No Access Member Role: Primary Care Physician Address: Address: [id number] [place] [address] Name: Manjit Joel NP Position: Physician Member Role: Informed Provider Address: Address: [address] [place] [id number] Name: Pauly Ann Position: Ambulatory - RN/FULLERETTE (Adiel) Member Role: Auto Body Technician Care Team Related Persons Name: MARGUERITE STARR Name: REJI BOWMAN Address: [address] [id number]
--- OUTSIDE RECORDS SUMMARY | 2024-03-12 15:16 | XMS_ITS | Encounter Summary ---
Author Organization [facility] Address [address] [place] [address] Care Team Providers Care Baker Operator Automatic Name Role Phone Gabi Aragon MD Unavailable [phone] Flavio Stubbs Primary Care Provider [phone] Reason for Visit * Reason Onset Date Comments Prior Auth, Medication 12/15/2023 Encounter Details Date Type Department Care Team (Late st Contact Info) Description 12/15/2023 Telephone [facility] Endocrinology [address] [place], [place] [address] Ange Saunders RN Prior Auth, Medication Social History Tobacco Use Types Packs/Day Years [...] Telephone Encounter - Ange Saunders RN - 12/16/2023 0944 EDT Pt messaged * Telephone Encounter - Ange Saunders RN - 12/16/2023 0925 EDT Images from the original note were not included. Gabi Mcclure MD You4 minutes ago (9:18) I sent Rx for Farxiga * Telephone Encounter - Ange Saunders RN - 12/15/2023 1249 EDT Invokana denied - needs to try / fail farxiga first * Telephone Encounter - Ange Saunders RN - 12/15/2023 1010 EDT Invokana needs pa Epa requested-submitted on epa documented in this encounter Plan of Treatment Upcoming Encounters Date Type Department Care Team (Late st Contact Info) Description 04/13/2024 13:30 EDT Office Visit [facility] Endocrinology [address] [place], [place] [phone] Gabi Mcclure MD [address] [place] [address] [place] [phone] documented as of this encounter Visit Diagnoses Not on filedocumented in this encounter Care Teams Baker Operator Automatic Relationship Specialty Start Date End Date Flavio Stubbs [address] [place] [id number] PCP - General 12/12/23 Gabi Aragon MD [address] [facility] [address] [place] [phone] Endocrinology, Diabetes and Metabolism 08/09/21 documented as of this encounter
--- OUTSIDE RECORDS SUMMARY | 2024-03-12 15:16 | XMS_ITS | Encounter Summary ---
Author Organization [facility] Address [address] [place] [address] Care Team Providers Care Damage Cutter Name Role Phone Gabi Aragon MD Unavailable [phone] Flavio Stubbs Primary Care Provider [phone] Encounter Details Date Type Department Care Team (Late st Contact Info) Description 12/15/2023 Orders Only [facility] Endocrinology [address] [place], [place] [phone] Gabi Mcclure MD [address] [place] [address] [place] [phone] Social History Tobacco Use Types Packs/Day [...] Dispensed Refills Start Date End Da te dapagliflozin propanediol (FARXIGA) 5 mg tablet Take 5 mg by mouth daily. 90 Tablet 1 12/15/2023 documented in this encounter Plan of Treatment Upcoming Encounters Date Type Department Care Team (Late st Contact Info) Description 04/13/2024 13:30 EDT Office Visit [facility] Endocrinology [address] [place] [address] Gabi Mcclure MD [address] [place] [address] [place] [phone] documented as of this encounter Visit Diagnoses Not on filedocumented in this encounter Care Teams Damage Cutter Relationship Specialty Start Date End Date StubbsFlavio [address] [phone] PCP - General 12/12/23 Gabi Aragon MD [address] [facility] [address] [place] [phone] Endocrinology, Diabetes and Metabolism 08/09/21 documented as of this encounter
--- OUTSIDE RECORDS SUMMARY | 2024-03-12 15:17 | XMS_ITS | Encounter Summary ---
Author Organization [facility] Address [address] [place] [address] Care Team Providers Care Knife Grinder Name Role Phone Gabi Aragon MD Unavailable [phone] Reason for Visit * Reason Comments New Patient Visit Steatosis/right side d abdominal pain * Consult (Other (Specify in Question)) - Receiving Office to Obtain Authorization Specialty Diagnoses / Procedures Referred By Alice ventura Referred To Contact Hepatology Diagnoses Fatty liver Right sided abdominal pain Keisha Sterling, [place] [address] [place] [address] [facility] [address] [place] [address] Referral ID Status Reason Start Date Expiration Date Visits Requested Visits Authorized [id number] Receiving Office to Obtain Authorization 1 1 Encounter Details Date Type Department Care Team (Late st Contact Info) Description 07/16/2022 10:00 EST Telemedicine [facility] - [facility] [address] [place], [place] [phone] Alfredo Trujillo MD PhD [address] [facility], [facility] [address] [place] [address] Fatty liver (Primary Dx) Social History Tobacco Use Types Packs/Day Years [...] on file documented as of this encounter Last Filed Vital Signs Vital Sign Reading Time Taken Comments Blood Pressure - - Pulse - - Temperature - - Respiratory Rate - - Oxygen Saturation - - Inhaled Oxygen Concentration - - Weight 86.2 kg (190 lb) 07/16/2022 0959 EST pt r eported Height 167.6 cm (5' 5.98) 07/16/2022 0959 EST Body Mass Index 30.68 07/16/2022 0959 EST documented in this encounter Consult Notes * Alfredo Trujillo MD PhD - 07/16/2022 1000 EST [facility] - 07/16/[address] Sterling: Thank you for asking me to see Veronica Marlow today. I saw her via a video link. As you know, she is a 72-year-old woman with radiographic imaging consistent with fatty liver. She became concernedabout the possibility of fatty liver disease, when she learned that 2 of her sisters (1 a fraternaltwin) had been diagnosed with fatty liver. There have been no previous signs or symptoms from the standpoint of liver disease, including jaundice. An abdominal ultrasound in November 2021 demonstrated a coarse echogenic liver, consistent with fatty infiltration. A serological evaluation revealed a negative hepatitis B surface antigen, negative hepatitis C antibody, and normal ferritin. Past health is otherwise significant for metabolic syndrome (diabetes, dyslipidemia, WHO class I elevated body weight) and hypothyroidism. 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 She consumes alcohol rarely. She is attempting to lose weight through an online ([employer]) program. Adverse reactions to medications include penicillin, rosiglitazone, and sulfa drugs. Current medications include insulin, thyroxine, losartan, and several non-FDA regulated supplements. Laboratory data obtained in December 2021 show bilirubin 0.3, alkaline phosphatase 61, ALT 27, AST 15, albumin 3.6. In summary, Ms Marlow has radiographic evidence of fatty liver in a background of metabolic syndrome. The most likely diagnosis is nonalcoholic fatty liver disease (NAFLD). The current treatment of choice for NAFLD is weight management. If the current program is not successful, incorporation of a GLP-1 agonist into the antidiabetic regimen merits consideration. It would be important to determine whether significant liver damage is present. I will therefore arrange for biochemical testing to calculate the FIB-4 score, an index of the extent of hepatic fibrosis. I will be in touch with you and the patient when the results are available, and additional recommendations will follow. Thank you once again for allowing me to see this patient in consultation with you. Should you have any further questions regarding this evaluation, please feel free to contact me at any time. Sincerely, Alfredo Trujillo MD,PhD cc: JULIO C Murdock MD Maria Velasco Acuna, MD ---- TELEMEDICINE VIDEO VISIT Today's visit was provided through telemedicine video conferencing: I have reviewed the appropriateness of using video technology with the patient with regards to today's visit. The location of the patient: Home The location of the provider: Remote Office The following people and their roles were present for today's visit: Alfredo Trujillo MD PhD The concept of ???Telemedicine?? has been described to the patient. Patient has been informed of the anticipated benefits and possible risks. Patient understands the information provided regarding telemedicine, has had the opportunity to ask questions about this information, and all questions havebeen answered to patient???s satisfaction. Patient consents for the use of telemedicine in his/her medical care and authorizes the transmission of any relevant medical information to providers and their staff involved in patient???s medical or mental health care. I spent a total of 50 minutes on the date of this encounter meeting with the patient and reviewing documentation/coordinating care as described in the above note. documented in this encounter Plan of Treatment Upcoming Encounters Date Type Department Care Team (Late st Contact Info) Description 04/13/2024 13:30 EDT Office Visit [facility] Endocrinology [address] [place] [phone] Gabi Mcclure MD [address] [facility] [address] [place] [phone] documented as of this encounter Visit Diagnoses Diagnosis Fatty liver- Primary Other chronic nonalcoholic liver disease documented in this encounter Historical Medications * This list may reflect changes made after this encounter. Medication Sig Dispensed Refills Start Date End Date UNABLE TO FIND Med Name: Liver Health supplement with turmeric, dandelion root, nisha [id number] OIL ORAL Take by mouth. SAFFRON EXTRACT ORAL Take by mouth. added in this encounter Care Teams Knife Grinder Relationship Specialty Start Date End Date Gabi Aragon MD [address] [facility] [place] [phone] Endocrinology, Diabetes and Metabolism 08/09/21 documented as of this encounter
--- OUTSIDE RECORDS SUMMARY | 2024-03-12 15:17 | XMS_ITS | Encounter Summary ---
Author Organization [facility] [place] [address] Care Team Providers Care Sculpture Instructor Name Role Phone Dago Zarco MD Primary Care Provider [phone] Encounter Details Date Type Department Care Team (Latest Contact Info) Description 01/04/2023 Travel Social History Tobacco Use Types Packs/Day Years Used Date Smoking Tobacco: Never Assessed Sex and Gender Information Value Date Recorded Sex Assigned at Not on file Gender Identity Not on file Sexual Orientation Not on file documented as of this encounter Plan of Treatment Upcoming Encounters Date Type Department Care Team (Late st Contact Info) Description 04/03/2024 9:30 AM EDT [place] [phone] Ash Christianson MD [facility] [place] [address] documented as of this encounter Visit Diagnoses Not on filedocumented in this encounter Care Teams Sculpture Instructor Relationship Specialty Start Date End Date Dago Zarco MD [address] [place] [phone] PCP - General Family Medicine 08/13/20 03/31/23 documented as of this encounter
--- OUTSIDE RECORDS SUMMARY | 2024-03-12 15:17 | XMS_ITS | Encounter Summary ---
Author Organization [facility] Address [address] [place] [address] Care Team Providers Care Pick Up Name Role Phone Gabi Aragon MD Unavailable [phone] None, Provider Primary Care Provider Unavailabl e Reason for Visit * Reason Comments Diabetes Update and questions Encounter Details Date Type Department Care Team (Late st Contact Info) Description 10/25/2023 10:00 EDT Nurse Only [facility] Endocrinology [address] [place] [address] Stephanie Cortez, RN [address] [place] [address] Type 2 diabetes mellitus with hyperglycemia, with long-term current use of insulin ([facility]) (Primary Dx) Social History Tobacco Use Types [...] on file documented as of this encounter Progress Notes * Stephanie Cortez, RN - 10/25/2023 1000 EDT Diabetes visit: Visit type: telephone; unable to do video visit Problem: Diabetes update and questions Current regimen: Levemir 30 am, 37 units pm Humalog SSC Using Dexcom; not elaborating on actual blood sugars. Intake: No red meat. Lots of fish, some chicken Lots of vegetables Loves ice cream but recently only a spoonful Reports getting blood sugars under control is more important than ever and she is working on it. Noidea how I can help her. Wanted to let us know she had a TIA and now on ASA and Plavix. Had issues with aphasia. Had a left foot infection. Finished antibiotics and it is still a little more pink than it should be, Still doesn't feel right. Initial scan did not support osteomylitis. I suggested she update her silverer on her foot status as that could be contributing to her higher blood sugars. Plan: Keep us updated. Reach Out if she wants our help. Next visit: with endocrinology documented in this encounter Plan of Treatment Upcoming Encounters Date Type Department Care Team (Late st Contact Info) Description 04/13/2024 13:30 EDT Office Visit [facility] Endocrinology [address] [place] [address] Gabi Mcclure MD [address] [facility] [address] [place] [phone] documented as of this encounter Visit Diagnoses Diagnosis Type 2 diabetes mellitus with hyperglycemia, with long-term current use of insulin ([facility])- Primary documented in this encounter Care Teams Pick Up Relationship Specialty Start Date End Date None, Provider PCP - General 05/12/23 12/11/23 Gabi Aragon MD [address] [facility] [address] [place] [phone] Endocrinology, Diabetes and Metabolism 08/09/21 documented as of this encounter
--- OUTSIDE RECORDS SUMMARY | 2024-03-12 15:17 | XMS_ITS | Encounter Summary ---
Author Organization [facility] Address [address] [place] [address] Care Team Providers Care Recruitment Assistant Name Role Phone Gabi Aragon MD Unavailable [phone] Reason for Visit * Reason Onset Date Comments Diabetes 11/22/2022 Encounter Details Date Type Department Care Team (Late st Contact Info) Description 11/22/2022 Telephone [facility] - [facility] Endocrinology [address] [place] [phone] Stephanie Cortez, LUDWIN [address] [place] [phone] Diabetes Social History Tobacco Use Types Packs/Day Years [...] encounter Miscellaneous Notes * Telephone Encounter - Stephanie Cortez RN - 11/24/2022 1023 EDT Spoke with patient. documented in this encounter Plan of Treatment Upcoming Encounters Date Type Department Care Team (Late st Contact Info) Description 04/13/2024 13:30 EDT Office Visit [facility] Endocrinology [address] [place] [address] Gabi Mcclure MD [address] [facility] [address] [place] [phone] documented as of this encounter Visit Diagnoses Not on filedocumented in this encounter Care Teams Recruitment Assistant Relationship Specialty Start Date End Date Gabi Aragon MD [address] [facility] [address] [place] [phone] Endocrinology, Diabetes and Metabolism 08/09/21 documented as of this encounter
--- OUTSIDE RECORDS SUMMARY | 2024-03-12 15:17 | XMS_ITS | Encounter Summary ---
Author Organization [facility] Address [address] [place] [address] Care Team Providers Care Fish Seiner Name Role Phone Unknown, Provider Primary Care Provider [phone] Gabi Aragon MD Unavailable [phone] Encounter Details Date Type Department Care Team (Late st Contact Info) Description 12/18/2021 Abstract [facility] Endocrinology [address] [place] [address] Gabi Aragon MD [address] [facility] [address] [place] [address] Social History Tobacco Use Types Packs/Day Years [...] Info) Description 04/13/2024 13:30 EDT Office Visit [facility] Endocrinology [address] [place], [place] [phone] Gabi Mcclure MD [address] [facility] [address] [place] [address] documented as of this encounter Procedures Procedure Name Priority Date/Time Associated Diagnosis Comments HEMOGLOBIN A1C Routine 06/03/2021 HEMOGLOBIN A1C Routine 11/20/2020 HEMOGLOBIN A1C Routine 05/15/2020 documented in this encounter Results * HEMOGLOBIN A1C (06/03/2021) Hemoglobin A1C, External 6.6 Est Avg Glucose, External Blood VENOUS BLOOD / Unknown 06/03/2021 Historical Provider CHEMISTRY & BLOOD GAS ORDERABLES * HEMOGLOBIN A1C (11/20/2020) Hemoglobin A1C, External 6.2 Est Avg Glucose, External Blood VENOUS BLOOD / Unknown 11/20/2020 Historical Provider CHEMISTRY & BLOOD GAS ORDERABLES * HEMOGLOBIN A1C (05/15/2020) Hemoglobin A1C, External 6.2 Est Avg Glucose, External Blood VENOUS BLOOD / Unknown 05/15/2020 Historical Provider CHEMISTRY & BLOOD GAS ORDERABLES documented in this encounter Visit Diagnoses Not on filedocumented in this encounter Care Teams Fish Seiner Relationship Specialty Start Date End Date Unknown, Provider, PCP - General 09/27/16 04/06/22 Gabi Aragon MD [address] [place] [phone] Endocrinology, Diabetes and Metabolism 08/09/21 documented as of this encounter
--- OUTSIDE RECORDS SUMMARY | 2024-03-12 15:17 | XMS_ITS | Encounter Summary ---
Author Organization [facility] Address [address] [place] [address] Care Team Providers Care Pulp Beater Name Role Phone Gabi Aragon MD Unavailable [phone] Reason for Visit * Reason Onset Date Comments Appointment Related 10/20/2022 Encounter Details Date Type Department Care Team (Late st Contact Info) Description 10/20/2022 Telephone [facility] Endocrinology [address] [place] [address] Gabi Aragon MD [address] [facility] [address] [place] [address] Appointment Related Social History Tobacco Use Types Packs/Day Years [...] encounter Miscellaneous Notes * Telephone Encounter - Gabi Smith MD - 10/20/2022 1054 EDT Let her know that I reviewed her labs, a1C 7.2% WHICH is not bad. Also her LDL is not at goal, but she has refused statins in the past. I do see she has an apt scheduled with endo at [facility] as she was looking to be closer to where she lives. Tell her to let us know how that goes and if he is a good match for her, we can cancel the apt she has with us in December. documented in this encounter Plan of Treatment Upcoming Encounters Date Type Department Care Team (Late st Contact Info) Description 04/13/2024 13:30 EDT Office Visit [facility] Endocrinology [address] [place] [address] Gabi Mcclure MD [address] [facility] [address] [place] [address] documented as of this encounter Visit Diagnoses Not on filedocumented in this encounter Care Teams Pulp Beater Relationship Specialty Start Date End Date Gabi Aragon MD [address] [facility] [address] [place] [phone] Endocrinology, Diabetes and Metabolism 08/09/21 documented as of this encounter
--- OUTSIDE RECORDS SUMMARY | 2024-03-12 15:17 | XMS_ITS | Encounter Summary ---
Author Organization [facility] Address [address] [place] [address] Care Team Providers Care Vice President Of Consulting Services Name Role Phone Unknown, Provider Primary Care Provider [phone] Gbai Aragon MD Unavailable [phone] None, Provider Primary Care Provider Flavio Rosen Primary Care Provider [phone] Encounter Details Date Type Department Care Team (Late st Contact Info) Description 11/30/2021 Lab Requisition [facility] Pathology & Laboratory Medicine - [facility] [address] [place] [address] Outr Resulting Lab, Provider Social History Tobacco Use Types Packs/Day Years [...] 13:30 EDT Office Visit [facility] Endocrinology [address] [place], [place] [phone] Gabi Mcclure MD [address] [place] [address] [address] [place] [address] documented as of this encounter Procedures Procedure Name Priority Date/Time Associated Diagnosis Comments T3 FREE Routine 11/30/2021 8:47 EDT documented in this encounter Results * T3 FREE (11/30/2021 8:47 EDT) T3, Free 3.2 2.8 - 5.3 pg/mL 11/30/2021 22:01 EDT [facility] Blood VENOUS BLOOD / Unknown 11/30/2021 8:47 EDT 11/30/2021 21:07 EDT Provider Outr Resulting Lab CHEMISTRY & BLOOD GAS ORDERABLES [facility] [address] [place] [address] documented in this encounter Visit Diagnoses Not on filedocumented in this encounter Care Teams Vice President Of Consulting Services Relationship Specialty Start Date End Date Unknown, Provider, PCP - General 09/27/16 04/06/22 None, Provider PCP - General 05/12/23 12/11/23 Flavio Stubbs [address] [place] [id number] PCP - General 12/12/23 Gabi Aragon MD [address] [place] [phone] Endocrinology, Diabetes and Metabolism 08/09/21 documented as of this encounter
--- OUTSIDE RECORDS SUMMARY | 2024-03-12 15:17 | XMS_ITS | Encounter Summary ---
Author Organization [facility] Address [address] [place] [address] Care Team Providers Care Trauma Doctor Name Role Phone Gabi Aragon MD Unavailable [phone] None, Provider Primary Care Provider Unavailabl e Reason for Visit * Reason Comments Diabetes Encounter Details Date Type Department Care Team (Latest Contact Info) Description 06/07/2023 11:30 EST Office Visit [facility] Endocrinology [address] [place], [place] [phone] Gabi Mcclure MD [address] [place] [address] [place] [phone] Type 2 diabetes mellitus with hyperglycemia, with long-term current use of insulin ([facility]) (Primary Dx); Dyslipidemia; Primary hypothyroidism Social History Tobacco Use Types Packs/Day Years [...] Sign Reading Time Taken Comments Blood Pressure 142/84 06/07/2023 1215 EST Pulse - - Temperature - - Respiratory Rate - - Oxygen Saturation - - Inhaled Oxygen Concentration - - Weight 85.9 kg (189 lb 6.4 oz) 06/07/[address] Height 167.6 cm (5' 6) 06/07/2023 1215 EST Body Mass Index 30.57 06/07/2023 1215 EST documented in this encounter Progress Notes * Carolina Cullen MA - 06/07/2023 1130 EST Follow up for DM Lipids, Urine, CMP and A1C done in December 2022- scanned into documents Eye and Foot Exam due Struggling with her sugars, having highs and lows. Mostly highs, seems to be at the end of the day for the most part. Has adjusted her insulin a little bit in the evening when her numbers are high but then they are dropping some in the morning when she corrects. * Gabi Mcclure MD - 06/07/2023 1130 EST CC: Ms. Veronica Marlow is a 73 y.o. female, who presents for follow-up of diabetes, hyperlipidemia and hypothyroidism HPI: Type 2 Diabetes diagnosed ~ at age 41 Microvascular complications: retinopathy Macrovascular complications: not known Last seen in Endo clinic: 09/2022 Health events since last visit: none Diabetes control is sub-optimal with average glucose 208 (59-450) Control has deteriorated with A1Cup from 7.3% in 12/2022 to 8.3% POC at PCP. She is having more frequent 300's. She has not maria guadalupe usinga sensor in the last 4-5 months. Her diet has changed some and sometimes is eating a little more carb. She was recently started on Ozempic. Current Diabetes treatment: Levemir 37 at bedtime Humalog 1/4 carbs No correction factor Ozempic 0.25mg once a week. Last eye exam: 06/2023. Told no evidence of retinopathy Diet: variable. Exercise: walking less in general. Weight: Wt Readings from Last 3 Encounters: 06/07/23 85.9 kg (189 lb 6.4 oz) 01/24/23 85.3 kg (188 lb) 11/02/22 86.5 kg (190 lb 9.6 oz) Hypoglycemia: one low reading in the last 2 weeks. Testing: meter 4-5/day Hyperlipidemia: LDL > 100. Reluctant to start statin Hypothyroidis: well controlled. Past Medical History/Problem List: Patient Active Problem List Diagnosis ??? Ulcer of foot due to type 2 diabetes mellitus (HCC-CMS) ??? Type 2 diabetes mellitus with hyperglycemia (HCC-CMS) ??? Traumatic blister of foot ??? Normal pelvic exam ??? 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 Hypothyroidism ??? Increased frequency of urination ??? Hypertensive disorder ??? Dyslipidemia ??? Chronic constipation ??? Cellulitis of foot ??? Atypical chest pain Past Sugical History: No past surgical history on file. Family History: No family history on file. Father: heart disease Mother had diabetes Social History: Social History Tobacco Use ??? Smoking status: Never ??? Smokeless tobacco: Never Substance Use Topics ??? Alcohol use: Yes Comment: occasionally, maybe 1 glass wine at dinner once a month ??? Drug use: Never Review of Systems: Positive for PTSD symptoms after moving to [place] 6 years ago. Started on SSRI recently. (+) jointstiffness. Medications: Current Outpatient Medications on File Prior to Visit Medication Sig Dispense Refill ??? alpha lipoic acid 200 mg capsule daily. Takes 1 tab daily, R-lipoic acid ??? Ascorbic Acid 500 mg tablet,chewable ??? aspirin 81 mg EC tablet 1 tab(s) orally once a day (Patient not taking: Reported on 09/20/2022) ??? BD ULTRA-FINE MINI PEN NEEDLE USE ONCE DAILY DIRECTED ??? blood glucose test strips OneTouch Ultra Test strips ??? cholecalciferol, Vitamin D3, 1,000 unit tablet With vitamin K ??? CHROMIUM ORAL Take 75 mcg by mouth. Twice daily with meals ??? Cinnamon Bark 500 mg capsule 600 mg. Takes 2 tabs twice daily ??? cyanocobalamin (VITAMIN B-12) 500 mcg tablet 2 Tablets. ??? HUMALOG U-100 INSULIN 100 unit/mL vial Sliding scale ??? insulin pen needles 31G x 3/16 BD Ultra-Fine Mini Pen Needle 31 gauge x 3/16 USE ONCE DAILY DIRECTED ??? Insulin Syringe-Needle U-100 1 mL 29 gauge x 1/2 syringe Take 3 syringes every day by miscell.route for 90 days. ??? LEVEMIR FLEXTOUCH U-100 INSULN 100 unit/mL (3 mL) injectable pen 30 Units. 37 units at bedtime ??? levothyroxine (SYNTHROID) 125 mcg tablet Take 1 tablet every day by oral route for 90 days. ??? losartan (COZAAR) 25 mg tablet 1 tab(s) orally once a day ??? magnesium oxide (MAG-OX) 400 mg (241.3 mg magnesium) tablet Take 1 Tablet by mouth daily. ??? Melatonin 3 mg tablet extended release Take 1 tablet by oral route at bedtime for 90 days. (Patient not taking: Reported on 09/20/2022) ??? NONFORMULARY 1 tab Prevagen daily (Patient not taking: Reported on 09/20/2022) ??? nystatin (MYCOSTATIN) cream ??? [id number] OIL ORAL Take by mouth. (Patient not taking: Reported on 06/07/2023) ??? Kreyonic BLUE TEST STRIP test strips ??? polyethylene glycol 3350 (MIRALAX ORAL) As needed (Patient not taking: Reported on 06/07/2023) ??? red yeast rice 600 mg tablet Take by mouth. 1 time daily ??? ribonucleic acid, RNA, (RIBONUCLEIC ACID MISC) by misc (non-drug; combo route) route. (Patient not taking: Reported on 09/20/2022) ??? SAFFRON EXTRACT ORAL Take by mouth. ??? semaglutide (OZEMPIC) subcutaneous pen Inject 0.25 mg into the skin once a week. 3 mL 1 ??? triamcinolone (KENALOG) 0.1 % cream triamcinolone acetonide 0.1 % topical cream APPLY THIN LAYER TOPICALLY TO THE AFFECTED AREA TWICE DAILY ??? ubidecarenone (COENZYME Q10) 60 mg capsule Take by mouth. ??? UNABLE TO FIND Med Name: Liver Health supplement with turmeric, dandelion root, nisha ??? UNABLE TO FIND Med Name: blood sugar formula vitamins ??? UNABLE TO FIND use 4x/ day with One MEETiiN 2 device No current facility-administered medications on file prior to visit. Allergies: Allergies Allergen Reactions ??? Penicillins Fever Turns purple ??? Rezulin Other reaction(s): Unknown ??? Rosiglitazone Rash ??? Sulfa (Sulfonamide Antibiotics) Rash Physical Exam: Patient Vitals for the past 24 hrs: BP Height Weight 06/07/23 1215 (!) 142/84 167.6 cm (66) 85.9 kg (189 lb 6.4 oz) Body mass index is 30.57 kg/m??. General: no distress. Skin: No acanthosis nigricans. Neck: Thyroid not enlarged, no palpable thyroid nodules. No carotid bruits Lungs: Clear to auscultation Heart: Regular rate and rhythm, no murmur. No rubs or gallops. Abdomen: soft, non-tender Extremities: no edema. Neuro: Alert and oriented x 3. Speech is normal. No focal findings. Lab and Imaging Results: Lab Results Component Value Date HGBA1C 7.5 (A) 01/24/2023 HGBA1C 7.2 (A) 05/19/202212/2022: Cho 210, TG 180, HDL 48, LDL 126; crea 0.92, ma 5.3 Assessment and Plan: 1. Diabetes: poor control. I agree with Ozempic. Increase dose to 0.5 in 2 weeks. We went over adjustment of insulin if needed once Ozempic is titrated. I recommend that she re-start Dexcom G7 2. Lipids: she does not want to take statin but plans to start Red Yeast Rice. 3. Blood Pressure: close to target. RTC 3-4 months documented in this encounter Plan of Treatment Upcoming Encounters Date Type Department Care Team (Late st Contact Info) Description 04/13/2024 13:30 EDT Office Visit [facility] Endocrinology [address] [place] [address] Gabi Mcclure MD [address] [facility] [address] [place] [phone] documented as of this encounter Visit Diagnoses Diagnosis Type 2 diabetes mellitus with hyperglycemia, with long-term current use of insulin ([facility])- Primary Dyslipidemia Other and unspecified hyperlipidemia Primary hypothyroidism Unspecified hypothyroidism documented in this encounter Care Teams Trauma Doctor Relationship Specialty Start Date End Date None, Provider PCP - General 05/12/23 12/11/23 Gabi Aragon MD [address] [place] [phone] Endocrinology, Diabetes and Metabolism 08/09/21 documented as of this encounter
--- OUTSIDE RECORDS SUMMARY | 2024-03-12 15:17 | XMS_ITS | Clinical Summary ---
Author Organization [facility] Address [facility] [place] [address] Care Team Providers Care Dental Officer Name Role Phone Flavio Stubbs MD Primary Care Provider [phone] Allergies Active Allergy Reactions Criticality Noted Date Comments Penicillins Rash 02/28/2019 Turns purple Rosiglitazone Rash 02/28/2019 Sulfa (Sulfonamide Antibiotics) Rash 08/13/2020 Sulfamethoxazole-Trimethoprim 2022 Troglitazone Rash 02/28/2019 Other reaction(s): Unknown Medications Medication Sig Dispensed Refills Start Date End Date Status levothyroxine (Synthroid) 125 mcg tablet levothyroxine 125 mcg tablet 03/17/2018 Active berberine/herbal complex no.18 (BERBERINE-HERBAL COMB NO.18 ORAL) berberine, See Instructions, 1 tab TID, 0 Refill(s) 05/31/2022 Active cyanocobalamin, vitamin B-12, (Vitamin B-12) 500 mcg tablet 1,000 mcg. Active cinnamon bark 500 mg Capsule 600 mg. Active cholecalciferol (Vitamin D3) 1,000 unit tablet With vitamin K Active OneTouch Ultra2 Meter Misc TEST 4 TIMES DAILY 07/29/2022 Active OneTouch Ultra Test Strip 07/22/2020 Active aspirin EC 81 mg EC (DR) tablet Take 1 tablet by mouth daily. Active ascorbic acid, vitamin C, (Vitamin C) 500 mg chewable tablet 1 tab(s) chewed once a day Active alpha lipoic acid 200 mg capsule Daily. Active blood sugar diagnostic strips (OneTouch Ultra Test) Strip OneTouch Ultra Test strips Active blood sugar diagnostic strips Strip OneTouch Ultra In Vitro Strip, See Instructions, USE 1 STRIP 4 TIMES DAILY, # 400 strip, 3 Refill(s), Pharmacy: [facility] 05/20/2022 Active Blood-Glucose Meter,Continuous (Dexcom G4 Development Disability Specialist) [facility] Dexcom 6, Supply, 1 EA, N/A, As Directed, PRN bleeding As needed, # 1 EA, 0 Refill(s) 08/19/2022 Active [id number] -FISH OIL ORAL Take by mouth. Active magnesium oxide (Mag-Ox) 400 mg (241.3 mg magnesium) Tablet Take 400 mg by mouth Daily. Active losartan (Cozaar) 50 mg tablet 50 mg. 05/31/2022 Active humaLOG 100 unit/mL Solution Humalog U-100 Insulin 100 unit/mL subcutaneous solution 08/24/2021 Active Levemir FlexPen 100 unit/mL (3 mL) Insulin Pen Levemir FlexTouch U-100 Insulin 100 unit/mL (3 mL) subcutaneous pen 08/05/2021 Active nystatin (Mycostatin) Cream 05/17/2022 Active Ozempic 0.25 mg or 0.5 mg(2 mg/1.5 mL) Pen Injector Inject 0.25 mg subcutaneously. 10/05/2022 Active red yeast rice 600 mg Tablet Take by mouth. Active insulin needles, disposable, 31 gauge x 3/16 Needle USE ONCE DAILY DIRECTED 08/06/2021 Active Insulin Syringe-Needle U-100 1 mL 29 gauge x 1/2 Syringe Take 3 syringes every day by [facility]. route for 90 days. Active triamcinolone (Kenalog) 0.1 % Cream triamcinolone acetonide 0.1 % topical cream APPLY THIN LAYER TOPICALLY TO THE AFFECTED AREA TWICE DAILY Active Coenzyme Q10 (Ubiquinone) 60 mg capsule Take by mouth. Active Active Problems Problem Noted Date Diagnosed Date Carotid artery calcification 12/23/2023 De Quervain's tenosynovitis, right 12/23/2023 Depression 12/23/2023 Dizziness 12/23/2023 Falls frequently 12/23/2023 Memory changes 12/23/2023 Mental health disorder 12/23/2023 Osteoporosis 12/23/2023 Polyarthralgia 12/23/2023 TIA (transient ischemic attack) 12/23/2023 Word finding difficulty 12/23/2023 Diabetes mellitus 10/15/2022 Neuropathy 02/22/2022 Varicose vein of leg 01/21/2022 Fatigue 11/27/2021 Hyperlipidemia 11/26/2021 Ganglion of left hand 06/05/2021 Senile lentigo 06/05/2021 Overview (12/23/2023): From 06-05-2021 visit: Advancing skin disease over face especially with patient to have dermatology review. There are no suspicious lesions for cancer at this time. Dyslipidemia 08/13/2020 Hypertensive disorder 08/13/2020 Overview (12/23/2023): From 06-05-2021 visit: At goal on present medical regimen. Continue to monitor on present medical regimen with better exercise and weight control. 06/05/2021: Patient will have increased dose of losartan to 50 mg daily and follow blood pressures at home. She needs work on weight loss and better exercise pattern. 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 08/13/2020 Osteoarthrosis 01/18/2020 Decreased hearing 05/17/2019 Atypical chest pain 09/12/2018 Cellulitis of foot 03/28/2018 Chronic constipation 03/17/2018 Encounters Date Type Department Care Team Description 12/22/2023 3:00 PM EDT Office [place] [address] Kathe Mahoney APRN Calcification of both carotid arteries 12/22/2023 2:00 PM EDT Tech [place] [address] Flaco Hines Bilateral carotid artery stenosis 12/22/2023 Travel from Last 3 Months Social History Tobacco Use Types Packs/Day Years Used Date Smoking Tobacco: Never Smokeless Tobacco: Never Tobacco Cessation:Counseling Given: Not Answered Sex and Gender Information Value Date Recorded Sex Assigned at Not on file Gender Identity Not on file Sexual Orientation Not on file Last Filed Vital Signs Vital Sign Reading Time Taken Comments Blood Pressure 152/72 12/22/2023 2:51 PM EDT Pulse 78 12/22/2023 2:51 PM EDT Temperature - - Respiratory Rate - - Oxygen Saturation - - Inhaled Oxygen Concentration - - Weight 81.6 kg (180 lb) 12/22/2023 2:49 PM EDT Height 167.6 cm (5' 6) 12/22/2023 2:49 PM EDT Body Mass Index 29.05 12/22/2023 2:49 PM EDT Plan of Treatment Upcoming Encounters Date Type Department Care Team (Late st Contact Info) Description 04/03/2024 9:30 AM EDT [place] [address] Ash Christianson MD [facility] [place] [address] Health Maintenance Due Date Last Done Comments CT Colonography 1948 Colonoscopy 1948 Colorectal Cancer Screening 1948 FIT DNA 1948 FIT 1948 Sigmoidoscopy (10 year) with FIT yearly 1948 Sigmoidoscopy 1948 Pneumoccocal Vaccine: 65+ (1 of 2 - PCV) 1954 DM Creatinine yearly 1958 DM Hemoglobin A1c 1958 DM Opthalmology Exam 1958 DM Urine Microalbumin yearly 1958 Hepatitis C Screening 1966 Lipid Screening 1966 Tdap adult 1967 Tetanus vaccine 1967 Zoster vaccine (1 of 2) 1998 Advance Directive 2003 Bone Density Scan 2013 Covid-19 Vaccine (5 - 2022-2 4 season) 2023 06/17/2023, 05/25/2021, 10/27/2020, Additional history exists Influenza (Flu) vaccine (1 o f 1 - Influenza standard series) 04/01/2024 Procedures Procedure Name Priority Date/Time Associated Diagnosis Comments CAROTID DUPLEX, BILATERAL Routine 12/22/2023 1:55 PM EDT Bilateral carotid artery stenosis from Last 3 Months Results * Carotid Duplex, Bilateral (12/22/2023 1:55 PM EDT) VB Text Report Department: Vascular Surgery Lab Patient: [id number] (VERONICA BOWMAN) CPT: 79724 Referring Physician: KATHE MAHONEY ?? Phone: Indications: Carotid stenosis ? patency Findings: ICA Proximal, Right ? PSV (cm/s): 90 ? EDV (cm/s): 15 ? ICA/CCA: 1.4 ? Plaque Structure: Echogenic ? Plaque Surface: Irregular ? %Stenosis: 16-49% ICA Distal, Right ? PSV (cm/s): 98 ? EDV (cm/s): 22 ? ICA/CCA: 1.5 CCA Distal, Right ? PSV (cm/s): 64 ? EDV (cm/s): 9 ? %Stenosis: Minimal CCA Proximal, Right ? PSV (cm/s): 111 ? EDV (cm/s): 9 External Carotid Artery, Right ? PSV (cm/s): 129 ? EDV (cm/s): 5 ? %Stenosis: <50% Vertebral, Right ? PSV (cm/s): 58 ? EDV (cm/s): 11 ? Direction of Flow: Antegrade ICA Proximal, Left ? PSV (cm/s): 74 ? EDV (cm/s): 15 ? ICA/CCA: 1.1 ? Plaque Structure: Echogenic ? Plaque Surface: Smooth ? %Stenosis: <15% ICA Middle, Left ? PSV (cm/s): 113 ? EDV (cm/s): 30 ? ICA/CCA: 1.7 ICA Distal, Left ? PSV (cm/s): 90 ? EDV (cm/s): 22 ? ICA/CCA: 1.4 CCA Distal, Left ? PSV (cm/s): 65 ? EDV (cm/s): 6 ? %Stenosis: Minimal CCA Proximal, Left ? PSV (cm/s): 115 ? EDV (cm/s): 9 External Carotid Artery, Left ? PSV (cm/s): 128 ? EDV (cm/s): 0 ? %Stenosis: <50% Vertebral, Left ? PSV (cm/s): 78 ? EDV (cm/s): 13 ? Direction of Flow: Antegrade Interpretation: RIGHT: A thin layer of circumferential plaque is present in the common carotid artery causing minimal stenosis. There is irregular plaque in the proximal internal carotid artery causing 16-49% stenosis when compared to the more distal internal carotid artery. The bifurcation level is in the mid neck. LEFT: A thin layer of circumferential plaque is present in the common carotid artery causing minimal stenosis. There is smooth plaque in the proximal internal carotid artery causing <15% stenosis when compared to the more distal internal carotid artery. The bifurcation level is in the mid neck. Vertebral Artery Data: Patent vertebral arteries with normal antegrade Doppler waveforms and velocities bilaterally. Comparison: ??No previous study in our vascular lab database for comparison. Electronically Signed by: ANTHONY SAUNDERS on 2023-12-27 02:01:08 PM [facility] VB Text Report End of Report [facility] 12/22/2023 1:55 PM EDT Kathe Mahoney APRN VASCULAR ORDERABLES Performing Organization Address City/State/[facility] Co de Phone Number [facility] from Last 3 Months Care Teams Dental Officer Relationship Specialty Start Date End Date Flavio Stubbs MD [address] [place], [place] [id number] PCP - General Family Medicine 12/22/23
--- OUTSIDE RECORDS SUMMARY | 2024-03-12 15:17 | XMS_ITS | Encounter Summary ---
Author Organization [facility] Address [address] [place] [address] Care Team Providers Care Children'S Tutor Name Role Phone Unknown, Provider Primary Care Provider [phone] Reason for Visit * Reason Onset Date Comments Medications Refill 04/22/2020 Encounter Details Date Type Department Care Team (Late st Contact Info) Description 04/22/2020 Refill [facility] Endocrinology [address] [place] [address] Ange Saunders RN Medications Refill Social History Tobacco Use Types Packs/Day Years Used Date Smoking Tobacco: Never Assessed Interpersonal Safety Answer Date Record ed Physically Hurt Never 03/03/2020 Verbally Threaten Not on file 03/03/2020 Sex and Gender Information Value Date Recorded Sex Assigned at Female 07/15/2022 15:41 EST Gender Identity Female 05/07/2022 16:49 EDT Sexual Orientation Not on file documented as of this encounter Ordered Prescriptions Prescription Sig Dispensed Refills Start Date End Da te insulin aspart U-100 (NOVOLOG) 100 unit/mL injection 0-24 units subcutaneously per sliding scale 3 times daily with meals-in place of humalog per ins. 7 Vial 3 04/22/2020 05/19/2022 documented in this encounter Miscellaneous Notes * Telephone Encounter - Ange Saunders RN - 04/22/2020 3575 EDT chp requesting humalog change to novolog per ins. -- rx. sent documented in this encounter Plan of Treatment Upcoming Encounters Date Type Department Care Team (Late st Contact Info) Description 04/13/2024 13:[address] [facility] Endocrinology [address] [place] [address] Gabi Mcclure MD [address] [place] [phone] documented as of this encounter Visit Diagnoses Not on filedocumented in this encounter Discontinued Medications Medication Sig Discontinue Reason Start Date End Da te insulin lispro (HUMALOG U-100 INSULIN) 100 unit/mL vial 0-24 units subcutaneously 3 times daily per sliding scale e11.9 04/17/2020 04/22/2020 documented as of this encounter Care Teams Children'S Tutor Relationship Specialty Start Date End Date Unknown, Provider, PCP - General 09/27/16 04/06/22 documented as of this encounter
--- OUTSIDE RECORDS SUMMARY | 2024-03-12 15:17 | XMS_ITS | Encounter Summary ---
Author Organization [facility] Address [address] [place] [address] Care Team Providers Care Lead Security Officer Name Role Phone Unknown, Provider Primary Care Provider [phone] Reason for Visit * Reason Onset Date Comments Medications Refill 10/15/2019 Encounter Details Date Type Department Care Team (Late st Contact Info) Description 10/15/2019 Refill [facility] Endocrinology [address] [place] [address] Ange Saunders RN Medications Refill Social History Tobacco Use Types Packs/Day Years Used Date Smoking Tobacco: Never Assessed Sex and Gender Information Value Date Recorded Sex Assigned at Female 07/15/2022 15:41 EST Gender Identity Female 05/07/2022 16:49 EDT Sexual Orientation Not on file documented as of this encounter Ordered Prescriptions Prescription Sig Dispensed Refills Start Date End Da te insulin lispro (HUMALOG U-100 INSULIN) 100 unit/mL vial 0-10 units subcutaneously 3 times daily per sliding scale 3 Vial 3 10/15/2019 04/14/2020 insulin glargine (LANTUS U-100 INSULIN) 100 unit/mL injection 20 units subcutaneously daily 2 Vial 3 10/15/2019 07/31/2020 exenatide (BYETTA) 5 mcg/dose (250 mcg/mL) 1.2 mL injection 5 mcg subcutaneously 2 times a day 3.6 mL 3 10/15/2019 08/13/2020 documented in this encounter Miscellaneous Notes * Telephone Encounter - Ange Saunders RN - 10/15/2019 1023 EDT Byetta, lantus and humalog refilled x 1 yr. documented in this encounter Plan of Treatment Upcoming Encounters Date Type Department Care Team (Late st Contact Info) Description 04/13/2024 13:30 EDT Office Visit [facility] Endocrinology [address] [place] [address] Gabi Mcclure MD [address] [place] [address] [place] [phone] documented as of this encounter Visit Diagnoses Not on filedocumented in this encounter Discontinued Medications Medication Sig Discontinue Reason Start Date End Da te exenatide (BYETTA) 5 mcg/dose (250 mcg/mL) 1.2 mL injection 5 mcg subcutaneously 2 times a day Reorder 03/17/2018 10/15/2019 insulin glargine (LANTUS U-100 INSULIN) 100 unit/mL injection 20 units subcutaneously daily Reorder 10/15/2019 insulin lispro (HUMALOG U-100 INSULIN) 100 unit/mL vial 0-10 units subcutaneously 3 times daily per sliding scale Reorder 08/18/2018 10/15/2019 documented as of this encounter Care Teams Lead Security Officer Relationship Specialty Start Date End Date Unknown, Provider, PCP - General 09/27/16 04/06/22 documented as of this encounter
--- OUTSIDE RECORDS SUMMARY | 2024-03-12 15:17 | XMS_ITS | Encounter Summary ---
[facility] [place] [address] Care Team Providers Care Backrest Assembler Name Role Phone Unknown Primary Care Provider Unavailabl e Encounter Details Date Type Department Care Team (Late st Contact Info) Description 10/04/2023 Ancillary Procedure [place] [phone] Brittanie Garza MD [address] [place], [place] [address] [address] Social History Tobacco Use Types Packs/Day Years [...] 9:30 AM EDT [place] [phone] Ash Christianson MD [facility] [place] [address] documented as of this encounter Procedures Procedure Name Priority Date/Time Associated Diagnosis Comments FILM LIBRARY STORAGE ONLY MR HEAD Routine 10/04/2023 12:00 AM EST documented in this encounter Results * Film Library- Storage Only MR Head (10/04/2023 12:00 AM EST) Narrative [facility] - 10/21/2023 12:46 PM EDT This exam is auto-finalizing. It's purpose is for storage only. Brittanie Garza MD IMG FILM LIBRARY ORD ERABLES [place], [place] documented in this encounter Visit Diagnoses Not on filedocumented in this encounter Care Teams Backrest Assembler Relationship Specialty Start Date End Date Unknown None PCP - General 04/01/23 12/21/23 documented as of this encounter
--- OUTSIDE RECORDS SUMMARY | 2024-03-12 15:17 | XMS_ITS | Encounter Summary ---
Author Organization [facility] Address [address] [place] [address] Care Team Providers Care Queen Producer Name Role Phone Unknown, Provider Primary Care Provider [phone] Reason for Visit * Reason Comments Follow-up Encounter Details Date Type Department Care Team (Late st Contact Info) Description 08/13/2020 13:30 EST Telemedicine [facility] Endocrinology [address] [place] [address] Gabi Aragon MD [address] [facility] [address] [place] [phone] Type 2 diabetes mellitus with hyperglycemia, with long-term current use of insulin ([facility]) (Primary Dx) Social History Tobacco Use [...] - - Weight 86.2 kg (190 lb) 08/13/2020 1320 EST Height - - Body Mass Index - - documented in this encounter Progress Notes * Ange Saundres RN - 08/13/2020 1330 EST Needs foot, eye and micor Lab letter sent Glucose- * Gabi Smith MD - 08/13/2020 1330 EST [facility] Video Visit Today's visit was provided through telemedicine video conferencing: zoom The location of the patient: Home The location of the provider: Office Verbal consent: The concept of ???Telemedicine?? has been described to the patient.Patient has been informed of the anticipated benefits and possible risks. Patient understands the information provided regarding telemedicine, has had the opportunity to ask questions about this information, and all questions have been answered to patient???s satisfaction. Patient consents for the use of telemedicine in his/her medical care and authorizes the transmission of any relevant medical information to providers and their staff involved in patient???s medical or mental health care. Verbal consent obtained by myself or auxiliary staff: Yes Subjective: Chief Complaint(s): Follow-up Again has million questions about her overall health that is more pertinent to her PCP. (arthritis,bumps in the hands, pain in the butt, left knee, CBD oil). HPI: Veronica has joined video visit for follow up for type 2 DM. Last seen in 2019. Taking multiple over the counter medications. Last visit, I started her on byetta but she says she has not done it as she was forgetting it. Says last A1c couple of months was 6.2%. No labs are available for me. SMBG: checking blood sugars 2-3 times a day Am: 80-110 mg/dl, bread makes her high. Lunch: not many readings Dinner: varies 100-130 mg/dl. She started walking 5 times a week. Reports had recent labs and they were good. Meds: Lantus 24 u a day, metformin 1000 mg BID and humalog 1 unit for every 5 g of carbs. She moved recently, lives with daughter. Boyfriend leaves close to her new property. Complications: denies [place], stroke, kidney disease I have reviewed patient's tobacco history: reports that she has never smoked. She has never used smokeless tobacco. I have reviewed current problem list and current medications. ROS: Review of Systems Cardiovascular: Negative. Gastrointestinal: Negative. Objective: Examination: Home Vitals: Wt 86.2 kg (190 lb) Pertinent exam findings: appears well, neck supple, no JVD, non-labored breathing, no wheeze, no rash on visible skin and mood and affect appropriate Data reviewed with patient: blood sugar log Assessment & Plan: 1. Type 2 diabetes mellitus with hyperglycemia, with long-term current use of insulin ([facility]) LIPID PROFILE (INCLUDES CHOLESTEROL, TRIGLYCERIDES, HDL, LDL) COMPREHENSIVE METABOLIC PANEL (CMP) URINE [id number] RATIO (ACR) Dm well controlled based on her A1c and glucose readings. Advise to continue doing a good job with her portion control and exercise. Advise to get yearly eye and foot exam. Advise to get yearly labs (she will talk to PCP and ask for her labs to be sent to me). Will see her back in one year. I spent a total of 32 minutes on the date of this encounter meeting with the patient and reviewing documentation/coordinating care as described in the above note. No procedures were performed at the time of the visit. The following individuals and their role did participate in today's encounter visit: Provider: Gabi Washington MD Patient documented in this encounter Plan of Treatment Upcoming Encounters Date Type Department Care Team (Late st Contact Info) Description 04/13/2024 13:30 EDT Office Visit [facility] Endocrinology [address] [place] [address] Gabi Mcclure MD [address] [place] [address] [place] [phone] documented as of this encounter Visit Diagnoses Diagnosis Type 2 diabetes mellitus with hyperglycemia, with long-term current use of insulin ([facility])- Primary documented in this encounter Discontinued Medications Medication Sig Discontinue Reason Start Date End Da te insulin detemir U-100 (LEVEMIR) 100 unit/mL injection Inject 20 Units into the skin at bedtime. In place of lantus per ins. Alternate therapy 07/31/2020 08/13/2020 triamcinolone (KENALOG) 0.1 % cream CARSON THIN LAYER EXT AA BID Alternate therapy 07/01/2020 08/13/2020 UNABLE TO FIND 1 Therapy completed 08/13/2020 exenatide (BYETTA) 5 mcg/dose (250 mcg/mL) 1.2 mL injection 5 mcg subcutaneously 2 times a day Therapy completed 10/15/2019 08/13/2020 documented as of this encounter Historical Medications * This list may reflect changes made after this encounter. Medication Sig Dispensed Refills Start Date End Date CHROMIUM ORAL Take 75 mcg by mouth. Twice daily with meals NONFORMULARY 1 tab Prevagen daily red yeast rice 600 mg tablet Take by mouth. 1 time daily magnesium oxide (MAG-OX) 400 mg (241.3 mg magnesium) tablet Take 1 Tablet by mouth daily. ONETOUCH ULTRA BLUE TEST STRIP test strips 07/22/2020 triamcinolone (KENALOG) 0.1 % cream CARSON THIN LAYER EXT AA BID 07/01/2020 08/13/2020 LANTUS U-100 INSULIN 100 unit/mL injection 24 Units at bedtime. 08/05/2020 added in this encounter Care Teams Queen Producer Relationship Specialty Start Date End Date Unknown, Provider, PCP - General 09/27/16 04/06/22 documented as of this encounter
--- OUTSIDE RECORDS SUMMARY | 2024-03-12 15:17 | XMS_ITS | Encounter Summary ---
Author Organization [place] [address] Care Team Providers Care Mixer Operator Vacuum Pan Salt Name Role Phone Flavio Stubbs MD Primary Care Provider Encounter Details Date Type Department Care Team (Latest Contact Info) Description 12/22/2023 Travel Social History Tobacco Use Types Packs/Day Years Used Date Smoking Tobacco: Never Smokeless Tobacco: Never Sex and Gender Information Value Date Recorded Sex Assigned at Not on file Gender Identity Not on file Sexual Orientation Not on file documented as of this encounter Plan of Treatment Upcoming Encounters Date Type Department Care Team (Late st Contact Info) Description 04/03/2024 9:30 AM EDT [place] [address] Ash Christianson MD [facility] [place] [address] documented as of this encounter Visit Diagnoses Not on filedocumented in this encounter Care Teams Mixer Operator Vacuum Pan Salt Relationship Specialty Start Date End Date Flavio Stubbs MD [address] [place] [address] PCP - General Family Medicine 12/22/23 documented as of this encounter
--- OUTSIDE RECORDS SUMMARY | 2024-03-12 15:17 | XMS_ITS | Encounter Summary ---
Author Organization [facility] Address [address] [place] [address] Care Team Providers Care Organ Tuner Electronic Name Role Phone Gabi Aragon MD Unavailable [phone] Reason for Visit * Reason Onset Date Comments Medications Refill 09/21/2022 Encounter Details Date Type Department Care Team (Late st Contact Info) Description 09/21/[address] [facility] Endocrinology [address] [place] [address] Ange Saunders RN Medications Refill Social History [...] Dispensed Refills Start Date End Da te semaglutide (OZEMPIC) subcutaneous pen Inject 0.25 mg into the skin once a week. 3 mL 1 09/21/2022 10/05/2022 documented in this encounter Plan of Treatment Upcoming Encounters Date Type Department Care Team (Late st Contact Info) Description 04/13/2024 13:[address] [facility] Endocrinology [address] [place] [address] Gabi Mcclure MD [address] [place] [address] [place] [phone] documented as of this encounter Visit Diagnoses Not on filedocumented in this encounter Discontinued Medications Medication Sig Discontinue Reason Start Date End Da te semaglutide (OZEMPIC) subcutaneous pen Inject 0.25 mg into the skin once a week. Reorder 09/20/2022 09/21/2022 documented as of this encounter Care Teams Organ Tuner Electronic Relationship Specialty Start Date End Date Gabi Aragon MD [address] [place] [address] [address] [place] [phone] Endocrinology, Diabetes and Metabolism 08/09/21 documented as of this encounter
--- OUTSIDE RECORDS SUMMARY | 2024-03-12 15:17 | XMS_ITS | Encounter Summary ---
Author Organization [facility] [place] [address] Care Team Providers Care Research Associate Molecular Biology Name Role Phone Unknown Primary Care Provider Unavailabl e Encounter Details Date Type Department Care Team (Late st Contact Info) Description 09/30/2023 6:00 PM EST Telehealth notes [place] [address] Telehealth, Neurology None Social History Tobacco Use Types Packs/Day Years [...] 9:30 AM EDT Office [place] [address] Ash Christianson MD [facility] [place] [address] documented as of this encounter Visit Diagnoses Not on filedocumented in this encounter Care Teams Research Associate Molecular Biology Relationship Specialty Start Date End Date Unknown None PCP - General 04/01/23 12/21/23 documented as of this encounter
--- OUTSIDE RECORDS SUMMARY | 2024-03-12 15:17 | XMS_ITS | Encounter Summary ---
Author Organization [facility] Address [address] [place] [address] Care Team Providers Care Hospice Patient Care Secretary Name Role Phone Gabi Aragon MD Unavailable [phone] Reason for Visit * Reason Comments Diabetes Questions visit Encounter Details Date Type Department Care Team (Late st Contact Info) Description 11/02/2022 13:00 EDT Nurse Only [facility] Endocrinology [address] [place] [address] Stephanie Cortez, RN [address] [place] [address] Type 2 diabetes mellitus with hyperglycemia, with long-term current use of insulin ([facility]) (Primary Dx) Social History Tobacco Use [...] - Inhaled Oxygen Concentration - - Weight 86.5 kg (190 lb 9.6 oz) 11/02/2022 1541 E DT Height - - Body Mass Index 30.76 09/20/2022 1249 EST documented in this encounter Progress Notes * Stephanie Cortez, RN - 11/02/2022 1300 EDT Diabetes Education Note CVE patient; numerous questions Visit type: office Latest A1c: 05/19/2022;7.2% Recently started Ozempic; 1st dose a few days ago. Has diagnosis of fatty liver. Has questions about function of Ozempic. Diet Hx: Breakfast:coffee and protein bar or eggs Lunch: Soup, 1/2 sandwich Supper: Fish, lots of vegetables Snacks: Beverages: Lots of water Activity: Walks with cane on the property Education today: Physiology Meds and how they work. Education Needed: Review of food/ bs logs Assessment: e11.65 Hx of current problem: She has called several times with questions and has so many questions I asked her to have an appointment. She is following a Noom diet and has lost 15 pounds. Just starting Ozempic. Tolerating it well in first few days. Stage of change: action. Motivation 10. Comprehension 10. Plan: Continue lifestyle modifications Next Visit: With endocrinology documented in this encounter Plan of Treatment Upcoming Encounters Date Type Department Care Team (Late st Contact Info) Description 04/13/2024 13:30 EDT Office Visit [facility] Endocrinology [address] [place], [place] [address] Gabi Mcclure MD [address] [place] [address] [address] [place] [phone] documented as of this encounter Visit Diagnoses Diagnosis Type 2 diabetes mellitus with hyperglycemia, with long-term current use of insulin ([facility])- Primary documented in this encounter Care Teams Hospice Patient Care Secretary Relationship Specialty Start Date End Date Gabi Aragon MD [address] [facility] [address] [place] [phone] Endocrinology, Diabetes and Metabolism 08/09/21 documented as of this encounter
--- OUTSIDE RECORDS SUMMARY | 2024-03-12 15:17 | XMS_ITS | Encounter Summary ---
Author Organization [facility] Address [address] [place] [address] Care Team Providers Care Territory Supervisor Name Role Phone Gabi Aragon MD Unavailable [phone] Reason for Visit * Reason Comments Diabetes lipids Encounter Details Date Type Department Care Team (Late st Contact Info) Description 01/24/2023 11:45 EDT Office Visit [facility] Endocrinology [address] [place] [address] Gabi Aragon MD [address] [facility] [address] [place] [phone] Type 2 diabetes mellitus with hyperglycemia, with long-term current use of insulin ([facility]) (Primary Dx); Dyslipidemia Social History Tobacco Use Types Packs/Day Years [...] Sign Reading Time Taken Comments Blood Pressure 126/78 01/24/2023 1116 EDT Pulse 80 01/24/2023 1116 EDT Temperature - - Respiratory Rate - - Oxygen Saturation - - Inhaled Oxygen Concentration - - Weight 85.3 kg (188 lb) 01/24/2023 1116 EDT Height 167.6 cm (5' 6) 01/24/2023 1116 EDT Body Mass Index 30.34 01/24/2023 1116 EDT documented in this encounter Progress Notes * Nguyen Pond RN - 01/24/2023 1145 EDT DMII Needs eye foot and A1c Results for orders placed or performed in visit on 01/24/23 POCT HEMOGLOBIN A1C Result Value Ref Range Hemoglobin A1c, POC 7.5 (A) 5.7 % * Gabi Smith MD - 01/24/2023 1145 EDT 01/24/2023 FOLLOW-UP PATIENT: Veronica Marlow CHIEF COMPLAINT Diabetes (lipids) HISTORY OF PRESENT ILLNESS Veronica Marlow is a very pleasant 72 y.o. female who presented today for follow up for type 2 DM. Last seen in Sep. Says she prefers to come here instead of moving to [place]. Using Dexcom, average 196 mg/dl. She has refused statin. Says has 2 sisters that have developed problems with statins. She is seeing a child support agent. Meds: Levemir 30 u a day before bedtime, humalog 1 unit for every 5 g of carbs with breakfast and dinner. Has not been using ozempic or Trulicity in the last month. She stopped metformin in May due to GI side effects. Eats 3 meals a day and rarely does a snack, says if she does a snack, she eats nuts. Lives with daughter. Boyfriend leaves close to her new property. Exercise: not much due to weather. Has not fallen since last visit. Last fall in September. 05/19/22: A1c 7.2% Did labs on 08/04/21: A1c 7%, negative microalbuminuria, LDL 149 mg/dl. Has had a fall few months ago, she felt in the bathroom. She says had an eye exam in Sep. Complications: denies AR, stroke, kidney disease I have reviewed patient's tobacco history: reports that she has never smoked. She has never used smokeless tobacco. MEDICAL HISTORY Patient has no past medical history on file. SURGICAL HISTORY Patient has no past surgical history on file. MEDICATIONS Patient has a current medication list which includes the following prescription(s): alpha lipoic acid, ascorbic acid, aspirin, bd ultra-fine mini pen needle, blood glucose, cholecalciferol (vitamin d3), chromium, cinnamon bark, cyanocobalamin, humalog u-100 insulin, insulin pen needles 31g x 3/16, insulin syringe-needle u-100, levemir flextouch u100 insulin, levothyroxine, losartan, magnesium oxide, melatonin, NONFORMULARY, nystatin, omega- 3/dha/epa/dpa/fish oil, onetouch ultra blue test strip, polyethylene glycol 3350, red yeast rice, ribonucleic acid (rna), saffron extract, ozempic, triamci nolone, coenzyme q10, UNABLE TO FIND, UNABLE TO FIND, and UNABLE TO FIND. ALLERGIES Patient is allergic to penicillins, rezulin, rosiglitazone, and sulfa (sulfonamide antibiotics). FAMILY HISTORY Patient's family history is not on file. SOCIAL HISTORY Patient reports that she has never smoked. She has never used smokeless tobacco. She reports current alcohol use. She reports that she does not use drugs. REVIEW OF SYSTEMS Review of Systems Has body aches in the chest, right arm. Sometimes tingling in back Memory issues DIAGNOSTIC DATA Prior labs Glucose readings CGM INTERPRETATION Veronica Marlow Type of CGM: Type 2 DM Patient owns sensor Type of DM: 2 Insulin: Levemir, Humalog Indication for monitoring: -Hypoglycemia -Hyperglycemia -Unexplained glucose excursions Date: 01-11 to 01/24/23 Download on 01-24-23 Report Interpretation: Based on these 14 days, GMI 8% , average glucose 196 mg/dL, standard deviation 61, TIR 44%, TAR 55%, TAR 0%. Nocturnal glucose control: no Post-prandial glucose excursions: yes Hypoglycemia incidence: 0% Other (exercise/activity): n/a VITALS height is 167.6 cm (66) and weight is 85.3 kg (188 lb). Her blood pressure is 126/78 and her pulseis 80. PHYSICAL EXAM Vitals reviewed.Vitals reviewed. Constitutional: Appearance: Normal appearance. Eyes: Pupils: Pupils are equal, round, and reactive to light. Cardiovascular: Rate and Rhythm: Normal rate and regular rhythm. Skin: General: Skin is warm and dry. Neurological: Mental Status: She is alert and oriented to person, place, and time. Psychiatric: Behavior: Behavior normal. ASSESSMENT ICD-10-CM ICD-9-CM 1. Type 2 diabetes mellitus with hyperglycemia, with long-term current use of insulin ([facility]) ([facility]) E11.65 250.00 Z79.4 790.29 V58.67 2. Dyslipidemia E78.5 272.4 DM type 2 with hyperglycemia. Needs to improve diet. Advise to talk to Ramya about her diet. She will do a log: where she will record her food and insulin. Also explained to her how to add events on DEXCOM. Advise to apply to [facility] pharmacy and send the paperwork so she can use GLP-1. Might need to switch to Tresiba. LDL not at goal, has refused statin. She will repeat lipid profile. Fall precautions. Return in 4 months, 45 min. Electronicaly signed by: Gabi Washington MD I spent a total of 40 minutes on the date of this encounter meeting with the patient and reviewing documentation/coordinating care as described in the above note. This was separate from CGM interpretation performed at the time of the visit. documented in this encounter Plan of Treatment Upcoming Encounters Date Type Department Care Team (Late st Contact Info) Description 04/13/2024 13:30 EDT Office Visit [facility] Endocrinology [address] [place] [phone] Gabi Mcclure MD [address] [place] [phone] documented as of this encounter Procedures Procedure Name Priority Date/Time Associated Diagnosis Comments POCT HEMOGLOBIN A1C Routine 01/24/2023 Type 2 diabetes mellitus with hyperglycemia, with long-term current use of insulin ([facility]) documented in this encounter Results * (ABNORMAL) POCT HEMOGLOBIN A1C (01/24/2023) Hemoglobin A1c, POC 7.5(A) 5.7 % [facility] POINT OF CARE Blood CAPILLARY BLOOD / Unknown 01/24/2023 Gabi Aragon MD POINT OF CARE TEST O RDERABLES [facility] POINT OF CARE documented in this encounter Visit Diagnoses Diagnosis Type 2 diabetes mellitus with hyperglycemia, with long-term current use of insulin ([facility])- Primary Dyslipidemia Other and unspecified hyperlipidemia documented in this encounter Care Teams Territory Supervisor Relationship Specialty Start Date End Date Gabi Aragon MD [address] [place] [phone] Endocrinology, Diabetes and Metabolism 08/09/21 documented as of this encounter
--- OUTSIDE RECORDS SUMMARY | 2024-03-12 15:17 | XMS_ITS | Encounter Summary ---
Author Organization [facility] Address [address] [place] [address] Care Team Providers Care Bottom Pounder [employer] Name Role Phone Gabi Aragon MD Unavailable [phone] Reason for Visit * Reason Comments New Patient Visit New patient visit, F BSE. Spots of concern on face and back * Consult (Routine) - Authorization Not Required Specialty Diagnoses / Procedures Referred By Contgauri t Referred To Contact Dermatology Diagnoses Skin exam, screening for cancer Exposure to sunlight, Dago Bustos MD [address] [place] [address] [facility] [place] [id number] Referral ID Status Reason Start Date Expiration Date Visits Requested Visits Authorized [id number] Authorization Not Required 1 1 Encounter Details Date Type Department Care Team (Late st Contact Info) Description 11/29/2022 9:30 EDT Office Visit [facility] Dermatology 5th [address] [phone] Aman Arango PA-C [address] [place] [address], [address] [place] [phone] Multiple nevi (Primary Dx); Seborrheic keratoses; Malave angioma Social History Tobacco Use Types Packs/Day Years [...] as of this encounter Progress Notes * Aman Arango PA-C - 11/29/2022 0930 EDT Dermatology Outpatient Visit Note Chief Complaint Patient presents with ??? New Patient Visit New patient visit, FBSE. Spots of concern on face and back Dermatologic History: No specialty comments available. Last Dermatology office visit: NPV SUBJECTIVE Ms. Marlow is a 72 y.o. female who presents for new evaluation and treatment for a skin check. Denies personal history of skin cancer. She would like to discuss wrinkles of the face. She is otherwise feeling well and has no other cutaneous concerns today. MEDICATION LIST She has a current medication list which includes the following prescription(s): alpha lipoic acid, ascorbic acid, aspirin, bd ultra-fine mini pen needle, blood glucose, cholecalciferol (vitamin d3), chromium, cinnamon bark, cyanocobalamin, humalog u-100 insulin, insulin pen needles 31g x 3/16, insulin syringe-needle u-100, levemir flextouch u-100 insuln, levothyroxine, losartan, magnesium oxide, melatonin, NONFORMULARY, nystatin, omega-3/dha/epa/dpa/fish oil, onetouch ultra blue test strip, polyethylene glycol 3350, red yeast rice, ribonucleic acid (rna), saffron extract, ozempic, triamcinolone, coenzyme q10, UNABLE TO FIND, UNABLE TO FIND, and UNABLE TO FIND. ALLERGY LIST She is allergic to penicillins, rezulin, rosiglitazone, and sulfa (sulfonamide antibiotics). OBJECTIVE Ms. Marlow is a well appearing and in no acute distress female, with a normal affect, sitting onthe examination table. She has fair skin, and ureña short hair, covered with brown wig. Cutaneous full body examination including the hair, scalp, face, eyelids, lips, neck, chest, back, abdomen, all four extremities, hands, feet, digits and nails was performed. The examination was significant for the following: - distributed on face, trunk and extremities: scattered round, brown to skin colored papules and macules - distributed over the head, torso and extremities: multiple, navarrete-brown to dark brown, stuck-on appearing, waxy and hyperkeratotic papules - left confucianism: well circumscribed red to violaceous papule ASSESSMENT/PLAN Multiple nevi -Patient reassured of benign nature of nevi. -The nature of sun-induced photo-aging and skin cancers is discussed. Sun avoidance, protective clothing, and the use of OTC broad spectrum 50+-SPF sunscreens with both UVA and UVB coverage is advised. Observe closely for skin damage/changes, and call if such occurs. Seborrheic keratoses -Reassured the patient that these are benign lesions and they may continue to increase in size, number and thickness over time. They are not considered cancerous or precancerous and no treatment is necessary, unless they become symptomatic. Malave angioma -The benign nature of these lesions was discussed. Informed patient that these lesions may continueto appear with age and can appear anywhere on the skin. No treatment is needed. She will f/u as planned or in the interim should problems arise. Return if symptoms worsen or fail to improve can follow with PCP, does not need dermatologic care. The attending physician was available for this visit. Aman Arango PA-C 11/29/2022 10:08 documented in this encounter Plan of Treatment Upcoming Encounters Date Type Department Care Team (Late st Contact Info) Description 04/13/2024 13:30 EDT Office Visit [facility] [place] [address] [place] [address] Gabi Mcclure MD [address] [place] [phone] documented as of this encounter Visit Diagnoses Diagnosis Multiple nevi- Primary Benign neoplasm of skin, site unspecified Seborrheic keratoses Malave angioma Nevus, non-neoplastic documented in this encounter Care Teams Bottom Pounder [employer] Relationship Specialty Start Date End Date Gabi Aragon MD [address] [place] [phone] Endocrinology, Diabetes and Metabolism 08/09/21 documented as of this encounter
--- OUTSIDE RECORDS SUMMARY | 2024-03-12 15:17 | XMS_ITS | Encounter Summary ---
Author Organization [facility] Address [address] [place] [address] Care Team Providers Care Client Specialist Name Role Phone Unknown, Provider Primary Care Provider [phone] Encounter Details Date Type Department Care Team (Late st Contact Info) Description 09/27/2016 Results Only [facility] [phone] Soledad Scales MD [address] [place] [phone] Social History Tobacco Use Types Packs/Day Years [...] [facility] [address] [place] [address] Gabi Mcclure MD [address] [place] [address] [place] [phone] documented as of this encounter Procedures Procedure Name Priority Date/Time Associated Diagnosis Comments PAP TEST- RESULT ONLY Routine 09/27/2016 0:00 EST documented in this encounter Results * PAP TEST- RESULT ONLY (09/27/2016 0:00 EST) Pathology Report: CYTOPATHOLOGY REPORT Reports generated via electronic interface contain original data; however they are lacking the format of the original report. Caution should be taken when reading/interpreti ng unformatted reports. Name: ? VERONICA BOWMAN ? Accession #: ? [id number] ? : ? 1950 (Age: 66) ??F ?Collect Date: ? 09/27/2016 ? Location: ? [facility] ? Receive Date: ? 09/28/2016 ? Provider: SOLEDAD SCALES MD Copy to: ? Final Report SPECIMEN ADEQUACY ? Satisfactory for Evaluation - transformation zone component present GENERAL CATEGORIZATION ? Negative for Intraepithelial Lesion or Malignancy ?? Specimen/Source: ??Pap Test, Cervix, ThinPrep Imaging System with manual evaluation Document reviewed and electronically signed by: ? JANINA Lemons(ASCP) ? Report ??Date: 10/01/2016 13:49 HPV with Pap Test ? Date Ordered: ? 10/01/2016 ? Status: ?? Signed Out ?Date Complete: ? 10/04/2016 ? By: ??System Interface ? Date Reported: ? 10/04/2016 ? Interpretation RESULT: Negative for HPV. No E6 or E7 mRNA is detected from HPV types 16,18,31,33,35, 39,45,51,52,56,58, 59,66, and 68 by first dyer mediated amplification. Comments Document reviewed and electronically signed by: ? System Interface ? Report date: 10/04/2016 By the signature above, the attending physician certifies that he/she has personally conducted a gross and/or microscopic examination of the described specimens and rendered or confirmed the above diagnosis. End of Report [facility] 09/27/2016 09/28/2016 Soledad Scales MD PATHOLOGY PRIYA ERVIN [facility] [address] [place] [address] documented in this encounter Visit Diagnoses Not on filedocumented in this encounter Care Teams Client Specialist Relationship Specialty Start Date End Date Unknown, Provider, PCP - General 09/27/16 04/06/22 documented as of this encounter
--- OUTSIDE RECORDS SUMMARY | 2024-03-12 15:17 | XMS_ITS | Encounter Summary ---
Author Organization [facility] Address [address] [place] [address] Care Team Providers Care Mobile Pet Groomer Name Role Phone Gabi Aragon MD Unavailable [phone] Flavio Stubbs Primary Care Provider [phone] Reason for Visit * Reason Comments Diabetes ER twice in last tue. Found plaque in left carotid artery; low K+ Encounter Details Date Type Department Care Team (Latest Contact Info) Description 12/12/2023 13:45 EDT Office Visit [facility] Endocrinology [address] [place] [address] Gabi Mcclure MD [address] [place] [address] [address] [place] [address] Type 2 diabetes mellitus with hyperglycemia, with long-term current use of insulin ([facility]) (Primary Dx); Dyslipidemia; Primary hypothyroidism Social History [...] kg (197 lb) 12/12/2023 1355 EDT Height - - Body Mass Index 31.8 06/07/2023 1215 EST documented in this encounter Ordered Prescriptions Prescription Sig Dispensed Refills Start Date End Da te empagliflozin (JARDIANCE) 10 mg tablet Take 1 Tablet by mouth daily. E11.65 90 Tablet 2 12/12/2023 12/14/2023 empagliflozin (JARDIANCE) 10 mg tablet Take 1 Tablet by mouth daily. 90 Tablet 1 12/12/2023 12/12/2023 empagliflozin (JARDIANCE) 10 mg tablet Take 1 Tablet by mouth daily. 90 Tablet 1 12/12/2023 12/12/2023 documented in this encounter Progress Notes * Jeanne Velazquez RN - 12/12/2023 1345 EDT Lab Results Component Value Date HGBA1C 7.5 (A) 01/24/2023 Glucose: 370 (Dexcom) * Gabi Mcclure MD - 12/12/2023 1345 EDT CC: Ms. Veronica Marlow is a 73 y.o. female, who presents for follow-up of diabetes, hyperlipidemia and hypothyroidism HPI: Type 2 Diabetes diagnosed ~ at age 41 Microvascular complications: retinopathy Macrovascular complications: not known Last seen in Endo clinic: 09/2022 Health events since last visit: has been to the ER twice because of difficulty finding words. Had CT scan showing plaque in the carotid artery. She was started on statin but developed myalsgia and was started on ezetimibe (?). She had a second visit because of dizziness, nausea and weakness. Toldto be dehydrated. Labs were done. Results are not available. She also had a foot infection and finished a course of antibiotics. Diabetes control has deteriorated with average 177 GMI 7.5%, 14% above 250, 2% below 70 and <1% below 54. She has some days with excellent profile and 90%+ TIT. Has been more active in the last week. Insulin dose is up to 46. Forgets premeal insulin sometimes, resulting in very high PP hyperglycemia. She did not start Ozempic for fear of side effects. Has gained 8 lbs Current Diabetes treatment: Levemir 46 at bedtime Humalog 1/4 carbs No correction factor Ozempic: 0 Last eye exam: 06/2023. Told no evidence of retinopathy Diet: B: eggs, cheese, or keto fiber bar, coffee, cheese sticks. L: Peanut butter and jelly sandwich, soup with protein D: salad, vegetables, protein. Oc sourdough bread Exercise: walking more recently 45-60 minutes Weight: Wt Readings from Last 3 Encounters: 12/12/23 89.4 kg (197 lb) 06/07/23 85.9 kg (189 lb 6.4 oz) 01/24/23 85.3 kg (188 lb) Hypoglycemia: 2% Testing: Dexcom G7 Hyperlipidemia: LDL > 100. Did not tolerate statin Hypothyroidis: well controlled. Past Medical History/Problem List: Patient Active Problem List Diagnosis Ulcer of foot due to type 2 diabetes mellitus ([facility]) Type 2 diabetes mellitus with hyperglycemia ([facility]) Traumatic blister of foot Normal pelvic exam custodial current use of insulin ([facility]) Hypothyroidism Increased frequency of urination Hypertensive disorder Dyslipidemia Chronic constipation Cellulitis of foot Atypical chest pain Past Sugical History: No past surgical history on file. Family History: No family history on file. Father: heart disease Mother had diabetes Social History: Social History Tobacco Use Smoking status: Never Smokeless tobacco: Never Substance Use Topics Alcohol use: Yes Comment: occasionally, maybe 1 glass wine at dinner once a month Drug use: Never Review of Systems: Positive for some anxiety/PTSD but is doing better. Occ low energy. Medications: Current Outpatient Medications on File Prior to Visit Medication Sig Dispense Refill alpha lipoic acid 200 mg capsule daily. Takes 1 tab daily, R-lipoic acid Ascorbic Acid 500 mg tablet,chewable aspirin 81 mg EC tablet BD ULTRA-FINE MINI PEN NEEDLE USE ONCE DAILY DIRECTED blood glucose meter (ONETOUCH ULTRA2 METER) TEST 4 TIMES DAILY blood glucose test strips OneTouch Ultra Test strips cholecalciferol, Vitamin D3, 1,000 unit tablet With vitamin K CHROMIUM ORAL Take 75 mcg by mouth. Twice daily with meals Cinnamon Bark 500 mg capsule 600 mg. Takes 2 tabs twice daily (Patient not taking: Reported on 12/12/2023) clopidogreL (PLAVIX) 75 mg tablet Take 1 Tablet by mouth. cyanocobalamin (VITAMIN B-12) 500 mcg tablet 2 Tablets. [employer] G7 SENSOR device Change every 10 days. HUMALOG U-100 INSULIN 100 unit/mL vial Sliding scale insulin pen needles 31G x 3/16 BD Ultra-Fine Mini Pen Needle 31 gauge x 3/16 USE ONCE DAILY DIRECTED Insulin Syringe-Needle U-100 1 mL 29 gauge x 1/2 syringe Take 3 syringes every day by miscell. route for 90 days. ketoconazole (NIZORAL) 2 % cream Apply topically. LANTUS U-100 INSULIN 100 unit/mL injection Inject 46 Units into the skin. LEVEMIR FLEXTOUCH U-100 INSULN 100 unit/mL (3 mL) injectable pen 30 Units. 37 units at bedtime levothyroxine (SYNTHROID) 125 mcg tablet Take 1 tablet every day by oral route for 90 days. losartan (COZAAR) 25 mg tablet 1 tab(s) orally once a day magnesium oxide (MAG-OX) 400 mg (241.3 mg magnesium) tablet Take 1 Tablet by mouth daily. Melatonin 3 mg tablet extended release Take 1 tablet by oral route at bedtime for 90 days. (Patientnot taking: Reported on 12/12/2023) NONFORMULARY 1 tab Prevagen daily (Patient not taking: Reported on 12/12/2023) nystatin (MYCOSTATIN) cream [id number] OIL ORAL Take by mouth. ONETOUCH ULTRA BLUE TEST STRIP test strips polyethylene glycol 3350 (MIRALAX ORAL) As needed (Patient not taking: Reported on 12/12/2023) red yeast rice 600 mg tablet Take by mouth. 1 time daily ribonucleic acid, RNA, (RIBONUCLEIC ACID MISC) by misc (non-drug; combo route) route. (Patient not taking: Reported on 12/12/2023) SAFFRON EXTRACT ORAL Take by mouth. semaglutide (OZEMPIC) subcutaneous pen Inject 0.25 mg into the skin once a week. (Patient not taking: Reported on 12/12/2023) 3 mL 1 sertraline (ZOLOFT) 50 mg tablet Take 1 Tablet by mouth. triamcinolone (KENALOG) 0.1 % cream triamcinolone acetonide 0.1 % topical cream APPLY THIN LAYER TOPICALLY TO THE AFFECTED AREA TWICE DAILY ubidecarenone (COENZYME Q10) 60 mg capsule Take by mouth. UNABLE TO FIND Med Name: Liver Health supplement with turmeric, dandelion root, nisha UNABLE TO FIND Med Name: blood sugar formula vitamins UNABLE TO FIND use 4x/ day with One Touch Ultra 2 device No current facility-administered medications on file prior to visit. Allergies: Allergies Allergen Reactions Penicillins Fever Turns purple Rezulin Other reaction(s): Unknown Afnzkeh-Hcc-Lqe Reductase Inhibitors Leg Pain Rosiglitazone Rash Sulfa (Sulfonamide Antibiotics) Rash Physical Exam: Patient Vitals for the past 24 hrs: BP Pulse Weight 12/12/23 1355 (!) 150/60 68 89.4 kg (197 lb) Body mass index is 31.8 kg/m??. General: no distress. Central distribution of fat. Skin: No acanthosis nigricans. Neck: Thyroid not [...] crea 0.92, ma 5.3 Assessment and Plan: Diabetes: sub-optimal control. Will to get labs from [facility]. Will try Jardiance 10mg. We went over adjusting pre-meal insulin if needed. Lipids: on ezetimibe. I would consider Leqvio. She will read about it. Blood Pressure: high today but was anxious on the road. Hypothyroidism: continue Lt4 and check TSH RTC 3-4 months * Jaylyn Cortez RN - 12/12/2023 8645 EDT Pt called back. Wants Jarmelaance via [facility] instead r/t cost. Prescription faxed to pharmacy per order Dr Mcclure. documented in this encounter Miscellaneous Notes * Addendum Note - Jaylyn Cortez RN - 12/12/2023 3293 EDTAddended by: JAYLYN CORTEZ on: 12/12/2023 15:08 Modules accepted: Orders documented in this encounter Plan of Treatment Upcoming Encounters Date Type Department Care Team (Late st Contact Info) Description 04/13/2024 13:30 EDT Office Visit [facility] Endocrinology [address] [place] [address] Gabi Mcclure MD [address] [place] [phone] Scheduled Orders Name Type Priority Associated Diagnoses Orde r Schedule HEMOGLOBIN A1C Lab Routine Type 2 diabetes mellitus with hyperglycemia, with long-term current use of insulin ([facility]) Dyslipidemia Primary hypothyroidism Expected: 12/12/2023 (Approximate), Expires: 12/11/2024 LIPID PROFILE (INCLUDES CHOLESTEROL, TRIGLYCERIDES, HDL, LDL) Lab Routine Type 2 diabetes mellitus with hyperglycemia, with long-term current use of insulin ([facility]) Dyslipidemia Primary hypothyroidism Expected: 12/12/2023 (Approximate), Expires: 12/11/2024 URINE [id number] RATIO (ACR) Lab Routine Type 2 diabetes mellitus with hyperglycemia, with long-term current use of insulin ([facility]) Dyslipidemia Primary hypothyroidism Expected: 12/12/2023 (Approximate), Expires: 12/11/2024 COMPREHENSIVE METABOLIC PANEL (CMP) Lab Routine Type 2 diabetes mellitus with hyperglycemia, with long-term current use of insulin ([facility]) Dyslipidemia Primary hypothyroidism Expected: 12/12/2023 (Approximate), Expires: 12/11/2024 THYROID CASCADE Lab Routine Type 2 diabetes mellitus with hyperglycemia, with long-term current use of insulin ([facility]) Dyslipidemia Primary hypothyroidism Expected: 12/13/2023 (Approximate), Expires: 12/11/2024 documented as of this encounter Visit Diagnoses Diagnosis Type 2 diabetes mellitus with hyperglycemia, with long-term current use of insulin ([facility])- Primary Dyslipidemia Other and unspecified hyperlipidemia Primary hypothyroidism Unspecified hypothyroidism documented in this encounter Discontinued Medications Medication Sig Discontinue Reason Start Date End Da te empagliflozin (JARDIANCE) 10 mg tablet Take 1 Tablet by mouth daily. Reorder 12/12/2023 12/12/2023 empagliflozin (JARDIANCE) 10 mg tablet Take 1 Tablet by mouth daily. 12/12/2023 12/12/2023 documented as of this encounter Historical Medications * This list may reflect changes made after this encounter. Medication Sig Dispensed Refills Start Date End Date LANTUS U-100 INSULIN 100 unit/mL injection Inject 46 Units into the skin. 10/03/2023 04/30/2024 clopidogreL (PLAVIX) 75 mg tablet Take 1 Tablet by mouth. 10/24/2023 DEXCOM G7 SENSOR device Change every 10 days. 10/06/2023 blood glucose meter (ONETOUCH ULTRA2 METER) TEST 4 TIMES DAILY 07/29/2022 sertraline (ZOLOFT) 50 mg tablet Take 1 Tablet by mouth. 10/25/2023 01/23/2024 ketoconazole (NIZORAL) 2 % cream Apply topically. 09/30/2023 12/29/2023 added in this encounter Care Teams Mobile Pet Groomer Relationship Specialty Start Date End Date Flavio Stubbs [address] [address] PCP - General 12/12/23 Gabi Aragon MD [address] [place] [phone] Endocrinology, Diabetes and Metabolism 08/09/21 documented as of this encounter
--- OUTSIDE RECORDS SUMMARY | 2024-03-12 15:17 | XMS_ITS | Encounter Summary ---
Author Organization [facility] Address [address] [place] [address] Care Team Providers Care Manager Continuous Improvement Name Role Phone Unknown, Provider Primary Care Provider [phone] Reason for Visit * Reason Onset Date Comments Medications Refill 07/31/2020 Encounter Details Date Type Department Care Team (Late st Contact Info) Description 07/31/2020 Refill [facility] Endocrinology [address] [place] [address] Ange Saunders RN Medications Refill Social History [...] Refills Start Date End Da te insulin detemir U-100 (LEVEMIR) 100 unit/mL injection Inject 20 Units into the skin at bedtime. In place of lantus per ins. 2 Vial 3 07/31/2020 08/13/2020 documented in this encounter Miscellaneous Notes * Telephone Encounter - Gabi Smith MD - 07/31/2020 1010 EST Yes, switch to levemir same dose. * Telephone Encounter - Ange Saunders RN - 07/31/2020 1005 EST Call from [facility], lantus no longer 340 B eligible- want to switch to levemir ? Same dose ?--pended if ok documented in this encounter Plan of Treatment Upcoming Encounters Date Type Department Care Team (Late st Contact Info) Description 04/13/2024 13:30 EDT Office Visit [facility] Endocrinology [address] [place] [address] Gabi Mcclure MD [address] [place] [phone] documented as of this encounter Visit Diagnoses Not on filedocumented in this encounter Discontinued Medications Medication Sig Discontinue Reason Start Date End Da te insulin glargine (LANTUS U-100 INSULIN) 100 unit/mL injection 20 units subcutaneously daily Insurance does not cover 10/15/2019 07/31/2020 documented as of this encounter Care Teams Manager Continuous Improvement Relationship Specialty Start Date End Date Unknown, Provider, PCP - General 09/27/16 04/06/22 documented as of this encounter
--- OUTSIDE RECORDS SUMMARY | 2024-03-12 15:17 | XMS_ITS | Encounter Summary ---
Author Organization [facility] Address [address] [place] [address] Care Team Providers Care Deboning Team Leader Name Role Phone Gabi Aragon MD Unavailable [phone] None, Provider Primary Care Provider Unavailabl e Reason for Visit * Reason Comments Diabetes General education Encounter Details Date Type Department Care Team (Late st Contact Info) Description 06/07/2023 13:00 EST Nurse Only [facility] Endocrinology [address] [place] [address] Stephanie Cortez, RN [address] [place] [address] Type 2 diabetes mellitus with hyperglycemia, with long-term current use of insulin ([facility]) (Primary Dx) Social History Tobacco Use [...] Progress Notes * Stephanie Cortez, RN - 06/07/2023 1300 EST Diabetes visit: Visit type: office Problem: Questions regarding high blood sugars. Meals look appropriate; this looks more like an insulin dosing issue. She just saw Dr mcclure and had changes made. We did discuss proper treatment of low blood sugars today. Plan: Per Dr Mcclure Next visit: with endocrinology documented in this encounter Plan of Treatment Upcoming Encounters Date Type Department Care Team (Late st Contact Info) Description 04/13/2024 13:30 EDT Office Visit [facility] Endocrinology [address] [place] [address] Gabi Mcclure MD [address] [place] [address] [place] [phone] documented as of this encounter Visit Diagnoses Diagnosis Type 2 diabetes mellitus with hyperglycemia, with long-term current use of insulin ([facility])- Primary documented in this encounter Care Teams Deboning Team Leader Relationship Specialty Start Date End Date None, Provider PCP - General 05/12/23 12/11/23 Gabi Aragon MD [address] [facility] [address] [place] [phone] Endocrinology, Diabetes and Metabolism 08/09/21 documented as of this encounter
--- OUTSIDE RECORDS SUMMARY | 2024-03-12 15:17 | XMS_ITS | Encounter Summary ---
Author Organization [facility] Address [address] [place] [address] Care Team Providers Care Hand Buffer Name Role Phone Unknown, Provider Primary Care Provider [phone] Gabi Aragon MD Unavailable [phone] Reason for Visit * Reason Comments Diabetes Encounter Details Date Type Department Care Team (Late st Contact Info) Description 08/10/2021 13:45 EST Telemedicine [facility] Endocrinology [address] [place] [address] Gabi Aragon MD [address] [facility] [address] [place] [phone] Type 2 diabetes mellitus with hyperglycemia, with long-term current use of insulin ([facility]) ([facility]) (Primary Dx); Dyslipidemia Social History Tobacco Use [...] - - Weight 86.2 kg (190 lb) 08/10/2021 1339 EST Height 165.1 cm (5' 5) 08/10/2021 1339 EST Body Mass Index 31.62 08/10/2021 1339 EST documented in this encounter Progress Notes * Nguyen Pond RN - 08/10/2021 1345 EST DMII Ordered CMP micro lipid A1c routed to [facility] lab Letter mailed with a sentence telling patient they were routed. * Gabi Smith MD - 08/10/2021 1345 EST [facility] Video Visit Today's visit was provided through telemedicine video conferencing: zoom The location of the patient: Home The location of the provider: Home office Verbal consent: The concept of ???Telemedicine?? has [...] consent obtained by myself or auxiliary staff: yes. Subjective: Chief Complaint(s): Diabetes HPI: Veronica has joined video visit for follow up for type 2 DM. Last seen in Aug. Did labs on 08/04/21: A1c 7%, negative microalbuminuria, LDL 149 mg/dl. Has had a fall few months ago, she felt in the bathroom. Said got sick during day, covid negative. Taking multiple over the counter medications. She got a DEXCOM, says has mix feelings. No data for me. Says she is learning from it. She says had an eye exam 3 months ago in [place]. SMBG: using cgm dexcom. She started walking 5 times a week. Meds: Lantus 30 u a day (will be on Levemir because is cheaper and has gotten a pen), metformin 1000 mg BID and humalog 1 unit for every 5 g of carbs. She moved recently, lives with daughter. Boyfriend leaves close to her new property. Complications: denies [place], stroke, kidney disease I have reviewed patient's tobacco history: reports that she has never smoked. She has never used smokeless tobacco. I have reviewed current problem list and current medications. ROS: ROS No chest pain No SOB Says sometimes has constipation and some times lose stools. Objective: Examination: Home Vitals: Ht 165.1 cm (65) Wt 86.2 kg (190 lb) BMI 31.62 kg/m?? Pertinent exam findings: appears well, non-labored breathing, no rash on visible skin and mood and affect appropriate Data reviewed with patient: most recent labs, prior note Assessment & Plan: 1. Type 2 diabetes mellitus with hyperglycemia, with long-term current use of insulin ([facility]) ([facility]) COMPREHENSIVE METABOLIC PANEL (CMP) URINE [id number] RATIO (ACR) HEMOGLOBIN A1C LIPID PROFILE (INCLUDES CHOLESTEROL, TRIGLYCERIDES, HDL, LDL) 2. Dyslipidemia DM type 2: at goal based on A1c. I think she needs better education for Dexcom and how to use pens. I offered her an apt with [employer] says she is going to a person by the name Maki. I insisted, so she says she will call our office and try to arrange an apt with [employer]. I explained how pens work. No changes today as I do not have any data. Advise to get connected remotely to our office with dexcom clarity. LDL not at goal, does not want to be on a statin. Will come back in 6 months. I spent a total of 40 minutes [...] Info) Description 04/13/2024 13:30 EDT Office Visit [facility] Endocrinology [address] [place] [address] Gabi Mcclure MD [address] [place] [address] [address] [place] [phone] documented as of this encounter Visit Diagnoses Diagnosis Type 2 diabetes mellitus with hyperglycemia, with long-term current use of insulin ([facility])- Primary Dyslipidemia Other and unspecified hyperlipidemia documented in this encounter Historical Medications * This list may reflect changes made after this encounter. Medication Sig Dispensed Refills Start Date End Date ubidecarenone (COENZYME Q10) 60 mg capsule Take by mouth. ribonucleic acid, RNA, (RIBONUCLEIC ACID MISC) by misc (non-drug; combo route) route. BD ULTRA-FINE MINI PEN NEEDLE USE ONCE DAILY DIRECTED 08/06/2021 LEVEMIR FLEXTOUCH U-100 INSULN 100 unit/mL (3 mL) injectable pen 30 Units. 37 units at bedtime 08/05/2021 UNABLE TO FIND Med Name: blood sugar formula vitamins added in this encounter Care Teams Hand Buffer Relationship Specialty Start Date End Date Unknown, MD Ronny PCP - General 09/27/16 04/06/22 Gabi Aragon MD [address] [place] [address] [address] [place] [address] Endocrinology, Diabetes and Metabolism 08/09/21 documented as of this encounter
--- OUTSIDE RECORDS SUMMARY | 2024-03-12 15:17 | XMS_ITS | Encounter Summary ---
Author Organization [facility] [place] [place] [address] Care Team Providers Care Belt And Link Assembly Supervisor Name Role Phone Flavio Stubbs MD Primary Care Provider [phone] Reason for Visit * Consultation (Routine) - Closed Specialty Diagnoses / Procedures Referred By Alice ventura Referred To Contact Vascular Surgery Diagnoses Transient cerebral ischemia, unspecified type NEED ORDER AND CT IMAGES PUSHED ROUTINE, MD/CARSON, B Manjit Cuenca S, DOWEL INSERTING MACHINE OPERATOR [address] [place] [address] [facility] Vascular Surg [address] [place] [address] Referral ID Status Reason Start Date Expiration Date V isits Requested Visits Authorized [id number] Closed Consult, Test & Treat 11/21/2023 11/20/2024 1 1 Encounter Details Date Type Department Care Team (Latest Contact Info) Description 12/22/2023 3:00 PM EDT Office [place] [address] Yoselin Mahoney DOWEL INSERTING MACHINE OPERATOR [facility] [place] [address] Calcification of both carotid arteries Social History Tobacco Use Types Packs/Day Years [...] Mass Index 29.05 12/22/2023 2:49 PM EDT documented in this encounter Progress Notes * Yoselin Mahoney APRN - 12/22/2023 3:00 PM EDT This is a new patient to the practice who is being evaluated for carotid stenosis and was referred by Manjit Joel APRN. HPI: 73 y.o. female with PMH: HTN, HLD, DMII, hypothyroid, OA and recent TIA following episodes of work-finding difficulty. Pt has chronic dizziness and h/o frequent falls. Today, she reports that she presented to the ED after not feeling well and calling her PCP office. While on the phone, the nurse noted word-finding difficulty and advised her to present to her local ED. While there, a head CT and MRI were negative for acute changes and she was told she had a likely TIA. She reports no lasting deficit. She denies one-sided weakness, vision loss or facial droop at the time of the event. She denies past h/o WI, CVA/TIA, DVT. She denies BLE claudication, rest pain, tissue loss or edema. She endorses R>L varicose veins that are asx. She had a 1x prior episode of LLE cellulitis, successfully treated with antibx and now resolved. She is rx Zetia for HLD, is statin intolerant however has lost the medication and is not taking it.She was taking daily ASA 81mg however started taking Plavix in it's place at the time of the TIA event. She is a never smoker. Atherosclerotic RF: DM (y) HTN (y) CAD (n) CHF (n) HLD (y) CVA (y) Tobacco (n) PMHx: No past medical history on file. PSxHx: No past surgical history on file. Family Hx: No family history on file. Social Hx: Social History Tobacco Use Smoking status: Never Smokeless tobacco: Never Substance Use Topics Alcohol use: Not on file Medications: Medications 12/22/23 1448 Medication Sig Taking? levothyroxine (Synthroid) 125 mcg tablet levothyroxine 125 mcg tablet berberine/herbal complex no.18 (BERBERINE-HERBAL COMB NO.18 ORAL) berberine, See Instructions, 1 tab TID, 0 Refill(s) cyanocobalamin, vitamin B-12, (Vitamin B-12) 500 mcg tablet 1,000 mcg. cinnamon bark 500 mg Capsule 600 mg. cholecalciferol (Vitamin D3) 1,000 unit tablet With vitamin K OneTouch Ultra2 Meter Mis TEST 4 TIMES DAILY OneTouch Ultra Test Strip aspirin EC 81 mg EC (DR) tablet Take 1 tablet by mouth daily. ascorbic acid, vitamin C, (Vitamin C) 500 mg chewable tablet 1 tab(s) chewed once a day alpha lipoic acid 200 mg capsule Daily. blood sugar diagnostic strips (OneTouch Ultra Test) Strip OneTouch Ultra Test strips blood sugar diagnostic strips Strip OneTouch Ultra In Vitro Strip, See Instructions, USE 1 STRIP 4 TIMES DAILY, # 400 strip, 3 Refill(s), Pharmacy: [facility]) Blood-Glucose Meter,Continuous (Dexcom G4 Mortgage Lender) [facility] [place] 6, Supply, 1 EA, N/A, As Directed, PRN bleeding As needed, # 1 EA, 0 Refill(s) HGWNE-2-TWK-IPX-BTW-TPON OIL ORAL Take by mouth. magnesium oxide (Mag-Ox) 400 mg (241.3 mg magnesium) Tablet Take 400 mg by mouth Daily. losartan (Cozaar) 50 mg tablet 50 mg. humaLOG 100 unit/mL Solution Humalog U-100 Insulin 100 unit/mL subcutaneous solution Levemir FlexPen 100 unit/mL (3 mL) Insulin Pen Levemir FlexTouch U-100 Insulin 100 unit/mL (3 mL) subcutaneous pen nystatin (Mycostatin) Cream Ozempic 0.25 mg or 0.5 mg(2 mg/1.5 mL) Pen Injector Inject 0.25 mg subcutaneously. red yeast rice 600 mg Tablet Take by mouth. insulin needles, disposable, 31 gauge x 3/16 Needle USE ONCE DAILY DIRECTED Insulin Syringe-Needle U-100 1 mL 29 gauge x 1/2 Syringe Take 3 syringes every day by miscell. route for 90 days. triamcinolone (Kenalog) 0.1 % Cream triamcinolone acetonide 0.1 % topical cream APPLY THIN LAYER TOPICALLY TO THE AFFECTED AREA TWICE DAILY Coenzyme Q10 (Ubiquinone) 60 mg capsule Take by mouth. Allergies: Allergies Allergen Reactions Penicillins Rash Turns purple Rosiglitazone Rash Sulfa (Sulfonamide Antibiotics) Rash Sulfamethoxazole-Trimethoprim Troglitazone Rash Other reaction(s): Unknown Review of Systems: Constitutional (weight change, fever) - Denies Neuro (dizziness, seizures, numbness, tingling) - Denies Eyes (vision) - Denies Ears, nose, throat (hearing) - Denies Cardiovascular (CP) - Denies Respiratory (SOB) - Denies GI (abd pain, nausea, emesis, blood in stool) - Denies (hematuria, dysuria, frequency) - Denies Muscoloskeletal (extremity pain, weakness) - Denies Skin (ulcers, rashes) - Denies All other ROS negative Physical Exam: Vitals: Vitals: 12/22/23 1449 12/22/23 1451 BP: 144/76 152/72 BP Location (NBP): Left arm Right arm Patient Position: Sitting Sitting BP Cuff Sizes: Adult (25-34 cm) Adult (25-34 cm) Pulse: 80 78 Weight: 81.6 kg (180 lb) Height: 167.6 cm (5' 6) General: NAD, appears well Neuro: Alert and oriented, motor sensory grossly intact Lungs: CTA Heart: RRR Abd: Soft, NT, ND, no palpable pulsatile masses Extremity - [place], warm, no ulceration, brisk capillary refill, no edema Vascular: R L Carotid 2/2 bruit (y) 2/2 bruit (n) Radial 2/2 2/2 DP 2/2 2/2 PT 2/2 2/2 Labs/Studies: 12/22/2023 Carotid Duplex Findings: ICA Proximal, Right PSV (cm/s): 90 EDV (cm/s): 15 ICA/CCA: 1.4 Plaque Structure: Echogenic Plaque Surface: Irregular %Stenosis: 16-49% ICA Distal, Right PSV (cm/s): 98 EDV (cm/s): 22 ICA/CCA: 1.5 CCA Distal, Right PSV (cm/s): 64 EDV (cm/s): 9 %Stenosis: Minimal CCA Proximal, Right PSV (cm/s): 111 EDV (cm/s): 9 External Carotid Artery, Right PSV (cm/s): 129 EDV (cm/s): 5 %Stenosis: <50% Vertebral, Right PSV (cm/s): 58 EDV (cm/s): 11 Direction of Flow: Antegrade ICA Proximal, Left PSV (cm/s): 74 EDV (cm/s): 15 ICA/CCA: 1.1 Plaque Structure: Echogenic Plaque Surface: Smooth %Stenosis: <15% ICA Middle, Left PSV (cm/s): 113 EDV (cm/s): 30 ICA/CCA: 1.7 ICA Distal, Left PSV (cm/s): 90 EDV (cm/s): 22 ICA/CCA: 1.4 CCA Distal, Left PSV (cm/s): 65 EDV (cm/s): 6 %Stenosis: Minimal CCA Proximal, Left PSV (cm/s): 115 EDV (cm/s): 9 External Carotid Artery, Left PSV (cm/s): 128 EDV (cm/s): 0 %Stenosis: <50% Vertebral, Left PSV (cm/s): 78 EDV (cm/s): 13 Direction of Flow: Antegrade Interpretation: RIGHT: A [...] normal antegrade Doppler waveforms and velocities bilaterally. Assessment/Plan: 73 y.o. female with PMH: HTN, HLD, DMII, hypothyroid, OA and carotid stenosis. Duplex today demonstrates minimal stenosis: R ICA 16-49% stenosis and L ICA <15%. Patient remains asymptomatic at this time. Recommend patient continue daily Zetia, will request PCP send new rx and ASA 81 mg. She does not need Plavix from a carotid stenosis perspective but I advised her to contiune taking it until cleared to switch back to ASA by her PCP. No need for intervention at this time. Recommend tight control of co-morbidities and continued abstinence from smoking. Follow-up in the clinic PRN. PCP can opt to follow 1 year with repeat carotid duplex if they and pt wish, pt will discuss with PCP. Instructed to call the clinic with any concerns prior to next appointment. Instructed to call 911 for any s/sx of TIA/CVA including unilateral extremity weakness, facial droop, acute change in vision or speech. Yoselin Mahoney APRN Department of Vascular Surgery documented in this encounter Plan of Treatment Upcoming Encounters Date Type Department Care Team (Late st Contact Info) Description 04/03/2024 9:30 AM EDT [place] [address] Ash Christianson MD [facility] [place] [address] Scheduled Referrals Name Type Priority Associated Diagnoses Orde r Schedule Referral to Vascular Surgery Outpatient Referral Routine Transient cerebral ischemia, unspecified type Ordered: 11/21/2023 documented as of this encounter Visit Diagnoses Diagnosis Calcification of both carotid arteries documented in this encounter Care Teams Belt And Link Assembly Supervisor Relationship Specialty Start Date End Date Flavio Stubbs MD [address] [place] [address] PCP - General Family Medicine 12/22/23 documented as of this encounter
--- OUTSIDE RECORDS SUMMARY | 2024-03-12 15:17 | XMS_ITS | Encounter Summary ---
Author Organization [facility] [place] [address] Care Team Providers Care Retail Supervisor Name Role Phone Unknown Primary Care Provider Unavailabl e Reason for Referral * Diagnostic Test (Routine) - Closed Specialty Diagnoses / Procedures Referred By Alice ventura Referred To Contact Diagnoses Bilateral carotid artery stenosis Procedures Carotid Duplex, Bilateral Kathe Mahoney APRN [facility] [address] [facility] Vascular Lab [address] [address] Referral ID Status Reason Start Date Expiration Date V isits Requested Visits Authorized [id number] Closed Specialty Service Requested 12/05/2023 12/04/2024 1 1 Encounter Details Date Type Department Care Team (Late st Contact Info) Description 12/05/2023 Orders [place] [address] Kathe Mahoney MIGRATORY WORKER [facility] [address] Bilateral carotid artery stenosis Social History Tobacco Use Types Packs/Day Years [...] 9:30 AM EDT [place] [address] Ash Christianson MD [facility] [place] [address] documented as of this encounter Results * Carotid Duplex, Bilateral (12/22/2023 1:55 PM EDT) VB Text Report Department: Vascular Surgery Lab Patient: [id number] (VERONICA BOWMAN) CPT: 32055 Referring Physician: KATHE MAHONEY ?? Phone: Indications: [...] PM EDT Kathe Mahoney APRN VASCULAR ORDERABLES [facility] documented in this encounter Visit Diagnoses Diagnosis Bilateral carotid artery stenosis Occlusion and stenosis of multiple and bilateral precerebral arteries without mention of cerebral infarction documented in this encounter Care Teams Retail Supervisor Relationship Specialty Start Date End Date Unknown None PCP - General 04/01/23 12/21/23 documented as of this encounter
--- OUTSIDE RECORDS SUMMARY | 2024-03-12 15:17 | XMS_ITS | Encounter Summary ---
Author Organization [facility] Address [address] [place] [address] Care Team Providers Care Advertiser Name Role Phone Gabi Aragon MD Unavailable [phone] Reason for Visit * Reason Onset Date Comments Diabetes 10/14/2022 Ozempic question s Encounter Details Date Type Department Care Team (Late st Contact Info) Description 10/14/2022 Telephone [facility] [place] [address] [id number] Stephanie Cortez, [address] [place] [address] Diabetes (Ozempic questions) Social History Tobacco Use Types Packs/Day Years [...] encounter Miscellaneous Notes * Telephone Encounter - Maritza Ibarra - 10/14/2022 1300 EDT Left message to call back and schedule * Telephone Encounter - Stephanie Cortez RN - 10/14/2022 0831 EDT 1. Ozepic use 2. Review guidelines 3. What video is she referring to? Please schedule 1 hr appointment with me. She has numerous questions. documented in this encounter Plan of Treatment Upcoming Encounters Date Type Department Care Team (Late st Contact Info) Description 04/13/2024 13:30 EDT Office Visit [facility] Endocrinology [address] [place], [place] [address] Gabi Mcclure MD [address] [place] [address] [address] [place] [address] documented as of this encounter Visit Diagnoses Not on filedocumented in this encounter Care Teams Advertiser Relationship Specialty Start Date End Date Gabi Aragon MD [address] [facility] [address] [place] [id number] Endocrinology, Diabetes and Metabolism 08/09/21 documented as of this encounter
--- OUTSIDE RECORDS SUMMARY | 2024-03-12 15:17 | XMS_ITS | Encounter Summary ---
Author Organization [facility] [place] [address] Care Team Providers Care Casing Runner Name Role Phone Flavio Stubbs MD Primary Care Provider [phone] Reason for Visit * Diagnostic Test (Routine) - Closed Specialty Diagnoses / Procedures Referred By Alice ventura Referred To Contact Diagnoses Bilateral carotid artery stenosis Procedures Carotid Duplex, Bilateral Kathe Mahoney APRN [facility] [place] [address] [facility] Vascular Lab [address], [place] [address] Referral ID Status Reason Start Date Expiration Date V isits Requested Visits Authorized [id number] Closed Specialty Service Requested 12/05/2023 12/04/2024 1 1 Encounter Details Date Type Department Care Team (Late st Contact Info) Description 12/22/2023 2:00 PM EDT Tech [place] [address] Flaco Hines Bilateral carotid artery stenosis Social History Tobacco [...] 9:30 AM EDT Office [place] [address] Ash Christianson MD [facility] [place] [address] documented as of this encounter Procedures Procedure Name Priority Date/Time Associated Diagnosis Comments CAROTID DUPLEX, BILATERAL Routine 12/22/2023 1:55 PM EDT Bilateral carotid artery stenosis documented in this encounter Results * Carotid Duplex, Bilateral (12/22/2023 1:55 PM EDT) VB Text Report Department: Vascular Surgery Lab Patient: [id number] (VERONICA BOWMAN) CPT: 48951 Referring Physician: KATHE MAHONEY ?? Phone: Indications: [...] infarction documented in this encounter Care Teams Casing Runner Relationship Specialty Start Date End Date Flavio Stubbs MD [address] [place] [address] PCP - General Family Medicine 12/22/23 documented as of this encounter
--- OUTSIDE RECORDS SUMMARY | 2024-03-12 15:17 | XMS_ITS | Encounter Summary ---
Author Organization [facility] Address [address] [place] [address] Care Team Providers Care Reservoir Engineering Consultant Name Role Phone Gabi Aragon MD Unavailable [phone] Reason for Referral * Consult (Routine/Next Available) - Closed Specialty Diagnoses / Procedures Referred By Alice ventura Referred To Contact Endocrinology Diagnoses Type 2 diabetes mellitus with hyperglycemia, with long-term current use of insulin ([facility]) Gabi Aragon MD [address] [address] [facility] Endocrinology [address] [place] [address] Referral ID Status Reason Start Date Expiration Date V isits Requested Visits Authorized [id number] Closed Specialty Services Required 09/20/2022 1 1 Question Answer Reason for Request: hx of type 2 DM, on insulin, needs to stablish care with a provider closer to her place. so [place] is closer. * Consult (Routine/Next Available) - Closed Specialty Diagnoses / Procedures Referred By Alice ventura Referred To Contact Neurology Diagnoses Type 2 diabetes mellitus with hyperglycemia, with long-term current use of insulin ([facility]) Dyslipidemia Memory change Gabi Aragon MD [address] [facility] [address] [place] [address] [facility] Memory [facility] [address] [place] [id number] Referral ID Status Reason Start Date Expiration Date V isits Requested Visits Authorized [id number] Closed Specialty Services Required 09/20/2022 1 1 Question Answer Reason for Request: memory impairment Comments Hx of DM fairly controlled, forgetful of things, wonder if she has some demential vs ADD? I have scanned her clock for the MINI cog test. Reason for Visit * Reason Comments Diabetes Lipids, HTN Encounter Details Date Type Department Care Team (Late st Contact Info) Description 09/20/2022 13:00 EST Office Visit [facility] Endocrinology [address] [place] [address] Gabi Aragon MD [address] [facility] [address] [place] [address] Type 2 diabetes mellitus with hyperglycemia, with long-term current use of insulin ([facility]) (Primary Dx); Dyslipidemia; Memory change Social History Tobacco Use Types Packs/Day Years [...] Sign Reading Time Taken Comments Blood Pressure 134/64 09/20/2022 1249 EST Pulse 80 09/20/2022 1249 EST Temperature - - Respiratory Rate - - Oxygen Saturation - - Inhaled Oxygen Concentration - - Weight 85.7 kg (189 lb) 09/20/2022 1249 EST Height 167.6 cm (5' 6) 09/20/2022 1249 EST Body Mass Index 30.51 09/20/2022 1249 EST documented in this encounter Ordered Prescriptions Prescription Sig Dispensed Refills Start Date End Da te semaglutide (OZEMPIC) subcutaneous pen Inject 0.25 mg into the skin once a week. 3 mL 1 09/20/2022 09/21/2022 documented in this encounter Progress Notes * Nguyen Pond RN - 09/20/2022 1300 EST DMII Ordered lipid cmp micro A1c Message sent Letter mailed Results for orders placed or performed in visit on 09/20/22 POCT GLUCOSE, MANUAL ENTRY Result Value Ref Range Glucose, POC 217 (A) 70 - 100 mg/dL [facility] LAB POC COMMENT MANUAL (GLUCOSE) Tech ID * Gabi Smith MD - 09/20/2022 1300 EST Images from the original note were not included. 09/20/2022 FOLLOW-UP PATIENT: Veronica Marlow CHIEF COMPLAINT Diabetes (Lipids, HTN) HISTORY OF PRESENT ILLNESS Veronica Marlow is a very pleasant 72 y.o. female who presented today for follow up for type 2 DM. Last seen in Aug. She called Ramya at the end of Aug and had many questions. She got a DEXCOM and she did not feel was working good for her. She never got education, she refused it. She also has refused statin. Says has 2 sisters that have developed problems with statins. She is seeing a director gift. Says has noticed some high numbers. Boyfriend had surgery and she has felt a lot of stress. She is super concern about her health and she is worry about having heart attacks or strokes. Meds: Levemir 30 u a day before bedtime, humalog 1 unit for every 5 g of carbs with breakfast and dinner. She stopped metformin in May due to GI side effects. SMBG: checks 1-3 times a day, average 175 mg/dl. Today she missed her insulin dose before lunch. Lives with daughter. Boyfriend leaves close to her new property. Exercise: not much due to weather. Has not fallen since last visit. Last fall in September. 05/19/22: A1c 7.2% Did labs on 08/04/21: A1c 7%, negative microalbuminuria, LDL 149 mg/dl. Has had a fall few months ago, she felt in the bathroom. She says had an eye exam in Sep. Complications: denies FL, stroke, kidney disease I [...] u-100 insuln, levothyroxine, losartan, magnesium oxide, melatonin, metformin, NONFORMULARY, nystatin, omega- 3/dha/epa/dpa/fish oil, onetouch ultra bluetest strip, polyethylene glycol 3350, red yeast rice, ribonucleic acid (rna), saffron extract, triamcinolone, coenzyme q10, UNABLE TO FIND, UNABLE [...] issues DIAGNOSTIC DATA Prior labs Glucose readings Average 175 mg/dl, In am can be between 98 to 234 mg/dl, lunch 57 to 206, post dinner 47-333 mg/dl. VITALS height is 167.6 cm (66) and weight is 85.7 kg (189 lb). Her blood pressure is 134/64 and her pulseis 80. PHYSICAL EXAM Vitals [...] with long-term current use of insulin ([facility]) ([facility]) E11.65 250.00 Z79.4 790.29 V58.67 2. Dyslipidemia E78.5 272.4 3. Memory change R41.3 780.93 DM type 2 with mild hyperglycemia. A1c stable. Needs more education, this time she says she will make an apt to meet with educator. Needs to understand more about healthy choices, protein, carbs, needs to know when to check her blood sugars and the goals. I suggested to start ozempic 0.25 mg sc weekly, once she starts this, advise to lower Levemir to 25units a day and use Humalog 1:7 g of carbs. Side effects discussed. LDL not at goal, has refused statin. She will repeat lipid profile. Neurology consultation for memory impairment: Her clock was fairly good but the space between 8 and9 is incorrect. She was able to repeat 3 words and to remember those words. She feels distracted, I wonder if she has some ADD undiagnosed. Fall precautions. Return in 4 months, 45 [...] Description 04/13/2024 13:30 EDT Office Visit [facility] Endocrinology [address] [place] [address] Gabi Mcclure MD [address] [place] [address] Scheduled Referrals Name Type Priority Associated Diagnoses Order Schedule AMB CONS/FOLLOW UP NEUROLOGY Outpatient Referral Routine/Next Available Type 2 diabetes mellitus with hyperglycemia, with long-term current use of insulin ([facility]) Dyslipidemia Memory change Expected: 10/05/2022 (Approximate), Expires: 09/20/2023 AMB CONS/FOLLOW UP ENDOCRINOLOGY Outpatient Referral Routine/Next Available Type 2 diabetes mellitus with hyperglycemia, with long-term current use of insulin ([facility]) Expected: 10/18/2022 (Approximate), Expires: 09/20/2023 documented as of this encounter Procedures Procedure Name Priority Date/Time Associated Diagnosis Comments POCT GLUCOSE, MANUAL ENTRY Routine 09/20/2022 Type 2 diabetes mellitus with hyperglycemia, with long-term current use of insulin ([facility]) documented in this encounter Results * (ABNORMAL) POCT GLUCOSE, MANUAL ENTRY (09/20/2022) Glucose, POC 217(A) 70 - 100 mg/dL [facility] POINT OF CARE [facility] LAB POC COMMENT MANUAL (GLUCOSE) [facility] POINT OF cold storage supervisor ID [facility] POIN T OF CARE Blood CAPILLARY BLOOD / Unknown 09/20/2022 Gabi Aragon MD POINT OF CARE TEST O RDERABLES [facility] POINT OF CARE documented in this encounter Visit Diagnoses Diagnosis Type 2 diabetes mellitus with hyperglycemia, with long-term current use of insulin ([facility])- Primary Dyslipidemia Other and unspecified hyperlipidemia Memory change Memory loss documented in this encounter Discontinued Medications Medication Sig Discontinue Reason Start Date End Da te metFORMIN (GLUCOPHAGE) 1,000 mg tablet 1,000 mg 2 times daily with breakfast and dinner. Side effects 01/17/2020 09/20/2022 documented as of this encounter Care Teams Reservoir Engineering Consultant Relationship Specialty Start Date End Date Gabi Aragon MD [address] [place] [address] [address] [place] [address] Endocrinology, Diabetes and Metabolism 08/09/21 documented as of this encounter
--- OUTSIDE RECORDS SUMMARY | 2024-03-12 15:17 | XMS_ITS | Encounter Summary ---
Author Organization [facility] Address [address] [place] [address] Care Team Providers Care Lead Producer Name Role Phone Unknown, Provider Primary Care Provider [phone] Encounter Details Date Type Department Care Team (Late st Contact Info) Description 05/22/2018 Historical Results Only [facility] - Main [place] [address] [place] [address] Gabi Aragon MD [address] [place] [address]- [address] [place] [phone] Social History Tobacco Use Types Packs/Day Years Used Date Smoking Tobacco: Never Assessed Sex and Gender Information Value Date Recorded Sex Assigned at Female 07/15/2022 15:41 EST Gender Identity Female 05/07/2022 16:49 EDT Sexual Orientation Not on file documented as of this encounter Plan of Treatment Upcoming Encounters Date Type Department Care Team (Late st Contact Info) Description 04/13/2024 13:30 EDT Office Visit [facility] Endocrinology [address] [place], [place] [address] Gabi Mcclure MD [address] [place] [address] [place] [phone] documented as of this encounter Procedures Procedure Name Priority Date/Time Associated Diagnosis Comments VIT D, 25-HYDROXY - [facility] Routine 05/22/2018 9:15 EDT documented in this encounter Results * VIT D, 25-HYDROXY - [facility] (05/22/2018 9:15 EDT) VIT D, 25 HYDROXY - [facility] 70.2 30 - 100 ng/ml 05/22/2018 18:02 EDT [facility] Comment: ? 25-Hydroxy D Total (D2+D3) ?Expected Values Deficient: ?<20 ng/ml Insufficient: ? 20- <30 ng/ml Sufficient: ? 30-100 ng/ml Potential intoxication: >100 ng/ml 05/22/2018 9:15 EDT 05/22/2018 16:51 EDT Gabi Aragon MD CHEMISTRY & BLOOD GA S ORDERABLES [facility] documented in this encounter Visit Diagnoses Not on filedocumented in this encounter Care Teams Lead Producer Relationship Specialty Start Date End Date Unknown, Provider, PCP - General 09/27/16 04/06/22 documented as of this encounter
--- OUTSIDE RECORDS SUMMARY | 2024-03-12 15:17 | XMS_ITS | Encounter Summary ---
[place] [address] Care Team Providers Care Headstart Teacher Name Role Phone Unknown Primary Care Provider Unavailabl e Reason for Referral * Consultation (Routine) - Authorized Specialty Diagnoses / Procedures Referred By Alice ventura Referred To Contact Neurology Diagnoses Occlusion and stenosis of unspecified carotid artery Manjit Joel APRN [address] [place] [address] [facility] Neurology [address] [place] [phone] Referral ID Status Reason Start Date Expiration Date Visits Requested Visits Authorized [id number] Authorized Consult, Test & Treat 10/25/2023 10/24/2024 1 1 Encounter Details Date Type Department Care Team (Latest Contact Info) Description 10/25/2023 Transcribe Orders eDH Incoming Referrals [phone] Manjit Joel APRN [address] [place] [id number] Dizziness and giddiness Social History Tobacco Use Types Packs/Day Years [...] 9:30 AM EDT [place] [address] Ash Christianson MD [facility] [place] [address] Scheduled Referrals Name Type Priority Associated Diagnoses Orde r Schedule Referral to Neurology Outpatient Referral Urgent Dizziness and giddiness Ordered: 10/25/2023 documented as of this encounter Visit Diagnoses Diagnosis Dizziness and giddiness documented in this encounter Care Teams Headstart Teacher Relationship Specialty Start Date End Date Unknown None PCP - General 04/01/23 12/21/23 documented as of this encounter
--- OUTSIDE RECORDS SUMMARY | 2024-03-12 15:17 | XMS_ITS | Encounter Summary ---
Author Organization [facility] Address [address] [place] [address] Care Team Providers Care Enamel Dipper Name Role Phone Gabi Aragon MD Unavailable [phone] Reason for Referral * Consult (Routine/Next Available) - Specialty Report Received Specialty Diagnoses / Procedures [facility] Referred To Contact Neurology Diagnoses Memory impairment Gabi Aragon MD [address] [place] [phone] Neurology, [place] [address] Referral ID Status Reason Start Date Expiration Date Visits Requested Visits Authorized [id number] Specialty Report Received Specialty Services Required 10/25/2022 1 1 Question Answer Reason for Request: patient with hx of Diabetes fairl controlled who has noticed a decline in her memory, would like to be investigated for dementia Reason for Visit * Reason Onset Date Comments Provider Referred 10/25/2022 Would like us to send the referral from [facility] to [facility] in [facility]. They have sooner time table for scheduling Encounter Details Date Type Department Care Team (Late st Contact Info) Description 10/25/2022 Telephone [facility] Endocrinology [address] [place] [address] Gabi Aragon MD [address] [place], [place] [address] [address] [place] [address] Provider Referred (Would like us to send the referral from [facility] to [facility] in [facility]. They have sooner time table for scheduling) Social History Tobacco Use Types Packs/Day Years [...] Telephone Encounter - Gabi Smith MD - 10/25/2022 1223 EDT Yes, please send referral to [facility], I have created a new one. * Telephone Encounter - Luciana Ordaz - 10/25/2022 0953 EDT Patient called in to inform provider that the referral for Neurology at [facility] is booking out into January/March. They informed her that [facility] might be able to get her in sooner, when patient called them they informed her they are booking in December. Patient would appreciate if we can send that referral to [facility] in [facility], which would be closer for her since she is in [place]. Thanks documented in this encounter Plan of Treatment Upcoming Encounters Date Type Department Care Team (Late st Contact Info) Description 04/13/2024 13:30 EDT Office Visit [facility] Endocrinology [address] [place] [address] Gabi Mcclure MD [address] [place] [address] [place] [phone] Scheduled Referrals Name Type Priority Associated Diagnoses Order Schedule AMB CONS/FOLLOW UP NEUROLOGY Outpatient Referral Routine/Next Available Memory impairment Expected: 11/25/2022 (Approximate), Expires: 10/26/2023 documented as of this encounter Visit Diagnoses Diagnosis Memory impairment- Primary Memory loss documented in this encounter Care Teams Enamel Dipper Relationship Specialty Start Date End Date Gabi Aragon MD [address] [place] [phone] Endocrinology, Diabetes and Metabolism 08/09/21 documented as of this encounter
--- OUTSIDE RECORDS SUMMARY | 2024-03-12 15:17 | XMS_ITS | Encounter Summary ---
Author Organization [facility] Address [address] [place] [address] Care Team Providers Care Glass Unloading Equipment Tender Name Role Phone Gabi Aragon MD Unavailable [phone] Reason for Visit * Reason Onset Date Comments Diabetes 10/22/2022 Questions on Oze mpic and insulin together Encounter Details Date Type Department Care Team (Late st Contact Info) Description 10/22/2022 Telephone [facility] Endocrinology [address] [place] [address] Stephanie Cortez, RN [address] [place] [address] Diabetes (Questions on Ozempic and insulin together) Social History Tobacco Use Types Packs/Day Years [...] Telephone Encounter - Stephanie Cortez RN - 10/22/2022 1616 EDT Had already asked pharmacist . She asked several other questions. All set now documented in this encounter Plan of Treatment Upcoming Encounters Date Type Department Care Team (Late st Contact Info) Description 04/13/2024 13:30 EDT Office Visit [facility] Endocrinology [address] [place], [place] [address] Gabi Mcclure MD [address] [place] [phone] documented as of this encounter Visit Diagnoses Not on filedocumented in this encounter Care Teams Glass Unloading Equipment Tender Relationship Specialty Start Date End Date Gabi Aragon MD [address] [facility] [address] [place] [phone] Endocrinology, Diabetes and Metabolism 08/09/21 documented as of this encounter
--- OUTSIDE RECORDS SUMMARY | 2024-03-12 15:17 | XMS_ITS | Encounter Summary ---
[place] [address] Care Team Providers Care Caterpillar Mechanic Name Role Phone Dago Zarco MD Primary Care Provider [phone] Reason for Referral * Consultation (Routine) - Closed Specialty Diagnoses / Procedures Referred By Alice ventura Referred To Contact Neurology Diagnoses Memory loss Gabi Smith MD [address] [place] [address] [address] [place] [phone] [facility] Neu[facility] [address] [place] [phone] Referral ID Status Reason Start Date Expiration Date V isits Requested Visits Authorized [id number] Closed Consult, Test & Treat 10/26/2022 10/26/2023 1 1 Encounter Details Date Type Department Care Team (Latest Contact Info) Description 10/26/2022 Transcribe Orders eDH Incoming Referrals [phone] Gabi Smith MD [address] [place] [address] [address] [place] [phone] Memory loss (Primary Dx) Social History Tobacco Use Types [...] 9:30 AM EDT [place] [address] Ash Christianson MD [facility] [place] [address] Scheduled Referrals Name Type Priority Associated Diagnoses Orde r Schedule Referral to Neurology Outpatient Referral Routine Memory loss Ordered: 10/26/2022 documented as of this encounter Visit Diagnoses Diagnosis Memory loss- Primary documented in this encounter Care Teams Caterpillar Mechanic Relationship Specialty Start Date End Date Dago Zarco MD [address] [place] [phone] PCP - General Family Medicine 08/13/20 03/31/23 documented as of this encounter
--- OUTSIDE RECORDS SUMMARY | 2024-03-12 15:17 | XMS_ITS | Encounter Summary ---
Author Organization [facility] Address [address] [place] [address] Care Team Providers Care Games Dealer Name Role Phone Gabi Aragon MD Unavailable [phone] Reason for Visit * Reason Comments Diabetes Encounter Details Date Type Department Care Team (Late st Contact Info) Description 05/19/2022 9:30 EDT Office Visit [facility] Endocrinology [address] [place] [address] Gabi Aragon MD [address] [facility] [address] [place] [address] Type 2 diabetes mellitus with hyperglycemia, with long-term current use of insulin ([facility]) (Primary Dx); Dyslipidemia Social History Tobacco Use [...] Sign Reading Time Taken Comments Blood Pressure 144/76 05/19/2022 0926 EDT Pulse 80 05/19/2022 0926 EDT Temperature - - Respiratory Rate - - Oxygen Saturation - - Inhaled Oxygen Concentration - - Weight 86.2 kg (190 lb) 05/19/2022 0926 EDT Height 167.6 cm (5' 6) 05/19/2022925 EDT Body Mass Index 30.67 05/19/2022925 EDT documented in this encounter Progress Notes * Gabi Smith MD - 05/19/2022929 EDT 05/19/2022 FOLLOW-UP PATIENT: Veronica Marlow CHIEF COMPLAINT Diabetes HISTORY OF PRESENT ILLNESS Veronica Marlow is a very pleasant 71 y.o. female who presented today for follow up for type 2 DM. Last seen in Aug. Did not want to have an apt with Ramya for more education with DEXCOM and did not wan to use a statin. 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 Says has not been using DEXCOM because she says they did not send it. Says has been having memory problems. Has been using Noom for weight loss. Has lost about 10 lbs. Has checked fingersticks once to twice a week, runs between 100-164 mg/dl. Has not fallen more since last visit. 05/19/22: A1c 7.2%, random glucose 221 mg/dl. Had toast, and egg. She thinks she took 4 units. Did labs on 08/04/21: A1c 7%, negative microalbuminuria, LDL 149 mg/dl. Has had a fall few months ago, she felt in the bathroom. She says had an eye exam in Sep. She started walking 5 times a week. Meds: Levemir 30 u a day, humalog 1 unit for every 5 g of carbs. She stopped metformin 3-4 weeks ago, she says due to GI side effects. Lives with daughter. Boyfriend leaves close to her new property. Complications: denies [place], stroke, kidney disease I have reviewed patient's [...] cinnamon bark, cyanocobalamin, humalog u-100 insulin, insulin aspart u-100, insulin pen needles 31g x 3/16, insulin syringe-needle u-100, levemir flextouch u-100 insuln, levothyroxine, losartan, magnesium oxide, melatonin, metformin, NONFORMULARY, nystatin, onetouch ultra blue test strip, polyethylene glycol 3350, red yeast rice, ribonucleic acid (rna), triamcinolone, coenzyme q10, U NABLE TO FIND, and UNABLE TO FIND. ALLERGIES [...] issues DIAGNOSTIC DATA Prior labs Glucose readings VITALS height is 167.6 cm (66) and weight is 86.2 kg (190 lb). Her blood pressure is 144/76 (abnormal) and her pulse is 80. PHYSICAL EXAM Vitals reviewed.Vitals reviewed. Constitutional: [...] hyperglycemia, with long-term current use of insulin ([facility]) ([facility]) E11.65 250.00 Z79.4 790.29 V58.67 2. Dyslipidemia E78.5 272.4 DM type 2 with mild hyperglycemia. Not able to change doses as I do not have readings. Advise to restart DEXCOM. Has been seen a therapist, advise to continue. Advise to request a consult to Neurology to her PCP for possible dementia work up, if PCP is not able to refer to her hospital which is closer to [facility], I can do it in here. Does not want to use statin. Continue following healthy diet. Fall precautions. Return in 4 months, 45 min. Electronicaly signed by: Gabi [place] MD I spent a total of 40 minutes on the date of this encounter meeting with the patient and reviewing documentation/coordinating care as described in the above note. No procedures were performed at the time of the visit. * Nguyen Pond RN - 05/19/2022 0930 EDT Results for orders placed or performed in visit on 05/19/22 POCT GLUCOSE, MANUAL ENTRY Result Value Ref Range Glucose, POC 221 (A) 70 - 100 mg/dL [facility] POC COMMENT MANUAL (GLUCOSE) Tech ID POCT HEMOGLOBIN A1C Result Value Ref Range Hemoglobin A1c, POC 7.2 (A) 5.7 % documented in this encounter Plan of Treatment Upcoming Encounters Date Type Department Care Team (Late st Contact Info) Description 04/13/2024 13:30 EDT Office Visit [facility] Endocrinology [address] [place] [address] Gabi Mcclure MD [address] [place] [phone] documented as of this encounter Procedures Procedure Name Priority Date/Time Associated Diagnosis Comments POCT GLUCOSE, MANUAL ENTRY Routine 05/19/2022 Type 2 diabetes mellitus with hyperglycemia, with long-term current use of insulin ([facility]) POCT HEMOGLOBIN A1C Routine 05/19/2022 Type 2 diabetes mellitus with hyperglycemia, with long-term current use of insulin ([facility]) documented in this encounter Results * (ABNORMAL) POCT HEMOGLOBIN A1C (05/19/2022) Hemoglobin A1c, POC 7.2(A) 5.7 % [facility] POINT OF CARE Blood CAPILLARY BLOOD / Unknown 05/19/2022 Gabi Aragon MD POINT OF CARE TEST O ANDREIA [facility] POINT OF CARE * (ABNORMAL) POCT GLUCOSE, MANUAL ENTRY (05/19/2022) Glucose, POC 221(A) 70 - 100 mg/dL [facility] POINT OF CARE [facility] LAB POC COMMENT MANUAL (GLUCOSE) [facility] POINT OF caterer's aide ID [facility] POIN T OF CARE Blood CAPILLARY BLOOD / Unknown 05/19/2022 Gabi Aragon MD POINT OF CARE TEST O ANDREIA Performing Organization Address City/[facility]/ZIP Co de Phone Number [facility] POINT OF CARE documented in this encounter Visit Diagnoses Diagnosis Type 2 diabetes mellitus with hyperglycemia, with long-term current use of insulin ([facility])- Primary Dyslipidemia Other and unspecified hyperlipidemia documented in this encounter Discontinued Medications Medication Sig Discontinue Reason Start Date End Da te insulin aspart U-100 (NOVOLOG) 100 unit/mL injection 0-24 units subcutaneously per sliding scale 3 times daily with meals-in place of humalog per ins. Alternate therapy 04/22/2020 05/19/2022 documented as of this encounter Historical Medications * This list may reflect changes made after this encounter. Medication Sig Dispensed Refills Start Date End Date insulin pen needles 31G x 3/16 BD Ultra-Fine Mini Pen Needle 31 gauge x 3/16 USE ONCE DAILY DIRECTED blood glucose test strips OneTouch Ultra Test strips nystatin (MYCOSTATIN) cream 05/17/2022 triamcinolone (KENALOG) 0.1 % cream triamcinolone acetonide 0.1 % topical cream APPLY THIN LAYER TOPICALLY TO THE AFFECTED AREA TWICE DAILY added in this encounter Care Teams Games Dealer Relationship Specialty Start Date End Date Gabi Aragon MD [address] [place] [address] [address] [place] [phone] Endocrinology, Diabetes and Metabolism 08/09/21 documented as of this encounter
--- OUTSIDE RECORDS SUMMARY | 2024-03-12 15:17 | XMS_ITS | Encounter Summary ---
Author Organization [facility] Address [address] [place] [address] Care Team Providers Care Embroidery Assistant Name Role Phone Unknown, Provider Primary Care Provider [phone] Gabi Aragon MD Unavailable [phone] Reason for Visit * Reason Onset Date Comments Medication Problem 09/18/2021 Encounter Details Date Type Department Care Team (Late st Contact Info) Description 09/18/2021 Telephone [facility] [place] [address] [place], [place] [phone] Gabi Aragon MD [address] [facility] [address] [place] [phone] Medication Problem Social History Tobacco Use Types [...] Telephone Encounter - Ange Saunders RN - 09/21/2021 4291 EST Pt. Given this information, has no questions Pt on way to pcp's for another reason will discuss this with them * Telephone Encounter - Gabi Smith MD - 09/18/2021 1616 EST Her insulin will not cause any liver issues, but [facility] I suggest to have a hospital follow up with PCP. * Telephone Encounter - Ange Saunders RN - 09/18/2021 1406 EST Pt saw her accupunturist who said all of her aches and issues are probably because of something wrong with her liver and told the pt to call here to see if the medications are bad for her liver- she didn't take her long acting insulin last night (forgot) and bg was normal this am. -- advised that Iwould put this message out to you to see if you wanted some lab work but she needs to to taker her insulin and keep her blood sugar under control- its the best thing she can do for her liver - any thoghts ? * Telephone Encounter - Felicita Henriquez - 09/18/2021 1347 EST Patient left message that she was just started on a new med and is having issues with her blood sugar, would like someone to call her documented in this encounter Plan of Treatment Upcoming Encounters Date Type Department Care Team (Late st Contact Info) Description 04/13/2024 13:30 EDT Office Visit [facility] Endocrinology [address] [place], [place] [address] Gabi Mcclure MD [address] [place] [phone] documented as of this encounter Visit Diagnoses Not on filedocumented in this encounter Discontinued Medications Medication Sig Discontinue Reason Start Date End Da te LANTUS U-100 INSULIN 100 unit/mL injection 24 Units at bedtime. Abstraction 08/05/2020 09/18/2021 documented as of this encounter Historical Medications * This list may reflect changes made after this encounter. Medication Sig Dispensed Refills Start Date End Date HUMALOG U-100 INSULIN 100 unit/mL vial Sliding scale 08/24/2021 added in this encounter Care Teams Embroidery Assistant Relationship Specialty Start Date End Date Unknown, Provider, PCP - General 09/27/16 04/06/22 Gabi Aragon MD [address] [place] [phone] Endocrinology, Diabetes and Metabolism 08/09/21 documented as of this encounter
--- OUTSIDE RECORDS SUMMARY | 2024-03-12 15:17 | XMS_ITS | Encounter Summary ---
Author Organization [facility] Address [address] [place] [address] Care Team Providers Care Tank Carpenter Name Role Phone Unknown, Provider Primary Care Provider [phone] Reason for Visit * Reason Onset Date Comments Prior Auth, Medication 05/06/2021 Encounter Details Date Type Department Care Team (Late st Contact Info) Description 05/06/2021 Telephone [facility] Endocrinology [address] [place] [address] Nguyen Pond RN Prior Auth, Medication Social History Tobacco [...] encounter Miscellaneous Notes * Telephone Encounter - Feilcita Hneriquez - 05/06/2021 1509 EDT Left message for patient to call back to schedule dexcom training with Ramya * Telephone Encounter - Nguyen Pond RN - 05/06/2021 4369 EDT Patient received approval thru [employer] for a Dexcom sensor and underwear cutter. Approval scanned into the system.Message sent to Ramya for teaching. documented in this encounter Plan of Treatment Upcoming Encounters Date Type Department Care Team (Late st Contact Info) Description 04/13/2024 13:30 EDT Office Visit [facility] Endocrinology [address] [place] [address] Gabi Mcclure MD [address] [place] [phone] documented as of this encounter Visit Diagnoses Not on filedocumented in this encounter Care Teams Tank Carpenter Relationship Specialty Start Date End Date Unknown, Provider, PCP - General 09/27/16 04/06/22 documented as of this encounter
--- OUTSIDE RECORDS SUMMARY | 2024-03-12 15:17 | XMS_ITS | Encounter Summary ---
Author Organization [facility] Address [address] [place] [address] Care Team Providers Care Nurse Midwife Name Role Phone Unknown, Provider Primary Care Provider [phone] Reason for Visit * Reason Onset Date Comments Medications Refill 04/14/2020 Encounter Details Date Type Department Care Team (Late st Contact Info) Description 04/14/2020 Refill [facility] Endocr[place]ology [address] [place] [address] Stephanie Cortez, LUDWIN [address] [place] [address] Medications Refill Social History Tobacco Use Types [...] lispro (HUMALOG U-100 INSULIN) 100 unit/mL vial 0-20 units subcutaneously 3 times daily per sliding scale e11.9 6 Vial 3 04/14/2020 04/17/2020 documented in this encounter Miscellaneous Notes * Telephone Encounter - Stephanie Cortez, LUDWIN - 04/14/2020 0834 EDT Prescription faxed to pharmacy per order Dr Aragon documented in this encounter Plan of Treatment Upcoming Encounters Date Type Department Care Team (Late st Contact Info) Description 04/13/2024 13:[address] [facility] Endocrinology [address] [place] [address] Gabi Mcclure MD [address] [place] [phone] documented as of this encounter Visit Diagnoses Not on filedocumented in this encounter Discontinued Medications Medication Sig Discontinue Reason Start Date End Da te insulin lispro (HUMALOG U-100 INSULIN) 100 unit/mL vial 0-10 units subcutaneously 3 times daily per sliding scale Reorder 10/15/2019 04/14/2020 documented as of this encounter Care Teams Nurse Midwife Relationship Specialty Start Date End Date Unknown, Provider, PCP - General 09/27/16 04/06/22 documented as of this encounter
--- OUTSIDE RECORDS SUMMARY | 2024-03-12 15:17 | XMS_ITS | Encounter Summary ---
[place] [address] Care Team Providers Care Mines Inspector Name Role Phone Unknown Primary Care Provider Unavailabl e Reason for Referral * Consultation (Routine) - Closed Specialty Diagnoses / Procedures Referred By Alice ventura Referred To Contact Vascular Surgery Diagnoses Transient cerebral ischemia, unspecified type NEED ORDER AND CT IMAGES PUSHED ROUTINE, MD/CARSON, B CAR Manjit Montgomery, CHANNELING MACHINE RUNNER [address] [place] [address] [facility] [address] [place] [address] Referral ID Status Reason Start Date Expiration Date V isits Requested Visits Authorized [id number] Closed Consult, Test & Treat 11/21/2023 11/20/2024 1 1 Encounter Details Date Type Department Care Team (Latest Contact Info) Description 11/21/2023 Transcribe Orders eDH Incoming Referrals [phone] Manjit Joel, CHANNELING MACHINE RUNNER [address] [place], [place] [phone] Transient cerebral ischemia, unspecified type Social History Tobacco Use Types Packs/Day Years [...] 9:30 AM EDT [place] [address] Ash Christianson MD [facility] [place] [address] Scheduled Referrals Name Type Priority Associated Diagnoses Orde r Schedule Referral to Vascular Surgery Outpatient Referral Routine Transient cerebral ischemia, unspecified type Ordered: 11/21/2023 documented as of this encounter Visit Diagnoses Diagnosis Transient cerebral ischemia, unspecified type documented in this encounter Care Teams Mines Inspector Relationship Specialty Start Date End Date Unknown None PCP - General 04/01/23 12/21/23 documented as of this encounter
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
--- OUTSIDE RECORDS SUMMARY | 2024-03-12 15:17 | XMS_ITS | Encounter Summary ---
Author Organization [facility] Address [address] [place] [address] Care Team Providers Care Curriculum And Assessment Coordinator Name Role Phone Gabi Aragon MD Unavailable None, Provider Primary Care Provider Flavio Rosen Primary Care Provider [phone] Reason for Visit * Reason Onset Date Comments Diabetes 07/02/2022 Dexcom discrepan cy Encounter Details Date Type Department Care Team (Late st Contact Info) Description 07/02/2022 Telephone [facility] [place] [address] [place], [place] [phone] Stephanie Cortez, RN [address] [place], [place] [phone] Diabetes (Dexcom discrepancy/) Social History Tobacco Use Types Packs/Day Years [...] Telephone Encounter - Stephanie Cortez, LUDWIN - 07/02/2022 1631 EST She called me and we were in discussion when another call came in and she told me it was her doctor, she would call me back. * Telephone Encounter - Stephanie Cortez RN - 07/02/2022 1500 EST She will call me back in about an hour. documented in this encounter Plan of Treatment Upcoming Encounters Date Type Department Care Team (Late st Contact Info) Description 04/13/2024 13:[address] [facility] Endocrinology [address] [place], [place] [address] Gabi Mcclure MD [address] [place] [address] [place] [phone] documented as of this encounter Visit Diagnoses Not on filedocumented in this encounter Care Teams Curriculum And Assessment Coordinator Relationship Specialty Start Date End Date None, Provider PCP - General 05/12/23 12/11/23 Flavio Stubbs [address] [address] PCP - General 12/12/23 Gabi Aragon MD [address] [facility] [address] [place] [phone] Endocrinology, Diabetes and Metabolism 08/09/21 documented as of this encounter
--- OUTSIDE RECORDS SUMMARY | 2024-03-12 15:17 | XMS_ITS | Encounter Summary ---
Author Organization [facility] Address [address] [place] [address] Care Team Providers Care Fuel Island Attendant Name Role Phone Unknown, Provider Primary Care Provider [phone] Reason for Visit * Reason Onset Date Comments Medications Refill 04/17/2020 Encounter Details Date Type Department Care Team (Late st Contact Info) Description 04/17/2020 Refill [facility] [place] [address] [place] [address] Ange Saunders, RN Medications Refill Social History Tobacco Use [...] 3 times daily per sliding scale e11.9 7 Vial 3 04/17/2020 04/22/2020 documented in this encounter Miscellaneous Notes * Telephone Encounter - Ange Saunders RN - 04/17/2020 1343 EDT Pt has questions about taking metformin, states she keeps reading that its bad for people to take ait can cause [facility] liver and kidney problems-- assured that its a safe drug unless you already have those underlying conditions-- would like to discuss further-- also states that her humalog was called in incorrectly-- is taking 1 unit per each card--total daily dose around 60 units-- last notestates she's on a sliding scale 0-10 units tid-- rx updated, states her sugars are doing well Call transferred to front to make appt documented in this encounter Plan of Treatment Upcoming Encounters Date Type Department Care Team (Late st Contact Info) Description 04/13/2024 13:30 EDT Office Visit [facility] Endocrinology [address] [place] [address] Gabi Mcclure MD [address] [place] [phone] documented as of this encounter Visit Diagnoses Not on filedocumented in this encounter Discontinued Medications Medication Sig Discontinue Reason Start Date End Da te metFORMIN (GLUCOPHAGE) 500 mg tablet 2 tab(s) orally 2 times a day Abstraction 08/17/2018 04/17/2020 insulin lispro (HUMALOG U-100 INSULIN) 100 unit/mL vial 0-20 units subcutaneously 3 times daily per sliding scale e11.9 Reorder 04/14/2020 04/17/2020 documented as of this encounter Historical Medications * This list may reflect changes made after this encounter. Medication Sig Dispensed Refills Start Date End Date metFORMIN (GLUCOPHAGE) 1,000 mg tablet 1,000 mg 2 times daily with breakfast and dinner. 01/17/2020 09/20/2022 added in this encounter Care Teams Fuel Island Attendant Relationship Specialty Start Date End Date Unknown, Provider, PCP - General 09/27/16 04/06/22 documented as of this encounter
--- OUTSIDE RECORDS SUMMARY | 2024-03-12 15:17 | XMS_ITS | Encounter Summary ---
Author Organization [facility] Address [address] [place] [address] Care Team Providers Care Outbound Sales Specialist Name Role Phone Gabi Aragon MD Unavailable [phone] Reason for Visit * Reason Onset Date Comments Diabetes 08/13/2022 Questions Encounter Details Date Type Department Care Team (Late st Contact Info) Description 08/13/2022 Telephone [facility] [place] [address] [place], [place] [phone] Stephanie Cortez, RN [address] [place] [address] Diabetes (Questions) Social History Tobacco Use Types Packs/Day Years [...] encounter Miscellaneous Notes * Telephone Encounter - Felicita Henriquez - 08/13/2022 1404 EST Left message * Telephone Encounter - Stephanie Cortez RN - 08/13/2022 1345 EST Could you call her and schedule a visit please? Zoom is okay I just feel she has enough questions that she is warranted more than a phone call. A 1 hour visit would be great. Thank you! documented in this encounter Plan of Treatment Upcoming Encounters Date Type Department Care Team (Late st Contact Info) Description 04/13/2024 13:30 EDT Office Visit [facility] Endocrinology [address] [place] [address] Gabi Mcclure MD [address] [place] [address] [address] [place] [phone] documented as of this encounter Visit Diagnoses Not on filedocumented in this encounter Care Teams Outbound Sales Specialist Relationship Specialty Start Date End Date Gabi Aragon MD [address] [facility] [address] [place] [phone] Endocrinology, Diabetes and Metabolism 08/09/21 documented as of this encounter
--- OUTSIDE RECORDS SUMMARY | 2024-03-12 15:17 | XMS_ITS | Encounter Summary ---
Author Organization [facility] Address [address] [place] [address] Care Team Providers Care Hoe Runner Name Role Phone Gabi Aragon MD Unavailable [phone] None, Provider Primary Care Provider Flavio Rosen Primary Care Provider [phone] Reason for Visit * Reason Onset Date Comments Diabetes 10/26/2022 Would like an Ap pointement for November 02 when she is over this way anyway. Encounter Details Date Type Department Care Team (Late st Contact Info) Description 10/26/2022 Telephone [facility] Endocrinology [address] [place], [place] [address] Stephanie Cortez, LUDWIN [address] [place] [address] Diabetes (Would like an Appointement for November 02 when she is over this way anyway.) Social History Tobacco Use Types Packs/Day Years [...] * Telephone Encounter - Felicita Henriquez - 10/26/2022 1400 EDT Spoke with patient, she will call back to schedule. * Telephone Encounter - Stephanie Cortez RN - 10/26/2022 1352 EDT Please schedule her, thank you. documented in this encounter Plan of Treatment Upcoming Encounters Date Type Department Care Team (Late st Contact Info) Description 04/13/2024 13:30 EDT Office Visit [facility] Endocrinology [address] [place], [place] [phone] Gabi Mcclure MD [address] [place] [address] [place] [phone] documented as of this encounter Visit Diagnoses Not on filedocumented in this encounter Care Teams Hoe Runner Relationship Specialty Start Date End Date None, Provider PCP - General 05/12/23 12/11/[address] [id number] PCP - General 12/12/23 Gabi Aragon MD [address] [facility] [address] [place] [phone] Endocrinology, Diabetes and Metabolism 08/09/21 documented as of this encounter
--- OUTSIDE RECORDS SUMMARY | 2024-03-12 15:17 | XMS_ITS | Encounter Summary ---
Author Organization [facility] Address [address] [place] [address] Care Team Providers Care Igniter Assembler Name Role Phone Gabi Aragon MD Unavailable [phone] Reason for Visit * Reason Onset Date Comments Diabetes 08/12/2022 Encounter Details Date Type Department Care Team (Late st Contact Info) Description 08/12/2022 Telephone [facility] [place] [address] [place], [place] [phone] Nguyen Pond RN Diabetes Social History Tobacco Use Types Packs/Day [...] * Telephone Encounter - Felicita Henriquez - 08/25/2022 1120 EST Left another message asking patient to call to schedule an appt with padmini * Telephone Encounter - Felicita Henriquez - 08/18/2022 1007 EST LEFT 2ND MESSAGE FOR PATIENT TO CALL BACK TO SCHEDULE AN APPT WITH PADMINI * Telephone Encounter - Stephanie Cortez RN - 08/18/2022 0936 EST She has enough questions that this may be better served as a visit. Zoom if that is what works. I just need to allot more time than a phone call. * Telephone Encounter - Nguyen Pond RN - 08/12/2022 1352 EST Patient called with questions about diabetes and fatty liver disease. Message sent to Padmini. documented in this encounter Plan of Treatment Upcoming Encounters Date Type Department Care Team (Late st Contact Info) Description 04/13/2024 13:30 EDT [facility] Endocrinology [address] [place], [place] [address] Gabi Mcclure MD [address] [place] [address] [place] [phone] documented as of this encounter Visit Diagnoses Not on filedocumented in this encounter Care Teams Igniter Assembler Relationship Specialty Start Date End Date Gabi Aragon MD [address] [facility]- [address] [place] [phone] Endocrinology, Diabetes and Metabolism 08/09/21 documented as of this encounter
--- OUTSIDE RECORDS SUMMARY | 2024-03-12 15:17 | XMS_ITS | Encounter Summary ---
Author Organization [facility] Address [address] [place] [address] Care Team Providers Care Heat And Frost Insulator Name Role Phone Gabi Aragon MD Unavailable Reason for Visit * Reason Onset Date Comments Medications Refill 10/05/2022 Encounter Details Date Type Department Care Team (Late st Contact Info) Description 10/05/2022 Refill [facility] Endocrinology [address] [place] [phone] Ange Saunders RN Medications Refill Social History [...] once a week. 3 mL 1 10/05/2022 documented in this encounter Plan of Treatment Upcoming Encounters Date Type Department Care Team (Late st Contact Info) Description 04/13/2024 13:30 EDT Office Visit [facility] Endocrinology [address] [place] [address] Gabi Mcclure MD [address] [place] [phone] documented as of this encounter Visit Diagnoses Not on filedocumented in this encounter Discontinued Medications Medication Sig Discontinue Reason Start Date End Da te semaglutide (OZEMPIC) subcutaneous pen Inject 0.25 mg into the skin once a week. Reorder 09/21/2022 10/05/2022 documented as of this encounter Care Teams Heat And Frost Insulator Relationship Specialty Start Date End Date Gabi Aragon MD [address] [place] [phone] Endocrinology, Diabetes and Metabolism 08/09/21 documented as of this encounter
--- OUTSIDE RECORDS SUMMARY | 2024-03-12 15:17 | XMS_ITS | Encounter Summary ---
Author Organization [facility] Address [address] [place] [address] Care Team Providers Care Installation Drafter Name Role Phone Gabi Allen MD Unavailable [phone] None, Provider Primary Care Provider Flavio Rosen Primary Care Provider [phone] Reason for Visit * Reason Onset Date Comments Labs Only 01/20/2023 Encounter Details Date Type Department Care Team (Late st Contact Info) Description 01/20/2023 Telephone [facility] Neurosurgery - [place] [address] [place], [place] [address] Gabi Allen MD [address] [place] [address] [place] [phone] Labs Only Social History Tobacco Use Types Packs/Day Years [...] encounter Miscellaneous Notes * Telephone Encounter - Danay Sheridan - 01/20/2023 5364 EDT PAS Message: Veronica woodward was calling in regards to having some labwork ordered before her appt on 01/[address] allen documented in this encounter Plan of Treatment Upcoming Encounters Date Type Department Care Team (Late st Contact Info) Description 04/13/2024 13:30 EDT Office Visit [facility] Endocrinology [address] [place] [address] Gabi Mcclure MD [address] [place] [address] [place] [phone] documented as of this encounter Visit Diagnoses Not on filedocumented in this encounter Care Teams Installation Drafter Relationship Specialty Start Date End Date None, Provider PCP - General 05/12/23 12/11/23 Flavio Stubbs [address] [place] [phone] PCP - General 12/12/23 Gabi Allen MD [address] [facility]- [address] [place] [phone] Endocrinology, Diabetes and Metabolism 08/09/21 documented as of this encounter
--- OUTSIDE RECORDS SUMMARY | 2024-03-12 15:18 | XMS_ITS | Encounter Summary ---
Author [place] [address] Care Team Providers Care Cost Control Analyst Name Role Phone Dago Zarco MD Primary Care Provider [phone] Reason for Referral * Diagnostic Test (Routine) - Closed Specialty Diagnoses / Procedures Referred By Contac t Referred To Contact Radiology Diagnoses Right shoulder pain, unspecified chronicity Procedures US Extremity Non Vascular Complete Right Luciana Summers PA [address] [place] [address] [address] [place] [address] [facility] [place] [address] Referral ID Status Reason Start Date Expiration Date V isits Requested Visits Authorized [id number] Closed Specialty Service Requested 03/05/2021 09/05/2022 1 1 Reason for Visit * Diagnostic Test (Routine) - Closed Specialty Diagnoses / Procedures Referred By Contac t Referred To Contact Radiology Diagnoses Right shoulder pain, unspecified chronicity Procedures US Extremity Non Vascular Complete Right Luciana Summers PA [address] [facility] [address] [place] [address] [facility] [place] [address] Referral ID Status Reason Start Date Expiration Date V isits Requested Visits Authorized [id number] Closed Specialty Service Requested 03/05/2021 09/05/2022 1 1 Encounter Details Date Type Department Care Team (Latest Contact Info) Description 03/17/2021 12:41 PM EDT - 03/17/2021 11:59 PM EDT Hospital Encounter [place] [phone] Luciana Summers PA [address] [place] [address] Dr [address] [place] [phone] Right shoulder pain, unspecified chronicity Discharge Disposition: Home Social History Tobacco Use Types Packs/Day Years Used Date Smoking Tobacco: Never Assessed Sex and Gender Information Value Date Recorded Sex Assigned at Not on file Gender Identity Not on file Sexual Orientation Not on file documented as of this encounter Medications at Time of Discharge Medication Sig Dispensed Refills Start Date End Date levothyroxine (Synthroid) 125 mcg tablet levothyroxine 125 mcg tablet 03/17/2018 OneTouch Ultra Test Strip 07/22/2020 documented as of this encounter Plan of Treatment Upcoming Encounters Date Type Department Care Team (Late st Contact Info) Description 04/03/2024 9:30 AM EDT Office [place] [address] Ash Christianson MD [facility] [place] [address] documented as of this encounter Procedures Procedure Name Priority Date/Time Associated Diagnosis Comments US EXTREMITY COMPLETE RIGHT NON VASCULAR Routine 03/17/2021 1:38 PM EDT Right shoulder pain, unspecified chronicity documented in this encounter Results * US Extremity Non Vascular Complete Right (03/17/2021 1:38 PM EDT) Anatomical Region Laterality Modality Arm, Shoulder, Elbow, Forear m, Wrist, Hand, Hip, Thigh, Knee, Leg, Ankle, Foot Right Ultrasound Impressions 03/17/2021 5:08 PM EDT EXAMINATION: US EXTREMITY NON VASCULAR COMPLETE RIGHT CLINICAL HISTORY: PAIN IN RIGHT SHOULDER; TO ASSESS ROTATOR CUFF, , entered by ordering service COMPARISON: None TECHNIQUE: Routine MRI of the Right shoulder was performed. FINDINGS: ROTATOR CUFF: No full-thickness cuff tear. Supraspinatus: Diffusely thick tendon with loss of normal echo pattern represents tendinopathy. Infraspinatus: Tendinopathy Subscapularis: Tendinopathy Long head of biceps tendon: No tear Glenohumeral joint No effusion Labrum: Not optimally seen Rotator Interval: Intact ligaments with preserved surrounding fat signal. Acromioclavicular joint: Normal alignment. There is capsular thickening. IMPRESSION: No full-thickness cuff tear. Rotator cuff tendinopathy with thickened supraspinatus, infraspinatus and subscapular tendons. Thank you for letting us participate in the care of this patient. ??If you are a health care provider and have any questions regarding this report, please contact the number below. ??For patients who have questions please contact the health laboratory animal care veterinarian that requested your imaging first. ? Electronically signed by: Anahi Liu MD, [facility] ([phone]), at 03/17/2021 5:08 PM Narrative 03/17/2021 5:08 PM EDT EXAMINATION: US EXTREMITY NON VASCULAR COMPLETE RIGHT CLINICAL HISTORY: PAIN IN RIGHT SHOULDER; TO ASSESS ROTATOR CUFF TECHNIQUE: COMPARISON: None FINDINGS: Procedure Note Anahi Liu MD - 03/17/2021 EXAMINATION: US EXTREMITY NON VASCULAR COMPLETE RIGHT CLINICAL HISTORY: PAIN IN RIGHT SHOULDER; TO ASSESS ROTATOR CUFF TECHNIQUE: COMPARISON: None FINDINGS: IMPRESSION EXAMINATION: US EXTREMITY NON VASCULAR COMPLETE RIGHT CLINICAL HISTORY: PAIN IN RIGHT SHOULDER; TO ASSESS ROTATOR CUFF, ,entered by ordering service COMPARISON: None TECHNIQUE: Routine MRI of the Right shoulder was performed. FINDINGS: ROTATOR CUFF: No full-thickness cuff tear. Supraspinatus: Diffusely thick tendon with loss of normal echo pattern represents tendinopathy. Infraspinatus: Tendinopathy Subscapularis: Tendinopathy Long head of biceps tendon: No tear Glenohumeral joint No effusion Labrum: Not optimally seen Rotator Interval: Intact ligaments with preserved surrounding fatsignal. Acromioclavicular joint: Normal alignment. There is capsular thickening. IMPRESSION: No full-thickness cuff tear. Rotator cuff tendinopathy with thickened supraspinatus, infraspinatusand subscapular tendons. Thank you for letting us participate in the care of this patient. If youare a health care provider and have any questions regarding this report,please contact the number below. For patients who have questions please contactthe health laboratory animal care veterinarian that requested your imaging first. Electronically signed by: Anahi Liu MD, [facility]([phone]), at 03/17/2021 5:08 PM Luciana PHILLIPS IMG US GEN ORDERABLE S documented in this encounter Visit Diagnoses Diagnosis Right shoulder pain, unspecified chronicity documented in this encounter Care Teams Cost Control Analyst Relationship Specialty Start Date End Date Dago Zarco MD [address] [place] [phone] PCP - General Family Medicine 08/13/20 03/31/23 documented as of this encounter
== END 2024-03-12 15:21 ==
PROVIDERS: PCP Family Medicine; Visit Provider Podiatrist
DX: M79.672 Pain in left foot (principal); S92.402A Displaced unspecified fracture of left great toe, initial encounter for closed fracture; M67.874 Other specified disorders of tendon, left ankle and foot; M77.52 Other enthesopathy of left foot and ankle
CPT/HCPCS: 73630

== ENCOUNTER 2024-04-05 02:43 | Outpatient (CLI) | payer MEDICARE, SELFPAY ==
--- NOTE | 2024-04-05 13:57 | DI.RAD_ITS ---
Exam(s) XR FOOT LT COMPLETE EXAM: XR FOOT LT COMPLETE CLINICAL HISTORY: LT FOOT PAIN, M79.672,COMPARISON. TECHNIQUE: 2D digital imaging was performed. COMPARISON: CR XR FOOT LT COMPLETE from 03/12/2024 FINDINGS: 3 views Chronic healed fracture deformity of the proximal phalanx of the 2nd toe is again noted. No acute fr acture at this level. Lisfranc joint appears unremarkable. The previously described abnormality at the level the great toe metatarsophalangeal joint is again no chanell. There is advanced narrowing of the joint space at this level and there are degenerative subarti cular cysts on both sides of the joint. There is an osteophytic density again noted projecting off t he dorso medial aspect of the joint as seen on the oblique and lateral views, unchanged. There is a E corticated 6 by 2.5 mm calcific density seen off the lateral aspect of this articulation, previousl y partially hidden by the more lateral the 2 subjacent hallux sesamoid bones. There is no obvious radiographic evidence of osteomyelitis at this level. There is no radiopaque for eign body. No obvious overlying skin ulcer. IMPRESSION: Stable appearance of the previously described findings at the great toe metatarsophalangeal joint whi ch are most probably related to advanced osteoarthritic degenerative change. There are no obvious er osions at this level. Dorsally located calcific density appears unchanged. Chronic healed fracture deformity of the proximal phalanx of the 2nd toe again noted. DATA REPOSITORY: RADIATION DOSE DELIVERED:
== END 2024-04-05 03:03 ==
LOC: DI 02:43
PROVIDERS: PCP Family Medicine; Visit Provider Podiatrist
DX: M19.072 Primary osteoarthritis, left ankle and foot (principal)
CPT/HCPCS: 73630

== ENCOUNTER 2024-04-05 15:31 | Outpatient (CLI) | payer MEDICARE, SELFPAY ==
--- OUTSIDE RECORDS SUMMARY | 2024-04-05 15:35 | XMS_ITS | Continuity of Care Document ---
Author Organization [facility] Address [address] [place] [address] Encounter [id number] Date(s): 01/21/23 - 01/21/23 [facility] [address] [place] [address] Discharge Disposition: Home or Self Care Attending Physician: Gabi Washington MD Admitting Physician: Gabi Washington MD Referring Physician: Gabi Washington MD Allergies, Adverse Reactions, Alerts Substance Reaction [...] Start Date: 05/31/22 Status: Ordered Dexcom G4 Superintendent Mechanical Dexcom 6, Supply, 1 EA, N/A, As [...] Service ) Start Date: 01/14/23 Status: Ordered Levemir FlexTouch 100 units/mL subcutaneous solution 30 units =, Subcutaneous, Daily, start 10 u daily&titrate to FBS>80&<120 max dose of 50 u daily, # 15 mL, 11 Refill(s), Pharmacy: [facility] ([facility] ) Start Date: 01/17/23 Stop Date: 01/12/24 Status: Ordered levothyroxine 125 mcg (0.125 mg) [...] g, 11 Refill(s), Pharmacy: [facility] ([facility]) Start Date: 05/31/22 Stop Date: 05/26/23 Status: Ordered Onetouch ultra glucometer Onetouch ultra glucometer, pt tests 4 times daily E11.9, Supply, See instructions, # 1 EA, 0 Refill(s), Pharmacy: [id number] Start Date: 07/29/22 Status: Ordered OneTouch Ultra In Vitro Strip OneTouch Ultra In Vitro Strip, See Instructions, USE 1 STRIP 4 TIMES DAILY, # 400 strip, 3 Refill(s), Pharmacy: [facility] ([facility]) Start Date: 05/20/22 Status: Ordered [...] eye surgery Results Laboratory List Name Date Comprehensive Metabolic Panel 01/21/23 Hemoglobin A1c 01/21/23 Lipid Panel 01/21/23 Microalbumin/Creatinine Ratio Urine 01/21 Most recent to oldest [Reference Range]: 1 BUN [7-18 mg/dL] 20 mg/dL *HI* (01/21/23 3:14 PM) Cholesterol Total [50-200 mg/dL] 210 mg/ dL *HI* (01/21/23 3:14 PM) LDL [0-130 mg/dL] 126 mg/dL (01/21/23 3:14 PM) Glucose Level [74-106 mg/dL] 233 mg/dL *HI* (01/21/23 3:14 PM) Potassium Level [3.5-5.1 mmol/L] 3.6 mmo l/L (01/21/23 3:14 PM) HDL [40-60 mg/dL] 48 mg/dL (01/21/23 3:14 PM) AST [15-37 unit/L] 13 unit/L *LOW* (01/21/23 3:14 PM) ALT [14-59 unit/L] 22 unit/L (01/21/23 3:14 PM) Sodium Level [136-145 mmol/L] 142 mmol/L (01/21/23 3:14 PM) Triglycerides [0-150 mg/dL] 180 mg/dL *HI* (01/21/23 3:14 PM) Calcium Level [8.5-10.1 mg/dL] 8.9 mg/dL (01/21/23 3:14 PM) Albumin Level [3.4-5.0 g/dL] 3.5 g/dL (01/21/23 3:14 PM) Protein Total [6.4-8.2 g/dL] 7.4 g/dL (01/21/23 3:14 PM) Bilirubin Total [0.2-1.0 mg/dL] 0.2 mg/d L (01/21/23 3:14 PM) Alk Phos [46-146 unit/L] 84 unit/L (01/21/23 3:14 PM) CO2 [21-32 mmol/L] 27 mmol/L (01/21/23 3:14 PM) eGFR Non-AA [>=60] 65 (01/21/23 3:14 PM) eGFR AA [>=60] 65 (01/21/23 3:14 PM) U Creatinine 98 mg/dL *NA* (01/21/23 3:14 PM) Hemoglobin A1c [4.0-6.0 %] 7.3 % *HI* (01/21/23 3:14 PM) Chloride Level [98-107 mmol/L] 106 mmol/ L (01/21/23 3:14 PM) U Microalb/Creat [0.0-30.0 mcg/mg] 5.3 m cg/mg (01/21/23 3:14 PM) U Microalb [0.0-20.0] 5.2 (01/21/23 3:14 PM) Creatinine Level [0.55-1.02 mg/dL] 0.92 mg/dL (01/21/23 3:14 PM) Social History Social History Type Response Tobacco Never tobacco user T obacco Use:. Sex Female Patient Care team information Care Team Related Persons Name: MARGUERITE STARR Name: RICARDO BOWMAN
--- OUTSIDE RECORDS SUMMARY | 2024-04-05 15:35 | XMS_ITS | Continuity of Care Document ---
Author Organization [facility] Address [address] [place] [address] Care Team Providers Care Psychiatry Resident Name Role Phone Flavio Stubbs Primary Care Physician Encounter [facility] Date(s): 03/13/24 - 03/13/24 [facility] [address] [place] [address] Discharge Disposition: Home or Self Care Attending Physician: Flavio Stubbs MD Admitting Physician: Flavio Stubbs MD Referring Physician: Flavio Stubbs MD Allergies, Adverse Reactions, Alerts Substance Reaction Severity Status troglitazone Unknown Unknown Active Rezulin Unknown Active rosiglitazone Unknown Active penicillins Unknown Active sulfa drugs Unknown Active Avandia Unknown Active Assessment and Plan Future Appointments Future Scheduled Tests Laboratory* CBC w/ Diff 12/30/23 * CBC w/ Diff 07/28/23 * CBC w/ Diff 10/19/23 * Comprehensive Metabolic Panel 07/28/23 * Microalbumin/Creatinine Ratio Urine 10/19/23 * Hemoglobin A1c 07/28/23 Immunizations Given [...] Recorded tetanus toxoid 08/01/10 Recorded 1Result Comment: [facility] 2Result Comment: [facility] 3Result Comment: 65=0.7 ml @ [facility] 4Result Comment: verified with [facility] 5Result Comment: administered state supply instead of private supply Medications clopidogrel 75 mg oral tablet 75 mg = 1 tab, Oral, Daily, # 90 tab, 3 Refill(s), Pharmacy: [email or web address] #[id number], 165.1, cm, 07/01/22 12:42:00 EST, Height, 86.9, kg, 11/14/23 11:13:00 EDT, Weight Dosing Start Date: 12/20/23 Status: Ordered Dexcom 7 Dexcom 7, Dexcom sensor 1 every 10 days, Supply, See instructions, # 3 EA, 0 Refill(s), Pharmacy: [email or web address] #[id number] Start Date: 10/06/23 Status: Ordered Diagnosis: Diabetes. [...] 0 Refill(s) Start Date: 07/28/23 Status: Ordered glucagon 0.5 mg/0.1 mL subcutaneous solution 1 mg = 0.2 mL, Subcutaneous, Once, # 0.2 mL, 0 Refill(s), Pharmacy: [email or web address] #[id number], 165.1, cm, 07/01/22 12:42:00 EST, Height, 90.6, kg, 03/08/24 12:58:00 EDT, Weight Dosing Start Date: 03/08/24 Status: Ordered HumaLOG 100 units/mL injectable solution [...] 11.9, # 30 mL, 5 Refill(s), Pharmacy: [facility], 165.1, cm, 07/01/22 12:42:00 EST, Height, 86.9, kg, 11/14/23 11:13:00 EDT, Weight Dosing Start Date: 02/27/24 Status: Ordered Insulin Syringes Insulin Syringes, Use 1 syringe 3 times daily. E11.9 DM, Supply, See instructions, # 90 EA, 5 Refill(s), Pharmacy: [facility] #[id number] Start Date: 01/27/24 Status: Ordered ketoconazole 2% [...] covers., # 30 mL, 5 Refill(s), Pharmacy: [facility], 165.1, cm, 07/01/22 12:42:00 EST, Height, 88, kg, 07/18/23 14:10:00 EST, Weight Dosing Start Date: 08/05/23 Status: Ordered levothyroxine 125 mcg (0.125 mg) oral tablet 125 mcg = 1 tab, Oral, Daily, # 90 tab, 4 Refill(s), Pharmacy: [facility] #[id number], 165.1, cm, 07/01/22 12:42:00 EST, Height, 86.9, kg, 11/14/23 11:13:00 EDT, Weight Dosing Start Date: 01/05/24 Status: Ordered losartan 50 mg oral tablet 50 mg = 1 tab, Oral, Daily, # 90 tab, 3 Refill(s), Pharmacy: [facility], 165.1, cm, 07/01/22 12:42:00 EST, Height, 86.9, kg, 11/14/23 11:13:00 EDT, Weight Dosing Start Date: 02/07/24 Status: Ordered One Touch Delica Plus Lancets One Touch Delica Plus Lancets, Patient to test twice daily. Dx: E 11.9, Supply, See instructions, #180 EA, 0 Refill(s), Pharmacy: [email or web address] #[id number] Start Date: 06/28/23 Status: Ordered Onetouch ultra glucometer Onetouch ultra glucometer, pt tests 4 times daily E11.9, Supply, See instructions, # 1 EA, 0 Refill(s), Pharmacy: [email or web address] #[id number] Start Date: 07/29/22 Status: Ordered OneTouch Ultra In Vitro Strip OneTouch Ultra In Vitro Strip, See Instructions, USE 1 STRIP 4 TIMES DAILY, # 400 strip, 3 Refill(s), Pharmacy: [facility] ([facility]) Start Date: 05/20/22 Status: Ordered Pen needles Pen needles, Inject 3 times daily with meals and as needed with snacks. 1 units/5 carbs with meals/snack. 100 units maximum daily dose. DX E11.9, Supply, See instructions, # 300 EA, 3 Refill(s), Pharmacy: [facility] #[id number] Start Date: 02/27/24 Status: Ordered sertraline 50 mg oral tablet 50 mg = 1 tab, Oral, Daily, # 30 tab, 5 Refill(s), Pharmacy: [facility] #[id number], 165.1, cm, 07/01/22 12:42:00 EST, Height, 86.9, kg, 11/14/23 11:13:00 EDT, Weight Dosing Start Date: 02/21/24 Stop Date: 08/19/24 Status: Ordered Zetia 10 mg oral tablet 10 mg = 1 tab, Oral, Daily, # 90 tab, 0 Refill(s), Pharmacy: [facility] #[id number], 165.1, cm, 07/01/22 12:42:00 EST, Height, 86.9, kg, 11/14/23 11:13:00 EDT, Weight Dosing Start Date: 02/20/24 Stop Date: 05/20/24 Status: Ordered Problem List Condition Confirmation Course Effective Dates Status H ealth Status Informant Atypical chest pain Confirmed 09/12/18 Active Black stools Confirmed Active Candidal intertrigo Confirmed 06/05/21 Active Cellulitis of foot Confirmed 03/28/18 Active Cellulitis of foot, left Confirmed Active Chronic constipation Confirmed 03/17/18 Active Decreased hearing Confirmed 05/17/19 Active Depression Confirmed Active Diarrhea Confirmed Active Disorder of nervous system due [...] right shoulder joint 3 Confirmed 06/05/21 Active Colon cancer screening Confirmed Active Puncture wound of foot Confirmed 05/22/20 Active Falls frequently Confirmed Active Solar degeneration Confirmed 07/02/20 Active Solar lentigo 4 Confirmed 06/05/21 Active De Quervain's tenosynovitis, right Confirmed Active Toe erythema Confirmed Active TIA (transient ischemic attack) Confirmed [...] Results Laboratory List Name Date Automated Diff 03/13/24 C-Reactive Protein (CRP) 03/13/24 CBC w/ Diff 03/13/24 Comprehensive Metabolic Panel (CMP) 03/13 Ferritin 03/13/24 Folate Level 03/13/24 Hemoglobin A1c 03/13/24 Iron Level and TIBC 03/13/24 Rheumatoid Factor [facility] 03/13/24 Sedimentation Rate (ESR) 03/13/24 TSH w/ Rflx to Free T4 03/13/24 Uric Acid 03/13/24 Vitamin B12 Level 03/13/24 Vitamin D, 25-OH Total [facility] (25-Hydroxyvi tamin D2 and D3 [facility]) 03/13/24 Most recent to oldest [Reference Range]: 1 WBC [5.0-10.0 x10^3/mcL] 8.2 x10^3/mcL (03/13/24 3:04 PM) RBC [4.1-5.3 x10^6/mcL] 4.7 x10^6/mcL (03/13/24 3:04 PM) Neutro Auto [40.0-75.0 %] 61.0 % (03/13/24 3:04 PM) Lymph Auto [20.0-50.0 %] 30.6 % (03/13/24 3:04 PM) Dupage Auto [2.0-15.0 %] 5.6 % (03/13/24 3:04 PM) Basophil Auto [0.0-1.0 %] 0.6 % (03/13/24 3:04 PM) BUN [7-18 mg/dL] 17 mg/dL (03/13/24 3:04 PM) Glucose Level [74-106 mg/dL] 90 mg/dL (03/13/24 3:04 PM) Potassium Level [3.5-5.1 mmol/L] 3.7 mmo l/L (03/13/24 3:04 PM) MCV [80.0-96.0 fL] 92.0 fL (03/13/24 3:04 PM) CRP [<=10.0 mg/L] 1.3 mg/L (03/13/24 3:04 PM) AST [15-37 unit/L] 17 unit/L (03/13/24 3:04 PM) ALT [14-59 unit/L] 25 unit/L (03/13/24 3:04 PM) MCHC [31.0-35.0 g/dL] 33.3 g/dL (03/13/24 3:04 PM) Sodium Level [136-145 mmol/L] 142 mmol/L (03/13/24 3:04 PM) Folate Level [>=8.6 ng/mL] 16.6 ng/mL 1 (03/13/24 3:04 PM) Hct [37.0-47.0 %] 43.5 % (03/13/24 3:04 PM) Calcium Level [8.5-10.1 mg/dL] 9.1 mg/dL (03/13/24 3:04 PM) Albumin Level [3.4-5.0 g/dL] 3.4 g/dL (03/13/24 3:04 PM) Protein Total [6.4-8.2 g/dL] 7.5 g/dL (03/13/24 3:04 PM) Iron Sat [20-55 %] 21 % (03/13/24 3:04 PM) MCH [26.0-32.0 pg] 30.7 pg (03/13/24 3:04 PM) Neutro Absolute 5.0 x10^3/mcL *NA* (03/13/24 3:04 PM) Bilirubin Total [0.2-1.0 mg/dL] 0.4 mg/d L (03/13/24 3:04 PM) Hgb [12.0-16.0 g/dL] 14.5 g/dL (03/13/24 3:04 PM) Uric Acid [2.6-6.0 mg/dL] 4.2 mg/dL (03/13/24 3:04 PM) B12 Level [193-986 pg/mL] 1031 pg/mL *HI* (03/13/24 3:04 PM) Alk Phos [46-146 unit/L] 95 unit/L (03/13/24 3:04 PM) Ferritin Level [8-252 ng/mL] 103 ng/mL (03/13/24 3:04 PM) Platelets [130-450 x10^3/mcL] 283 x10^3/ mcL (03/13/24 3:04 PM) CO2 [21-32 mmol/L] 32 mmol/L (03/13/24 3:04 PM) TIBC [250-450 mcg/dL] 343 mcg/dL (03/13/24 3:04 PM) TSH [0.358-3.740 mcIntlUnit/mL] 3.538 mc IntlUnit/mL (03/13/24 3:04 PM) Iron [50-170 mcg/dL] 72 mcg/dL (03/13/24 3:04 PM) eGFR Non-AA [>=60] 89 (03/13/24 3:04 PM) eGFR AA [>=60] 89 (03/13/24 3:04 PM) Hemoglobin A1c [4.0-5.6 %] 7.9 % 2 *HI* (03/13/24 3:04 PM) Chloride Level [98-107 mmol/L] 106 mmol/ L (03/13/24 3:04 PM) RDW-CV [11.5-14.5 %] 13.3 % (03/13/24 3:04 PM) Imm Gran Auto [0.0-0.9 %] 0.2 % (03/13/24 3:04 PM) Slide Review Not Indicated (03/13/24 3:04 PM) Creatinine Level [0.55-1.02 mg/dL] 0.71 mg/dL (03/13/24 3:04 PM) Eos, Auto [1.0-6.0 %] 2.0 % (03/13/24 3:04 PM) Vitamin D, 25-OH, Total [facility] [30-100 ng/m L] 28 ng/mL 3 *LOW* (03/13/24 3:04 PM) Rheumatoid Factor [facility] [<12.0 IntlUnit/mL ] <8.6 IntlUnit/mL 4 *NA* (03/13/24 3:04 PM) ESR, Westergren [0-30 mm/hr] 20 mm/hr (03/13/24 3:04 PM) 1Interpretive Data: Normal: >8.6 ng/mL Deficient: <3.0 ng/mL The results of this assay can be falsely elevated due to the consumption of Biotin. Please instructpatients to discontinue the use of vitamins or supplements that contain Biotin 12 hours before blood collection. 2Interpretive Data: New test method effective 08-30-23. Establishment of new HA1c baseline is recommended. The following A1c interpretive data reflect the 2017 [place] Diabetes Association (ADA) guidelinesand will be reported with each A1c result: Normal: <5.7% Prediabetes: 5.7 - 6.4% Diagnostic for diabetes (if confirmed): ???6.5% 3Result Comment: Vitamin D 25,OH Interpretive Ranges: Deficiency: <10.0 ng/mL Insufficiency: 10.0 - 30.0 ng/mL Sufficiency: 30.0 - 100.0 ng/mL Toxicity: >100.0 ng/mL Test performed [place] [address] 4Result Comment: Test performed [place] [address] Social History Social History Type Response Tobacco Never tobacco user T obacco Use:. Sex Female Goals Veronica will consistently ma intain blood [...] Start Date:02/23/24 End Date:05/24/24 Status:Met Progression:Not Met Patient Care team information Care Team Personnel Name: Pauly Ann Position: Ambulatory - RN/SENIOR ANALYST (Adiel) Member Role: Soaker Name: Flavio Stubbs MD Position: Physician Member Role: Informed Provider Address: Address: [address] [place] [id number] Care Team Related Persons Name: GABBYBERNARDREJI Address: Home [address] [id number]
--- OUTSIDE RECORDS SUMMARY | 2024-04-05 15:36 | XMS_ITS | Encounter Summary ---
Author Organization [facility] Address [address] [place] [address] Care Team Providers Care Linux Vmware Administrator Name Role Phone Gabi Aragon MD Unavailable [phone] Flavio Stubbs Primary Care Provider [phone] Encounter Details Date Type Department Care Team (Late st Contact Info) Description 03/13/2024 Lab Requisition [facility] Pathology & Laboratory Medicine - [facility] [address] [place], [place] [id number] Outr Resulting Lab, Provider Social History Tobacco [...] Info) Description 04/13/2024 13:30 EDT Office Visit [facility] Endocrinology [address] [place], [place] [id number] Gabi Mcclure MD [address] [place] [address] [place] [phone] documented as of this encounter Procedures Procedure Name Priority Date/Time Associated Diagnosis Comments RHEUMATOID FACTOR Routine 03/13/2024 15: 04 EDT documented in this encounter Results * RHEUMATOID FACTOR (03/13/2024 15:04 EDT) Rheumatoid Factor <8.6 <12.0 IU/mL 03/13/2024 21:49 EDT [facility] Blood VENOUS BLOOD / Unknown 03/13/2024 15:04 EDT 03/13/2024 21:29 EDT Provider Outr Resulting Lab CHEMISTRY & BLOOD GAS ORDERABLES [facility] [address] [place], [place] [address] documented in this encounter Visit Diagnoses Not on filedocumented in this encounter Care Teams Linux Vmware Administrator Relationship Specialty Start Date End Date StubbsFlavio [address] [address] PCP - General 12/12/23 Gabi Aragon MD [address] [place] [phone] Endocrinology, Diabetes and Metabolism 08/09/21 documented as of this encounter
--- OUTSIDE RECORDS SUMMARY | 2024-04-05 15:36 | XMS_ITS | Encounter Summary ---
Author Organization [facility] Address [address] [place] [address] Care Team Providers Care Recycling Operations Manager Name Role Phone Gabi Aragon MD Unavailable [phone] Flavio Stubbs Primary Care Provider [phone] Encounter Details Date Type Department Care Team (Late st Contact Info) Description 03/13/2024 Lab Requisition [facility] Pathology & Laboratory Medicine - [facility] [address] [place], [place] [address] Outr Resulting Lab, Provider Social History Tobacco [...] Info) Description 04/13/2024 13:30 EDT Office Visit [facility] Endocrinology [address] [place], [place] [address] Gabi Mcclure MD [address] [place] [address] [place] [phone] documented as of this encounter Procedures Procedure Name Priority Date/Time Associated Diagnosis Comments VITAMIN D (25,OH) Routine 03/13/2024 15: 04 EDT documented in this encounter Results * (ABNORMAL) VITAMIN D (25,OH) (03/13/2024 15:04 EDT) 25OH Vitamin D Tot 28(L) 30 - 100 ng/mL 03/14/2024 10:47 EDT [facility] Comment: Vitamin D 25,OH Interpretive Ranges: Deficiency: ??<10.0 ng/mL Insufficiency: ??10.0 - 30.0 ng/mL Sufficiency: ??30.0 - 100.0 ng/mL Toxicity: ??>100.0 ng/mL Blood VENOUS BLOOD / Unknown 03/13/2024 15:04 EDT 03/13/2024 21:29 EDT Provider Outr Resulting Lab CHEMISTRY & BLOOD GAS ORDERABLES [facility] [address] [place] [address] documented in this encounter Visit Diagnoses Not on filedocumented in this encounter Care Teams Recycling Operations Manager Relationship Specialty Start Date End Date [place] Flavio [address] [address] PCP - General 12/12/23 Gabi Aragon MD [address] [place] [phone] Endocrinology, Diabetes and Metabolism 08/09/21 documented as of this encounter
--- OUTSIDE RECORDS SUMMARY | 2024-04-05 15:36 | XMS_ITS | Encounter Summary ---
Author Organization [facility] Address [address] [place] [address] Care Team Providers Care Novelty Dipper Name Role Phone Gabi Aragon MD Unavailable Flavio Stubbs Primary Care Provider [phone] Reason for Referral * Medication Prior Authorization - Denied Specialty Diagnoses / Procedures Referred By Contgauri ventura Referred To Contact Gabi Mcclure MD [address] [place] [phone] Referral ID Status Reason Start Date Expiration Date Visits Re quested Visits Authorized [id number] Denied 1 1 Encounter Details Date Type Department Care Team (Late st Contact Info) Description 12/14/2023 Orders Only [facility]inology [address] [place], [place] [address] Gabi Mcclure MD [address] [place] [phone] Social History Tobacco Use Types Packs/Day [...] [facility] Endocrinology [address] [place] [address] Gabi Mcclure MD [address] [place] [address] [address] [place] [phone] documented as of this encounter Visit Diagnoses Not on filedocumented in this encounter Discontinued Medications Medication Sig Discontinue Reason Start Date End Da te empagliflozin (JARDIANCE) 10 mg tablet Take 1 Tablet by mouth daily. E11.65 12/12/2023 12/14/2023 documented as of this encounter Care Teams Novelty Dipper Relationship Specialty Start Date End Date Flavio Stubbs [address] [place] [phone] PCP - General 12/12/23 Gabi Aragon MD [address] [facility] [address] [place] [phone] Endocrinology, Diabetes and Metabolism 08/09/21 documented as of this encounter
--- OUTSIDE RECORDS SUMMARY | 2024-04-05 15:36 | XMS_ITS | Encounter Summary ---
Author Organization [facility] Address [address] [place] [address] Care Team Providers Care Snath Handle Assembler Name Role Phone Gabi Aragon MD Unavailable [phone] Flavio Stubbs Primary Care Provider [phone] Reason for Visit * Reason Onset Date Comments Medication Problem 12/14/2023 Encounter Details Date Type Department Care Team (Late st Contact Info) Description 12/14/2023 Telephone [facility] [place] [address] [place], [place] [phone] Jeanne Velazquez RN Medication Problem Social History [...] Encounter - Ange Saunders RN - 12/15/2023 0994 EDT Pt notified of this * Telephone Encounter - Ange Saunders RN - 12/15/2023 6920 EDT Images from the original note were not included. Gabi Mcclure MD P [facility] Endocrinology Nurse OK to switch to Invokana [...] Visit [facility] Endocrinology [address] [place], [place] [address] Gabi Mcclure MD [address] [place] [address] [place] [phone] documented as of this encounter Visit Diagnoses Not on filedocumented in this encounter Care Teams Snath Handle Assembler Relationship Specialty Start Date End Date StubbsFlavio [address] [address] PCP - General 12/12/23 Gabi Aragon MD [address] [facility] [address] [place] [phone] Endocrinology, Diabetes and Metabolism 08/09/21 documented as of this encounter
--- OUTSIDE RECORDS SUMMARY | 2024-04-05 15:36 | XMS_ITS | Encounter Summary ---
Author Organization [facility] Address [address] [place] [address] Care Team Providers Care Roving Machine Operator Name Role Phone Gabi Aragon MD Unavailable [phone] Flavio Stubbs Primary Care Provider Encounter Details Date Type Department Care Team (Late st Contact Info) Description 12/15/2023 Orders Only [facility] Endocrinology [address] [place], [place] [phone] Gabi Mcclure MD [address] [place] [address] [place] [phone] Social History Tobacco Use Types Packs/Day [...] Info) Description 04/13/2024 13:30 EDT Office Visit [facility] Endocrinology [address] [place] [address] Gabi Mcclure MD [address] [place] [address] [place] [phone] documented as of this encounter Visit Diagnoses Not on filedocumented in this encounter Care Teams Roving Machine Operator Relationship Specialty Start Date End Date StubbsFlavio [address] [phone] PCP - General 12/12/23 Gabi Aragon MD [address] [facility] [address] [place] [phone] Endocrinology, Diabetes and Metabolism 08/09/21 documented as of this encounter
--- OUTSIDE RECORDS SUMMARY | 2024-04-05 15:36 | XMS_ITS | Referral Summary ---
Author Organization [facility] Address [address] [place] [address] Care Team Providers Care Laundry Presser Name Role Phone Gabi Aragon MD Unavailable [phone] Flavio Stubbs Primary Care Provider [phone] Encounters Date Type Department Care Team Description 03/13/2024 Lab Requisition [facility] Pathology & Laboratory [facility] [address] [place] [address] Outr Resulting Lab, Provider 03/13/2024 Lab Requisition [facility] Pathology & Laboratory [facility] [address] [place] [address] Outr Resulting Lab, Provider from Last 3 Months Allergies Active Allergy Reactions Criticality Noted Date Comments Penicillins Fever High 02/28/2019 Turns purple Rezulin 02/28/2019 Other reaction(s): Unknown Rosiglitazone Rash Low 02/28/2019 Esqoecy-Qyx-Nei Reductase Inhibitors 12/12/2023 Leg Pain Sulfa (Sulfonamide [...] SAFFRON EXTRACT ORAL Take by mouth. Active NBENK-3-EYB-EPA-DP A-FISH OIL ORAL Take by mouth. 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 ([facility]) 08/13 Hypothyroidism 08/13/2020 Increased frequency [...] Office Visit [facility] Endocrinology [address] [place] [address] Gabi Mcclure MD [address] [place] [phone] Procedures Procedure Name Priority Date/Time Associated Diagnosis Comments VITAMIN D (25,OH) Routine 03/13/2024 15: 04 EDT RHEUMATOID FACTOR Routine 03/13/2024 15: 04 EDT POCT HEMOGLOBIN A1C Routine 01/24/2023 Type 2 diabetes mellitus with hyperglycemia, with long-term current use of insulin ([facility]) from Last 3 Months or Most Recently Relevant to Health Maintenance Results * (ABNORMAL) VITAMIN D (25,OH) (03/13/2024 15:04 EDT) 25OH Vitamin D Tot 28(L) 30 - 100 ng/mL 03/14/2024 10:47 EDT [facility] Comment: Vitamin D 25,OH Interpretive Ranges: Deficiency: ??<10.0 ng/mL Insufficiency: ??10.0 - 30.0 ng/mL Sufficiency: ??30.0 - 100.0 ng/mL Toxicity: ??>100.0 ng/mL Blood VENOUS BLOOD / Unknown 03/13/2024 15:04 EDT 03/13/2024 21:29 EDT Provider Outr Resulting Lab CHEMISTRY & BLOOD GAS ORDERABLES Performing Organization Address [facility] de Phone Number [facility] [address] [place] [address] * RHEUMATOID FACTOR (03/13/2024 15:04 EDT) Rheumatoid Factor <8.6 <12.0 IU/mL 03/13/2024 21:49 EDT [facility] Blood VENOUS BLOOD / Unknown 03/13/2024 15:04 EDT 03/13/2024 21:29 EDT Provider Outr Resulting Lab CHEMISTRY & BLOOD GAS ORDERABLES Performing Organization Address [facility] de Phone Number [facility] [address] [place] [address] * (ABNORMAL) POCT HEMOGLOBIN A1C (01/24/2023) Hemoglobin A1c, POC 7.5(A) 5.7 % [facility] POINT OF CARE Blood CAPILLARY BLOOD / Unknown 01/24/2023 Gabi Aragon MD POINT OF CARE TEST O RDERABLES Performing Organization Address [facility] Co de Phone Number [facility] POINT OF CARE from Last 3 Months or Most Recently Relevant to Health Maintenance Care Teams Laundry Presser Relationship Specialty Start Date End Date Flavio Stubbs [address] [place] [phone] PCP - General 12/12/23 Gabi Aragon MD [address] [place] [phone] Endocrinology, Diabetes and Metabolism 08/09/21
--- OUTSIDE RECORDS SUMMARY | 2024-04-05 15:36 | XMS_ITS | Clinical Summary ---
Author Organization [facility] Address [address] [place] [address] Care Team Providers Care Inspector Welded Parts Name Role Phone Gabi Aragon MD Unavailable [phone] Flavio Stubbs Primary Care Provider [phone] Allergies Active Allergy Reactions Criticality Noted Date Comments Penicillins Fever High 02/28/2019 Turns purple Rezulin 02/28/2019 Other reaction(s): Unknown Rosiglitazone Rash Low 02/28/2019 Weshwmq-Uta-Vne Reductase Inhibitors 12/12/2023 Leg Pain Sulfa (Sulfonamide [...] SAFFRON EXTRACT ORAL Take by mouth. Active ESAUG-1-WFE-EPA-DP A-FISH OIL ORAL Take by mouth. Activ [...] foot due to type 2 diabetes mellitus ([facility]) 08/13/2020 Type 2 diabetes mellitus with hyperglycemia ([facility]) 08/13/2020 Traumatic blister of foot 08/13/2020 Normal pelvic exam 08/13/2020 halfway current use of insulin ([facility]) 08/13 Hypothyroidism 08/13/2020 Increased frequency of urination 08/13/2020 Hypertensive disorder 08/13/2020 Dyslipidemia 08/13/2020 Atypical chest pain 09/12/2018 Cellulitis of foot 03/28/2018 Chronic constipation 03/17/2018 Encounters Date Type Department Care Team Description 03/13/2024 Lab Requisition [facility] Pathology & Laboratory Medicine [address] [address] Outr Resulting Lab, Provider 03/13/2024 Lab Requisition [facility] Pathology & Laboratory [address] [address] Outr Resulting Lab, Provider from Last 3 Months Immunizations Name Administration [...] Info) Description 04/13/2024 13:30 EDT Office Visit [facility] Endocrinology [address] [place] [address] Gabi Mcclure MD [address] [place] [phone] Health Maintenance Due Date Last Done Comments Eye Exam 1950 Foot Exam 1950 Hepatitis C Screen 1950 Microalbumin/Creatinine Ratio 1950 Lipid Profile Screening (Cholesterol) 1951 RSV Immunization ( o r 60+ Years) (1 - 1-dose 60+ series) 2008 Fall Risk Screening 2013 Hemoglobin A1C (Ha1C) 07/26/2023 01/24/2023 , 05/19/2022, 06/03/2021, Additional history exists COVID-19 Vaccine (2022-2 4 season) 2024 06/17/2023, 05/25/2021, 10/27/2020, Additional history exists Procedures Procedure Name Priority Date/Time Associated Diagnosis Comments VITAMIN D (25,OH) Routine 03/13/2024 15: 04 EDT RHEUMATOID FACTOR Routine 03/13/2024 15: 04 EDT POCT HEMOGLOBIN A1C Routine 01/24/2023 Type 2 diabetes mellitus with hyperglycemia, with long-term current use of insulin ([facility]) from Last 3 Months or Most Recently Relevant to Health Maintenance Results * (ABNORMAL) VITAMIN D (25,OH) (03/13/2024 15:04 EDT) 25OH Vitamin D Tot 28(L) 30 - 100 ng/mL 03/14/2024 10:47 EDT [facility] Comment: Vitamin D 25,OH Interpretive Ranges: Deficiency: ??<10.0 ng/mL Insufficiency: ??10.0 - 30.0 ng/mL Sufficiency: ??30.0 - 100.0 ng/mL Toxicity: ??>100.0 ng/mL Blood VENOUS BLOOD / Unknown 03/13/2024 15:04 EDT 03/13/2024 21:29 EDT Provider Outr Resulting Lab CHEMISTRY & BLOOD GAS ORDERABLES Performing Organization Address [facility]/ZIP Co de Phone Number [facility] [address] [place] [id number] * RHEUMATOID FACTOR (03/13/2024 15:04 EDT) Rheumatoid Factor <8.6 <12.0 IU/mL 03/13/2024 21:49 EDT [facility] Blood VENOUS BLOOD / Unknown 03/13/2024 15:04 EDT 03/13/2024 21:29 EDT Provider Outr Resulting Lab CHEMISTRY & BLOOD GAS ORDERABLES [facility] [address] [place] [address] * (ABNORMAL) POCT HEMOGLOBIN A1C (01/24/2023) Hemoglobin A1c, POC 7.5(A) 5.7 % [facility] POINT OF CARE Blood CAPILLARY BLOOD / Unknown 01/24/2023 Gabi Aragon MD POINT OF CARE TEST O RDERABLES [facility] POINT OF CARE from Last 3 Months or Most Recently Relevant to Health Maintenance Care Teams Inspector Welded Parts Relationship Specialty Start Date End Date Flavio Stubbs [address] [place] [address] PCP - General 12/12/23 Gabi Aragon MD [address] [place] [phone] Endocrinology, Diabetes and Metabolism 08/09/21
--- OUTSIDE RECORDS SUMMARY | 2024-04-05 15:36 | XMS_ITS | Encounter Summary ---
Author Organization [facility] Address [address] [place] [address] Care Team Providers Care Consulting Services Manager Name Role Phone Gabi Aragon MD Unavailable Flavio Stubbs Primary Care Provider [phone] Reason for Visit * Reason Onset Date Comments Prior Auth, Medication 12/15/2023 Encounter Details Date Type Department Care Team (Late st Contact Info) Description 12/15/2023 Telephone [facility] [place]ology [address] [place], [place] [address] Ange Saunders RN Prior Auth, Medication Social [...] Encounter - Ange Saunders RN - 12/16/2023 0929 EDT Pt messaged * Telephone Encounter - Ange Saunders RN - 12/16/2023 09 EDT Images from the original note were [...] Info) Description 04/13/2024 13:30 EDT Office Visit [facility] Endocrinology [address] [place], [place] [address] Gabi Mcclure MD [address] [place] [address] [place] [phone] documented as of this encounter Visit Diagnoses Not on filedocumented in this encounter Care Teams Consulting Services Manager Relationship Specialty Start Date End Date Flavio Stubbs [address] [place] [phone] PCP - General 12/12/23 Gabi Aragon MD [address] [facility] [address] [place] [phone] Endocrinology, Diabetes and Metabolism 08/09/21 documented as of this encounter
--- OUTSIDE RECORDS SUMMARY | 2024-04-05 15:37 | XMS_ITS | Encounter Summary ---
Author Organization [facility] Address [address] [place] [address] Care Team Providers Care Line Operator Name Role Phone Unknown, Provider Primary Care Provider [phone] Gabi Aragon MD Unavailable [phone] Encounter Details Date Type Department Care Team (Late st Contact Info) Description 12/18/2021 Abstract [facility] Endocrinology [address] [place] [address] Gabi Aragon MD [address] [facility] [address] [place] [address] Social History Tobacco Use Types [...] Info) Description 04/13/2024 13:30 EDT Office Visit [facility] Endocrinology [address] [place], [place] [phone] Gabi Mcclure MD [address] [facility] [address] [place] [address] documented as of this encounter [...] on filedocumented in this encounter Care Teams Line Operator Relationship Specialty Start Date End Date Unknown, Provider, PCP - General 09/27/16 04/06/22 Gabi Aragon MD [address] [place] [phone] Endocrinology, Diabetes and Metabolism 08/09/21 documented as of this encounter
--- OUTSIDE RECORDS SUMMARY | 2024-04-05 15:37 | XMS_ITS | Clinical Summary ---
Author Organization [facility] Address [facility] [place] [address] Care Team Providers Care Venetian Blind Installer Name Role Phone Flavio Stubbs MD Primary Care Provider [phone] Allergies Active Allergy Reactions Criticality Noted Date [...] Service) 05/20/2022 Active Blood-Glucose Meter,Continuous (Dexcom G4 Glass Loading Equipment Tender) [facility] Dexcom 6, Supply, 1 EA, N/A, As Directed, PRN bleeding As needed, # 1 EA, 0 Refill(s) 08/19/2022 Active KQMXG-2-DNG-EPA-DPA -FISH OIL ORAL Take by mouth. Active [...] Syringe Take 3 syringes every day by [facility]. route for 90 days. Active triamcinolone (Kenalog) [...] loss and better exercise pattern. Hypothyroidism 08/13/2020 [facility] current use of insulin 08/13/2020 Osteoarthrosis 01/18/2020 Decreased hearing 05/17/2019 Atypical chest pain 09/12/2018 Cellulitis of foot 03/28/2018 Chronic constipation 03/17/2018 Social History Tobacco Use Types Packs/Day Years [...] 12/22/2023 2:49 PM EDT Plan of Treatment Health Maintenance Due Date Last Done Comments [...] 2003 Bone Density Scan 2013 Covid-19 Vaccine (2022-2 4 season) 2024 06/17/2023, 05/25/2021, 10/27/2020, Additional history exists Influenza (Flu) vaccine (1 o f 1 - Influenza standard series) 04/01/2024 Care Teams Venetian Blind Installer Relationship Specialty Start Date End Date Flavio Stubbs MD [address] [place], [place] [phone] PCP - General Family Medicine 12/22/23
--- OUTSIDE RECORDS SUMMARY | 2024-04-05 15:37 | XMS_ITS | Encounter Summary ---
Author Organization [facility] Address [address] [place] [address] Care Team Providers Care Ocean Rescue Lieutenant Name Role Phone Gabi Aragon MD Unavailable [phone] Reason for Visit * Reason Onset Date Comments Diabetes 10/14/2022 Ozempic question s Encounter Details Date Type Department Care Team (Late st Contact Info) Description 10/14/2022 Telephone [facility] Endocrinology [address] [place] [phone] Stephanie Cortez, LUDWIN [address] [place] [address] Diabetes (Ozempic questions) Social History Tobacco Use [...] Info) Description 04/13/2024 13:30 EDT Office Visit [facility] Endocrinology [address] [place], [place] [address] Gabi Mcclure MD [address] [place] [address] [address] [place] [phone] documented as of this encounter Visit Diagnoses Not on filedocumented in this encounter Care Teams Ocean Rescue Lieutenant Relationship Specialty Start Date End Date Gabi Aragon MD [address] [facility] [address] [place] [phone] Endocrinology, Diabetes and Metabolism 08/09/21 documented as of this encounter
--- OUTSIDE RECORDS SUMMARY | 2024-04-05 15:37 | XMS_ITS | Encounter Summary ---
Author Organization [facility] Address [address] [place] [address] Care Team Providers Care Alarm Operator Name Role Phone Unknown, Provider Primary Care Provider [phone] Reason for Visit * Reason Onset Date Comments Medications Refill 04/17/2020 Encounter Details Date Type Department Care Team (Late st Contact Info) Description 04/17/2020 Refill [facility] Endocrinology [address] [place] [address] Ange Saunders, RN Medications Refill Social History [...] for people to take ait can cause jail liver and kidney problems-- assured that its [...] Info) Description 04/13/2024 13:30 EDT Office Visit [facility] Endocrinology [address] [place] [address] Gabi Mcclure MD [address] [place] [phone] documented as of this encounter Visit [...] 09/20/2022 added in this encounter Care Teams Alarm Operator Relationship Specialty Start Date End Date Unknown, Provider, PCP - General 09/27/16 04/06/22 documented as of this encounter
--- OUTSIDE RECORDS SUMMARY | 2024-04-05 15:37 | XMS_ITS | Encounter Summary ---
Author Organization [facility] Address [address] [place] [address] Care Team Providers Care Hook Up Driver Name Role Phone Gabi Aragon MD Unavailable [phone] Reason for Visit * Reason Onset Date Comments Medications Refill 10/05/2022 Encounter Details Date Type Department Care Team (Late st Contact Info) Description 10/05/2022 Refill [facility] Endocrinology [address] [place] [phone] Ange Saunders RN Medications Refill Social History [...] Info) Description 04/13/2024 13:30 EDT Office Visit [facility] Endocrinology [address] [place] [address] Gabi Mcclure MD [address] [place] [phone] documented as of this encounter Visit Diagnoses Not on filedocumented in this encounter Discontinued Medications Medication Sig Discontinue Reason Start Date End Da te semaglutide (OZEMPIC) subcutaneous pen Inject 0.25 mg into the skin once a week. Reorder 09/21/2022 10/05/2022 documented as of this encounter Care Teams Hook Up Driver Relationship Specialty Start Date End Date Gabi Aragon MD [address] [place] [phone] Endocrinology, Diabetes and Metabolism 08/09/21 documented as of this encounter
--- OUTSIDE RECORDS SUMMARY | 2024-04-05 15:37 | XMS_ITS | Encounter Summary ---
Author Organization [facility] Address [address] [place] [address] Care Team Providers Care Chicken Fancier Name Role Phone Gabi Aragon MD Unavailable [phone] None, Provider Primary Care Provider Flavio Rosen Primary Care Provider [phone] Reason for Visit * Reason Onset Date Comments Diabetes 10/26/2022 Would like an Ap pointement for November 02 when she is over this way anyway. Encounter Details Date Type Department Care Team (Late st Contact Info) Description 10/26/2022 Telephone [facility] [place] [address] [place] [address] Stephanie Cortez, LUDWIN [address] [place] [address] Diabetes (Would like an Appointement [...] Info) Description 04/13/2024 13:30 EDT Office Visit [facility] Endocrinology [address] [place], [place] [address] Gabi Mcclure MD [address] [place] [address] [place] [phone] documented as of this encounter Visit Diagnoses Not on filedocumented in this encounter Care Teams Chicken Fancier Relationship Specialty Start Date End Date None, Provider PCP - General 05/12/23 12/11/[address] Stubbs [address] [phone] PCP - General 12/12/23 Gabi Aragon MD [address] [facility] [address] [place] [phone] Endocrinology, Diabetes and Metabolism 08/09/21 documented as of this encounter
--- OUTSIDE RECORDS SUMMARY | 2024-04-05 15:37 | XMS_ITS | Encounter Summary ---
Author Organization [facility] Address [address] [place] [address] Care Team Providers Care Home Lending Officer Name Role Phone Unknown, Provider Primary Care Provider [phone] Encounter Details Date Type Department Care Team (Late st Contact Info) Description 09/27/2016 Results Only [facility] [phone] Soledad Scales MD [address] [place] [phone] Social History Tobacco Use Types Packs/Day Years Used Date Smoking Tobacco: Never Assessed Sex and Gender Information Value Date Recorded Sex Assigned at Female 07/15/2022 15:41 EST Gender Identity Female 05/07/2022 16:49 EDT Sexual Orientation Not on file documented as of this encounter Plan of Treatment Upcoming Encounters Date Type Department Care Team (Late st Contact Info) Description 04/13/2024 13:30 EDT Office Visit [facility] [place] [address] [place] [address] Gabi Mcclure MD [address] [place] [address] [place] [phone] documented as of this encounter Procedures [...] ? VERONICA BOWMAN ? Accession #: ? [id number] ? : ? 1950 (Age: 66) ??F [...] types 16,18,31,33,35, 39,45,51,52,56,58, 59,66, and 68 by manager integration mediated amplification. Comments Document reviewed and electronically signed by: ? System Interface ? Report date: 10/04/2016 By the signature above, the attending physician certifies that he/she has personally conducted a gross and/or microscopic examination of the described specimens and rendered or confirmed the above diagnosis. End of Report [facility] 09/27/2016 09/28/2016 Soledad Scales MD PATHOLOGY PRIYA ERVIN [facility] [address] [place] [address] documented in this encounter Visit Diagnoses Not on filedocumented in this encounter Care Teams Home Lending Officer Relationship Specialty Start Date End Date Unknown, Provider, PCP - General 09/27/16 04/06/22 documented as of this encounter
--- OUTSIDE RECORDS SUMMARY | 2024-04-05 15:37 | XMS_ITS | Encounter Summary ---
Author Organization [facility] Address [address] [place] [address] Care Team Providers Care Air Tester Name Role Phone Gabi Aragon MD Unavailable [phone] Reason for Visit * Reason Onset Date Comments Diabetes 11/22/2022 Encounter Details Date Type Department Care Team (Late st Contact Info) Description 11/22/2022 Telephone [facility] Endocrinology [address] [place] [phone] Stephanie Cortez, LUDWIN [address] [place] [phone] Diabetes Social History Tobacco Use Types Packs/Day [...] [facility] Endocrinology [address] [place] [address] Gabi Mcclure MD [address] [facility] [address] [place] [phone] documented as of this encounter Visit Diagnoses Not on filedocumented in this encounter Care Teams Air Tester Relationship Specialty Start Date End Date Gabi Aragon MD 130 [facility] [address] [place] [phone] Endocrinology, Diabetes and Metabolism 08/09/21 documented as of this encounter
--- OUTSIDE RECORDS SUMMARY | 2024-04-05 15:37 | XMS_ITS | Encounter Summary ---
Author [facility] [place] [address] Care Team Providers Care Evp Strategy Name Role Phone Flavio Stubbs MD Primary Care Provider [phone] Encounter Details Date Type Department Care Team (Latest Contact Info) Description 12/22/2023 Travel Social History Tobacco Use Types Packs/Day Years Used Date Smoking Tobacco: Never Smokeless Tobacco: Never Sex and Gender Information Value Date Recorded Sex Assigned at Not on file Gender Identity Not on file Sexual Orientation Not on file documented as of this encounter Plan of Treatment Not on file documented as of this encounter Visit Diagnoses Not on filedocumented in this encounter Care Teams Evp Strategy Relationship Specialty Start Date End Date Flavio Stubbs MD [address] [place] [address] PCP - General Family Medicine 12/22/23 documented as of this encounter
--- OUTSIDE RECORDS SUMMARY | 2024-04-05 15:37 | XMS_ITS | Encounter Summary ---
Author Organization [facility] Address [address] [place] [address] Care Team Providers Care Ornamental Iron Erector Name Role Phone Gabi Aragon MD Unavailable [phone] None, Provider Primary Care Provider Unavailabl e Reason for Visit * Reason Comments Diabetes Encounter Details Date Type Department Care Team (Latest Contact Info) Description 06/07/2023 11:30 EST Office Visit [facility] Endocrinology [address] [place], [place] [phone] Gabi Mcclure MD [address] [place] [address] [place] [phone] Type 2 diabetes mellitus with hyperglycemia, with long-term current use of insulin ([facility]) (Primary Dx); Dyslipidemia; Primary hypothyroidism Social History [...] of foot ??? Normal pelvic exam ??? long-term current use of insulin ([facility]) ??? Hypothyroidism [...] Positive for PTSD symptoms after moving to [place] 6 years ago. Started on SSRI recently. [...] on 09/20/2022) ??? nystatin (MYCOSTATIN) cream ??? JOUVD-7-EIN-MXA-ULY-TKMM OIL ORAL Take by mouth. (Patient not taking: Reported on 06/07/2023) ??? Events Core BLUE TEST STRIP test strips ??? polyethylene [...] TO FIND use 4x/ day with One 404 Found! 2 device No current facility-administered medications on [...] Info) Description 04/13/2024 13:30 EDT Office Visit [facility] Endocrinology [address] [place] [address] Gabi Mcclure MD [address] [facility] [address] [place] [phone] documented as of this encounter Visit Diagnoses Diagnosis Type 2 diabetes mellitus with hyperglycemia, with long-term current use of insulin ([facility])- Primary Dyslipidemia Other and unspecified hyperlipidemia Primary hypothyroidism Unspecified hypothyroidism documented in this encounter Care Teams Ornamental Iron Erector Relationship Specialty Start Date End Date None, Provider PCP - General 05/12/23 12/11/23 Gabi Aragon MD [address] [place] [phone] Endocrinology, Diabetes and Metabolism 08/09/21 documented as of this encounter
--- OUTSIDE RECORDS SUMMARY | 2024-04-05 15:37 | XMS_ITS | Encounter Summary ---
Author Organization [facility] Address [address] [place] [address] Care Team Providers Care Field Marketing Lead Name Role Phone Unknown, Provider Primary Care Provider [phone] Reason for Visit * Reason Onset Date Comments Medications Refill 04/22/2020 Encounter Details Date Type Department Care Team (Late st Contact Info) Description 04/22/2020 Refill [facility] Endocrinology [address] [place] [address] Ange Saunders RN Medications Refill Social History [...] Encounter - Ange Saunders RN - 04/22/2020 1186 EDT chp requesting humalog change to novolog per ins. -- rx. sent documented in this encounter Plan of Treatment Upcoming Encounters Date Type Department Care Team (Late st Contact Info) Description 04/13/2024 13:30 EDT Office Visit [facility] Endocrinology [address] [place] [address] Gabi Mcclure MD [address] [place] [phone] documented as of this encounter Visit Diagnoses Not on filedocumented in this encounter Discontinued Medications Medication Sig Discontinue Reason Start Date End Da te insulin lispro (HUMALOG U-100 INSULIN) 100 unit/mL vial 0-24 units subcutaneously 3 times daily per sliding scale e11.9 04/17/2020 04/22/2020 documented as of this encounter Care Teams Field Marketing Lead Relationship Specialty Start Date End Date Unknown, Provider, PCP - General 09/27/16 04/06/22 documented as of this encounter
--- OUTSIDE RECORDS SUMMARY | 2024-04-05 15:37 | XMS_ITS | Encounter Summary ---
Author Organization [facility] Address [address] [place] [address] Care Team Providers Care Subsurface Augmentee Elint Operator Name Role Phone Unknown, Provider Primary Care Provider [phone] Gabi Aragon MD Unavailable [phone] Reason for Visit * Reason Comments Diabetes Encounter Details Date Type Department Care Team (Late st Contact Info) Description 08/10/2021 13:45 EST Telemedicine [facility] Endocrinology [address] [place] [address] Gabi Aragon MD [address] [facility] [address] [place] [phone] Type 2 diabetes mellitus with hyperglycemia, with long-term current use of insulin ([facility]) ([facility]) (Primary Dx); Dyslipidemia Social History [...] Gabi Smith MD - 08/10/2021 1345 EST [facility] [place] Visit Today's visit was provided through [...] an eye exam 3 months ago in [place]. SMBG: using cgm dexcom. She started walking 5 times a week. Meds: Lantus 30 u a day (will be on Levemir because is cheaper and has gotten a pen), metformin 1000 mg BID and humalog 1 unit for every 5 g of carbs. She moved recently, lives with daughter. Boyfriend leaves close to her new property. Complications: denies IA, stroke, kidney disease I have reviewed patient's [...] hyperglycemia, with long-term current use of insulin ([facility]) ([facility]) COMPREHENSIVE METABOLIC PANEL (CMP) URINE [id number] RATIO (ACR) HEMOGLOBIN A1C LIPID PROFILE (INCLUDES [...] Description 04/13/2024 13:30 EDT Office Visit [facility] Endocrinology [address] [place] [address] Gabi Mcclure MD [address] [place] [address] [address] [place] [phone] documented as of this encounter Visit Diagnoses Diagnosis Type 2 diabetes mellitus with hyperglycemia, with long-term current use of insulin ([facility])- Primary Dyslipidemia Other and unspecified hyperlipidemia [...] vitamins added in this encounter Care Teams Subsurface Augmentee Elint Operator Relationship Specialty Start Date End Date Unknown, MD Ronny PCP - General 09/27/16 04/06/22 Gabi Aragon MD [address] [place] [address] [address] [place] [phone] Endocrinology, Diabetes and Metabolism 08/09/21 documented as of this encounter
--- OUTSIDE RECORDS SUMMARY | 2024-04-05 15:37 | XMS_ITS | Encounter Summary ---
[place] [address] Care Team Providers Care Quality Assurance Assistant Name Role Phone Dago Zarco MD Primary Care Provider [phone] Encounter Details Date Type Department Care Team [...] on filedocumented in this encounter Care Teams Quality Assurance Assistant Relationship Specialty Start Date End Date Dago Zarco MD [address] [place] [phone] PCP - General Family Medicine 08/13/20 03/31/23 documented as of this encounter
--- OUTSIDE RECORDS SUMMARY | 2024-04-05 15:37 | XMS_ITS | Encounter Summary ---
Author Organization [facility] Address [address] [place] [address] Care Team Providers Care Lozenge Maker Name Role Phone Gabi Aragon MD Unavailable [phone] Reason for Visit * Reason Comments Diabetes Questions visit Encounter Details Date Type Department Care Team (Late st Contact Info) Description 11/02/2022 13:00 EDT Nurse Only [facility] Endocrinology [address] [place] [address] Stephanie Cortez, RN [address] [place] [address] Type 2 diabetes mellitus with hyperglycemia, with long-term current use of insulin ([facility]) (Primary Dx) Social History Tobacco Use Types [...] Info) Description 04/13/2024 13:30 EDT Office Visit [facility] Endocrinology [address] [place], [place] [address] Gabi Mcclure MD [address] [place] [address] [address] [place] [address] documented as of this encounter Visit Diagnoses Diagnosis Type 2 diabetes mellitus with hyperglycemia, with long-term current use of insulin ([facility])- Primary documented in this encounter Care Teams Lozenge Maker Relationship Specialty Start Date End Date Gabi Aragon MD [address] [facility] [address] [place] [phone] Endocrinology, Diabetes and Metabolism 08/09/21 documented as of this encounter
--- OUTSIDE RECORDS SUMMARY | 2024-04-05 15:37 | XMS_ITS | Encounter Summary ---
[place] [address] Care Team Providers Care Disbursing Agent Name Role Phone Unknown Primary Care Provider Unavailabl e Reason for Referral * Consultation (Routine) - Authorized Specialty Diagnoses / Procedures Referred By Alice ventura Referred To Contact Neurology Diagnoses Occlusion and stenosis of unspecified carotid artery Manjit Joel APRN [address] [place] [address] [facility] [address] [place] [phone] Referral ID Status Reason Start Date Expiration Date Visits Requested Visits Authorized [id number] Authorized Consult, Test & Treat 10/25/2023 10/24/2024 1 1 Encounter Details Date Type Department Care Team (Latest Contact Info) Description 10/25/2023 Transcribe Orders eDH Incoming Referrals [phone] Manjit Joel APRN [address] [place] [address] Dizziness and giddiness Social History Tobacco Use Types Packs/Day Years Used Date Smoking Tobacco: Never Assessed Sex and Gender Information Value Date Recorded Sex Assigned at Not on file Gender Identity Not on file Sexual Orientation Not on file documented as of this encounter Plan of Treatment Scheduled Referrals Name Type Priority Associated Diagnoses Orde r Schedule Referral to Neurology Outpatient Referral Urgent Dizziness and giddiness Ordered: 10/25/2023 documented as of this encounter Visit Diagnoses Diagnosis Dizziness and giddiness documented in this encounter Care Teams Disbursing Agent Relationship Specialty Start Date End Date Unknown None PCP - General 04/01/23 12/21/23 documented as of this encounter
--- OUTSIDE RECORDS SUMMARY | 2024-04-05 15:37 | XMS_ITS | Encounter Summary ---
Author Organization [facility] Address [address] [place] [address] Care Team Providers Care Library Technician Name Role Phone Gabi Aragon MD Unavailable [phone] Reason for Visit * Reason Onset Date Comments Diabetes 08/13/2022 Questions Encounter Details Date Type Department Care Team (Late st Contact Info) Description 08/13/2022 Telephone [facility] Endocrinology [address] [place], [place] [phone] Stephanie Cortez, RN [address] [place] [address] Diabetes (Questions) Social History Tobacco Use Types [...] Info) Description 04/13/2024 13:30 EDT Office Visit [facility] Endocrinology [address] [place] [address] Gabi Mcclure MD [address] [place] [address] [address] [place] [address] documented as of this encounter Visit Diagnoses Not on filedocumented in this encounter Care Teams Library Technician Relationship Specialty Start Date End Date Gabi Aragon MD [address] [facility] [address] [place] [phone] Endocrinology, Diabetes and Metabolism 08/09/21 documented as of this encounter
--- OUTSIDE RECORDS SUMMARY | 2024-04-05 15:37 | XMS_ITS | Encounter Summary ---
Author Organization [facility] Address [address] [place] [address] Care Team Providers Care Movable Bulkhead Installer Name Role Phone Unknown, Provider Primary Care Provider [phone] Reason for Visit * Reason Onset Date Comments Medications Refill 04/14/2020 Encounter Details Date Type Department Care Team (Late st Contact Info) Description 04/14/2020 Refill [facility] Endocrinology [address] [place] [address] Stephanie Cortez, LUDWIN [address] [place] [address] Medications Refill Social History Tobacco Use Types [...] Info) Description 04/13/2024 13:30 EDT Office Visit [facility] Endocrinology [address] [place] [address] Gabi Mcclure MD [address] [place] [phone] documented as of this encounter Visit Diagnoses Not on filedocumented in this encounter Discontinued Medications Medication Sig Discontinue Reason Start Date End Da te insulin lispro (HUMALOG U-100 INSULIN) 100 unit/mL vial 0-10 units subcutaneously 3 times daily per sliding scale Reorder 10/15/2019 04/14/2020 documented as of this encounter Care Teams Movable Bulkhead Installer Relationship Specialty Start Date End Date Unknown, Provider, PCP - General 09/27/16 04/06/22 documented as of this encounter
--- OUTSIDE RECORDS SUMMARY | 2024-04-05 15:37 | XMS_ITS | Encounter Summary ---
Author Organization [facility] Address [address] [place] [address] Care Team Providers Care Grain Wafer Machine Operator Name Role Phone Gabi Allen MD Unavailable [phone] None, Provider Primary Care Provider Flavio Rosen Primary Care Provider [phone] Reason for Visit * Reason Onset Date Comments Labs Only 01/20/2023 Encounter Details Date Type Department Care Team (Late st Contact Info) Description 01/20/2023 Telephone [facility] Neurosurgery - Main Likely [address] [place], [place] [address] Gabi Allen MD [address] [place] [address] [place] [phone] Labs Only Social History Tobacco Use [...] Telephone Encounter - Danay Sheridan - 01/20/2023 1688 EDT PAS Message: Veronica woodward was calling in regards to having some labwork ordered before her appt on 01/[address] allen documented in this encounter Plan of Treatment Upcoming Encounters Date Type Department Care Team (Late st Contact Info) Description 04/13/2024 13:[address] [facility] Endocrinology [address] [place] [address] Gabi Mcclure MD [address] [place] [address] [place] [phone] documented as of this encounter Visit Diagnoses Not on filedocumented in this encounter Care Teams Grain Wafer Machine Operator Relationship Specialty Start Date End Date None, Provider PCP - General 05/12/23 12/11/23 Flavio Stubbs [address] [place] [phone] PCP - General 12/12/23 Gabi Allen MD [address] [facility] [address] [place] [phone] Endocrinology, Diabetes and Metabolism 08/09/21 documented as of this encounter
--- OUTSIDE RECORDS SUMMARY | 2024-04-05 15:37 | XMS_ITS | Encounter Summary ---
Author Organization [facility] Address [address] [place] [address] Care Team Providers Care Program Coordinator Executive Education Name Role Phone Gabi Aragon MD Unavailable [phone] Flavio Stubbs Primary Care Provider [phone] Reason for Visit * Reason Comments Diabetes ER twice in last tue. Found plaque in left carotid artery; low K+ Encounter Details Date Type Department Care Team (Latest Contact Info) Description 12/12/2023 13:45 EDT Office Visit [facility] Endocrinology [address] [place] [address] Gabi Mcclure MD [address] [place] [address] [address] [place] [phone] Type 2 diabetes mellitus with hyperglycemia, with long-term current use of insulin ([facility]) (Primary Dx); Dyslipidemia; Primary hypothyroidism Social History [...] foot due to type 2 diabetes mellitus ([facility]) Type 2 diabetes mellitus with hyperglycemia ([facility]) Traumatic blister of foot Normal pelvic exam correction current use of insulin ([facility]) Hypothyroidism Increased frequency of urination Hypertensive disorder [...] (VITAMIN B-12) 500 mcg tablet 2 Tablets. Moni G7 SENSOR device Change every 10 days. [...] taking: Reported on 12/12/2023) nystatin (MYCOSTATIN) cream [id number] OIL ORAL Take by mouth. ONETOUCH ULTRA [...] Fever Turns purple Rezulin Other reaction(s): Unknown Ebfydep-Bhz-Owp Reductase Inhibitors Leg Pain Rosiglitazone Rash Sulfa [...] sub-optimal control. Will to get labs from [facility]. Will try Jardiance 10mg. We went over adjusting pre-meal insulin if needed. Lipids: on ezetimibe. I would consider Leqvio. She will read about it. Blood Pressure: high today but was anxious on the road. Hypothyroidism: continue Lt4 and check TSH RTC 3-4 months * Jaylyn Cortez RN - 12/12/2023 2235 EDT Pt called back. Wants Jarmelaance via [facility] instead r/t cost. Prescription faxed to pharmacy per order Dr Mcclure. documented in this encounter Miscellaneous Notes * Addendum Note - Jaylyn Cortez RN - 12/12/2023 1022 EDTAddended by: JAYLYN CORTEZ on: 12/12/2023 15:08 Modules accepted: Orders documented in this encounter Plan of Treatment Upcoming Encounters Date Type Department Care Team (Late st Contact Info) Description 04/13/2024 13:30 EDT Office Visit [facility] Endocrinology [address] [place] [address] Gabi Mcclure MD [address] [place] [phone] Scheduled Orders Name Type Priority Associated [...] hypothyroidism Expected: 12/12/2023 (Approximate), Expires: 12/11/2024 URINE [id number] RATIO (ACR) Lab Routine Type 2 diabetes mellitus with hyperglycemia, with long-term current use of insulin ([facility]) Dyslipidemia Primary hypothyroidism Expected: 12/12/2023 (Approximate), Expires: 12/11/2024 COMPREHENSIVE METABOLIC PANEL (CMP) Lab Routine Type 2 diabetes mellitus with hyperglycemia, with long-term current use of insulin ([facility]) Dyslipidemia Primary hypothyroidism Expected: 12/12/2023 (Approximate), Expires: 12/11/2024 THYROID CASCADE Lab Routine Type 2 diabetes mellitus with hyperglycemia, with long-term current use of insulin ([facility]) Dyslipidemia Primary hypothyroidism Expected: 12/13/2023 (Approximate), Expires: [...] 12/29/2023 added in this encounter Care Teams Program Coordinator Executive Education Relationship Specialty Start Date End Date Flavio Stubbs [address] [address] PCP - General 12/12/23 Gabi Aragon MD [address] [place] [phone] Endocrinology, Diabetes and Metabolism 08/09/21 documented as of this encounter
--- OUTSIDE RECORDS SUMMARY | 2024-04-05 15:37 | XMS_ITS | Encounter Summary ---
Author Organization [facility] [place] [address] Care Team Providers Care Resident Care Aid Name Role Phone Dago Zarco MD Primary Care Provider [phone] Reason for Visit * Consultation (Routine) - Closed Specialty Diagnoses / Procedures Referred By Alice ventura Referred To Contact Neurology Diagnoses Memory loss Gabi Smith MD [address] [place] [phone] [facility] [address] [place] [phone] Referral ID Status Reason Start Date Expiration Date V isits Requested Visits Authorized [id number] Closed Consult, Test & Treat 10/26/2022 10/26/2023 1 1 Encounter Details Date Type Department Care Team (Latest Contact Info) Description 01/04/2023 10:30 AM EDT [place] [address] Shayla Carrasco APRN [facility] [place] [address] Cognitive changes; Word finding difficulty; Attention and [...] stents. She was able to navigate to [facility] for appointment but did get lost once [...] . She spoke of her move to [place], son being diagnosed with dyslexia, and his education at [employer]. He told her of the education he [...] to lie down on floor. She's a [place] with culture to confront problems. She sought therapy, informed of fear, and recognized fear from childhood. PTSD subsided. She watches the news, which can be a trigger. 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 In [place], she's channeling her energy to assist those [...] reports old lady bladder since got to [place]; moved to [place] 7 years ago and getting worse. No incontinence but sudden urge. No tremors. Started having difficulty with sleep onset, then sleep maintenance. She started taking melatonin with benefit. Lately, she has improved her sleep pattern (boyienrogerio goes to bed around 1900- 2000). She then spoke of her desireto have partner after her . She met Bill 3 days after move to [place]. Has been told she snores. No evidence [...] tablet With vitamin K OneTouch Ultra2 Meter [facility] [place] 4 TIMES DAILY OneTouch Ultra Test [...] strip, 3 Refill(s), Pharmacy: [facility] ([facility]) Blood-Glucose Meter,Continuous (Dexcom G4 Fur Joiner) [facility] Dexcom 6, Supply, 1 EA, N/A, As Directed, PRN bleeding As needed, # 1 EA, 0 Refill(s) [id number] OIL ORAL Take by mouth. magnesium oxide [...] 01/04/23 1026 78 151/66 Limited exam (HPI 6769-0083): Awake, alert, NAD. Well kempt and dressed [...] documented in this encounter Plan of Treatment Not on file documented as of this encounter Visit Diagnoses Diagnosis Cognitive changes Other signs and symptoms involving cognition Word finding difficulty Other speech disturbance Attention and concentration deficit Attention or concentration deficit documented in this encounter Care Teams Resident Care Aid Relationship Specialty Start Date End Date Dago Zarco MD [address] [place] [phone] PCP - General Family Medicine 08/13/20 03/31/23 documented as of this encounter
--- OUTSIDE RECORDS SUMMARY | 2024-04-05 15:37 | XMS_ITS | Encounter Summary ---
Author Organization [facility] [place] [address] Care Team Providers Care Labor Relations Worker Name Role Phone Flavio Stubbs MD Primary Care Provider [phone] Reason for Visit * Consultation (Routine) - Closed Specialty Diagnoses / Procedures Referred By Alice ventura Referred To Contact Vascular Surgery Diagnoses Transient cerebral ischemia, unspecified type NEED ORDER AND CT IMAGES PUSHED ROUTINE, MD/CARSON, B Manjit Cuenca S, ASSEMBLER MOVEMENT [address] [place] [address] [facility] [address] [place] [address] Referral ID Status Reason Start Date Expiration Date V isits Requested Visits Authorized [id number] Closed Consult, Test & Treat 11/21/2023 11/20/2024 1 1 Encounter Details Date Type Department Care Team (Latest Contact Info) Description 12/22/2023 3:00 PM EDT Office [place] [address] Yoselin Mahoney ASSEMBLER MOVEMENT [facility] [place] [address] Calcification of both carotid arteries [...] of the event. She denies past h/o [place], CVA/TIA, DVT. She denies BLE claudication, rest [...] strip, 3 Refill(s), Pharmacy: [facility] ([facility]) Blood-Glucose Meter,Continuous (Dexcom G4 Abrasive Water Jet Cutter Operator) [facility] Dexcom 6, Supply, 1 EA, N/A, As Directed, PRN bleeding As needed, # 1 EA, 0 Refill(s) [id number] OIL ORAL Take by mouth. magnesium oxide [...] ND, no palpable pulsatile masses Extremity - [place], warm, no ulceration, brisk capillary refill, no [...] documented in this encounter Plan of Treatment Scheduled Referrals Name Type Priority Associated Diagnoses Orde r Schedule Referral to Vascular Surgery Outpatient Referral Routine Transient cerebral ischemia, unspecified type Ordered: 11/21/2023 documented as of this encounter Visit Diagnoses Diagnosis Calcification of both carotid arteries documented in this encounter Care Teams Labor Relations Worker Relationship Specialty Start Date End Date Flavio Stubbs MD [address] [place] [address] PCP - General Family Medicine 12/22/23 documented as of this encounter
--- OUTSIDE RECORDS SUMMARY | 2024-04-05 15:37 | XMS_ITS | Encounter Summary ---
Author Organization [facility] Address [address] [place] [address] Care Team Providers Care Joiners Supervisor Name Role Phone Gabi rAagon MD Unavailable [phone] Reason for Visit * Reason Comments Diabetes Encounter Details Date Type Department Care Team (Late st Contact Info) Description 05/19/2022 9:30 EDT Office Visit [facility] [place]ocrinology [address] [place] [address] Gabi Aragon MD [address] [facility] [address] [place] [address] Type 2 diabetes mellitus with hyperglycemia, with long-term current use of insulin ([facility]) (Primary Dx); Dyslipidemia Social History Tobacco [...] close to her new property. Complications: denies [place], stroke, kidney disease I have reviewed patient's [...] long-term current use of insulin ([facility]) ([facility]) E11.65 250.00 Z79.4 790.29 V58.67 2. Dyslipidemia [...] to her hospital which is closer to [facility], I can do it in here. Does [...] Office Visit [facility] Endocrinology [address] [place] [address] Gabi Mcclure MD [address] [place] [phone] documented as of this encounter Procedures Procedure Name Priority Date/Time Associated Diagnosis Comments POCT GLUCOSE, MANUAL ENTRY Routine 05/19/2022 Type 2 diabetes mellitus with hyperglycemia, with long-term current use of insulin ([facility]) POCT HEMOGLOBIN A1C Routine 05/19/2022 Type 2 diabetes mellitus with hyperglycemia, with long-term current use of insulin ([facility]) documented in this encounter Results * (ABNORMAL) POCT HEMOGLOBIN A1C (05/19/2022) Hemoglobin A1c, POC 7.2(A) 5.7 % [facility] POINT OF CARE Blood CAPILLARY BLOOD / Unknown 05/19/2022 Gabi Aragon MD POINT OF CARE TEST O ANDREIA [facility] POINT OF CARE * (ABNORMAL) POCT GLUCOSE, MANUAL ENTRY (05/19/2022) Glucose, POC 221(A) 70 - 100 mg/dL [facility] POINT OF CARE HN LAB POC COMMENT MANUAL (GLUCOSE) [facility] POINT OF purchasing intern ID [facility] POIN T OF CARE Blood CAPILLARY BLOOD / Unknown 05/19/2022 Gabi Aragon MD POINT OF CARE TEST O ANDREIA Performing Organization Address City/[facility]/ZIP Co de Phone Number [facility] POINT OF CARE documented in this encounter Visit Diagnoses Diagnosis Type 2 diabetes mellitus with hyperglycemia, with long-term current use of insulin ([facility])- Primary Dyslipidemia Other and unspecified hyperlipidemia [...] DAILY added in this encounter Care Teams Joiners Supervisor Relationship Specialty Start Date End Date Gabi Aragon MD [address] [place] [address] [address] [place] [phone] Endocrinology, Diabetes and Metabolism 08/09/21 documented as of this encounter
--- OUTSIDE RECORDS SUMMARY | 2024-04-05 15:37 | XMS_ITS | Encounter Summary ---
Author Organization [facility] Address [address] [place] [address] Care Team Providers Care Citrix Administrator Name Role Phone Gabi Aragon MD Unavailable [phone] Reason for Referral * Consult (Routine/Next Available) - Closed Specialty Diagnoses / Procedures Referred By Alice ventura Referred To Contact Endocrinology Diagnoses Type 2 diabetes mellitus with hyperglycemia, with long-term current use of insulin ([facility]) Gabi Aragon MD [address] [address] [facility] Endocrinology [address] [place] [phone] Referral ID Status Reason Start Date Expiration Date V isits Requested Visits Authorized [id number] Closed Specialty Services Required 09/20/2022 1 1 Question Answer Reason for Request: hx of type 2 DM, on insulin, needs to stablish care with a provider closer to her place. so [place] is closer. * Consult (Routine/Next Available) - Closed Specialty Diagnoses / Procedures Referred By Alice ventura Referred To Contact Neurology Diagnoses Type 2 diabetes mellitus with hyperglycemia, with long-term current use of insulin ([facility]) Dyslipidemia Memory change Gabi Aragon MD 130 [facility] [address] [place] [address] [facility] [address] [place] [id number] Referral ID Status Reason Start Date Expiration Date V isits Requested Visits Authorized [id number] Closed Specialty Services Required 09/20/2022 1 1 [...] Info) Description 09/20/2022 13:00 EST Office Visit [facility] Endocrinology [address] [place] [address] Gabi Aragon MD 130 [facility] [address] [place] [address] Type 2 diabetes mellitus with hyperglycemia, with long-term current use of insulin ([facility]) (Primary Dx); Dyslipidemia; Memory change Social History [...] problems with statins. She is seeing a evidence technician. Says has noticed some high numbers. Boyfriend [...] an eye exam in Sep. Complications: denies [place], stroke, kidney disease I have reviewed patient's [...] hyperglycemia, with long-term current use of insulin ([facility]) ([facility]) E11.65 250.00 Z79.4 790.29 V58.67 2. [...] Info) Description 04/13/2024 13:30 EDT Office Visit [facility] Endocrinology [address] [place] [address] Gabi Mcclure MD [address] [place] [phone] Scheduled Referrals Name Type Priority Associated Diagnoses Order Schedule AMB CONS/FOLLOW UP NEUROLOGY Outpatient Referral Routine/Next Available Type 2 diabetes mellitus with hyperglycemia, with long-term current use of insulin ([facility]) Dyslipidemia Memory change Expected: 10/05/2022 (Approximate), Expires: 09/20/2023 AMB CONS/FOLLOW UP ENDOCRINOLOGY Outpatient Referral Routine/Next Available Type 2 diabetes mellitus with hyperglycemia, with long-term current use of insulin ([facility]) Expected: 10/18/2022 (Approximate), Expires: 09/20/2023 documented as of this encounter Procedures Procedure Name Priority Date/Time Associated Diagnosis Comments POCT GLUCOSE, MANUAL ENTRY Routine 09/20/2022 Type 2 diabetes mellitus with hyperglycemia, with long-term current use of insulin ([facility]) documented in this encounter Results * (ABNORMAL) POCT GLUCOSE, MANUAL ENTRY (09/20/2022) Glucose, POC 217(A) 70 - 100 mg/dL [facility] POINT OF CARE HN LAB POC COMMENT MANUAL (GLUCOSE) [facility] POINT OF wood boatbuilder apprentice ID [facility] POIN T OF CARE Blood CAPILLARY BLOOD / Unknown 09/20/2022 Gabi Aragon MD POINT OF CARE TEST O RDERABLES [facility] POINT OF CARE documented in this encounter Visit Diagnoses Diagnosis Type 2 diabetes mellitus with hyperglycemia, with long-term current use of insulin ([facility])- Primary Dyslipidemia Other and unspecified hyperlipidemia Memory change Memory loss documented in this encounter Discontinued Medications Medication Sig Discontinue Reason Start Date End Da te metFORMIN (GLUCOPHAGE) 1,000 mg tablet 1,000 mg 2 times daily with breakfast and dinner. Side effects 01/17/2020 09/20/2022 documented as of this encounter Care Teams Citrix Administrator Relationship Specialty Start Date End Date Gabi Aragon MD [address] [place] [address] [address] [place] [address] Endocrinology, Diabetes and Metabolism 08/09/21 documented as of this encounter
--- OUTSIDE RECORDS SUMMARY | 2024-04-05 15:37 | XMS_ITS | Encounter Summary ---
Author Organization [facility] [place] [address] Care Team Providers Care Earth Boring Machine Operator Name Role Phone Flavio Stubbs MD Primary Care Provider [phone] Reason for Visit * Diagnostic Test (Routine) - Closed Specialty Diagnoses / Procedures Referred By Alice ventura Referred To Contact Diagnoses Bilateral carotid artery stenosis Procedures Carotid Duplex, Bilateral Kathe Mahoney APRN [facility] [place] [address] [facility] Vascular Lab [address] [place] [address] Referral ID Status Reason Start Date Expiration Date V isits Requested Visits Authorized [id number] Closed Specialty Service Requested 12/05/2023 12/04/2024 1 1 Encounter Details Date Type Department Care Team (Late st Contact Info) Description 12/22/2023 2:00 PM EDT [place] [address] Flaco Hines Bilateral carotid artery stenosis Social History Tobacco Use Types Packs/Day Years Used Date Smoking Tobacco: Never Smokeless Tobacco: Never Sex and Gender Information Value Date Recorded Sex Assigned at Not on file Gender Identity Not on file Sexual Orientation Not on file documented as of this encounter Plan of Treatment Not on file documented as of this encounter Procedures Procedure Name Priority Date/Time Associated Diagnosis Comments CAROTID DUPLEX, BILATERAL Routine 12/22/2023 1:55 PM EDT Bilateral carotid artery stenosis documented in this encounter Results * Carotid Duplex, Bilateral (12/22/2023 1:55 PM EDT) VB Text Report Department: Vascular Surgery Lab Patient: [id number] (VERONICA BOWMAN) CPT: [id number] Referring Physician: KATHE MAHONEY ?? Phone: Indications: [...] infarction documented in this encounter Care Teams Earth Boring Machine Operator Relationship Specialty Start Date End Date Flavio Stubbs MD [address] [place] [address] PCP - General Family Medicine 12/22/23 documented as of this encounter
--- OUTSIDE RECORDS SUMMARY | 2024-04-05 15:37 | XMS_ITS | Encounter Summary ---
Author Organization [facility] Address [address] [place] [address] Care Team Providers Care Coordinate Measuring Machine Technician Name Role Phone Unknown, Provider Primary Care Provider Reason for Visit * Reason Comments Follow-up Encounter Details Date Type Department Care Team (Late st Contact Info) Description 08/13/2020 13:30 EST Telemedicine [facility] Endocrinology [address] [place] [address] Gabi Aragon MD 130 [facility] [address] [place] [address] Type 2 diabetes mellitus with hyperglycemia, with long-term current use of insulin ([facility]) (Primary Dx) Social History Tobacco [...] in this encounter Progress Notes * Ange Saunders RN - 08/13/2020 1330 EST Needs foot, eye and micor Lab letter sent Glucose- * Gabi Smith MD - 08/13/2020 1330 EST [facility] Video Visit Today's visit was provided through [...] close to her new property. Complications: denies [place], stroke, kidney disease I have reviewed patient's [...] with long-term current use of insulin ([facility]) LIPID PROFILE (INCLUDES CHOLESTEROL, TRIGLYCERIDES, HDL, LDL) COMPREHENSIVE METABOLIC PANEL (CMP) URINE [id number]-[id number]-ZZYHMOMNNH RATIO (ACR) Dm well controlled based on [...] Visit [facility] Endocrinology [address] [place] [address] Gabi Mcclure MD [address] [place] [address] [place] [phone] documented as of this encounter Visit Diagnoses Diagnosis Type 2 diabetes mellitus with hyperglycemia, with long-term current use of insulin ([facility])- Primary documented in this encounter Discontinued Medications [...] 08/05/2020 added in this encounter Care Teams Coordinate Measuring Machine Technician Relationship Specialty Start Date End Date Unknown, Provider, PCP - General 09/27/16 04/06/22 documented as of this encounter
--- OUTSIDE RECORDS SUMMARY | 2024-04-05 15:37 | XMS_ITS | Encounter Summary ---
Author Organization [facility] Address [address] [place] [address] Care Team Providers Care Licensed Architect Name Role Phone Gabi Aragon MD Unavailable [phone] Reason for Visit * Reason Onset Date Comments Appointment Related 10/20/2022 Encounter Details Date Type Department Care Team (Late st Contact Info) Description 10/20/2022 Telephone [facility] Endocrinology [address] [place] [address] Gabi Aragon MD 130 [facility] [address] [place] [address] Appointment Related Social History Tobacco [...] has an apt scheduled with endo at [facility] as she was looking to be closer [...] Description 04/13/2024 13:[address] [facility] Endocrinology [address] [place] [address] Gabi Mcclure MD 62 [facility] [address] [place] [address] documented as of this encounter Visit Diagnoses Not on filedocumented in this encounter Care Teams Licensed Architect Relationship Specialty Start Date End Date Gabi Aragon MD 130 [facility] [address] [place] [phone] Endocrinology, Diabetes and Metabolism 08/09/21 documented as of this encounter
--- OUTSIDE RECORDS SUMMARY | 2024-04-05 15:37 | XMS_ITS | Encounter Summary ---
[place] [address] Care Team Providers Care Gravel Truck Driver Name Role Phone Unknown Primary Care Provider Unavailabl e Encounter Details Date Type Department Care Team (Late st Contact Info) Description 09/30/2023 6:00 PM EST Telehealth [place] [address] Telehealth, Neurology None Social History Tobacco Use [...] on filedocumented in this encounter Care Teams Gravel Truck Driver Relationship Specialty Start Date End Date Unknown None PCP - General 04/01/23 12/21/23 documented as of this encounter
--- OUTSIDE RECORDS SUMMARY | 2024-04-05 15:37 | XMS_ITS | Encounter Summary ---
Author Organization [facility] Address [address] [place] [address] Care Team Providers Care Coo Name Role Phone Unknown, Provider Primary Care Provider [phone] Gabi Aragon MD Unavailable [phone] Reason for Visit * Reason Onset Date Comments Medication Problem 09/18/2021 Encounter Details Date Type Department Care Team (Late st Contact Info) Description 09/18/2021 Telephone [facility] Endocrinology [address] [place], [place] [phone] Gabi Aragon MD 130 [facility] [address] [place] [address] Medication Problem Social History Tobacco [...] Encounter - Ange Saunders RN - 09/21/2021 1535 EST Pt. Given this information, has no questions Pt on way to pcp's for another reason will discuss this with them * Telephone Encounter - Gabi Smith MD - 09/18/2021 1616 EST Her insulin will not cause any liver issues, but [facility] I suggest to have a hospital follow [...] Info) Description 04/13/2024 13:30 EDT Office Visit [facility] Endocrinology [address] [place], [place] [address] Gabi Mcclure MD [address] [place] [phone] documented [...] 08/24/2021 added in this encounter Care Teams Coo Relationship Specialty Start Date End Date Unknown, Provider, PCP - General 09/27/16 04/06/22 Gabi Aragon MD [address] [place] [phone] Endocrinology, Diabetes and Metabolism 08/09/21 documented as of this encounter
--- OUTSIDE RECORDS SUMMARY | 2024-04-05 15:37 | XMS_ITS | Encounter Summary ---
Author Organization [facility] [place] [address] Care Team Providers Care Cement Mason Maintenance Name Role Phone Unknown Primary Care Provider Unavailabl e Reason for Referral * Consultation (Routine) - Closed Specialty Diagnoses / Procedures Referred By Alice ventura Referred To Contact Vascular Surgery Diagnoses Transient cerebral ischemia, unspecified type NEED ORDER AND CT IMAGES PUSHED ROUTINE, MD/CARSON, Heidi CAR Manjit Montgomery, BALANCE SCREWHEAD POLISHER [address] [place] [address] [facility] Vascular Surg [address] [place] [address] Referral ID Status Reason Start Date Expiration Date V isits Requested Visits Authorized [id number] Closed Consult, Test & Treat 11/21/2023 11/20/2024 1 1 Encounter Details Date Type Department Care Team (Latest Contact Info) Description 11/21/2023 Transcribe Orders eDH Incoming Referrals [phone] Manjit Joel, BALANCE SCREWHEAD POLISHER [address] [place], [place] [phone] Transient cerebral ischemia, unspecified type Social History [...] type documented in this encounter Care Teams Cement Mason Maintenance Relationship Specialty Start Date End Date Unknown None PCP - General 04/01/23 12/21/23 documented as of this encounter
--- OUTSIDE RECORDS SUMMARY | 2024-04-05 15:37 | XMS_ITS | Encounter Summary ---
Author Organization [facility] Address [address] [place] [address] Care Team Providers Care Lcpc Name Role Phone Gabi Aragon MD Unavailable [phone] Reason for Visit * Reason Onset Date Comments Diabetes 08/12/2022 Encounter Details Date Type Department Care Team (Late st Contact Info) Description 08/12/2022 Telephone [facility] Endocrinology [address] [place], [place] [phone] Nguyen Pond RN Diabetes Social History Tobacco [...] Encounter - Nguyen Pond RN - 08/12/2022 1353 EST Patient called with questions about diabetes and fatty liver disease. Message sent to Padmini. documented in this encounter Plan of Treatment Upcoming Encounters Date Type Department Care Team (Late st Contact Info) Description 04/13/2024 13:30 EDT Office Visit [facility] Endocrinology [address] [place], [place] [address] Gabi Mcclure MD [address] [place] [address] [place] [phone] documented as of this encounter Visit Diagnoses Not on filedocumented in this encounter Care Teams Lcpc Relationship Specialty Start Date End Date Gabi Aragon MD 130 [facility] [address] [place] [phone] Endocrinology, Diabetes and Metabolism 08/09/21 documented as of this encounter
--- OUTSIDE RECORDS SUMMARY | 2024-04-05 15:37 | XMS_ITS | Encounter Summary ---
Author Organization [facility] Address [address] [place] [address] Care Team Providers Care Spray Dry Operator Name Role Phone Gabi Aragon MD Unavailable [phone] Reason for Visit * Reason Onset Date Comments Diabetes 10/22/2022 Questions on Oze mpic and insulin together Encounter Details Date Type Department Care Team (Late st Contact Info) Description 10/22/2022 Telephone [facility] [place] [address] [place] [address] Stephanie Cortez, RN [address] [place] [address] Diabetes (Questions on Ozempic and insulin together) [...] Info) Description 04/13/2024 13:30 EDT Office Visit [facility] Endocrinology [address] [place], [place] [address] Gabi Mcclure MD [address] [place] [phone] documented as of this encounter Visit Diagnoses Not on filedocumented in this encounter Care Teams Spray Dry Operator Relationship Specialty Start Date End Date Gabi Aragon MD 130 [facility]- [address] [place] [phone] Endocrinology, Diabetes and Metabolism 08/09/21 documented as of this encounter
--- OUTSIDE RECORDS SUMMARY | 2024-04-05 15:37 | XMS_ITS | Encounter Summary ---
Author Organization [facility] Address [address] [place] [address] Care Team Providers Care Farm Equipment Maintenance Supervisor Name Role Phone Unknown, Provider Primary Care Provider [phone] Reason for Visit * Reason Onset Date Comments Prior Auth, Medication 05/06/2021 Encounter Details Date Type Department Care Team (Late st Contact Info) Description 05/06/2021 Telephone [facility] Endocrinology [address] [place] [address] Nguyen Pond RN Prior Auth, Medication Social [...] * Telephone Encounter - Felicita Henriquez - 05/06/2021 1509 EDT Left message for patient to call back to schedule dexcom training with Ramya * Telephone Encounter - Nguyen Pond RN - 05/06/2021 4326 EDT Patient received approval thru [employer] for a Dexcom sensor and proposal development manager. Approval scanned into the system.Message sent to Ramya for teaching. documented in this encounter Plan of Treatment Upcoming Encounters Date Type Department Care Team (Late st Contact Info) Description 04/13/2024 13:30 EDT Office Visit [facility] Endocrinology [address] [place] [address] Gabi Mcclure MD [address] [place] [phone] documented as of this encounter Visit Diagnoses Not on filedocumented in this encounter Care Teams Farm Equipment Maintenance Supervisor Relationship Specialty Start Date End Date Unknown, Provider, PCP - General 09/27/16 04/06/22 documented as of this encounter
--- OUTSIDE RECORDS SUMMARY | 2024-04-05 15:37 | XMS_ITS | Encounter Summary ---
Author Organization [facility] Address [address] [place] [address] Care Team Providers Care Lumber Scaler Name Role Phone Unknown, Provider Primary Care Provider [phone] Reason for Visit * Reason Onset Date Comments Medications Refill 07/31/2020 Encounter Details Date Type Department Care Team (Late st Contact Info) Description 07/31/2020 Refill [facility] End[facility]ology [address] [place] [address] Ange Saunders RN Medications Refill Social History [...] RN - 07/31/2020 1005 EST Call from [facility], lantus no longer 340 B eligible- want to switch to levemir ? Same dose ?--pended if ok documented in this encounter Plan of Treatment Upcoming Encounters Date Type Department Care Team (Late st Contact Info) Description 04/13/2024 13:30 EDT Office Visit [facility] Endocrinology [address] [place] [address] Gabi Mcclure MD [address] [place] [phone] documented as of this encounter Visit Diagnoses Not on filedocumented in this encounter Discontinued Medications Medication Sig Discontinue Reason Start Date End Da te insulin glargine (LANTUS U-100 INSULIN) 100 unit/mL injection 20 units subcutaneously daily Insurance does not cover 10/15/2019 07/31/2020 documented as of this encounter Care Teams Lumber Scaler Relationship Specialty Start Date End Date Unknown, Provider, PCP - General 09/27/16 04/06/22 documented as of this encounter
--- OUTSIDE RECORDS SUMMARY | 2024-04-05 15:37 | XMS_ITS | Encounter Summary ---
Author Organization [facility] Address [address] [place] [address] Care Team Providers Care Blending Line Attendant Name Role Phone Gabi Aragon MD Unavailable [phone] Reason for Referral * Consult (Routine/Next Available) - Specialty Report Received Specialty Diagnoses / Procedures [facility] Referred To Contact Neurology Diagnoses Memory impairment Gabi Aragon MD [address] [place] [phone] Neurology, [place] [address] Referral ID Status Reason Start Date Expiration Date Visits Requested Visits Authorized [id number] Specialty Report Received Specialty Services Required 10/25/2022 1 1 Question Answer Reason for Request: patient with hx of Diabetes fairl controlled who has noticed a decline in her memory, would like to be investigated for dementia Reason for Visit * Reason Onset Date Comments Provider Referred 10/25/2022 Would like us to send the referral from [facility] to [facility] in [facility]. They have sooner time table for scheduling Encounter Details Date Type Department Care Team (Late st Contact Info) Description 10/25/[address] [facility] - [facility] Endocrinology [address] [place] [address] Gabi Aragon MD [address] [place], [place] [address]A [facility] [address] [place] [address] Provider Referred (Would like us to send the referral from [facility] to [facility] in [facility]. They have sooner time table for scheduling) [...] 1223 EDT Yes, please send referral to [facility], I have created a new one. * Telephone Encounter - Luciana Ordaz - 10/25/2022 0953 EDT Patient called in to inform provider that the referral for Neurology at [facility] is booking out into January/March. They informed her that [facility] might be able to get her in sooner, when patient called them they informed her they are booking in December. Patient would appreciate if we can send that referral to [facility] in [facility], which would be closer for her since she is in [place]. Thanks documented in this encounter Plan of Treatment Upcoming Encounters Date Type Department Care Team (Late st Contact Info) Description 04/13/2024 13:30 EDT Office Visit [facility] Endocrinology [address] [place] [address] Gabi Mcclure MD [address] [place] [address] [place] [phone] Scheduled Referrals Name Type Priority Associated Diagnoses Order Schedule AMB CONS/FOLLOW UP NEUROLOGY Outpatient Referral Routine/Next Available Memory impairment Expected: 11/25/2022 (Approximate), Expires: 10/26/2023 documented as of this encounter Visit Diagnoses Diagnosis Memory impairment- Primary Memory loss documented in this encounter Care Teams Blending Line Attendant Relationship Specialty Start Date End Date Gabi Aragon MD [address] [place] [phone] Endocrinology, Diabetes and Metabolism 08/09/21 documented as of this encounter
--- OUTSIDE RECORDS SUMMARY | 2024-04-05 15:37 | XMS_ITS | Encounter Summary ---
Author Organization [facility] Address [address] [place] [address] Care Team Providers Care Dental Specialist Name Role Phone Gabi Aragon MD Unavailable [phone] None, Provider Primary Care Provider Flavio Rosen Primary Care Provider [phone] Reason for Visit * Reason Onset Date Comments Diabetes 07/02/2022 Dexcom discrepan cy Encounter Details Date Type Department Care Team (Late st Contact Info) Description 07/02/2022 Telephone [facility] Endocrinology [address] [place], [place] [phone] Stephanie Cortez, RN [address] [place], [place] [phone] Diabetes (Dexcom discrepancy/) Social History Tobacco Use [...] Description 04/13/2024 13:[address] [facility] Endocrinology [address] [place], [place] [address] Gabi Mcclure MD [address] [place] [address] [place] [phone] documented as of this encounter Visit Diagnoses Not on filedocumented in this encounter Care Teams Dental Specialist Relationship Specialty Start Date End Date None, Provider PCP - General 05/12/23 12/11/23 [address]av[address]bs [address] [address] PCP - General 12/12/23 Gabi Aragon MD 130 [facility] [address] [place] [phone] Endocrinology, Diabetes and Metabolism 08/09/21 documented as of this encounter
--- OUTSIDE RECORDS SUMMARY | 2024-04-05 15:37 | XMS_ITS | Encounter Summary ---
Author Organization [facility] Address [address] [place] [address] Care Team Providers Care Real Estate Investor Name Role Phone Gabi Aragon MD Unavailable [phone] Reason for Visit * Reason Comments Diabetes lipids Encounter Details Date Type Department Care Team (Late st Contact Info) Description 01/24/2023 11:45 EDT Office Visit [facility] Endocrinology [address] [place] [address] Gabi Aragon MD 130 [facility] [address] [place] [address] Type 2 diabetes mellitus with hyperglycemia, with long-term current use of insulin ([facility]) (Primary Dx); Dyslipidemia Social History Tobacco Use [...] to come here instead of moving to [place]. Using Dexcom, average 196 mg/dl. She has refused statin. Says has 2 sisters that have developed problems with statins. She is seeing a wedding cake designer. Meds: Levemir 30 u a day before [...] an eye exam in Sep. Complications: denies CA, stroke, kidney disease I have reviewed patient's [...] hyperglycemia, with long-term current use of insulin ([facility]) ([facility]) E11.65 250.00 Z79.4 790.29 V58.67 2. Dyslipidemia E78.5 272.4 DM type 2 with hyperglycemia. Needs to improve diet. Advise to talk to Ramya about her diet. She will do a log: where she will record her food and insulin. Also explained to her how to add events on DEXCOM. Advise to apply to [facility] pharmacy and send the paperwork so she [...] 04/13/2024 13:30 EDT Office Visit [facility] Endocrinology [address] [place] [address] Gabi Mcclure MD [address] [place] [phone] documented as of this encounter Procedures Procedure Name Priority Date/Time Associated Diagnosis Comments POCT HEMOGLOBIN A1C Routine 01/24/2023 Type 2 diabetes mellitus with hyperglycemia, with long-term current use of insulin ([facility]) documented in this encounter Results * (ABNORMAL) POCT HEMOGLOBIN A1C (01/24/2023) Hemoglobin A1c, POC 7.5(A) 5.7 % [facility] POINT OF CARE Blood CAPILLARY BLOOD / Unknown 01/24/2023 Gabi Aragon MD POINT OF CARE TEST O RDERABLES [facility] POINT OF CARE documented in this encounter Visit Diagnoses Diagnosis Type 2 diabetes mellitus with hyperglycemia, with long-term current use of insulin ([facility])- Primary Dyslipidemia Other and unspecified hyperlipidemia documented in this encounter Care Teams Real Estate Investor Relationship Specialty Start Date End Date Gabi Aragon MD [address] [place] [phone] Endocrinology, Diabetes and Metabolism 08/09/21 documented as of this encounter
--- OUTSIDE RECORDS SUMMARY | 2024-04-05 15:37 | XMS_ITS | Encounter Summary ---
Author Organization [facility] Address [address] [place] [address] Care Team Providers Care Harvester Operator Name Role Phone Unknown, Provider Primary Care Provider [phone] Encounter Details Date Type Department Care Team (Late st Contact Info) Description 05/22/2018 Historical Results Only [facility] - Main [place] [address] [place] [address] Gabi Aragon MD [address] [place] [address] [address] [place] [phone] Social History Tobacco Use Types Packs/Day Years [...] EDT Office Visit [facility] Endocrinology [address] [place], [place] [address] Gabi Mcclure MD [address] [place] [address] [place] [phone] documented as of this encounter Procedures Procedure Name Priority Date/Time Associated Diagnosis Comments VIT D, 25-HYDROXY - [facility] Routine 05/22/2018 9:15 EDT documented in this encounter Results * VIT D, 25-HYDROXY - [facility] (05/22/2018 9:15 EDT) VIT D, 25 HYDROXY - [facility] 70.2 30 - 100 ng/ml 05/22/2018 18:02 EDT [facility] Comment: ? 25-Hydroxy D Total (D2+D3) ?Expected Values Deficient: ?<20 ng/ml Insufficient: ? 20- <30 ng/ml Sufficient: ? 30-100 ng/ml Potential intoxication: >100 ng/ml 05/22/2018 9:15 EDT 05/22/2018 16:51 EDT Gabi Aragon MD CHEMISTRY & BLOOD GA S ORDERABLES [facility] documented in this encounter Visit Diagnoses Not on filedocumented in this encounter Care Teams Harvester Operator Relationship Specialty Start Date End Date Unknown, Provider, PCP - General 09/27/16 04/06/22 documented as of this encounter
--- OUTSIDE RECORDS SUMMARY | 2024-04-05 15:37 | XMS_ITS | Encounter Summary ---
Author Organization [facility] [place] [address] Care Team Providers Care Program Officer Name Role Phone Unknown Primary Care Provider Unavailabl e Encounter Details Date Type Department Care Team (Late st Contact Info) Description 10/04/2023 Ancillary Procedure [place] [address] Brittanie Garza MD [address] [place], [place] [address], [place] [address] Social History Tobacco Use Types Packs/Day Years [...] MR Head (10/04/2023 12:00 AM EST) Narrative RAD - 10/21/2023 12:46 PM EDT This exam is auto-finalizing. It's purpose is for storage only. Brittanie Garza MD IMG FILM LIBRARY ORD ERABLES [place], [place] documented in this encounter Visit Diagnoses Not on filedocumented in this encounter Care Teams Program Officer Relationship Specialty Start Date End Date Unknown None PCP - General 04/01/23 12/21/23 documented as of this encounter
--- OUTSIDE RECORDS SUMMARY | 2024-04-05 15:37 | XMS_ITS | Encounter Summary ---
Author Organization [facility] Address [address] [place] [address] Care Team Providers Care Security Tech Name Role Phone Gabi Aragon MD Unavailable [phone] None, Provider Primary Care Provider Unavailabl e Reason for Visit * Reason Comments Diabetes General education Encounter Details Date Type Department Care Team (Late st Contact Info) Description 06/07/2023 13:00 EST Nurse Only [facility] Endocrinology [address] [place] [address] Stephanie Cortez, RN [address] [place] [address] Type 2 diabetes mellitus with hyperglycemia, with long-term current use of insulin ([facility]) (Primary Dx) Social History Tobacco Use [...] Info) Description 04/13/2024 13:30 EDT Office Visit [facility] Endocrinology [address] [place] [address] Gabi Mcclure MD [address] [place] [address] [place] [phone] documented as of this encounter Visit Diagnoses Diagnosis Type 2 diabetes mellitus with hyperglycemia, with long-term current use of insulin ([facility])- Primary documented in this encounter Care Teams Security Tech Relationship Specialty Start Date End Date None, Provider PCP - General 05/12/23 12/11/23 Gabi Aragon MD 130 [facility] [address] [place] [phone] Endocrinology, Diabetes and Metabolism 08/09/21 documented as of this encounter
--- OUTSIDE RECORDS SUMMARY | 2024-04-05 15:37 | XMS_ITS | Encounter Summary ---
Author Organization [facility] Address [address] [place] [address] Care Team Providers Care Emergency Department Name Role Phone Unknown, Provider Primary Care Provider [phone] Gabi Aragon MD Unavailable [phone] None, Provider Primary Care Provider Flavio Rosen Primary Care Provider [phone] Encounter Details Date Type Department Care Team (Late st Contact Info) Description 11/30/2021 Lab Requisition [facility] Pathology & Laboratory Medicine - [facility] [address] [place] [address] Outr Resulting Lab, Provider Social History Tobacco [...] Info) Description 04/13/2024 13:30 EDT Office Visit [facility] Endocrinology [address] [place], [place] [address] Gabi Mcclure MD [address] [place] [address] [address] [place] [address] documented as of this encounter Procedures Procedure Name Priority Date/Time Associated Diagnosis Comments T3 FREE Routine 11/30/2021 8:47 EDT documented in this encounter Results * T3 FREE (11/30/2021 8:47 EDT) T3, Free 3.2 2.8 - 5.3 pg/mL 11/30/2021 22:01 EDT [facility] Blood VENOUS BLOOD / Unknown 11/30/2021 8:47 EDT 11/30/2021 21:07 EDT Provider Outr Resulting Lab CHEMISTRY & BLOOD GAS ORDERABLES [facility] [address] [place] [address] documented in this encounter Visit Diagnoses Not on filedocumented in this encounter Care Teams Emergency Department Relationship Specialty Start Date End Date Unknown, Provider, PCP - General 09/27/16 04/06/22 None, Provider PCP - General 05/12/23 12/11/23 Flavio Stubbs [address] [place] [address] PCP - General 12/12/23 Gabi Aragon MD [address] [place] [phone] Endocrinology, Diabetes and Metabolism 08/09/21 documented as of this encounter
--- OUTSIDE RECORDS SUMMARY | 2024-04-05 15:37 | XMS_ITS | Encounter Summary ---
Author Organization [facility] Address [address] [place] [address] Care Team Providers Care Telecommunications Linesworker Name Role Phone Unknown, Provider Primary Care Provider [phone] Reason for Visit * Reason Onset Date Comments Medications Refill 10/15/2019 Encounter Details Date Type Department Care Team (Late st Contact Info) Description 10/15/2019 Refill [facility] Endocrinology [address] [place] [address] Ange Saunders RN Medications Refill Social History [...] Info) Description 04/13/2024 13:30 EDT Office Visit [facility] Endocrinology [address] [place], [place] [address] Gabi Mcclure MD [address] [place] [address] [place] [phone] documented as of this encounter Visit [...] documented as of this encounter Care Teams Telecommunications Linesworker Relationship Specialty Start Date End Date Unknown, Provider, PCP - General 09/27/16 04/06/22 documented as of this encounter
--- OUTSIDE RECORDS SUMMARY | 2024-04-05 15:37 | XMS_ITS | Encounter Summary ---
Author Organization [facility] Address [address] [place] [address] Care Team Providers Care Cigar Packer And Grader Name Role Phone aGbi Aragon MD Unavailable [phone] Reason for Visit * Reason Comments New Patient Visit New patient visit, F BSE. Spots of concern on face and back * Consult (Routine) - Authorization Not Required Specialty Diagnoses / Procedures Referred By Contgauri t Referred To Contact Dermatology Diagnoses Skin exam, screening for cancer Exposure to sunlight, Dago Bustos MD [address] [place] [address] [facility] Dermatology [address] [place] [address] Referral ID Status Reason Start Date Expiration Date Visits Requested Visits Authorized [id number] Authorization Not Required 1 1 Encounter Details Date Type Department Care Team (Late st Contact Info) Description 11/29/2022 9:30 EDT Office Visit [facility] Dermatology [address] [address] Aman Arango PA-C [address] [place] [address], [address] [place] [address] Multiple nevi (Primary Dx); Seborrheic [...] appearing, waxy and hyperkeratotic papules - left religious: well circumscribed red to violaceous papule ASSESSMENT/PLAN [...] 13:30 EDT Office Visit [facility] [place] [address] [place] [address] Gabi Mcclure MD [address] [place] [phone] documented as of this encounter Visit Diagnoses Diagnosis Multiple nevi- Primary Benign neoplasm of skin, site unspecified Seborrheic keratoses Malave angioma Nevus, non-neoplastic documented in this encounter Care Teams Cigar Packer And Grader Relationship Specialty Start Date End Date Gabi Aragon MD [address] [place] [phone] Endocrinology, Diabetes and Metabolism 08/09/21 documented as of this encounter
--- OUTSIDE RECORDS SUMMARY | 2024-04-05 15:37 | XMS_ITS | Encounter Summary ---
[place] [address] Care Team Providers Care Barrel Planer Name Role Phone Unknown Primary Care Provider Unavailabl e Reason for Referral * Diagnostic Test (Routine) - Closed Specialty Diagnoses / Procedures Referred By Alice ventura Referred To Contact Diagnoses Bilateral carotid artery stenosis Procedures Carotid Duplex, Bilateral Kathe Mahoney APRN [facility] [place] [address] [facility]ascular Lab [address] [address] Referral ID Status Reason Start Date Expiration Date V isits Requested Visits Authorized [id number] Closed Specialty Service Requested 12/05/2023 12/04/2024 1 1 Encounter Details Date Type Department Care Team (Late st Contact Info) Description 12/05/2023 Orders [place] [address] Kathe Mahoney APRN [facility] [place] [address] Bilateral carotid artery stenosis Social History Tobacco Use Types Packs/Day Years Used Date Smoking Tobacco: Never Assessed Sex and Gender Information Value Date Recorded Sex Assigned at Not on file Gender Identity Not on file Sexual Orientation Not on file documented as of this encounter Plan of Treatment Not on file documented as of this encounter Results * Carotid Duplex, Bilateral (12/22/2023 1:55 PM EDT) VB Text Report Department: Vascular Surgery Lab Patient: [id number] (VERONICA BOWMAN) CPT: 30853 Referring Physician: KATHE MAHONEY ?? Phone: Indications: [...] infarction documented in this encounter Care Teams Barrel Planer Relationship Specialty Start Date End Date Unknown None PCP - General 04/01/23 12/21/23 documented as of this encounter
--- OUTSIDE RECORDS SUMMARY | 2024-04-05 15:37 | XMS_ITS | Encounter Summary ---
Author Organization [facility] Address [address] [place] [address] Care Team Providers Care Global Vp Creative + Content Marketing Name Role Phone Gabi Aragon MD Unavailable [phone] Reason for Visit * Reason Comments New Patient Visit Steatosis/right side d abdominal pain * Consult (Other (Specify in Question)) - Receiving Office to Obtain Authorization Specialty Diagnoses / Procedures Referred By Alice ventura Referred To Contact Hepatology Diagnoses Fatty liver Right sided abdominal pain Keisha Sterling, [place] [address] [place] [address] [facility] [address] [place] [address] Referral ID Status Reason Start Date Expiration Date Visits Requested Visits Authorized [id number] Receiving Office to Obtain Authorization 1 1 Encounter Details Date Type Department Care Team (Late st Contact Info) Description 07/16/2022 10:00 EST Telemedicine [facility] Gastroenterology - [facility] [address] [place], [place] [phone] Alfredo Trujillo MD PhD 111 [facility] [address] [place] [address] Fatty liver (Primary Dx) Social [...] MD PhD - 07/16/2022 1000 EST [facility] GASTROENTEROLOGY AND HEPATOLOGY CONSULTATION - 07/16/[address] Sterling: Thank you for asking [...] attempting to lose weight through an online ([employer]) program. Adverse reactions to medications include penicillin, [...] 13:30 EDT Office Visit [facility] Endocrinology [address] [place] [address] Gabi Mcclure MD [address] [facility] [address] [place] [address] documented as of this encounter Visit Diagnoses Diagnosis Fatty liver- Primary Other chronic nonalcoholic liver disease documented in this encounter Historical Medications * This list may reflect changes made after this encounter. Medication Sig Dispensed Refills Start Date End Date UNABLE TO FIND Med Name: Liver Health supplement with turmeric, dandelion root, nisha [id number] OIL ORAL Take by mouth. SAFFRON EXTRACT ORAL Take by mouth. added in this encounter Care Teams Global Vp Creative + Content Marketing Relationship Specialty Start Date End Date Gabi Aragon MD 130 [facility] [address] [place] [phone] Endocrinology, Diabetes and Metabolism 08/09/21 documented as of this encounter
--- OUTSIDE RECORDS SUMMARY | 2024-04-05 15:37 | XMS_ITS | Encounter Summary ---
Author Organization [facility] Address [address] [place] [address] Care Team Providers Care Renal Medicine Specialist Name Role Phone Gabi Aragon MD Unavailable [phone] None, Provider Primary Care Provider Unavailabl e Reason for Visit * Reason Comments Diabetes Update and questions Encounter Details Date Type Department Care Team (Late st Contact Info) Description 10/25/2023 10:00 EDT Nurse Only [facility] Endocrinology [address] [place] [address] Stephanie Cortez, RN [address] [place] [address] Type 2 diabetes mellitus with hyperglycemia, with long-term current use of insulin ([facility]) (Primary Dx) Social History Tobacco Use Types [...] support osteomylitis. I suggested she update her stave jointer on her foot status as that could be contributing to her higher blood sugars. Plan: Keep us updated. Reach Out if she wants our help. Next visit: with endocrinology documented in this encounter Plan of Treatment Upcoming Encounters Date Type Department Care Team (Late st Contact Info) Description 04/13/2024 13:30 EDT Office Visit [facility] Endocrinology [address] [place] [address] Gabi Mcclure MD [address] [facility] [address] [place] [phone] documented as of this encounter Visit Diagnoses Diagnosis Type 2 diabetes mellitus with hyperglycemia, with long-term current use of insulin ([facility])- Primary documented in this encounter Care Teams Renal Medicine Specialist Relationship Specialty Start Date End Date None, Provider PCP - General 05/12/23 12/11/23 Gabi Aragon MD 130 [facility] [address] [place] [phone] Endocrinology, Diabetes and Metabolism 08/09/21 documented as of this encounter
--- OUTSIDE RECORDS SUMMARY | 2024-04-05 15:37 | XMS_ITS | Encounter Summary ---
Author Organization [facility] Address [address] [place] [address] Care Team Providers Care Real Estate Asset Manager Name Role Phone Gabi Aragon MD Unavailable [phone] Reason for Visit * Reason Onset Date Comments Medications Refill 09/21/2022 Encounter Details Date Type Department Care Team (Late st Contact Info) Description 09/21/2022 Refill [facility] Endocrinology [address] [place] [address] Ange Saunders RN Medications Refill Social History [...] Info) Description 04/13/2024 13:30 EDT Office Visit [facility] Endocrinology [address] [place] [address] Gabi Mcclure MD [address] [place] [address] [place] [phone] documented as of this encounter Visit Diagnoses Not on filedocumented in this encounter Discontinued Medications Medication Sig Discontinue Reason Start Date End Da te semaglutide (OZEMPIC) subcutaneous pen Inject 0.25 mg into the skin once a week. Reorder 09/20/2022 09/21/2022 documented as of this encounter Care Teams Real Estate Asset Manager Relationship Specialty Start Date End Date Gabi Aragon MD [address] [place] [address] [address] [place] [phone] Endocrinology, Diabetes and Metabolism 08/09/21 documented as of this encounter
--- OUTSIDE RECORDS SUMMARY | 2024-04-05 15:38 | XMS_ITS | Encounter Summary ---
[place] [address] Care Team Providers Care Cargo And Container Inspector Name Role Phone Dago Zarco MD Primary Care Provider [phone] Reason for Referral * Diagnostic Test (Routine) - Closed Specialty Diagnoses / Procedures Referred By Contac t Referred To Contact Radiology Diagnoses Right shoulder pain, unspecified chronicity Procedures US Extremity Non Vascular Complete Right Luciana Summers PA [address] [place] [address] [address] [place] [address] [facility] [place] [address] Referral ID Status Reason Start Date Expiration Date V isits Requested Visits Authorized [id number] Closed Specialty Service Requested 03/05/2021 09/05/2022 1 1 Reason for Visit * Diagnostic Test (Routine) - Closed Specialty Diagnoses / Procedures Referred By Contac t Referred To Contact Radiology Diagnoses Right shoulder pain, unspecified chronicity Procedures US Extremity Non Vascular Complete Right Luciana Summers PA [address] [place] [address] [facility] [place] [address] Referral ID Status Reason Start Date Expiration Date V isits Requested Visits Authorized [id number] Closed Specialty Service Requested 03/05/2021 09/05/2022 1 1 Encounter Details Date Type Department Care Team (Latest Contact Info) Description 03/17/2021 12:41 PM EDT - 03/17/2021 11:59 PM EDT Hospital Encounter [place] [phone] Luciana Summers PA Medical [facility] [address] [place] [address] Right shoulder pain, unspecified chronicity Discharge Disposition: [...] who have questions please contact the health child care assistant that requested your imaging first. ? Narrative 03/17/2021 5:08 PM EDT EXAMINATION: US [...] patients who have questions please contactthe health child care assistant that requested your imaging first. Luciana PHILLIPS IMG US GEN ORDERABLE S documented in this encounter Visit Diagnoses Diagnosis Right shoulder pain, unspecified chronicity documented in this encounter Care Teams Cargo And Container Inspector Relationship Specialty Start Date End Date Dago Zarco MD [address] [place] [phone] PCP - General Family Medicine 08/13/20 03/31/23 documented as of this encounter
--- OUTSIDE RECORDS SUMMARY | 2024-04-05 15:38 | XMS_ITS | Encounter Summary ---
[place] [address] Care Team Providers Care Humanities Coordinator Name Role Phone Dago Zarco MD Primary Care Provider [phone] Reason for Referral * Consultation (Routine) - Closed Specialty Diagnoses / Procedures Referred By Alice ventura Referred To Contact Neurology Diagnoses Memory loss Gabi Smith MD [address] [facility] [address] [place] [address] [facility] [address] [place] [phone] Referral ID Status Reason Start Date Expiration Date V isits Requested Visits Authorized [id number] Closed Consult, Test & Treat 10/26/2022 10/26/2023 1 1 Encounter Details Date Type Department Care Team (Latest Contact Info) Description 10/26/2022 Transcribe Orders eDH Incoming Referrals [phone] Gabi Smith MD [address] [facility] [address] [place] [address] Memory loss (Primary Dx) Social [...] Primary documented in this encounter Care Teams Humanities Coordinator Relationship Specialty Start Date End Date Dago Zarco MD [address] [place] [phone] PCP - General Family Medicine 08/13/20 03/31/23 documented as of this encounter
[2024-04-05 16:01] LABS: Abs Immature Grans 0.02 10^3/uL (0.0-0.06); Absolute Basophil Count 0.06 10^3/uL (0.0-0.2); Absolute Eosinophil Count 0.12 10^3/uL (0.0-0.7); Absolute Lymphocyte Count 2.73 10^3/uL (1.2-3.4); Absolute Monocyte Count 0.57 10^3/uL (0.1-0.8); Absolute Neutrophil Count 5.66 10^3/uL (1.2-6.7); Basophils % 0.7 %; Eosinophils % 1.3 %; HCT 42.2 % (36.0-46.0); HGB 14.3 g/dL (11.2-15.7); Immature Grans % 0.2 %; Lymphocytes % 29.8 %; MCH 30.6 pg (27.0-33.0); MCHC 33.9 % (32.0-36.0); MCV 90 fL (80-95); MPV 9.5 fL (8.0-11.0); Monocytes % 6.2 %; Neutrophils % 61.8 %; Platelet Count 294 10^3/uL (130-400); RBC 4.67 10^6/uL (3.93-5.22); RDW 13.2 % (11.7-14.6); RDW-SD 43.9 fL; WBC 9.16 10^3/uL (4.4-10.8)
[2024-04-05 16:06] LABS: ESR 31 mm/hr (0-30)
[2024-04-05 16:15] LABS: C-Reactive Protein < 0.50 mg/dL (<or=0.5); Uric Acid 3.6 mg/dL (2.6-6.0)
== END 2024-04-05 15:32 | disposition home or self-care (01) ==
LOC: LBO 15:34
PROVIDERS: PCP Family Medicine; Visit Provider Podiatrist
DX: L97.521 Non-pressure chronic ulcer of other part of left foot limited to breakdown of skin (principal); L03.90 Cellulitis, unspecified; E79.0 Hyperuricemia without signs of inflammatory arthritis and tophaceous disease
CPT/HCPCS: 36415; 85652; 84550; 85025; 86140

== ENCOUNTER → 2024-05-09 13:44 | Outpatient (BNVA) | payer MEDICARE, SELFPAY | PROVIDERS: PCP Family Medicine; Referring Provider Family Medicine; Visit Provider Podiatrist | DX: M79.672 Pain in left foot (principal); E11.43 Type 2 diabetes mellitus with diabetic autonomic (poly)neuropathy; B35.1 Tinea unguium; L60.3 Nail dystrophy; G62.9 Polyneuropathy, unspecified; L97.521 Non-pressure chronic ulcer of other part of left foot limited to breakdown of skin; M14.672 Charcot's joint, left ankle and foot | CPT/HCPCS: 99214 ==

== ENCOUNTER 2024-05-09 14:37 | Outpatient (CLI) | payer MEDICARE, SELFPAY ==
--- NOTE | 2024-05-09 14:55 | DI.RAD_ITS ---
Exam(s) XR FOOT LT COMPLETE EXAM: XR FOOT LT COMPLETE CLINICAL HISTORY: Pain in lt foot, M79.672, 1st MPJ. TECHNIQUE: 2D digital imaging was performed. Three views. COMPARISON: CR XR FOOT LT COMPLETE from 03/12/2024 CR XR FOOT LT COMPLETE from 04/05/2024 FINDINGS: BONES: No acute fracture is present. Stable appearance of fracture fragment from the distal aspect o f the 1st metatarsal. Stable appearance of irregularity and some flattening of the 1st metatarsal he ad. No bony destructive lesion is seen. Stable cystic changes in the proximal phalanx. Heel spurs again noted. JOINTS: No dislocation present. Mild 1st MTP joint space narrowing. SOFT TISSUE: Swelling adjacent to 1st MTP joint. No foreign body. IMPRESSION: Stable appearance of fracture fragment and deformity of the 1st metatarsal head. Soft tissue swellin g. Osteomyelitis not excluded. DATA REPOSITORY: RADIATION DOSE DELIVERED:
== END 2024-05-09 14:57 ==
PROVIDERS: PCP Family Medicine; Visit Provider Podiatrist
DX: M79.672 Pain in left foot (principal)
CPT/HCPCS: 73630

== ENCOUNTER 2024-05-31 02:21 | Outpatient (CLI) | payer MEDICARE, SELFPAY ==
--- NOTE | 2024-05-31 13:25 | DI.RAD_ITS ---
Exam(s) XR FOOT LT COMPLETE EXAM: XR FOOT LT COMPLETE CLINICAL HISTORY: 1st mpj charcot joint lt foot, m14.672. TECHNIQUE: 2D digital imaging was performed. Three views. COMPARISON: CR XR FOOT LT COMPLETE from 03/12/2024 CR XR FOOT LT COMPLETE from 04/05/2024 CR XR FOOT LT COMPLETE from 05/09/2024 FINDINGS: BONES: Stable appearance of deformity and nonunited fracture fragment at the 1st metatarsal head. Cy stic changes at the base of the 1st proximal phalanx. Heel spurs. No bony destructive lesion is see n. JOINTS: No dislocation present. SOFT TISSUE: Normal. IMPRESSION: Stable appearance of 1st metatarsal phalangeal joint. DATA REPOSITORY: RADIATION DOSE DELIVERED:
== END 2024-05-31 02:41 ==
LOC: DI 02:21
PROVIDERS: PCP Family Medicine; Visit Provider Podiatrist
DX: M14.672 Charcot's joint, left ankle and foot (principal)
CPT/HCPCS: 73630

== ENCOUNTER 2024-06-21 02:31 | Outpatient (CLI) | payer MEDICARE, SELFPAY ==
--- NOTE | 2024-06-21 07:15 | DI.RAD_ITS ---
Exam(s) XR FOOT LT COMPLETE EXAM: XR FOOT LT COMPLETE CLINICAL HISTORY: 1st MPJ CHARCOT JOINT,M14.672. TECHNIQUE: 2D digital imaging was performed. Three views. COMPARISON: CR XR FOOT LT COMPLETE from 03/12/2024 CR XR FOOT LT COMPLETE from 04/05/2024 CR XR FOOT LT COMPLETE from 05/09/2024 CR XR FOOT LT COMPLETE from 05/31/2024 FINDINGS: BONES: No acute fracture is present. Stable appearance of flattening of the 1st meta tarsal head wit h adjacent bony fragments. Severe degenerative changes at the 1st MTP joint. Small heel spurs. Old fracture of the 2nd proximal interphalangeal joint. Accessory navicular. No bony destructive lesio n is seen. JOINTS: No dislocation present. Some flattening of the plantar arch. SOFT TISSUE: Swelling around the 1st MTP joint. IMPRESSION: Stable appearance of the of the 1st MTP joint with degenerative changes and bony fragments. Surround ing soft tissue swelling. DATA REPOSITORY: RADIATION DOSE DELIVERED:
== END 2024-06-21 02:51 ==
LOC: DI 02:31
PROVIDERS: PCP Family Medicine; Visit Provider Podiatrist
DX: M14.672 Charcot's joint, left ankle and foot (principal)
CPT/HCPCS: 11721; 73630

== ENCOUNTER → 2024-07-18 13:15 | Outpatient (BNVA) | payer MEDICARE, SELFPAY | PROVIDERS: PCP Family Medicine; Referring Provider Family Medicine; Visit Provider Podiatrist | DX: L03.032 Cellulitis of left toe (principal) | CPT/HCPCS: 99214 ==

== ENCOUNTER 2024-08-20 12:17 | Outpatient (CLI) | payer MEDICARE, SELFPAY ==
--- NOTE | 2024-08-20 09:15 | DI.RAD_ITS ---
Exam(s) XR FOOT RT COMPLETE EXAM: XR FOOT RT COMPLETE CLINICAL HISTORY: evaluate R ft edema, h/o charcot on Left,cellulitis,l03.90,m79.89. TECHNIQUE: 2D digital imaging was performed. Three views. COMPARISON: None FINDINGS: BONES: No acute fracture is present. No bony destructive lesion is seen. Small accessory navicular. Moderate heel spurs. JOINTS: No dislocation present. Mild degenerative changes. Hammertoe deformities. SOFT TISSUE: Normal. IMPRESSION: Hammertoe deformities and heel spurs. DATA REPOSITORY: RADIATION DOSE DELIVERED:
--- NOTE | 2024-08-20 09:15 | DI.RAD_ITS ---
Exam(s) XR FOOT LT COMPLETE EXAM: XR FOOT LT COMPLETE CLINICAL HISTORY: increased swelling/redness, h/o charcot,lt foot pain,m79.672,m14.672,l03.90. TECHNIQUE: 2D digital imaging was performed. Three views. COMPARISON: CR XR FOOT LT COMPLETE from 06/21/2024 FINDINGS: BONES: Stable appearance of flattening of the 1st metatarsal head and adjacent bony fragments. Stabl e mild subluxation. There are now nondisplaced fractures at the necks of the 2nd and 3rd metatarsals which appear subacut e. Mild flattening of the 2nd metatarsal head now present. Old fracture noted at the proximal phalanx of the 2nd toe. Moderate heel spurs. JOINTS: No dislocation present. SOFT TISSUE: Swelling of toes and dorsum of the foot. IMPRESSION: subacute nondisplaced fractures at the necks of the 2nd and 3rd metatarsals. Stable appearance of the 1st MTP joint. DATA REPOSITORY: RADIATION DOSE DELIVERED:
[2024-08-20 13:08] LABS: Abs Immature Grans 0.03 10^3/uL (0.0-0.06); Absolute Basophil Count 0.07 10^3/uL (0.0-0.2); Absolute Eosinophil Count 0.15 10^3/uL (0.0-0.7); Absolute Monocyte Count 0.62 10^3/uL (0.1-0.8); Absolute Neutrophil Count 4.53 10^3/uL (1.2-6.7); Basophils % 0.9 %; Eosinophils % 1.9 %; HCT 43.9 % (36.0-46.0); HGB 14.5 g/dL (11.2-15.7); Immature Grans % 0.4 %; Lymphocytes % 32.5 %; MCH 30.3 pg (27.0-33.0); MCV 92 fL (80-95); MPV 9.2 fL (8.0-11.0); Monocytes % 7.8 %; Neutrophils % 56.5 %; Platelet Count 326 10^3/uL (130-400); RBC 4.78 10^6/uL (3.93-5.22); RDW-SD 44.1 fL
== END 2024-08-20 12:37 ==
PROVIDERS: PCP Family Medicine; Visit Provider Podiatrist
DX: M77.31 Calcaneal spur, right foot (principal); M79.89 Other specified soft tissue disorders; S92.322A Displaced fracture of second metatarsal bone, left foot, initial encounter for closed fracture; X58.XXXA Exposure to other specified factors, initial encounter; L03.116 Cellulitis of left lower limb; M14.672 Charcot's joint, left ankle and foot; E11.9 Type 2 diabetes mellitus without complications; E79.0 Hyperuricemia without signs of inflammatory arthritis and tophaceous disease
CPT/HCPCS: 36415; 99214; 73630; 85025

== ENCOUNTER 2024-08-23 12:59 | Outpatient (CLI) | payer MEDICARE, SELFPAY ==
--- NOTE | 2024-08-23 12:30 | DI.US_ITS ---
Exam(s) US LOWER EXTREMITY VENOUS LT EXAM: US LOWER EXTREMITY VENOUS LT CLINICAL HISTORY: leg swelling, pain, M79.89 TECHNIQUE: Grayscale, color, and doppler imaging of the deep venous system of the left lower extremi ty was performed. COMPARISON: No exams were available for comparison FINDINGS: There is no evidence of intraluminal thrombus and there is normal compression and augmentation demons trated within the common femoral vein, femoral vein, and popliteal vein. In the ipsilateral calf the interrogated veins also exhibit normal compression/ augmentation properti es. The ipsilateral saphenofemoral junction is patent. IMPRESSION: 1. No evidence of DVT in the left lower extremity. DATA REPOSITORY:
== END 2024-08-23 13:19 ==
LOC: DI 13:00
PROVIDERS: PCP Family Medicine; Visit Provider Podiatrist
DX: M79.89 Other specified soft tissue disorders (principal)
CPT/HCPCS: 36415; 85652; 83036; 84550; 86140; 93971

== ENCOUNTER 2024-08-23 18:48 | Outpatient (CLI) | payer MEDICARE, SELFPAY ==
[2024-08-23 16:24] LABS: ESR 32 mm/hr (0-30)
[2024-08-23 16:47] LABS: Hemoglobin A1C 7.5 % (<5.7)
[2024-08-23 16:52] LABS: C-Reactive Protein 1.13 mg/dL (<or=0.5)
== END 2024-08-23 18:49 | disposition home or self-care (01) ==
LOC: LBO 18:48
PROVIDERS: PCP Family Medicine; Visit Provider Podiatrist
DX: L03.90 Cellulitis, unspecified (principal); E79.0 Hyperuricemia without signs of inflammatory arthritis and tophaceous disease; E11.43 Type 2 diabetes mellitus with diabetic autonomic (poly)neuropathy
CPT/HCPCS: 36415; 85652; 83036; 84550; 86140

== ENCOUNTER → 2024-09-19 14:47 | Outpatient (BNVA) | payer MEDICARE, SELFPAY | PROVIDERS: PCP Family Medicine; Referring Provider Family Medicine; Visit Provider Podiatrist | DX: M79.672 Pain in left foot (principal); L03.032 Cellulitis of left toe; M14.672 Charcot's joint, left ankle and foot; M79.662 Pain in left lower leg | CPT/HCPCS: 99213 ==

== ENCOUNTER 2024-10-04 02:23 | Outpatient (CLI) | payer MEDICARE, SELFPAY ==
[2024-10-04] MEDS: Normal Saline Flush 10 ML SYR IVP (13:00)
[2024-10-04] MEDS: Gadoterate meglumine 20 ML SYRINGE 18 ML IVP (13:00)
--- NOTE | 2024-10-04 13:45 | DI.MRI_ITS ---
Exam(s) MR LOWER EXTREMITY LT WO/W EXAM: MR LOWER EXTREMITY LT WO/W CLINICAL HISTORY: Charcot versus osteomyelitis first MPJ,m14.672 TECHNIQUE: Multiplanar multisequence MRI was performed. Pre and post contrast infused sequences were performed. Contrast injected was 18 mL Dotarem COMPARISON: No exams were available for comparison FINDINGS: MARROW/ARTICULATIONS:There is significant signal abnormality evident in the 1st, a 2nd, 3rd, and 4th metatarsals, including significant T1 marrow hypointensity in the mid-distal aspect these metatarsals with distal ghosting at the head and necks of the 2nd and 3rd metatarsals where there also appear to be pathologic fractures as well as at the head of the 4th metatarsal. There is also STIR bright ebenezer ma signal evident with in these 4 metatarsals as well as abnormal enhancement. There appears to be si milar signal abnormality throughout most of the proximal phalanx of the 2nd toe.. Also signal abnorma lity in the proximal phalanx of the great toe although this may at least be in part related to the ad vanced degenerative changes in the metatarsophalangeal joint of the great toe. The phalanges of the 3rd and 4th toes appear to be spared. However, there is suspicion for infectious/septic arthritis of the 1st through 4th metatarsophalangeal joints, inclusive. There is no signal abnormality to suggest osteomyelitis of the cuneiform bones nor of the cuboid nor of the navicular. No evidence of Charcot type joints in the midfoot. EXTRAMUSCULAR SOFT TISSUES: There is deep space edema throughout the forefoot but without distinct fl uid collection to suggest the presence of a drainable abscess. . No distinct abscesses. No distinct ulcer tract evident. OTHER: None. IMPRESSION: 1. Findings are consistent with extensive osteomyelitis of the 1st, 2nd, 3rd, and 4th metatarsals, wi th sparing of the 5th metatarsal and 5th toe phalanges. There is also involvement of the first 4 meta tarsophalangeal joints. There also appears to be involvement of the proximal and middle phalanges of the 2nd toe. Proximal phalanx of the great toe may also be involved although the edema in this bone m ay also be related to the advanced degenerative changes at the great toe metatarsophalangeal joint. T he great toe metatarsophalangeal joint is involved with significant osteoarthritic degenerative carmona e and possibly also septic arthritis. 2. There is abundant deep space edema/cellulitis but without a drainable soft tissue fluid collection . 3. No evidence of Charcot arthropathy in the midfoot. DATA REPOSITORY:
--- NOTE | 2024-10-04 19:39 | DI.VRAD_ITS ---
PROCEDURE INFORMATION: Exam: MR Left Lower Extremity Other Than Joint Without and With Contrast; Foot Exam date and time: 10/04/2024 12:39 PM Age: 74 years old Clinical indication: Condition or disease; Other: Diabetic foot TECHNIQUE: Imaging protocol: Magnetic resonance imaging of the left lower extremity without and with contrast. Exam focused on the foot. COMPARISON: CR XR FOOT LT COMPLETE 08/20/2024 12:21 PM FINDINGS: Bones/joints: T1 marrow space replacement in the distal 1st, 2nd, 3rd, 4th metatarsal bones. T1 marrow space is seen in the base of the proximal phalanx of the 1st, 2nd digits. There is corresponding elevated T2/stir signal as well as corresponding contrast enhancement. There is destructive changes of the 1st, 2nd, 3rd, partially 4th metatarsophalangeal joints. Heel spur. Achilles enthesophytes. Soft tissues: Deep space edema is throughout the forefoot with corresponding enhancement. IMPRESSION: Findings concerning for expansive forefoot osteomyelitis with superimposed deep space cellulitis without drainable fluid collection. Dictated and Authenticated by: Junior Valencia MD. Orderin Roseanne Klein MD
== END 2024-10-04 02:43 ==
PROVIDERS: PCP Family Medicine; Visit Provider Podiatrist
DX: M14.672 Charcot's joint, left ankle and foot (principal)
CPT/HCPCS: 73720

== ENCOUNTER → 2024-10-10 14:54 | Outpatient (BNVA) | payer MEDICARE, SELFPAY | PROVIDERS: PCP Family Medicine; Referring Provider Family Medicine; Visit Provider Podiatrist | DX: M79.672 Pain in left foot (principal); L03.116 Cellulitis of left lower limb; M14.672 Charcot's joint, left ankle and foot; M79.662 Pain in left lower leg | CPT/HCPCS: 99214 ==

== ENCOUNTER 2024-10-30 17:03 | Emergency (ER) | payer MEDICARE, SELFPAY ==
[2024-10-30] VITALS (40 sets, daily range): BP systolic 93–168; BP diastolic 41–104; PULSE 65–92; RESP 11–24; TEMP 36.6; O2SAT 90–98
--- NOTE | 2024-10-30 17:00 | RT.EKG_ITS ---
APPROVED REPORT Exam: Resting ECG Reason for Exam: trauma Patient Location: E HR:67 bpm ECG Measurements Heart Rate 67 AXIS IA 200 P 69 QRSd 96 QRS 22 QT 428 T 104 QTc 452 Conclusion Sinus rhythm 67 normal axis no stemi
[2024-10-30 17:26] LABS: Abs Immature Grans 0.21 10^3/uL (0.0-0.06); Absolute Basophil Count 0.05 10^3/uL (0.0-0.2); Absolute Eosinophil Count 0.17 10^3/uL (0.0-0.7); Absolute Lymphocyte Count 2.79 10^3/uL (1.2-3.4); Basophils % 0.4 %; Eosinophils % 1.4 %; HCT 44.7 % (36.0-46.0); HGB 14.8 g/dL (11.2-15.7); Immature Grans % 1.7 %; Lymphocytes % 23.2 %; MCH 30.4 pg (27.0-33.0); MCHC 33.1 % (32.0-36.0); MCV 92 fL (80-95); MPV 9.5 fL (8.0-11.0); Monocytes % 5.1 %; Neutrophils % 68.2 %; Platelet Count 254 10^3/uL (130-400); RBC 4.87 10^6/uL (3.93-5.22); RDW 13.6 % (11.7-14.6); RDW-SD 46.2 fL; WBC 12.04 10^3/uL (4.4-10.8)
[2024-10-30 17:27] LABS: Absolute Monocyte Count 0.61 10^3/uL (0.1-0.8); Absolute Neutrophil Count 8.21 10^3/uL (1.2-6.7)
[2024-10-30 17:37] LABS: INR 1.1 (0.9-1.1); Prothrombin Time 10.9 sec (9.1-11.1)
[2024-10-30 17:42] LABS: ALT 32 U/L (14-59); AST 41 U/L (15-37); Albumin 3.5 g/dL (3.4-5.0); Alkaline Phosphatase 94 U/L (46-116); BUN 20 mg/dL (7-18); Bilirubin, Total 0.5 mg/dL (0.2-1.0); CREATININE 0.9 mg/dL (0.55-1.02); Calcium 9.6 mg/dL (8.5-10.1); Chloride 104 mmol/L (98-107); Estimated GFR 66.26 (mL/min/1.73m2); Glucose 171 mg/dL (74-106); Lipase 53 U/L (<78); Potassium 3.4 mmol/L (3.5-5.1); Sodium 144 mmol/L (136-145); Total Protein 7.4 g/dL (6.4-8.2)
[2024-10-30 17:45] LABS: ETHANOL BLOOD < 3.0 mg/dL (<10)
--- NOTE | 2024-10-30 17:58 | DI.CT_ITS ---
Exam(s) CT HEAD CERVICAL SPINE WO EXAM: CT HEAD CERVICAL SPINE WO CLINICAL HISTORY: trauma. TECHNIQUE: Imaging Protocol: Axial computed tomography images with coronal and sagittal reformatted images were created and reviewed COMPARISON: No exams were available for comparison FINDINGS: BRAIN: There are no skull fractures nor fluid in the visualized paranasal sinuses. There is no evidence of intracranial hemorrhage, mass effect, or shift of midline structures. There are no extra-axial fluid collections. The ventricles are not enlarged or shifted and there is no blo od within the ventricular system nor within the basal cisterns. CERVICAL SPINE: There is no evidence of fracture nor listhesis. No significant prevertebral soft tissue swelling. There is chronic advanced disc space narrowing at C5-6 level. Other disc levels exhibit normal heigh t. There are mild facet joint degenerative changes at C3-4 level on the left side. Other facet joints a ppear unremarkable. There is no significant facet joint malalignment. No significant osseous lesions evident. IMPRESSION: No acute intracranial findings on this noninfused CT scan of the brain. No evidence of cervical spine fracture, malalignment, nor acute compromise of the cervical spinal can al. RADIATION DOSE DELIVERED: 1,337.15mGy.cm Total DLP DATA REPOSITORY: All CT scans at this facility are submitted to the National Radiology Data Registry (NRDR) Dose Index Registry (DIR) with the [employer] (ACR). RADIATION OPTIMIZATION: All CT scans at this facility use at least one of these dose optimization te chniques: automated exposure control; mA and/or kV adjustment per patient size (includes targeted exa ms where dose is matched to clinical indication); or iterative reconstruction.
--- NOTE | 2024-10-30 17:59 | DI.CT_ITS ---
Exam(s) CT CHEST/ABD/PEL W EXAM: CT CHEST/ABD/PEL W CLINICAL HISTORY: trauma. TECHNIQUE: Imaging Protocol: Axial computed tomography images with coronal and sagittal reformatted images were created and reviewed CONTRAST MATERIAL: Intravenous: Omnipaque 350 Contrast volume:100 ml Oral: None COMPARISON: No exams were available for comparison FINDINGS: CHEST: LUNGS: The right lung is clear. There is a an area of subpleural ground-glass infiltrate in the ante rior segment of the left upper lobe and also mild increased markings in the lingular segment of the l eft lung.. There are no pleural effusions and no pneumothorax. There is an acute appearing nondispl aced fracture of the anterior aspect of the left 6 rib. There are also mildly displaced fractures of the left 7th, 8th, 9th, and 10th ribs. No pneumothorax. There are no right rib fractures identifie d. There is also a fracture of the body of the sternum seen on the inner cortex with small adjacent anterior mediastinal hematoma at this level. Thickness of this hematoma is is up to 12 millimeters. MEDIASTINUM: No evidence of mediastinal hematoma. No incidental hilar nor mediastinal adenopathy. CARDIAC: Heart size is normal. There is no pericardial effusion.The diameter of the thoracic aorta i s normal and there is no evidence of significant aortic trauma nor dissection. OSSEOUS: Left rib fractures as described above. Also sternal fracture as above. ABDOMEN: There is significant abnormal density in the subcutaneous fat over the anterior left side of the abdo men which measures 10 cm across by 1.3 cm deep by 6 cm craniocaudal. Probably subcutaneous bruising. At this level there is also a thin 6 mm density the in the subcutaneous fat, possibly a foreign bod y. There is no obvious overlying laceration. There is anterior abdominal wall midline fat only containing umbilical hernia. The transverse colon is in the abdominal cavity adjacent to this hernia. There is no ascites. No evidence of bowel wall nor mesenteric hematoma. Stomach is mildly distended. Duodenum and small bowel loops exhibit normal diameters. LIVER: No evidence of hepatic laceration nor other focal findings in the liver. GALLBLADDER/BILIARY: No obvious gallbladder pathology. CBD is not dilated. PANCREAS: No evidence of pancreatic mass nor dilatation of the pancreatic duct. SPLEEN: Spleen is intact. Normal size. No lacerations. No lesions. Splenic and portal veins are p atent. ADRENALS: Right adrenal gland unremarkable. However, there is a mass/nodule in the left adrenal glan d measuring 3.2 cm by 2.5 cm by 3.2 cm.. This requires further workup imaging. There is no evidence of adrenal hemorrhage. KIDNEYS: No evidence of renal laceration or subcapsular hematomas in the kidneys. No significant foc al findings in the kidneys and no hydronephrosis.. ABDOMINAL AORTA: The abdominal aorta is calcified but not enlarged. Iliac arteries are also calcifie d but not enlarged. No evidence of abdominal aortic aneurysm nor dissection. LYMPH NODES: There is no retroperitoneal nor paraaortic adenopathy. ABDOMINAL WALL: See above GI: There is no evidence of bowel obstruction. PELVIS: LYMPH NODES: There is no intrapelvic nor inguinal adenopathy. GI: There is abundant fecal material throughout the colon. No evidence of colitis nor diverticulitis . No appendicitis.No evidence of sigmoid diverticulitis. URINARY BLADDER: Not distended. No obvious masses nor calculi within the lumen evident. REPRODUCTIVE: Uterus and adnexal regions appear age-appropriate. There is no free fluid in the pelvi s. No pelvic fractures. No hip fractures. OSSEOUS: No significant osseous lesions. IMPRESSION: 1. There are multiple mild-moderately displaced fractures of left ribs 6 through 10, inclusive. Ther e is also a fracture of the sternal body with an associated anterior mediastinal hematoma adjacent to the fracture site measuring up to 12 mm thickness. Remainder of the mediastinum appears unremarkabl e as do the great vessels. 2. Small area of ground-glass type infiltrate in the anterior segment of the left upper lobe which is most probably lung contusion, given the multiple left rib fractures. Also mildly increased markings are noted in the lingular segment of the left lung. Right lung clear. No pleural effusions and the re is no pneumothorax evident. 3. There is prominent area of normal subcutaneous density of the anterior left abdominal wall measuri ng 10 cm wide x 6 cm craniocaudal x 1.6 cm deep. This may be subcutaneous hematoma-bruising. Other consideration would be for an incidental inflammatory/infectious process at this level. There is, ho wever, no drainable fluid collection at this level evident. 4. Incidentally noted is a left adrenal mass/nodule measuring 3.2 x 2.5x 3.2 cm. This requires follo w-up imaging for specificity. Should be performed with MRI using chemical shift in and out of phase imaging sequences. Findings of all CT scans on this patient discussed by phone with ER physician 10/30/2024 at 6:30 p.m. RADIATION DOSE DELIVERED: 887.17mGy.cm Total DLP DATA REPOSITORY: All CT scans at this facility are submitted to the National Radiology Data Registry (NRDR) Dose Index Registry (DIR) with the [employer] (ACR). RADIATION OPTIMIZATION: All CT scans at this facility use at least one of these dose optimization te chniques: automated exposure control; mA and/or kV adjustment per patient size (includes targeted exa ms where dose is matched to clinical indication); or iterative reconstruction.
--- NOTE | 2024-10-30 17:59 | DI.CT_ITS ---
Exam(s) CT THORACIC LUMBAR SPINE WO EXAM: CT THORACIC LUMBAR SPINE WO CLINICAL HISTORY: trauma recons. TECHNIQUE: Imaging Protocol: Axial computed tomography images with coronal and sagittal reformatted images were created and reviewed. CONTRAST MATERIAL: Intravenous: Omnipaque 350 Contrast volume:structured data in ml Contrast route:I V - Oral: yes / no COMPARISON: CT CT CHEST/ABD/PEL W from 10/30/2024 FINDINGS: THORACIC SPINAL COLUMN: No evidence of fracture or listhesis. No facet malalignment. No acute compromise of the spinal grazyna l. LUMBOSACRAL SPINAL COLUMN: No evidence of acute fracture. There is degenerative anterolisthesis of L4 upon L5, with approximate ly 1 cm anterior slippage of L4 upon L5 related to facet arthropathy and there is also chronic disc s pace narrowing at this level. Also chronic disc space narrowing at L5-S1 level. No listhesis at L5- S1 level. Other disc spaces exhibit normal height with the exception of mild disc space narrowing an d vacuum phenomena M at L2-3 level. There is facet arthropathy which is most prominent at L4-5 and L 5-S1 levels. No obvious fracture evident in the sacrum. Sacroiliac joints appear unremarkable. IMPRESSION: No evidence of acute fractures in the thoracic and lumbosacral spinal columns. Degenerative anterolisthesis of L4 upon L5 noted. Multilevel disc space narrowing at L4-5 and L5-S1 levels. RADIATION DOSE DELIVERED: 887.17mGy.cm Total DLP DATA REPOSITORY: All CT scans at this facility are submitted to the National Radiology Data Registry (NRDR) Dose Index Registry (DIR) with the [employer] (ACR). RADIATION OPTIMIZATION: All CT scans at this facility use at least one of these dose optimization te chniques: automated exposure control; mA and/or kV adjustment per patient size (includes targeted exa ms where dose is matched to clinical indication); or iterative reconstruction.
[2024-10-30] MEDS: Omnipaque 350 MG/ML 100 ML BTL IJ (18:00)
[2024-10-30] MEDS: Normal Saline - Diluent 50 ML VIAL IJ (18:00)
--- NOTE | 2024-10-30 18:12 | DI.RAD_ITS ---
Exam(s) XR HAND LT COMPLETE EXAM: XR HAND LT COMPLETE CLINICAL HISTORY: trauma. TECHNIQUE: 2D digital imaging was performed. COMPARISON: CR XR HAND RT COMPLETE from 10/30/2024 FINDINGS: 3 views There appears to be a subtle fracture of the base of the distal phalanx of the thumb on its medial as pect. No other fractures identified in the left hand. Part of the proximal phalanx of the 4th finge r is obscured by a jewelry ring. IMPRESSION: There appears to be a subtle fracture in the proximal aspect of the distal phalanx of the left thumb. DATA REPOSITORY: RADIATION DOSE DELIVERED:
--- NOTE | 2024-10-30 18:12 | DI.RAD_ITS ---
Exam(s) XR HAND RT COMPLETE EXAM: XR HAND RT COMPLETE CLINICAL HISTORY: trauma. TECHNIQUE: 2D digital imaging was performed. COMPARISON: No exams were available for comparison FINDINGS: 3 views There is an oblique mildly displaced fracture in the distal diaphysis and neck of the 5th meta carpal . The fracture does not appear to extend into the metacarpophalangeal joint. Overlying soft tissue swelling but no radiopaque foreign bodies nor gas in the soft tissues. No other fractures identified in the right hand IMPRESSION: There is an oblique mildly displaced fracture in the distal diaphysis and neck of the 5th metacarpal. DATA REPOSITORY: RADIATION DOSE DELIVERED:
--- NOTE | 2024-10-30 18:12 | DI.RAD_ITS ---
Exam(s) XR KNEE RT 2V AP,LAT EXAM: XR KNEE RT 2V AP,LAT CLINICAL HISTORY: trauma. TECHNIQUE: 2D digital imaging was performed. COMPARISON: CR XR KNEE LT 2V AP,LAT from 10/30/2024 FINDINGS: Two views: AP and cross-table lateral No evidence of fracture nor prominent joint effusion. Mild degenerative changes noted in the medial compartment. Bone density normal. No osseous lesions. No foreign bodies in the soft tissues. No s oft tissue air. IMPRESSION: No acute osseous findings in the right knee. Mild degenerative changes in the medial compartment not ed DATA REPOSITORY: RADIATION DOSE DELIVERED:
--- NOTE | 2024-10-30 18:13 | DI.RAD_ITS ---
Exam(s) XR KNEE LT 2V AP,LAT EXAM: XR KNEE LT 2V AP,LAT CLINICAL HISTORY: trauma. TECHNIQUE: 2D digital imaging was performed. COMPARISON: No exams were available for comparison FINDINGS: Two portable views-AP and cross-table lateral No evidence of fracture or prominent joint effusion. Mild medial joint space narrowing. Bone densit y normal. No osseous lesions. IMPRESSION: No fractures evident on these two views of the left knee. DATA REPOSITORY: RADIATION DOSE DELIVERED:
[2024-10-30] MEDS: ACETAMINOPHEN 1,000 MG/100 ML BAG 400 MG IVPB (18:30)
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
[2024-10-30] MEDS: MORPHine 4 MG/ML SYR IVP (19:40)
== END 2024-10-30 19:57 | disposition short-term general hospital (02) ==
PROVIDERS: Emergency Provider Emergency Medicine; PCP Family Medicine
DX: S62.336A Displaced fracture of neck of fifth metacarpal bone, right hand, initial encounter for closed fracture (principal); S62.512A Displaced fracture of proximal phalanx of left thumb, initial encounter for closed fracture; S22.42XA Multiple fractures of ribs, left side, initial encounter for closed fracture; S22.20XA Unspecified fracture of sternum, initial encounter for closed fracture; E11.65 Type 2 diabetes mellitus with hyperglycemia; I10 Essential (primary) hypertension; Z79.4 Long term (current) use of insulin; Z79.899 Other long term (current) drug therapy; V48.6XXA Car passenger injured in noncollision transport accident in traffic accident, initial encounter
CPT/HCPCS: 36415; 74177; 80053; 83690; 86850; 86900; 86901; 93005; 96365; 96375; 99285; 70450; 71260; 72125; 72128; 72131; 73130; 73560; 80320; 83735; 84484; 85025; 85610; 93010; J0131; J2270; J3490

== ENCOUNTER → 2025-01-28 13:47 | Outpatient (BNVA) | payer MEDICARE, SELFPAY | PROVIDERS: PCP Family Medicine; Referring Provider Family Medicine; Visit Provider Podiatrist | DX: M79.662 Pain in left lower leg (principal); L03.116 Cellulitis of left lower limb; M14.672 Charcot's joint, left ankle and foot; M86.8X7 Other osteomyelitis, ankle and foot; E11.69 Type 2 diabetes mellitus with other specified complication | CPT/HCPCS: 99214 ==

== ENCOUNTER → 2025-02-18 14:37 | Outpatient (BNVA) | payer MEDICARE, SELFPAY | PROVIDERS: PCP Family Medicine; Referring Provider Family Medicine; Visit Provider Podiatrist | DX: M14.672 Charcot's joint, left ankle and foot (principal); M79.662 Pain in left lower leg; L03.116 Cellulitis of left lower limb | CPT/HCPCS: 99214 ==

== ENCOUNTER → 2025-05-15 10:15 | Outpatient (BNVA) | payer MEDICARE, SELFPAY | PROVIDERS: PCP Family Medicine; Referring Provider Family Medicine; Visit Provider Podiatrist | DX: L97.522 Non-pressure chronic ulcer of other part of left foot with fat layer exposed (principal); L60.3 Nail dystrophy; B35.1 Tinea unguium; E11.43 Type 2 diabetes mellitus with diabetic autonomic (poly)neuropathy; M20.42 Other hammer toe(s) (acquired), left foot; M86.8X7 Other osteomyelitis, ankle and foot; M14.672 Charcot's joint, left ankle and foot; R09.89 Other specified symptoms and signs involving the circulatory and respiratory systems; R60.0 Localized edema; I83.93 Asymptomatic varicose veins of bilateral lower extremities; L65.9 Nonscarring hair loss, unspecified; R23.4 Changes in skin texture; L60.2 Onychogryphosis; L60.8 Other nail disorders | CPT/HCPCS: 11055; 11721; 11042 ==

== ENCOUNTER → 2025-05-29 12:21 | Outpatient (BNVA) | payer MEDICARE, SELFPAY | PROVIDERS: PCP Family Medicine; Referring Provider Family Medicine; Visit Provider Podiatrist | DX: L97.522 Non-pressure chronic ulcer of other part of left foot with fat layer exposed (principal); M86.8X7 Other osteomyelitis, ankle and foot; E11.43 Type 2 diabetes mellitus with diabetic autonomic (poly)neuropathy; M14.672 Charcot's joint, left ankle and foot | CPT/HCPCS: 11042 ==

== ENCOUNTER → 2025-06-18 11:08 | Outpatient (BNVA) | payer MEDICARE, SELFPAY | PROVIDERS: PCP Family Medicine; Referring Provider Family Medicine; Visit Provider Podiatrist | DX: L97.522 Non-pressure chronic ulcer of other part of left foot with fat layer exposed (principal); L60.3 Nail dystrophy; B35.1 Tinea unguium; E11.43 Type 2 diabetes mellitus with diabetic autonomic (poly)neuropathy; L84 Corns and callosities; M14.672 Charcot's joint, left ankle and foot; M20.42 Other hammer toe(s) (acquired), left foot; M86.8X7 Other osteomyelitis, ankle and foot | CPT/HCPCS: 11042 ==

== ENCOUNTER 2025-07-08 10:41 | Day surgery (SDC) | payer MEDICARE, SELFPAY ==
[2025-07-08 11:24] VITALS: BP 140/67; PULSE 83; RESP 20; TEMP 36.3; O2SAT 99
[2025-07-08] MEDS: Lactated Ringers 1,000 ML 80 ML IV (11:45)
--- NOTE | 2025-07-08 13:45 | PGE_ITS ---
Date of Service Date of service: 07/08/25 Time of Service: 12:00 Assessment and Plan Assessment and plan (1) Ulcer of left foot, limited to breakdown of skin: Status: Acute Assessment and plan: Patient was seen and evaluated today. Procedure was canceled for today Due to advancing dementia and questions regarding the patient's capacity to consent. At this time, at this time, planned procedure is not an emergent procedure. The left lower extremity is without any erythema, edema, open ulceration to the first MPJ. There is a wound to the left fifth toe however that is very stable with a stable eschar without any erythema edema drainage odor crepitus fluctuation. Nursing approached me today and informed me that patient was unsure about what procedure was to be performed today as well as with the surgeon was. This is concerning for advancing dementia and capacity to consent. She also reportedly had difficulty following directions on which doorway to take- She was advised to make a left and had difficulty deciding which way to go. Additionally, patient has been estranged from her family. She does live with her friend who she likes however, she did present here today with RCT. She did have a suitcase, a backpack and a trash bag- further cause for concern. Discussed this in detail with case management. With their involvement we canceled the procedure. They have reached out to the patient's primary as well as are reaching out to Adult Protective Services. Patient will require continued close monitoring. (2) Charcot joint of left foot: Status: Acute Subjective Subjective Interval history since last seen: Patient was seen in preop holding. She stated that she is here to have her foot fixed. Denies any redness swelling drainage or odor from the wound no pain reported to the left first MPJ. Exam Extrem Other: Left lower extremity noted to be dry. No erythema or edema. Mild malodor open ulceration noted. No aggressive features. Very well adhered eschar without any erythema, edema, drainage or odor. No pain reported Objective Last Vital Signs Temp 97.3 F L 07/08/25 11:24 Pulse 83 07/08/25 11:24 Resp 20 07/08/25 11:24 BP 140/67 07/08/25 11:24 Pulse Ox 99 07/08/25 11:24 VTE Prohylaxis Risk Level: Moderate/High Risk Contraindications: Other Prophylaxis: Patient ambulatory Time Spent with Patient Time Spent with Patient: >50 minutes Time was spent: preparing to see the patient(eg.review tests), obtaining and/or reviewing separately otained hiistory, ordering medications,tests, procedures, referring, communicating with other health hospice care transitions coordinator, indepentently interpreting results, counseling the patient and care coordination
--- NOTE | 2025-07-08 15:41 | DSU.FORM ---
07/08/2025 Patient arrived tp Day Surgery very confused. Patient case postponed related to her confusion. Please see note by Cathy in Care Management.
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
== END 2025-07-08 10:42 | disposition home or self-care (01) ==
LOC: SUR 10:42
PROVIDERS: PCP Family Medicine; Visit Provider Podiatrist
DX: Z53.8 Procedure and treatment not carried out for other reasons (principal); F03.90 Unspecified dementia, unspecified severity, without behavioral disturbance, psychotic disturbance, mood disturbance, and anxiety; L97.521 Non-pressure chronic ulcer of other part of left foot limited to breakdown of skin; M14.672 Charcot's joint, left ankle and foot